=== PATIENT | male | born 1960 | race Two or more races ===

== ENCOUNTER → 2017-11-23 | Outpatient (CLI) | payer OTHER, MEDICAID ==
[~2017-11-23] VITALS: Ht 170.2 cm; Wt 99.8 kg
[~2017-11-23] MED LIST: ADENOSINE 84 MG in GIVE UN-DILUTED 0 ML IV ONE; ADENOSINE 90 MG/30 ML INJ IV ONE
== END | disposition home or self-care (01) ==
LOC: Rad HDHVI 08:06
PROVIDERS: ATTEND Internal Medicine
DX: I25.119 Atherosclerotic heart disease of native coronary artery with unspecified angina pectoris (principal); I10 Essential (primary) hypertension; E78.5 Hyperlipidemia, unspecified; E11.9 Type 2 diabetes mellitus without complications; I73.9 Peripheral vascular disease, unspecified; Z95.9 Presence of cardiac and vascular implant and graft, unspecified; Z98.61 Coronary angioplasty status
CPT/HCPCS: 78452; 93005; 93306; 93926; 96374; 96375; A9500; J0153

== ENCOUNTER → 2019-09-25 | Outpatient (CLI) | payer OTHER, MEDICAID ==
[~2019-09-25] VITALS: Ht 170.2 cm; Wt 104.3 kg
[~2019-09-25] MED LIST changes: -ADENOSINE 84 MG in GIVE UN-DILUTED 0 ML IV ONE; +ADENOSINE 88 MG in GIVE UN-DILUTED 0 ML IV ONE; +cloNIDine HCL 0.1 MG TAB ONE
== END | disposition home or self-care (01) ==
LOC: Rad HDHVI 12:41
PROVIDERS: ATTEND Internal Medicine
DX: I25.10 Atherosclerotic heart disease of native coronary artery without angina pectoris (principal); I10 Essential (primary) hypertension; I25.2 Old myocardial infarction; E78.00 Pure hypercholesterolemia, unspecified; E11.9 Type 2 diabetes mellitus without complications; R07.89 Other chest pain; R06.02 Shortness of breath; R42 Dizziness and giddiness; Z95.5 Presence of coronary angioplasty implant and graft; Z82.49 Family history of ischemic heart disease and other diseases of the circulatory system
CPT/HCPCS: 78452; 93005; 96374; 96375; A9500; J0153

== ENCOUNTER → 2019-10-03 | Outpatient (CLI) | payer OTHER, MEDICAID | END | disposition home or self-care (01) | LOC: Rad HDHVI 07:57 | PROVIDERS: ATTEND Internal Medicine | DX: I11.0 Hypertensive heart disease with heart failure (principal); I50.9 Heart failure, unspecified; I42.9 Cardiomyopathy, unspecified | CPT/HCPCS: 93306 ==

== ENCOUNTER → 2020-09-26 | Outpatient (CLI) | payer OTHER, MEDICAID | END | disposition home or self-care (01) | LOC: Rad HDHVI 08:54 | PROVIDERS: ATTEND Internal Medicine | DX: I08.0 Rheumatic disorders of both mitral and aortic valves (principal); I42.9 Cardiomyopathy, unspecified; I10 Essential (primary) hypertension | CPT/HCPCS: 93306 ==

== ENCOUNTER 2020-12-20 18:16 | Inpatient (IN) | payer OTHER, MEDICAID ==
[~2020-12-20] VITALS: Ht 170.2 cm; Wt 108.5 kg
[2020-12-20 18:58] LABS: Basophils # (auto) 0 10 ^3/uL (0-0.2); Basophils % (auto) 0.3 % (0.0-2.0); Eosinophils # (auto) 0.1 10 ^3/uL (0-0.8); Eosinophils % (auto) 1.4 % (0.0-7.0); Hematocrit 42.5 % (41.0-53.0); Hemoglobin 14.6 g/dL (13.5-17.5); Lymphocytes # (auto) 1.3 10 ^3/uL (0.4-5.4); Lymphocytes % (auto) 15.6 % (10.0-50.0); Mean Corpuscular Hemoglobin 31.1 pg (28.0-32.0); Mean Corpuscular Hgb Conc. 34.4 g/dL (32.0-36.0); Mean Corpuscular Volume 90.4 fL (80.0-100.0); Monocytes # (auto) 1.1 10 ^3/uL (0-1.3); Monocytes % (auto) 12.9 % (0.0-12.0); Neutrophils # (auto) 5.9 10 ^3/uL (1.6-8.6); Neutrophils % (auto) 69.8 % (37.0-80.0); Nucleated Red Blood Cells % 0.1 %; Red Cell Distribution Width 13.9 % (11.8-14.3); White Blood Cell 8.4 10^3/uL (4.4-10.8)
[2020-12-20 19:15] LABS: Albumin 2.8 g/dL (3.4-5.0); Potassium 4.7 mmol/L (3.5-5.1)
[2020-12-20 19:20] LABS: BUN/Creatinine Ratio 12.2; Bilirubin, Total 0.1 mg/dL (0.2-1.0); Total Protein 6.8 g/dL (6.4-8.2)
[2020-12-20] MEDS ORDERED: ASPirin 81 mg TAB PO ONE (20:00)
[2020-12-20] MEDS ORDERED: ONDANSETRON HCL 4 MG/2 ML VIAL IV ONE (20:00)
[2020-12-20] MEDS ORDERED: MORPHINE SULFATE 4 MG/ML SYR/VIAL IV ONE (20:00)
[2020-12-20] MEDS ORDERED: ONDANSETRON HCL 4 MG/2 ML VIAL ONE (20:25)
[2020-12-20] MEDS ORDERED: MORPHINE SULFATE INJECTION 2 MG/ML SYRG IV PRN ×2 (22:30)
[2020-12-20] MEDS ORDERED: ONDANSETRON HCL 4 MG/2 ML VIAL IV PRN (22:30)
[2020-12-20] MEDS ORDERED: NITROGLYCERIN 0.4 MG SL TAB SL PRN (22:30)
[2020-12-20] MEDS ORDERED: ACETAMINOPHEN 325 MG TAB PO PRN (22:30)
[2020-12-20] MEDS ORDERED: DOCUSATE SOD 100 MG CAP PO PRN (22:30)
[2020-12-20] MEDS ORDERED: DEXTROSE (50%) 50ML SYRG IV PRN (22:30)
[2020-12-20] MEDS: hydrALAZINE HCL 20 MG/ML VL IV PRN (22:39)
[2020-12-21] VITALS (7 sets, daily range): BP systolic 135–167; BP diastolic 65–77
[2020-12-21] MEDS ORDERED: BACL10TA PO (02:04)
[2020-12-21] MEDS ORDERED: ESOM40CA39 PO (02:04)
[2020-12-21] MEDS ORDERED: BUME2TAB5 PO (02:04)
[2020-12-21] MEDS ORDERED: ALLO100T PO (02:04)
[2020-12-21] MEDS ORDERED: SACU1TAB7 PO (02:04)
[2020-12-21] MEDS ORDERED: HYDR-4069 PO (02:04)
[2020-12-21] MEDS ORDERED: TERA5CAP42 PO (02:04)
[2020-12-21] MEDS ORDERED: IBUP800T27 PO (02:04)
[2020-12-21] MEDS ORDERED: INSU70IN3 SC (02:04)
[2020-12-21] MEDS: SODIUM CHLOR 0.9% PF (SALINE LOCK) 10ML VIAL/SYR IV SCH ×3 (05:55→22:02)
[2020-12-21 06:37] LABS: Basophils # (auto) 0 10 ^3/uL (0-0.2); Basophils % (auto) 0.4 % (0.0-2.0); Eosinophils # (auto) 0.2 10 ^3/uL (0-0.8); Eosinophils % (auto) 2.4 % (0.0-7.0); Hematocrit 41.3 % (41.0-53.0); Hemoglobin 14.1 g/dL (13.5-17.5); Lymphocytes # (auto) 1.8 10 ^3/uL (0.4-5.4); Lymphocytes % (auto) 21.6 % (10.0-50.0); Mean Corpuscular Hemoglobin 30.9 pg (28.0-32.0); Mean Corpuscular Volume 90.8 fL (80.0-100.0); Monocytes % (auto) 12.8 % (0.0-12.0); Neutrophils # (auto) 5.1 10 ^3/uL (1.6-8.6); Neutrophils % (auto) 62.8 % (37.0-80.0); Red Blood Cells 4.55 10^6/uL (4.5-5.90); Red Cell Distribution Width 14.1 % (11.8-14.3); White Blood Cell 8.1 10^3/uL (4.4-10.8)
[2020-12-21] MEDS: ACCU-CHEK COMFORT CURVE STRIP VI SCH ×4 (06:39→22:02)
[2020-12-21] MEDS: InsuLIN REG 1unit/0.01ml Soln (100units/ml) SC SCH ×4 (06:39→22:16)
[2020-12-21 07:03] LABS: Albumin 2.7 g/dL (3.4-5.0); Potassium 4.7 mmol/L (3.5-5.1)
[2020-12-21 07:07] LABS: BUN/Creatinine Ratio 12.6; Bilirubin, Total 0.2 mg/dL (0.2-1.0); Total Protein 6.5 g/dL (6.4-8.2)
[2020-12-21] MEDS: FAMOTIDINE (10MG/ML) 2ML VL IV SCH ×2 (09:58→22:02)
[2020-12-21] MEDS ORDERED: ASPirin 81 mg TAB PO SCH (10:00)
[2020-12-21] MEDS: hydrALAZINE HCL 20 MG/ML VL IV PRN (12:03)
[2020-12-21] MEDS ORDERED: METOPROLOL TARTRATE 25 MG TAB PO ONE (13:00)
[2020-12-21] MEDS ORDERED: DEXTROSE (50%) 50ML SYRG IV PRN (13:00)
[2020-12-21] MEDS: SOD CHL 0.45% 1,000 ML IV SCH ×2 (14:00→22:01)
[2020-12-21] MEDS ORDERED: InsuLIN REG 1unit/0.01ml Soln (100units/ml) SC SCH (22:00)
[2020-12-21] MEDS: ATORVASTATIN 20 MG TAB PO SCH (22:01)
[2020-12-21] MEDS: METOPROLOL TARTRATE 25 MG TAB PO SCH (22:02)
[2020-12-21 22:30] LABS: Urine Bacteria FEW /hpf (None Seen); Urine Blood TRACE /uL (Negative); Urine Hyaline Cast FEW /lpf (0 - 2); Urine Specific Gravity 1.019 (1.001-1.035); Urine WBC 12 /hpf (0 - 3)
[2020-12-21 22:57] LABS: Protein, Urine 450.7 mg/dL (0.0-11.9)
[2020-12-22 05:00] VITALS: BP 132/76
[2020-12-22] MEDS: SOD CHL 0.45% 1,000 ML IV SCH ×2 (05:37→19:45)
[2020-12-22] MEDS: SODIUM CHLOR 0.9% PF (SALINE LOCK) 10ML VIAL/SYR IV SCH ×3 (05:37→22:04)
[2020-12-22 05:43] LABS: Basophils # (auto) 0 10 ^3/uL (0-0.2); Basophils % (auto) 0.5 % (0.0-2.0); Eosinophils # (auto) 0.2 10 ^3/uL (0-0.8); Hematocrit 41.9 % (41.0-53.0); Hemoglobin 13.7 g/dL (13.5-17.5); Lymphocytes # (auto) 1.8 10 ^3/uL (0.4-5.4); Lymphocytes % (auto) 20.1 % (10.0-50.0); Mean Corpuscular Hemoglobin 29.9 pg (28.0-32.0); Mean Corpuscular Hgb Conc. 32.8 g/dL (32.0-36.0); Mean Corpuscular Volume 91.2 fL (80.0-100.0); Monocytes # (auto) 0.9 10 ^3/uL (0-1.3); Monocytes % (auto) 10.7 % (0.0-12.0); Neutrophils # (auto) 5.8 10 ^3/uL (1.6-8.6); Neutrophils % (auto) 66.7 % (37.0-80.0); Nucleated Red Blood Cells % 0.1 %; Red Blood Cells 4.59 10^6/uL (4.5-5.90); Red Cell Distribution Width 14.5 % (11.8-14.3); White Blood Cell 8.8 10^3/uL (4.4-10.8)
[2020-12-22] MEDS: ACCU-CHEK COMFORT CURVE STRIP VI SCH ×4 (06:02→22:05)
[2020-12-22 06:10] LABS: Calcium 7.9 mg/dL (8.5-10.1); Magnesium 2.1 mg/dL (1.6-2.6); Phosphorus 3.8 mg/dL (2.5-4.90)
[2020-12-22] MEDS: InsuLIN REG 1unit/0.01ml Soln (100units/ml) SC SCH ×4 (06:22→22:11)
[2020-12-22 08:26] VITALS: BP 137/68
[2020-12-22] MEDS: FAMOTIDINE (10MG/ML) 2ML VL IV SCH ×2 (09:58→22:01)
[2020-12-22] MEDS: METOPROLOL TARTRATE 25 MG TAB PO SCH ×2 (09:59→22:02)
[2020-12-22] MEDS: ASPirin 81 mg TAB PO SCH (09:59)
[2020-12-22 12:48] VITALS: BP 146/85
[2020-12-22 16:19] LABS: Urine Bacteria MOD /hpf (None Seen); Urine Blood 1+ /uL (Negative); Urine Mucus FEW (None Seen); Urine Specific Gravity 1.009 (1.001-1.035); Urine WBC 1 /hpf (0 - 3)
[2020-12-22 16:53] VITALS: BP 160/72
[2020-12-22] MEDS: hydrALAZINE HCL 20 MG/ML VL IV PRN (17:50)
[2020-12-22 22:00] VITALS: BP 147/73
[2020-12-22] MEDS: ATORVASTATIN 20 MG TAB PO SCH (22:02)
[2020-12-23 05:00] VITALS: BP 154/75
[2020-12-23] MEDS: SODIUM CHLOR 0.9% PF (SALINE LOCK) 10ML VIAL/SYR IV SCH ×2 (06:01→13:49)
[2020-12-23] MEDS: ACCU-CHEK COMFORT CURVE STRIP VI SCH ×4 (06:01→22:00)
[2020-12-23] MEDS: SOD CHL 0.45% 1,000 ML IV SCH ×2 (06:02→15:45)
[2020-12-23] MEDS: InsuLIN REG 1unit/0.01ml Soln (100units/ml) SC SCH ×4 (06:12→20:30)
[2020-12-23 08:16] LABS: Basophils # (auto) 0 10 ^3/uL (0-0.2); Basophils % (auto) 0.4 % (0.0-2.0); Eosinophils # (auto) 0.1 10 ^3/uL (0-0.8); Eosinophils % (auto) 1.3 % (0.0-7.0); Hematocrit 42.5 % (41.0-53.0); Hemoglobin 14.4 g/dL (13.5-17.5); Lymphocytes # (auto) 1.6 10 ^3/uL (0.4-5.4); Lymphocytes % (auto) 18.5 % (10.0-50.0); Mean Corpuscular Hemoglobin 30.5 pg (28.0-32.0); Mean Corpuscular Hgb Conc. 33.9 g/dL (32.0-36.0); Mean Corpuscular Volume 89.9 fL (80.0-100.0); Monocytes # (auto) 0.8 10 ^3/uL (0-1.3); Monocytes % (auto) 9.3 % (0.0-12.0); Neutrophils # (auto) 6.2 10 ^3/uL (1.6-8.6); Neutrophils % (auto) 70.5 % (37.0-80.0); Red Blood Cells 4.73 10^6/uL (4.5-5.90); Red Cell Distribution Width 13.6 % (11.8-14.3); White Blood Cell 8.8 10^3/uL (4.4-10.8)
[2020-12-23 08:29] LABS: INR 1.1 (0.9-1.15)
[2020-12-23 08:32] LABS: BUN/Creatinine Ratio 14.2; Calcium 8.1 mg/dL (8.5-10.1); Phosphorus 3.1 mg/dL (2.5-4.90); Potassium 5.3 mmol/L (3.5-5.1)
[2020-12-23 09:00] VITALS: BP 165/70
[2020-12-23] MEDS: METOPROLOL TARTRATE 25 MG TAB PO SCH ×2 (09:38→21:07)
[2020-12-23] MEDS: ASPirin 81 mg TAB PO SCH (09:38)
[2020-12-23] MEDS: FAMOTIDINE (10MG/ML) 2ML VL IV SCH ×2 (09:38→21:06)
[2020-12-23] MEDS ORDERED: ENOXAPARIN SOD 100 MG/1 ML SYRINGE SC ONE (10:45)
[2020-12-23] MEDS: hydrALAZINE HCL 20 MG/ML VL IV PRN (11:00)
[2020-12-23] MEDS ORDERED: ENOXAPARIN SOD 120 MG/0.8 ML SYRINGE SC ONE (11:15)
[2020-12-23] MEDS ORDERED: SODIUM ZIRCONIUM CYCL 10 GM PAK PO ONE (12:30)
[2020-12-23] MEDS ORDERED: ERGOCALCIFEROL 50,000 UNIT(1.25MG) CAP PO SCH (12:30)
[2020-12-23 13:00] VITALS: BP 150/63
[2020-12-23] MEDS: HYDROcodone-ACET 5/325MG TAB PO PRN (16:09)
[2020-12-23 17:00] VITALS: BP 148/72
[2020-12-23 20:00] VITALS: BP 156/82
[2020-12-23] MEDS: hydrALAZINE HCL 25 MG TAB PO SCH (21:08)
[2020-12-23] MEDS: ATORVASTATIN 20 MG TAB PO SCH (21:08)
[2020-12-23 22:00] VITALS: BP 168/77
[2020-12-24] VITALS (8 sets, daily range): BP systolic 140–164; BP diastolic 60–89
[2020-12-24] MEDS: SOD CHL 0.45% 1,000 ML IV SCH ×3 (01:45→21:45)
[2020-12-24 05:14] LABS: Basophils # (auto) 0 10 ^3/uL (0-0.2); Basophils % (auto) 0.5 % (0.0-2.0); Eosinophils # (auto) 0.1 10 ^3/uL (0-0.8); Eosinophils % (auto) 1.6 % (0.0-7.0); Hemoglobin 14.6 g/dL (13.5-17.5); Lymphocytes # (auto) 1.8 10 ^3/uL (0.4-5.4); Lymphocytes % (auto) 22.1 % (10.0-50.0); Mean Corpuscular Hemoglobin 30.8 pg (28.0-32.0); Mean Corpuscular Hgb Conc. 33.9 g/dL (32.0-36.0); Mean Corpuscular Volume 90.7 fL (80.0-100.0); Monocytes # (auto) 0.9 10 ^3/uL (0-1.3); Monocytes % (auto) 10.7 % (0.0-12.0); Neutrophils # (auto) 5.2 10 ^3/uL (1.6-8.6); Neutrophils % (auto) 65.1 % (37.0-80.0); Nucleated Red Blood Cells % 0.1 %; Red Blood Cells 4.74 10^6/uL (4.5-5.90); Red Cell Distribution Width 13.8 % (11.8-14.3)
[2020-12-24 05:24] LABS: INR 1.05 (0.9-1.15); Partial Thromboplastin Time 31.8 sec (23.0-31.2)
[2020-12-24 05:29] LABS: BUN/Creatinine Ratio 13.6; Calcium 8.2 mg/dL (8.5-10.1); Magnesium 2.1 mg/dL (1.6-2.6); Potassium 5.2 mmol/L (3.5-5.1)
[2020-12-24] MEDS: hydrALAZINE HCL 25 MG TAB PO SCH ×4 (06:00→22:23)
[2020-12-24] MEDS: SODIUM CHLOR 0.9% PF (SALINE LOCK) 10ML VIAL/SYR IV SCH ×4 (06:05→21:41)
[2020-12-24] MEDS: InsuLIN REG 1unit/0.01ml Soln (100units/ml) SC SCH ×4 (06:06→21:38)
[2020-12-24] MEDS: ACCU-CHEK COMFORT CURVE STRIP VI SCH ×4 (06:07→21:36)
[2020-12-24] MEDS ORDERED: ACETYLCYSTEINE ORAL for CIN 20%(200MG/ML) 4ML PO ONE (08:00)
[2020-12-24] MEDS: METOPROLOL TARTRATE 25 MG TAB PO SCH ×2 (09:46→22:24)
[2020-12-24] MEDS: ASPirin 81 mg TAB PO SCH (09:46)
[2020-12-24] MEDS: CHOLECALCIFEROL (VITD3) 2,000 UNIT CAP/TAB PO SCH (09:46)
[2020-12-24] MEDS: FAMOTIDINE (10MG/ML) 2ML VL IV SCH ×2 (09:47→22:23)
[2020-12-24] MEDS ORDERED: ENOXAPARIN SOD 120 MG/0.8 ML SYRINGE SC SCH (10:00)
[2020-12-24] MEDS ORDERED: LIDOCAINE 2%HCL (LOCAL ANESTH.) INJ 20ML MDV ONE (11:57)
[2020-12-24] MEDS ORDERED: VERAPAMIL 2.5MG/ML INJ 2ML VIAL IV ONE (12:07)
[2020-12-24] MEDS ORDERED: HEPARIN SODIUM (PORCINE) 5000 UNITS/ML 1ML VIAL ONE (12:07)
[2020-12-24] MEDS ORDERED: ANGIOMAX 250 MG VIAL IV ONE (12:07)
[2020-12-24] MEDS ORDERED: MIDAZOLAM HCL 2MG/2ML 2ml VIAL (1mg/ml) ONE ×2 (12:08→13:40)
[2020-12-24] MEDS ORDERED: fentaNYL CITRATE 100 MCG/2 ML VL ONE (12:08)
[2020-12-24] MEDS ORDERED: SODIUM CHL 0.9% 50 ML ONE (12:08)
[2020-12-24] MEDS ORDERED: hydrALAZINE HCL 20 MG/ML VL ONE (12:58)
[2020-12-24] MEDS ORDERED: ADENOSINE 90 MG/30 ML INJ IV ONE (13:23)
[2020-12-24] MEDS ORDERED: NITROGLYCERIN 0.4MG/DOSE SPRAY 4.9GM ONE (13:39)
[2020-12-24] MEDS: SODIUM ZIRCONIUM CYCL 10 GM PAK PO SCH (17:06)
[2020-12-24] MEDS: HYDROcodone-ACET 5/325MG TAB PO PRN (20:34)
[2020-12-24] MEDS: ATORVASTATIN 20 MG TAB PO SCH (22:23)
[2020-12-24] MEDS: ACETYLCYSTEINE ORAL for CIN 20%(200MG/ML) 4ML PO SCH (22:40)
[2020-12-25 05:00] VITALS: BP 156/73
[2020-12-25] MEDS: ACCU-CHEK COMFORT CURVE STRIP VI SCH ×4 (06:12→21:24)
[2020-12-25] MEDS: SODIUM CHLOR 0.9% PF (SALINE LOCK) 10ML VIAL/SYR IV SCH ×3 (06:12→21:38)
[2020-12-25] MEDS: InsuLIN REG 1unit/0.01ml Soln (100units/ml) SC SCH ×3 (06:13→17:51)
[2020-12-25] MEDS: hydrALAZINE HCL 25 MG TAB PO SCH ×3 (06:16→23:26)
[2020-12-25] MEDS: SOD CHL 0.45% 1,000 ML IV SCH (07:41)
[2020-12-25 09:00] VITALS: BP 151/62
[2020-12-25] MEDS: SODIUM ZIRCONIUM CYCL 10 GM PAK PO SCH ×2 (10:00→13:58)
[2020-12-25] MEDS: FAMOTIDINE (10MG/ML) 2ML VL IV SCH ×2 (10:11→23:26)
[2020-12-25] MEDS: ASPirin 81 mg TAB PO SCH (10:11)
[2020-12-25] MEDS: METOPROLOL TARTRATE 25 MG TAB PO SCH ×2 (10:12→23:27)
[2020-12-25] MEDS: ACETYLCYSTEINE ORAL for CIN 20%(200MG/ML) 4ML PO SCH ×2 (10:12→23:27)
[2020-12-25] MEDS: CHOLECALCIFEROL (VITD3) 2,000 UNIT CAP/TAB PO SCH (10:12)
[2020-12-25 13:00] VITALS: BP 142/62
[2020-12-25 13:37] LABS: BUN/Creatinine Ratio 13.1; Potassium 5.5 mmol/L (3.5-5.1)
[2020-12-25] MEDS: SODIUM CHLORIDE 0.9% 1,000 ML IV SCH (14:39)
[2020-12-25] MEDS ORDERED: FUROSEMIDE 40 MG/4 ML VIAL IV ONE (16:00)
[2020-12-25 16:49] VITALS: BP 148/70
[2020-12-25 21:55] VITALS: BP 180/79
[2020-12-25] MEDS ORDERED: InsuLIN REG 1unit/0.01ml Soln (100units/ml) SC SCH (22:00)
[2020-12-25] MEDS ORDERED: INSULIN LANTUS (GLARGINE) 1 /0.01ml (100units/ml) SC SCH (22:00)
[2020-12-25] MEDS ORDERED: SODIUM ZIRCONIUM CYCL 10 GM PAK PO ONE (22:00)
[2020-12-25] MEDS: ATORVASTATIN 20 MG TAB PO SCH (23:26)
[2020-12-26] MEDS: hydrALAZINE HCL 20 MG/ML VL IV PRN (00:50)
[2020-12-26 04:53] VITALS: BP 148/64
[2020-12-26] MEDS: SODIUM CHLOR 0.9% PF (SALINE LOCK) 10ML VIAL/SYR IV SCH ×2 (05:36→14:00)
[2020-12-26] MEDS: hydrALAZINE HCL 25 MG TAB PO SCH (05:37)
[2020-12-26] MEDS: ACCU-CHEK COMFORT CURVE STRIP VI SCH ×2 (06:16→11:45)
[2020-12-26 06:33] LABS: Basophils # (auto) 0.1 10 ^3/uL (0-0.2); Basophils % (auto) 0.7 % (0.0-2.0); Eosinophils # (auto) 0.1 10 ^3/uL (0-0.8); Eosinophils % (auto) 1.3 % (0.0-7.0); Hematocrit 41.3 % (41.0-53.0); Hemoglobin 13.9 g/dL (13.5-17.5); Lymphocytes # (auto) 1.8 10 ^3/uL (0.4-5.4); Lymphocytes % (auto) 16.9 % (10.0-50.0); Mean Corpuscular Hemoglobin 30.6 pg (28.0-32.0); Mean Corpuscular Hgb Conc. 33.8 g/dL (32.0-36.0); Mean Corpuscular Volume 90.6 fL (80.0-100.0); Monocytes % (auto) 9.3 % (0.0-12.0); Neutrophils # (auto) 7.5 10 ^3/uL (1.6-8.6); Neutrophils % (auto) 71.8 % (37.0-80.0); Nucleated Red Blood Cells % 0.1 %; Red Blood Cells 4.55 10^6/uL (4.5-5.90); Red Cell Distribution Width 13.9 % (11.8-14.3); White Blood Cell 10.4 10^3/uL (4.4-10.8)
[2020-12-26] MEDS: InsuLIN REG 1unit/0.01ml Soln (100units/ml) SC SCH ×2 (06:38→11:30)
[2020-12-26 06:51] LABS: BUN/Creatinine Ratio 13.7; Magnesium 2.2 mg/dL (1.6-2.6); Potassium 4.8 mmol/L (3.5-5.1)
[2020-12-26 09:00] VITALS: BP 157/54
[2020-12-26] MEDS: METOPROLOL TARTRATE 25 MG TAB PO SCH (10:00)
[2020-12-26] MEDS: FAMOTIDINE (10MG/ML) 2ML VL IV SCH (10:00)
[2020-12-26] MEDS: ASPirin 81 mg TAB PO SCH (10:00)
[2020-12-26] MEDS: CHOLECALCIFEROL (VITD3) 2,000 UNIT CAP/TAB PO SCH (10:00)
[2020-12-26] MEDS: SODIUM CHLORIDE 0.9% 1,000 ML IV SCH ×2 (10:00)
[2020-12-26] MEDS ORDERED: MET25T PO (11:43)
[2020-12-26] MEDS ORDERED: ASPI-378 PO (11:43)
[2020-12-26] MEDS ORDERED: CHOL20007 PO (11:43)
[2020-12-26] MEDS ORDERED: HYDR25TA87 PO (11:43)
[2020-12-26] MEDS ORDERED: ATOR20TA50 PO (11:43)
[2020-12-26] MEDS: SODIUM ZIRCONIUM CYCL 10 GM PAK PO SCH (12:06)
[2020-12-26 12:35] VITALS: BP 159/71
[2020-12-26 13:00] VITALS: BP 159/71
== END 2020-12-26 14:05 | disposition home or self-care (01) | DRG 250 ==
LOC: ER 18:16 → TELE-CENTR 22:22
PROVIDERS: ADMIT Nurse Practitioner Family; ATTEND Family Medicine
PROC: 02703ZZ Dilation of Coronary Artery, One Artery, Percutaneous Approach (ICD-10-PCS; principal; 2020-12-24)
PROC: 4A023N7 Measurement of Cardiac Sampling and Pressure, Left Heart, Percutaneous Approach (ICD-10-PCS; 2020-12-24)
PROC: B211YZZ Fluoroscopy of Multiple Coronary Arteries using Other Contrast (ICD-10-PCS; 2020-12-24)
PROC: 4A033BC Measurement of Arterial Pressure, Coronary, Percutaneous Approach (ICD-10-PCS; 2020-12-24)
DX: I21.4 Non-ST elevation (NSTEMI) myocardial infarction (principal); N17.0 Acute kidney failure with tubular necrosis; I50.43 Acute on chronic combined systolic (congestive) and diastolic (congestive) heart failure; N18.4 Chronic kidney disease, stage 4 (severe); I13.0 Hypertensive heart and chronic kidney disease with heart failure and stage 1 through stage 4 chronic kidney disease, or unspecified chronic kidney disease; Z20.822 Contact with and (suspected) exposure to COVID-19; I25.10 Atherosclerotic heart disease of native coronary artery without angina pectoris; E87.5 Hyperkalemia; E11.65 Type 2 diabetes mellitus with hyperglycemia; E66.01 Morbid (severe) obesity due to excess calories; M10.9 Gout, unspecified; N40.0 Benign prostatic hyperplasia without lower urinary tract symptoms; E55.9 Vitamin D deficiency, unspecified; I70.0 Atherosclerosis of aorta; E78.5 Hyperlipidemia, unspecified; F17.210 Nicotine dependence, cigarettes, uncomplicated; E11.22 Type 2 diabetes mellitus with diabetic chronic kidney disease; I25.2 Old myocardial infarction; Z80.0 Family history of malignant neoplasm of digestive organs; Z83.3 Family history of diabetes mellitus; Z95.5 Presence of coronary angioplasty implant and graft; Z79.4 Long term (current) use of insulin; Z68.37 Body mass index [BMI] 37.0-37.9, adult; Z79.899 Other long term (current) drug therapy
CPT/HCPCS: 36415; 71046; 76775; 80048; 80053; 80061; 81001; 82306; 82570; 82962; 83036; 83735; 84100; 84156; 84300; 84484; 85025; 85610; 85730; 86850; 86900; 86901; 87426; 92920; 93005; 93458; 93571; 96374; 96375; 99152; 99153; 99291; C1887; G0378; J0153; J1815; J2250; J2405; J3490

== ENCOUNTER 2021-06-19 15:59 | Emergency (ER) | payer MEDICARE, MEDICAID ==
[~2021-06-19] VITALS: Ht 170.2 cm; Wt 108.9 kg
[~2021-06-19 15:59] MED LIST changes: -ADENOSINE 88 MG in GIVE UN-DILUTED 0 ML IV ONE; -ADENOSINE 90 MG/30 ML INJ IV ONE; +ALLO100T PO; +ASPI-378 PO; +ATOR20TA50 PO; +BACL10TA PO; +BUME2TAB5 PO; +ESOM40CA39 PO; +HYDR-4069 PO; +HYDR25TA87 PO; +INSU70IN3 SC; +MET25T PO; +TERA5CAP42 PO; -cloNIDine HCL 0.1 MG TAB ONE
[2021-06-19 16:32] LABS: Urine Bacteria NONE SEEN /hpf (None Seen); Urine Blood 2+ /uL (Negative); Urine Specific Gravity 1.013 (1.001-1.035); Urine WBC 2 /hpf (0 - 3)
[2021-06-19 16:55] LABS: Basophils # (auto) 0.1 10 ^3/uL (0-0.2); Basophils % (auto) 0.6 % (0.0-2.0); Eosinophils # (auto) 0.2 10 ^3/uL (0-0.8); Eosinophils % (auto) 1.9 % (0.0-7.0); Hematocrit 40.7 % (41.0-53.0); Hemoglobin 13.1 g/dL (13.5-17.5); Lymphocytes # (auto) 1.3 10 ^3/uL (0.4-5.4); Lymphocytes % (auto) 11.3 % (10.0-50.0); Mean Corpuscular Hemoglobin 29.5 pg (28.0-32.0); Mean Corpuscular Hgb Conc. 32.2 g/dL (32.0-36.0); Mean Corpuscular Volume 91.5 fL (80.0-100.0); Monocytes # (auto) 1.1 10 ^3/uL (0-1.3); Monocytes % (auto) 9.7 % (0.0-12.0); Neutrophils # (auto) 8.8 10 ^3/uL (1.6-8.6); Neutrophils % (auto) 76.5 % (37.0-80.0); Red Blood Cells 4.45 10^6/uL (4.5-5.90); Red Cell Distribution Width 13.9 % (11.8-14.3); White Blood Cell 11.5 10^3/uL (4.4-10.8)
[2021-06-19 18:31] LABS: Calcium 8.1 mg/dL (8.5-10.1); Potassium 5.3 mmol/L (3.5-5.1)
[2021-06-19 18:34] LABS: BUN/Creatinine Ratio 19.5; Bilirubin, Total 0.3 mg/dL (0.2-1.0); Total Protein 6.8 g/dL (6.4-8.2)
[2021-06-19 20:45] VITALS: BP 192/79
[2021-06-19] MEDS ORDERED: OXYCODONE W/ ACETAMINOPHEN 5/325MG TABLET PO ONE (20:45)
[2021-06-19] MEDS ORDERED: PERCOT PO (20:54)
[2021-06-19] MEDS ORDERED: CIPR-173 PO (20:54)
[2021-06-19] MEDS ORDERED: TAM04C PO (20:54)
[2021-06-19] MEDS ORDERED: KETOROLAC TROMETH 30 MG/ML 1ML VIAL IM ONE (21:00)
== END 2021-06-19 21:30 | disposition home or self-care (01) ==
LOC: ER 15:59
DX: N20.9 Urinary calculus, unspecified (principal); E11.22 Type 2 diabetes mellitus with diabetic chronic kidney disease; I13.0 Hypertensive heart and chronic kidney disease with heart failure and stage 1 through stage 4 chronic kidney disease, or unspecified chronic kidney disease; N18.9 Chronic kidney disease, unspecified; I50.89 Other heart failure; Z20.822 Contact with and (suspected) exposure to COVID-19
CPT/HCPCS: 36415; 74176; 80053; 81001; 83690; 85025; 87426; 96372; 99284; J1885

== ENCOUNTER → 2022-03-04 | Outpatient (CLI) | payer MEDICARE, MEDICAID ==
[~2022-03-04] MED LIST changes: +AMLO-496 PO; +CAR125T PO; +CIPR-173 PO; +CLO3P TD; +DILT60TA PO; +ISO60SRT PO; +LABE200T7 PO; +PERCOT PO; +SODI650T PO; +TAM04C PO
== END | disposition home or self-care (01) ==
LOC: Rad HDHVI 10:42
PROVIDERS: ATTEND Internal Medicine
DX: I65.23 Occlusion and stenosis of bilateral carotid arteries (principal); I73.9 Peripheral vascular disease, unspecified; I10 Essential (primary) hypertension
CPT/HCPCS: 93880

== ENCOUNTER 2022-03-19 16:39 | Inpatient (IN) | payer MEDICARE, MEDICAID ==
[~2022-03-19] VITALS: Ht 170.2 cm; Wt 106.0 kg
[~2022-03-19 16:39] MED LIST changes: -AMLO-496 PO; -CAR125T PO; -CLO3P TD; -DILT60TA PO; -ISO60SRT PO; -LABE200T7 PO; -SODI650T PO
[2022-03-19] MEDS ORDERED: MECLIZINE HCL 25 MG TAB PO ONE (19:15)
[2022-03-19 19:34] LABS: Basophils # (auto) 0 10 ^3/uL (0-0.2); Basophils % (auto) 0.6 % (0.0-2.0); Eosinophils # (auto) 0.2 10 ^3/uL (0-0.8); Eosinophils % (auto) 2.3 % (0.0-7.0); Hematocrit 36.1 % (41.0-53.0); Hemoglobin 11.3 g/dL (13.5-17.5); Lymphocytes # (auto) 1.2 10 ^3/uL (0.4-5.4); Mean Corpuscular Hemoglobin 28.8 pg (28.0-32.0); Mean Corpuscular Hgb Conc. 31.3 g/dL (32.0-36.0); Monocytes # (auto) 0.9 10 ^3/uL (0-1.3); Monocytes % (auto) 10.2 % (0.0-12.0); Neutrophils # (auto) 6.3 10 ^3/uL (1.6-8.6); Neutrophils % (auto) 72.9 % (37.0-80.0); Red Blood Cells 3.92 10^6/uL (4.5-5.90); Red Cell Distribution Width 14.9 % (11.8-14.3); White Blood Cell 8.6 10^3/uL (4.4-10.8)
[2022-03-19 19:54] LABS: Albumin 3.1 g/dL (3.4-5.0); Calcium 8.2 mg/dL (8.5-10.1); Magnesium 2.2 mg/dL (1.6-2.6)
[2022-03-19 19:58] LABS: BUN/Creatinine Ratio 14.5; Bilirubin, Total 0.4 mg/dL (0.2-1.0); Total Protein 6.9 g/dL (6.4-8.2)
[2022-03-19 20:23] LABS: Potassium 6.2 mmol/L (3.5-5.1)
[2022-03-19] MEDS ORDERED: CALCIUM GLUC 1,000mg/50ml-NS 50 ML IV ONE (21:00)
[2022-03-19] MEDS ORDERED: SODIUM BICARBONATE 8.4 % INJ 50ML VIAL IV ONE (21:00)
[2022-03-19] MEDS ORDERED: InsuLIN REG 1unit/0.01ml Soln (100units/ml) IV ONE (21:00)
[2022-03-19] MEDS ORDERED: SODIUM BICARBONATE 8.4% INJ 50ML SYRINGE ONE (22:21)
[2022-03-19] MEDS ORDERED: SODIUM ZIRCONIUM CYCL 10 GM PAK PO ONE (23:15)
[2022-03-20] MEDS ORDERED: DEXTROSE (50%) 50ML SYRG IV PRN (01:00)
[2022-03-20] MEDS ORDERED: DOCUSATE SOD 100 MG CAP PO PRN (01:00)
[2022-03-20] MEDS ORDERED: MORPHINE SULFATE INJ 2 MG/ml SYRG IV PRN ×2 (01:00)
[2022-03-20] MEDS ORDERED: HYDROcodone-ACET 5/325MG TAB PO PRN (01:00)
[2022-03-20] MEDS ORDERED: ONDANSETRON HCL 4 MG/2 ML VIAL IV PRN (01:00)
[2022-03-20] MEDS ORDERED: NITROGLYCERIN 0.4 MG SL TAB SL PRN (01:00)
[2022-03-20] MEDS ORDERED: amLODIPine BESYLATE 5 MG TAB PO ONE (01:00)
[2022-03-20] MEDS ORDERED: ACETAMINOPHEN 325 MG TAB PO PRN (01:00)
[2022-03-20] MEDS ORDERED: FUROSEMIDE 20 MG/2 ML VIAL IV ONE (01:15)
[2022-03-20] MEDS: hydrALAZINE HCL 20 MG/ML VL IV PRN ×2 (01:22→20:29)
[2022-03-20 02:54] LABS: Urine Bacteria FEW /hpf (None Seen); Urine Blood 1+ /uL (Negative); Urine Specific Gravity 1.012 (1.001-1.035); Urine WBC 13 /hpf (0 - 3)
[2022-03-20 05:00] VITALS: BP 166/74
[2022-03-20] MEDS ORDERED: LABE200T7 PO (05:30)
[2022-03-20] MEDS ORDERED: DILT60TA PO (05:30)
[2022-03-20] MEDS ORDERED: SODI650T PO (05:30)
[2022-03-20] MEDS: SODIUM CHLOR 0.9% PF (SALINE LOCK) 10ML VIAL/SYR IV SCH ×3 (05:50→21:50)
[2022-03-20] MEDS: ACCU-CHEK COMFORT CURVE STRIP VI SCH ×5 (05:55→21:57)
[2022-03-20] MEDS: InsuLIN REG 1unit/0.01ml Soln (100units/ml) SC SCH ×5 (05:59→22:07)
[2022-03-20] MEDS: FUROSEMIDE 20 MG/2 ML VIAL IV SCH (08:21)
[2022-03-20] MEDS: ASPirin 81 mg TAB PO SCH (08:21)
[2022-03-20] MEDS: FAMOTIDINE (10MG/ML) 2ML VL IV SCH ×2 (08:21→21:41)
[2022-03-20] MEDS: amLODIPine BESYLATE 5 MG TAB PO SCH (08:22)
[2022-03-20] MEDS: HEPARIN SODIUM (PORCINE) 5000 UNITS/ML 1ML VIAL SC SCH ×2 (08:31→21:49)
[2022-03-20 09:00] VITALS: BP 167/66
[2022-03-20] MEDS ORDERED: CARVEDILOL 3.125 MG TAB PO SCH (10:00)
[2022-03-20 10:27] LABS: Basophils # (auto) 0.1 10 ^3/uL (0-0.2); Basophils % (auto) 0.7 % (0.0-2.0); Eosinophils # (auto) 0.2 10 ^3/uL (0-0.8); Eosinophils % (auto) 2.4 % (0.0-7.0); Hematocrit 34.3 % (41.0-53.0); Hemoglobin 10.9 g/dL (13.5-17.5); Lymphocytes # (auto) 0.7 10 ^3/uL (0.4-5.4); Lymphocytes % (auto) 8.8 % (10.0-50.0); Mean Corpuscular Hemoglobin 28.7 pg (28.0-32.0); Mean Corpuscular Hgb Conc. 31.6 g/dL (32.0-36.0); Mean Corpuscular Volume 90.8 fL (80.0-100.0); Monocytes # (auto) 0.7 10 ^3/uL (0-1.3); Neutrophils # (auto) 6.5 10 ^3/uL (1.6-8.6); Neutrophils % (auto) 80.1 % (37.0-80.0); Red Blood Cells 3.78 10^6/uL (4.5-5.90); Red Cell Distribution Width 14.7 % (11.8-14.3); White Blood Cell 8.2 10^3/uL (4.4-10.8)
[2022-03-20 10:32] LABS: Albumin 2.8 g/dL (3.4-5.0); Calcium 8.2 mg/dL (8.5-10.1)
[2022-03-20 10:39] LABS: BUN/Creatinine Ratio 15.6; Bilirubin, Total 0.5 mg/dL (0.2-1.0); Total Protein 6.9 g/dL (6.4-8.2)
[2022-03-20 10:43] LABS: Potassium 5.6 mmol/L (3.5-5.1)
[2022-03-20] MEDS ORDERED: ISOSORBIDE MONONITRATE ER 60 MG TAB PO ONE (11:45)
[2022-03-20] MEDS ORDERED: CALCIUM GLUC 1,000mg/50ml-NS 50 ML IV ONE (12:30)
[2022-03-20] MEDS ORDERED: SODIUM BICARBONATE 8.4 % INJ 50ML VIAL IV ONE (12:30)
[2022-03-20 13:00] VITALS: BP 168/65
[2022-03-20 17:00] VITALS: BP 163/62
[2022-03-20 20:00] VITALS: BP 159/61
[2022-03-20] MEDS: CARVEDILOL 12.5 MG TAB PO SCH (21:43)
[2022-03-20 22:00] VITALS: BP 159/61
[2022-03-21 04:13] LABS: Basophils # (auto) 0 10 ^3/uL (0-0.2); Basophils % (auto) 0.4 % (0.0-2.0); Eosinophils # (auto) 0.2 10 ^3/uL (0-0.8); Eosinophils % (auto) 2.3 % (0.0-7.0); Hematocrit 31.5 % (41.0-53.0); Hemoglobin 10.4 g/dL (13.5-17.5); Lymphocytes # (auto) 0.9 10 ^3/uL (0.4-5.4); Lymphocytes % (auto) 12.7 % (10.0-50.0); Mean Corpuscular Hemoglobin 29.4 pg (28.0-32.0); Mean Corpuscular Hgb Conc. 32.9 g/dL (32.0-36.0); Mean Corpuscular Volume 89.4 fL (80.0-100.0); Monocytes # (auto) 0.9 10 ^3/uL (0-1.3); Monocytes % (auto) 12.7 % (0.0-12.0); Neutrophils # (auto) 5.4 10 ^3/uL (1.6-8.6); Neutrophils % (auto) 71.9 % (37.0-80.0); Red Blood Cells 3.53 10^6/uL (4.5-5.90); Red Cell Distribution Width 14.6 % (11.8-14.3); White Blood Cell 7.5 10^3/uL (4.4-10.8)
[2022-03-21 04:28] LABS: Albumin 2.6 g/dL (3.4-5.0); BUN/Creatinine Ratio 15.2; Bilirubin, Total 0.3 mg/dL (0.2-1.0); Calcium 7.7 mg/dL (8.5-10.1); Total Protein 6.5 g/dL (6.4-8.2)
[2022-03-21 04:57] VITALS: BP 163/71
[2022-03-21] MEDS: SODIUM CHLOR 0.9% PF (SALINE LOCK) 10ML VIAL/SYR IV SCH ×3 (05:44→21:56)
[2022-03-21] MEDS: ACCU-CHEK COMFORT CURVE STRIP VI SCH ×4 (06:47→22:29)
[2022-03-21] MEDS: InsuLIN REG 1unit/0.01ml Soln (100units/ml) SC SCH ×4 (06:49→22:00)
[2022-03-21 08:00] VITALS: BP 130/60
[2022-03-21 09:00] VITALS: BP 163/70
[2022-03-21] MEDS: FUROSEMIDE 20 MG/2 ML VIAL IV SCH (09:45)
[2022-03-21] MEDS: ASPirin 81 mg TAB PO SCH (09:45)
[2022-03-21] MEDS: FAMOTIDINE (10MG/ML) 2ML VL IV SCH (09:45)
[2022-03-21] MEDS: CARVEDILOL 12.5 MG TAB PO SCH ×2 (09:45→21:56)
[2022-03-21] MEDS: amLODIPine BESYLATE 5 MG TAB PO SCH (09:46)
[2022-03-21] MEDS: HEPARIN SODIUM (PORCINE) 5000 UNITS/ML 1ML VIAL SC SCH ×2 (09:47→21:59)
[2022-03-21] MEDS ORDERED: cloNIDine HCL 0.1 MG TAB PO PRN (10:00)
[2022-03-21] MEDS ORDERED: ISOSORBIDE MONONITRATE ER 60 MG TAB PO SCH (10:00)
[2022-03-21 12:00] VITALS: BP 159/59
[2022-03-21] MEDS ORDERED: cloNIDine 0.3 mg/24hr 7DAY PATCH TD SCH (12:00)
[2022-03-21 17:00] VITALS: BP 127/51
[2022-03-21 22:00] VITALS: BP 144/77
[2022-03-22 05:00] VITALS: BP 138/76
[2022-03-22] MEDS: InsuLIN REG 1unit/0.01ml Soln (100units/ml) SC SCH ×2 (06:23→11:30)
[2022-03-22] MEDS: SODIUM CHLOR 0.9% PF (SALINE LOCK) 10ML VIAL/SYR IV SCH (06:25)
[2022-03-22] MEDS: ACCU-CHEK COMFORT CURVE STRIP VI SCH ×2 (06:27→12:19)
[2022-03-22 08:00] VITALS: BP 130/68
[2022-03-22] MEDS: ASPirin 81 mg TAB PO SCH (09:53)
[2022-03-22] MEDS: FUROSEMIDE 20 MG/2 ML VIAL IV SCH (09:53)
[2022-03-22] MEDS: CARVEDILOL 12.5 MG TAB PO SCH (09:54)
[2022-03-22] MEDS: HEPARIN SODIUM (PORCINE) 5000 UNITS/ML 1ML VIAL SC SCH (09:55)
[2022-03-22] MEDS: amLODIPine BESYLATE 5 MG TAB PO SCH (09:55)
[2022-03-22] MEDS ORDERED: ISOSORBIDE MONONITRATE ER 60 MG TAB PO SCH (10:00)
[2022-03-22] MEDS ORDERED: FAMOTIDINE (10MG/ML) 2ML VL IV SCH (10:00)
[2022-03-22] MEDS ORDERED: CAR125T PO (10:20)
[2022-03-22] MEDS ORDERED: AMLO-496 PO (10:20)
[2022-03-22] MEDS ORDERED: ISO60SRT PO (10:20)
[2022-03-22] MEDS ORDERED: CLO3P TD (10:20)
[2022-03-22 11:36] VITALS: BP 151/78
[2022-03-22 12:40] VITALS: BP 114/55
== END 2022-03-22 12:50 | disposition home or self-care (01) | DRG 280 ==
LOC: ER 16:39 → TELE 03-20 00:59 → TELE-EAST 03-20 03:31
PROVIDERS: ADMIT Nurse Practitioner Family; ATTEND Family Medicine
DX: I13.2 Hypertensive heart and chronic kidney disease with heart failure and with stage 5 chronic kidney disease, or end stage renal disease (principal); I50.23 Acute on chronic systolic (congestive) heart failure; I21.A1 Myocardial infarction type 2; N18.5 Chronic kidney disease, stage 5; N17.9 Acute kidney failure, unspecified; D63.8 Anemia in other chronic diseases classified elsewhere; E11.22 Type 2 diabetes mellitus with diabetic chronic kidney disease; E66.01 Morbid (severe) obesity due to excess calories; E78.5 Hyperlipidemia, unspecified; E87.5 Hyperkalemia; I25.10 Atherosclerotic heart disease of native coronary artery without angina pectoris; E11.40 Type 2 diabetes mellitus with diabetic neuropathy, unspecified; E11.65 Type 2 diabetes mellitus with hyperglycemia; M10.9 Gout, unspecified; I95.9 Hypotension, unspecified; R09.89 Other specified symptoms and signs involving the circulatory and respiratory systems; F41.9 Anxiety disorder, unspecified; N40.0 Benign prostatic hyperplasia without lower urinary tract symptoms; Z79.4 Long term (current) use of insulin; I25.2 Old myocardial infarction; Z68.36 Body mass index [BMI] 36.0-36.9, adult; Z95.5 Presence of coronary angioplasty implant and graft; Z80.0 Family history of malignant neoplasm of digestive organs; Z83.3 Family history of diabetes mellitus
CPT/HCPCS: 36415; 70450; 71045; 80053; 81001; 82962; 83036; 83735; 83880; 84484; 85025; 93005; 93306; 96365; 96375; 99291; G0378; J1815; J3490

== ENCOUNTER 2022-12-24 08:45 | Day surgery (SDC) | payer MEDICARE, MEDICAID ==
[2022-12-23 13:48] LABS: Basophils # (auto) 0 10 ^3/uL (0-0.2); Basophils % (auto) 0.4 % (0.0-2.0); Eosinophils # (auto) 0.2 10 ^3/uL (0-0.8); Eosinophils % (auto) 2.1 % (0.0-7.0); Hematocrit 39.3 % (41.0-53.0); Hemoglobin 12.8 g/dL (13.5-17.5); Lymphocytes # (auto) 1.6 10 ^3/uL (0.4-5.4); Lymphocytes % (auto) 19.4 % (10.0-50.0); Mean Corpuscular Hemoglobin 29.3 pg (28.0-32.0); Mean Corpuscular Hgb Conc. 32.6 g/dL (32.0-36.0); Mean Corpuscular Volume 89.7 fL (80.0-100.0); Monocytes # (auto) 0.9 10 ^3/uL (0-1.3); Monocytes % (auto) 10.4 % (0.0-12.0); Neutrophils # (auto) 5.6 10 ^3/uL (1.6-8.6); Neutrophils % (auto) 67.7 % (37.0-80.0); Red Blood Cells 4.38 10^6/uL (4.5-5.90); Red Cell Distribution Width 15.3 % (11.8-14.3); White Blood Cell 8.3 10^3/uL (4.4-10.8)
[2022-12-23 14:05] LABS: INR 1.03 (0.9-1.15); Partial Thromboplastin Time 30.2 sec (24.6-33.4)
[2022-12-23 14:35] LABS: Potassium 4.8 mmol/L (3.5-5.1)
[2022-12-23 15:12] LABS: BUN/Creatinine Ratio 10.9 (10.0-20.0); Calcium 8.3 mg/dL (8.5-10.1)
[~2022-12-24] VITALS: Ht 170.2 cm; Wt 102.1 kg
[~2022-12-24 08:45] MED LIST changes: -ALLO100T PO; +AMLO1TAB23 PO; -ASPI-378 PO; -ATOR20TA50 PO; -BACL10TA PO; +BENZ100C97 PO; -BUME2TAB5 PO; -CIPR-173 PO; +DOXA4TAB83 PO; -ESOM40CA39 PO; +FURO40TA4 PO; -HYDR-4069 PO; +HYDR-4798 PO; -HYDR25TA87 PO; +ISO60SRT PO; +LABE200T7 PO; -MET25T PO; -PERCOT PO; +SACU1TAB7 PO; +SODI650T PO; -TAM04C PO; +TAMS-35 PO; -TERA5CAP42 PO
[2022-12-24] MEDS ORDERED: SODIUM CHL 0.9% 0 ML ONE (13:13)
[2022-12-24] MEDS ORDERED: ANGIOMAX 250 MG VIAL IV ONE (13:13)
[2022-12-24] MEDS ORDERED: MIDAZOLAM HCL 2MG/2ML 2ml VIAL (1mg/ml) ONE (13:13)
[2022-12-24] MEDS ORDERED: fentaNYL CITRATE 100 MCG/2 ML VL ONE (13:13)
[2022-12-24] MEDS ORDERED: LIDOCAINE 2%HCL (LOCAL ANESTH.) INJ 20ML MDV ONE (13:14)
[2022-12-24] MEDS ORDERED: VERAPAMIL 2.5MG/ML INJ 2ML VIAL IV ONE (13:18)
[2022-12-24] MEDS ORDERED: HEPARIN SODIUM (PORCINE) 5000 UNITS/ML 1ML VIAL ONE (13:18)
[2022-12-24] MEDS ORDERED: IOHEXOL 350 MG/ML 500ML BOTTLE IJ ONE (13:29)
[2022-12-24] MEDS ORDERED: IODIXANOL 320MG/ML 100ML BTL IV ONE ×2 (13:35→13:58)
[2022-12-24] MEDS ORDERED: cloNIDine HCL 0.1 MG TAB PO ONE (14:00)
[2022-12-24] MEDS ORDERED: ONDANSETRON HCL 4 MG/2 ML VIAL ONE (14:12)
[2022-12-24 14:13] VITALS: BP 177/74
[2022-12-24 14:28] VITALS: BP 165/70
[2022-12-24 14:43] VITALS: BP 153/76
[2022-12-24 14:58] VITALS: BP 146/77
[2022-12-24 15:13] VITALS: BP 147/73
[2022-12-24 15:43] VITALS: BP 152/86
== END 2022-12-24 16:05 | disposition home or self-care (01) ==
LOC: CATH 08:45
PROVIDERS: ATTEND Internal Medicine Cardiovascular Disease
DX: R07.89 Other chest pain (principal); E11.22 Type 2 diabetes mellitus with diabetic chronic kidney disease; E11.40 Type 2 diabetes mellitus with diabetic neuropathy, unspecified; E11.21 Type 2 diabetes mellitus with diabetic nephropathy; I25.2 Old myocardial infarction; Z87.891 Personal history of nicotine dependence; E11.51 Type 2 diabetes mellitus with diabetic peripheral angiopathy without gangrene; I73.9 Peripheral vascular disease, unspecified; J44.9 Chronic obstructive pulmonary disease, unspecified; I12.0 Hypertensive chronic kidney disease with stage 5 chronic kidney disease or end stage renal disease; N18.6 End stage renal disease; E66.9 Obesity, unspecified
CPT/HCPCS: 36415; 80048; 85025; 85610; 85730; 93458; 93571; C1769; C1887; C1894; J1644; J2250; J2405; J3010; 99152; 99153; Q9967

== ENCOUNTER 2023-06-11 12:12 | Emergency (ER) | payer MEDICARE, MEDICAID ==
[~2023-06-11 12:12] MED LIST changes: +DOXA1TAB28 PO; +ESOM20CA PO; +FERR1TAB17 PO; +FURO1TAB32 PO; +LOSA25TA15 PO; +METO25TA5 PO; +PANT40TA2 PO; +PATI1POW PO; +SODI325T PO; +SUCR1SUS26 PO; +VERI5TAB PO
[2023-06-11] MEDS ORDERED: PIPERACILLIN-TAZOB 3.375GM 100 ML IV ONE (13:15)
[2023-06-11 13:27] LABS: Basophils # (auto) 0.1 10 ^3/uL (0-0.2); Basophils % (auto) 0.5 % (0.0-2.0); Eosinophils # (auto) 0.1 10 ^3/uL (0-0.8); Eosinophils % (auto) 0.8 % (0.0-7.0); Hematocrit 32.6 % (41.0-53.0); Hemoglobin 10.2 g/dL (13.5-17.5); Lymphocytes % (auto) 7.7 % (10.0-50.0); Mean Corpuscular Hemoglobin 28.9 pg (28.0-32.0); Mean Corpuscular Hgb Conc. 31.2 g/dL (32.0-36.0); Mean Corpuscular Volume 92.6 fL (80.0-100.0); Monocytes # (auto) 1.4 10 ^3/uL (0-1.3); Red Blood Cells 3.52 10^6/uL (4.5-5.90); Red Cell Distribution Width 15.5 % (11.8-14.3); White Blood Cell 13.6 10^3/uL (4.4-10.8)
[2023-06-11 13:47] LABS: INR 1.22 (0.9-1.15); Partial Thromboplastin Time 34.7 SEC (24.5-34.5); Prothrombin Time 12.6 sec (9.3-11.8)
[2023-06-11 13:49] LABS: Alanine Aminotransferase 16 U/L (7-40); Albumin 3.8 g/dL (3.2-4.8); Alkaline Phosphatase 93 U/L (46-116); Anion Gap 11 (5-15); Aspartate Aminotransferase 54 U/L (13-40); Blood Urea Nitrogen 51 mg/dL (9-23); Calcium 8.5 mg/dL (8.7-10.4); Carbon Dioxide 27 mmol/L (20-30); Chloride 101 mmol/L (98-107); Glucose 119 mg/dL (74-106); Sodium 139 mmol/L (136-145)
[2023-06-11 13:50] LABS: Bilirubin, Total 0.2 mg/dL (0.2-1.0); Total Protein 6.5 g/dL (5.7-8.2)
[2023-06-11] MEDS ORDERED: ONDANSETRON HCL 4 MG/2 ML VIAL IV ONE (16:15)
[2023-06-11] MEDS ORDERED: MORPHINE SULFATE INJ 2 MG/ml SYRG IV ONE (16:15)
[2023-06-11 17:11] LABS: Urine Bacteria NONE SEEN /hpf (None Seen); Urine Blood 1+ /uL (Negative); Urine Clarity Clear (Clear); Urine Color Yellow (Yellow); Urine Protein, UAD 1+ (Negative); Urine Specific Gravity 1.025 (1.001-1.035); Urine Urobilinogen Normal (Negative); Urine WBC 1 /hpf (0 - 3)
[2023-06-11] MEDS ORDERED: VANCOMYCIN 1GM/250ML 250 ML IV ONE (18:00)
[2023-06-11 19:44] VITALS: PULSE 74; RESP 14; O2SAT 98
[2023-06-11 19:58] VITALS: BP 126/37; TEMP 97.3
[2023-06-11 20:00] VITALS: PULSE 73; RESP 18; O2SAT 96
== END 2023-06-11 20:47 | disposition short-term general hospital (02) ==
LOC: ER 12:12 → EDBD 12:12 → ER 20:47
DX: L03.115 Cellulitis of right lower limb (principal); I73.9 Peripheral vascular disease, unspecified; I13.0 Hypertensive heart and chronic kidney disease with heart failure and stage 1 through stage 4 chronic kidney disease, or unspecified chronic kidney disease; E11.22 Type 2 diabetes mellitus with diabetic chronic kidney disease; N18.9 Chronic kidney disease, unspecified; I50.9 Heart failure, unspecified; I25.2 Old myocardial infarction; E78.5 Hyperlipidemia, unspecified; Z98.890 Other specified postprocedural states; Z87.891 Personal history of nicotine dependence; Z79.899 Other long term (current) drug therapy; Z79.4 Long term (current) use of insulin
CPT/HCPCS: 36415; 71045; 80053; 81001; 83605; 84484; 85025; 85610; 85730; 87040; 93926; 93971; 96365; 96366; 96367; 96375; 99285; J2270; J2405; J2543; J3370

== ENCOUNTER 2023-07-22 01:49 | Inpatient (IN) | payer MEDICARE, MEDICAID ==
[~2023-07-22] VITALS: Ht 142.2 cm; Wt 90.5 kg
[2023-07-22 02:55] VITALS: PULSE 90; RESP 20; O2SAT 90
[2023-07-22] MEDS ORDERED: ONDANSETRON HCL 4 MG/2 ML VIAL IV ONE (03:00)
[2023-07-22 03:04] LABS: Basophils # (auto) 0.1 10 ^3/uL (0-0.2); Basophils % (auto) 0.7 % (0.0-2.0); Eosinophils # (auto) 0.2 10 ^3/uL (0-0.8); Hematocrit 34.6 % (41.0-53.0); Hemoglobin 10.9 g/dL (13.5-17.5); Lymphocytes # (auto) 1.7 10 ^3/uL (0.4-5.4); Lymphocytes % (auto) 20.5 % (10.0-50.0); Mean Corpuscular Hemoglobin 28.9 pg (28.0-32.0); Mean Corpuscular Hgb Conc. 31.5 g/dL (32.0-36.0); Mean Corpuscular Volume 91.9 fL (80.0-100.0); Monocytes # (auto) 0.8 10 ^3/uL (0-1.3); Monocytes % (auto) 10.1 % (0.0-12.0); Neutrophils # (auto) 5.3 10 ^3/uL (1.6-8.6); Neutrophils % (auto) 65.7 % (37.0-80.0); Nucleated Red Blood Cells % 0.1 %; Red Blood Cells 3.76 10^6/uL (4.5-5.90); Red Cell Distribution Width 19.7 % (11.8-14.3); White Blood Cell 8.1 10^3/uL (4.4-10.8)
[2023-07-22 03:19] LABS: INR 1.13 (0.9-1.15); Partial Thromboplastin Time 29.1 SEC (24.5-34.5); Prothrombin Time 11.8 sec (9.3-11.8)
[2023-07-22] MEDS ORDERED: ONDANSETRON HCL 4 MG/2 ML VIAL ONE (03:28)
[2023-07-22 03:54] LABS: Alanine Aminotransferase 18 U/L (7-40); Albumin 3.8 g/dL (3.2-4.8); Alkaline Phosphatase 131 U/L (46-116); Anion Gap 7 (5-15); Aspartate Aminotransferase 24 U/L (13-40); BUN/Creatinine Ratio 5.2 (10.0-20.0); Blood Urea Nitrogen 19 mg/dL (9-23); Calcium 8.6 mg/dL (8.7-10.4); Carbon Dioxide 29 mmol/L (20-30); Chloride 104 mmol/L (98-107); Glucose 156 mg/dL (74-106); Potassium 4.1 mmol/L (3.5-5.1); Sodium 140 mmol/L (136-145)
[2023-07-22 03:55] LABS: Bilirubin, Total 0.3 mg/dL (0.2-1.0); Total Protein 6.8 g/dL (5.7-8.2)
[2023-07-22] MEDS ORDERED: PANTOPRAZOLE 40mg/50ML NS AE 50 ML IV ONE (04:45)
[2023-07-22] MEDS ORDERED: PANTOPRAZOLE 80 MG in SODIUM CHL 0.9% 100 ML IV ONE (04:45)
[2023-07-22] MEDS ORDERED: PANTOPRAZOLE 40 MG/10 ML VIAL INJ IV ONE ×2 (05:12→06:55)
[2023-07-22] MEDS ORDERED: cefTRIAXone 1GM/50ML D5W 50 ML IV ONE (06:30)
[2023-07-22] MEDS ORDERED: cefTRIAXone SOD 1,000 MG VL IM ONE (06:30)
[2023-07-22] MEDS ORDERED: hydrALAZINE HCL 20 MG/ML VL IV ONE (06:30)
[2023-07-22] MEDS ORDERED: hydrALAZINE HCL 20 MG/ML VL ONE (06:56)
[2023-07-22 08:00] VITALS: PULSE 77; RESP 19; O2SAT 97
[2023-07-22] MEDS ORDERED: MORPHINE SULFATE INJ 2 MG/ml SYRG IV PRN (09:15)
[2023-07-22] MEDS ORDERED: DEXTROSE (50%) 50ML SYRG IV PRN (09:15)
[2023-07-22] MEDS ORDERED: DOCUSATE SOD 100 MG CAP PO PRN (09:15)
[2023-07-22] MEDS ORDERED: ONDANSETRON HCL 4 MG/2 ML VIAL IV PRN (09:15)
[2023-07-22] MEDS ORDERED: LOSARTAN POTASSIUM 25 MG TAB PO SCH (10:00)
[2023-07-22] MEDS ORDERED: FUROSEMIDE 40 MG TAB ONE (10:58)
[2023-07-22] MEDS ORDERED: LABETALOL HCL 200 MG TAB ONE (10:58)
[2023-07-22] MEDS ORDERED: amLODIPine BESYLATE 5 MG TAB ONE (10:58)
[2023-07-22] MEDS ORDERED: TAMSULOSIN HYDROCHLORIDE 0.4 MG CAP PO ONE (10:58)
[2023-07-22] MEDS ORDERED: ISOSORBIDE MONONITRATE ER 60 MG TAB PO ONE (10:59)
[2023-07-22] MEDS ORDERED: SUCRALFATE 1 GM/10 ML ORAL SUSP ONE (10:59)
[2023-07-22] MEDS: VERICIGUAT 5 MG PO SCH (11:06)
[2023-07-22] MEDS: SUCRALFATE 1 GM/10 ML ORAL SUSP PO SCH (11:06)
[2023-07-22] MEDS: FERRIC CITRATE 210 MG PO SCH (11:06)
[2023-07-22] MEDS: TAMSULOSIN HYDROCHLORIDE 0.4 MG CAP PO SCH (11:08)
[2023-07-22] MEDS: ISOSORBIDE MONONITRATE ER 60 MG TAB PO SCH (11:08)
[2023-07-22] MEDS: FUROSEMIDE 40 MG TAB PO SCH (11:09)
[2023-07-22] MEDS: amLODIPine BESYLATE 5 MG TAB PO SCH (11:14)
[2023-07-22] MEDS: LABETALOL HCL 200 MG TAB PO SCH (11:15)
[2023-07-22] MEDS ORDERED: GABA-1250 PO (11:32)
[2023-07-22] MEDS ORDERED: ATOR-47 PO (11:32)
[2023-07-22] MEDS ORDERED: ASPI-543 PO (11:32)
[2023-07-22] MEDS ORDERED: RIVA2.5T PO (11:32)
[2023-07-22] MEDS: InsuLIN REG 1unit/0.01ml Soln (100units/ml) SC SCH ×2 (12:00→18:42)
[2023-07-22] MEDS: ACCU-CHEK COMFORT CURVE STRIP VI SCH ×2 (12:23→18:42)
[2023-07-22] MEDS ORDERED: SODIUM CHLORIDE 0.9% 1,000 ML IV ONE (14:30)
[2023-07-22 19:16] LABS: Hematocrit 29.4 % (41.0-53.0); Hemoglobin 9.1 g/dL (13.5-17.5)
[2023-07-22 19:45] VITALS: PULSE 78; RESP 17; O2SAT 94
[2023-07-23] VITALS (7 sets, daily range): BP systolic 126–147; BP diastolic 51–62; PULSE 68–78; RESP 16–21; TEMP 97.9–98.4; O2SAT 92–100
[2023-07-23] MEDS: LABETALOL HCL 200 MG TAB PO SCH ×3 (00:06→22:22)
[2023-07-23] MEDS: PANTOPRAZOLE 40 MG/10 ML VIAL INJ IV SCH ×3 (00:07→22:00)
[2023-07-23] MEDS: SUCRALFATE 1 GM/10 ML ORAL SUSP PO SCH ×3 (00:07→22:21)
[2023-07-23] MEDS: VERICIGUAT 5 MG PO SCH ×3 (00:19→22:00)
[2023-07-23] MEDS: FERRIC CITRATE 210 MG PO SCH ×3 (00:19→22:00)
[2023-07-23] MEDS: ACCU-CHEK COMFORT CURVE STRIP VI SCH ×4 (00:43→17:29)
[2023-07-23 01:01] LABS: Hematocrit 29.2 % (41.0-53.0); Hemoglobin 9.2 g/dL (13.5-17.5)
[2023-07-23] MEDS: InsuLIN REG 1unit/0.01ml Soln (100units/ml) SC SCH ×4 (06:00→17:29)
[2023-07-23] MEDS: cefTRIAXone 1GM/50ML D5W 50 ML IV SCH (09:00)
[2023-07-23] MEDS: amLODIPine BESYLATE 5 MG TAB PO SCH (10:00)
[2023-07-23] MEDS: ISOSORBIDE MONONITRATE ER 60 MG TAB PO SCH (10:00)
[2023-07-23] MEDS ORDERED: SODIUM CHL 0.9% 1000 ML BAG XX ONE (10:00)
[2023-07-23] MEDS: TAMSULOSIN HYDROCHLORIDE 0.4 MG CAP PO SCH (10:00)
[2023-07-23] MEDS: FUROSEMIDE 40 MG TAB PO SCH (10:00)
[2023-07-23] MEDS ORDERED: CATHFLO ACTIVASE (ALTEPLASE) 2 MG VIAL IV ONE (10:30)
[2023-07-23 10:47] LABS: Basophils # (auto) 0 10 ^3/uL (0-0.2); Basophils % (auto) 0.6 % (0.0-2.0); Eosinophils # (auto) 0.3 10 ^3/uL (0-0.8); Eosinophils % (auto) 3.8 % (0.0-7.0); Hematocrit 27.7 % (41.0-53.0); Hemoglobin 8.7 g/dL (13.5-17.5); Lymphocytes # (auto) 1.9 10 ^3/uL (0.4-5.4); Lymphocytes % (auto) 27.9 % (10.0-50.0); Mean Corpuscular Hemoglobin 29.2 pg (28.0-32.0); Mean Corpuscular Hgb Conc. 31.3 g/dL (32.0-36.0); Mean Corpuscular Volume 93.3 fL (80.0-100.0); Monocytes # (auto) 0.6 10 ^3/uL (0-1.3); Neutrophils % (auto) 58.7 % (37.0-80.0); Nucleated Red Blood Cells % 0.1 %; Red Blood Cells 2.96 10^6/uL (4.5-5.90); White Blood Cell 6.8 10^3/uL (4.4-10.8)
[2023-07-23 11:00] LABS: Alanine Aminotransferase 15 U/L (7-40); Albumin 3.3 g/dL (3.2-4.8); Alkaline Phosphatase 108 U/L (46-116); Anion Gap 8 (5-15); Aspartate Aminotransferase 16 U/L (13-40); BUN/Creatinine Ratio 4.8 (10.0-20.0); Bilirubin, Total 0.3 mg/dL (0.2-1.0); Blood Urea Nitrogen 23 mg/dL (9-23); Calcium 8.2 mg/dL (8.5-10.1); Carbon Dioxide 29 mmol/L (20-30); Chloride 104 mmol/L (98-107); Glucose 104 mg/dL (74-106); Potassium 4.2 mmol/L (3.5-5.1); Sodium 141 mmol/L (136-145); Total Protein 5.7 g/dL (5.7-8.2)
[2023-07-23] MEDS: ASPirin 81 mg TAB PO SCH (11:02)
[2023-07-23] MEDS: CLOPIDOGREL BISULFATE 75 MG TAB PO SCH (11:03)
[2023-07-23] MEDS ORDERED: BISACODYL 5 MG EC TAB PO ONE (12:30)
[2023-07-23] MEDS ORDERED: LACTULOSE 20Gm/30ML SOLN PO ONE (12:30)
[2023-07-23] MEDS ORDERED: EPOETIN ALFA-EPBX 10,000 UNIT/1ML VIAL SC ONE (21:00)
[2023-07-23] MEDS: SACUBITRIL-VALSARTAN 24mg/26mg TAB PO SCH (22:21)
[2023-07-23] MEDS: HYDROcodone-ACET 5/325MG TAB PO PRN (22:23)
[2023-07-24 04:50] VITALS: BP 150/61; PULSE 66; RESP 21; TEMP 97.9; O2SAT 99
[2023-07-24] MEDS: InsuLIN REG 1unit/0.01ml Soln (100units/ml) SC SCH ×4 (06:00→17:13)
[2023-07-24] MEDS: ACCU-CHEK COMFORT CURVE STRIP VI SCH ×4 (06:09→17:14)
[2023-07-24] MEDS: EMPAGLIFLOZIN 10 MG TAB PO SCH (06:09)
[2023-07-24 08:00] VITALS: PULSE 70; RESP 19
[2023-07-24] MEDS: SUCRALFATE 1 GM/10 ML ORAL SUSP PO SCH ×2 (08:40→21:39)
[2023-07-24] MEDS: ASPirin 81 mg TAB PO SCH (08:40)
[2023-07-24] MEDS: CLOPIDOGREL BISULFATE 75 MG TAB PO SCH (08:46)
[2023-07-24 09:00] VITALS: BP 150/56; PULSE 71; RESP 18; TEMP 98.4; O2SAT 100
[2023-07-24] MEDS: cefTRIAXone 1GM/50ML D5W 50 ML IV SCH (09:00)
[2023-07-24] MEDS: FERRIC CITRATE 210 MG PO SCH ×2 (09:03→21:39)
[2023-07-24] MEDS: VERICIGUAT 5 MG PO SCH ×2 (09:03→21:40)
[2023-07-24] MEDS: SACUBITRIL-VALSARTAN 24mg/26mg TAB PO SCH ×2 (09:04→21:39)
[2023-07-24] MEDS: PANTOPRAZOLE 40 MG/10 ML VIAL INJ IV SCH ×2 (09:04→21:39)
[2023-07-24] MEDS: ISOSORBIDE MONONITRATE ER 60 MG TAB PO SCH (09:05)
[2023-07-24] MEDS: FUROSEMIDE 40 MG TAB PO SCH (09:05)
[2023-07-24] MEDS: TAMSULOSIN HYDROCHLORIDE 0.4 MG CAP PO SCH (09:05)
[2023-07-24] MEDS: LABETALOL HCL 200 MG TAB PO SCH ×2 (09:05→21:39)
[2023-07-24] MEDS: amLODIPine BESYLATE 5 MG TAB PO SCH (09:06)
[2023-07-24 13:00] VITALS: BP 156/56; PULSE 70; RESP 19; TEMP 98; O2SAT 94
[2023-07-24 13:28] LABS: Eosinophils # (auto) 0.2 10 ^3/uL (0-0.8); Monocytes # (auto) 0.6 10 ^3/uL (0-1.3); Neutrophils # (auto) 3.8 10 ^3/uL (1.6-8.6)
[2023-07-24 13:29] LABS: Basophils # (auto) 0 10 ^3/uL (0-0.2); Basophils % (auto) 0.6 % (0.0-2.0); Eosinophils % (auto) 3.7 % (0.0-7.0); Hematocrit 32.4 % (41.0-53.0); Hemoglobin 10.1 g/dL (13.5-17.5); Lymphocytes # (auto) 1.8 10 ^3/uL (0.4-5.4); Lymphocytes % (auto) 27.6 % (10.0-50.0); Mean Corpuscular Hemoglobin 29.1 pg (28.0-32.0); Mean Corpuscular Hgb Conc. 31.3 g/dL (32.0-36.0); Mean Corpuscular Volume 92.7 fL (80.0-100.0); Monocytes % (auto) 9.1 % (0.0-12.0); Red Blood Cells 3.49 10^6/uL (4.5-5.90); Red Cell Distribution Width 19.4 % (11.8-14.3); White Blood Cell 6.5 10^3/uL (4.4-10.8)
[2023-07-24 14:00] LABS: Chloride 99 mmol/L (98-107); Potassium 4.8 mmol/L (3.5-5.1)
[2023-07-24 14:01] LABS: Anion Gap 10 (5-15); Carbon Dioxide 26 mmol/L (20-30)
[2023-07-24 14:02] LABS: Calcium 8.4 mg/dL (8.5-10.1)
[2023-07-24 14:06] LABS: BUN/Creatinine Ratio 4.9 (10.0-20.0); Blood Urea Nitrogen 26 mg/dL (9-23)
[2023-07-24 14:08] LABS: Glucose 218 mg/dL (74-106); Sodium 135 mmol/L (136-145)
[2023-07-24 17:00] VITALS: BP 154/59; PULSE 76; RESP 19; TEMP 97.7; O2SAT 94
[2023-07-24 22:00] VITALS: BP 157/65; PULSE 73; RESP 16; TEMP 98; O2SAT 94
[2023-07-25 05:00] VITALS: BP 130/75; PULSE 73; RESP 18; TEMP 97.7; O2SAT 92
[2023-07-25] MEDS: InsuLIN REG 1unit/0.01ml Soln (100units/ml) SC SCH ×3 (06:00→12:00)
[2023-07-25] MEDS: ACCU-CHEK COMFORT CURVE STRIP VI SCH ×3 (06:04→12:00)
[2023-07-25] MEDS: EMPAGLIFLOZIN 10 MG TAB PO SCH (06:29)
[2023-07-25 08:00] VITALS: PULSE 74; RESP 17
[2023-07-25 09:00] VITALS: BP 176/66; PULSE 77; RESP 16; TEMP 98.3; O2SAT 93
[2023-07-25] MEDS: cefTRIAXone 1GM/50ML D5W 50 ML IV SCH (09:00)
[2023-07-25] MEDS: HYDROcodone-ACET 5/325MG TAB PO PRN (09:02)
[2023-07-25] MEDS: ISOSORBIDE MONONITRATE ER 60 MG TAB PO SCH (10:00)
[2023-07-25] MEDS: FERRIC CITRATE 210 MG PO SCH (10:00)
[2023-07-25] MEDS: VERICIGUAT 5 MG PO SCH (10:00)
[2023-07-25] MEDS: PANTOPRAZOLE 40 MG/10 ML VIAL INJ IV SCH (10:00)
[2023-07-25] MEDS: amLODIPine BESYLATE 5 MG TAB PO SCH (10:00)
[2023-07-25] MEDS: TAMSULOSIN HYDROCHLORIDE 0.4 MG CAP PO SCH (10:00)
[2023-07-25] MEDS: FUROSEMIDE 40 MG TAB PO SCH (10:00)
[2023-07-25] MEDS: SUCRALFATE 1 GM/10 ML ORAL SUSP PO SCH (10:00)
[2023-07-25] MEDS: LABETALOL HCL 200 MG TAB PO SCH (10:00)
[2023-07-25] MEDS: CLOPIDOGREL BISULFATE 75 MG TAB PO SCH (10:00)
[2023-07-25] MEDS: SACUBITRIL-VALSARTAN 24mg/26mg TAB PO SCH (10:00)
[2023-07-25] MEDS: ASPirin 81 mg TAB PO SCH (10:00)
[2023-07-25] MEDS ORDERED: B-COMPLEX W/ C & FOLIC ACID(NEPHROVITE TAB) PO ONE (15:45)
[2023-07-25 17:00] VITALS: BP 108/60; PULSE 70; RESP 21; TEMP 98.7; O2SAT 93
[2023-07-25] MEDS ORDERED: EPOETIN ALFA-EPBX 10,000 UNIT/1ML VIAL IV ONE (21:00)
[2023-07-26] MEDS ORDERED: Juven Orange Powder PACKET 27.5gm PO SCH (10:00)
== END 2023-07-25 17:00 | DRG 377 ==
LOC: EDBD 01:49 → ER 01:49 → TELE 09:29 → TELE-WESTW 07-23 02:04 → WEST WING 07-23 12:23
PROVIDERS: ADMIT Internal Medicine; ATTEND Internal Medicine
PROC: 5A1D70Z Performance of Urinary Filtration, Intermittent, Less than 6 Hours Per Day (ICD-10-PCS; principal; 2023-07-23)
PROC: 5A1D70Z Performance of Urinary Filtration, Intermittent, Less than 6 Hours Per Day (ICD-10-PCS; 2023-07-24)
DX: K92.2 Gastrointestinal hemorrhage, unspecified (principal); I21.A1 Myocardial infarction type 2; N18.6 End stage renal disease; N30.00 Acute cystitis without hematuria; I13.2 Hypertensive heart and chronic kidney disease with heart failure and with stage 5 chronic kidney disease, or end stage renal disease; Z68.41 Body mass index [BMI] 40.0-44.9, adult; I50.22 Chronic systolic (congestive) heart failure; D63.8 Anemia in other chronic diseases classified elsewhere; E11.65 Type 2 diabetes mellitus with hyperglycemia; I25.10 Atherosclerotic heart disease of native coronary artery without angina pectoris; E11.22 Type 2 diabetes mellitus with diabetic chronic kidney disease; E11.51 Type 2 diabetes mellitus with diabetic peripheral angiopathy without gangrene; I50.9 Heart failure, unspecified; E55.9 Vitamin D deficiency, unspecified; E86.0 Dehydration; E66.9 Obesity, unspecified; Z99.2 Dependence on renal dialysis; Z95.5 Presence of coronary angioplasty implant and graft; Z89.612 Acquired absence of left leg above knee; Z89.611 Acquired absence of right leg above knee; Z89.512 Acquired absence of left leg below knee; Z89.511 Acquired absence of right leg below knee; Z87.891 Personal history of nicotine dependence; Z87.442 Personal history of urinary calculi; Z86.73 Personal history of transient ischemic attack (TIA), and cerebral infarction without residual deficits; Z83.3 Family history of diabetes mellitus; Z80.0 Family history of malignant neoplasm of digestive organs
CPT/HCPCS: 36415; 74177; 80048; 80053; 82010; 82306; 82607; 82962; 83036; 83540; 83550; 83690; 83735; 83880; 84100; 84443; 84484; 85014; 85018; 85025; 85610; 85730; 86850; 86900; 86901; 87081; 87340; 90935; 93005; 96365; 96366; 96372; 96375; 99291; C9113; G0378; J0696; J1642; J2405

== ENCOUNTER 2023-10-04 09:54 | Emergency (ER) | payer MEDICARE, MEDICAID ==
[~2023-10-04] VITALS: Ht 170.2 cm; Wt 81.0 kg
[~2023-10-04 09:54] MED LIST changes: +ASPI-543 PO; +ATOR-47 PO; -DOXA1TAB28 PO; +GABA-1250 PO; +RIVA2.5T PO; -SODI650T PO
[2023-10-04 10:16] VITALS: TEMP 97.6
[2023-10-04 10:22] VITALS: BP 151/68; PULSE 81; RESP 16; O2SAT 99
[2023-10-04 12:16] LABS: Urine Bacteria MANY /hpf (None Seen); Urine Blood 2+ /uL (Negative); Urine Clarity CLOUDY (Clear); Urine Color Yellow (Yellow); Urine Mucus FEW (None Seen); Urine Protein, UAD 3+ (Negative); Urine WBC 4086 /hpf (0 - 3); Urine WBC Clumps PRESENT /hpf (None Seen); Urine pH 6.5 (5.0-8.0)
[2023-10-04 12:25] LABS: Urine Specific Gravity 1.015 (1.001-1.035)
[2023-10-04] MEDS ORDERED: NITR-87 PO (12:55)
[2023-10-04] MEDS: cefTRIAXone SOD 1,000 MG VL IM ONE (13:11)
[2023-10-04] MEDS: LIDOCAINE 1% HCL (LOCAL ANESTH.) INJ 20ML MDV ONE (13:11)
== END 2023-10-04 13:22 | disposition home or self-care (01) ==
LOC: ER 09:54
DX: N39.0 Urinary tract infection, site not specified (principal); I13.0 Hypertensive heart and chronic kidney disease with heart failure and stage 1 through stage 4 chronic kidney disease, or unspecified chronic kidney disease; E11.22 Type 2 diabetes mellitus with diabetic chronic kidney disease; N18.9 Chronic kidney disease, unspecified; I50.9 Heart failure, unspecified; I25.10 Atherosclerotic heart disease of native coronary artery without angina pectoris; I25.2 Old myocardial infarction; E78.5 Hyperlipidemia, unspecified; Z87.891 Personal history of nicotine dependence; Z79.4 Long term (current) use of insulin; Z79.82 Long term (current) use of aspirin; Z79.899 Other long term (current) drug therapy
CPT/HCPCS: 81001; 96372; 99283; J0696; J2001

== ENCOUNTER 2023-12-30 11:13 | Inpatient (IN) | payer MEDICARE, MEDICAID ==
[~2023-12-30] VITALS: Ht 91.4 cm; Wt 83.9 kg
[2023-12-30] MEDS: cefTRIAXone 2GM/50ML D5W 50 ML IV ONE (03:00)
[2023-12-30] MEDS: ACCU-CHEK COMFORT CURVE STRIP VI SCH (03:13)
[2023-12-30] MEDS: SODIUM CHLOR 0.9% PF (SALINE LOCK) 10ML VIAL/SYR IV SCH (03:14)
[~2023-12-30 11:13] MED LIST changes: +LABE200T33 PO; -LABE200T7 PO; +LOSA-533 PO; -LOSA25TA15 PO; +NITR-87 PO
[2023-12-30 13:27] LABS: Alanine Aminotransferase 15 U/L (7-40); Albumin 4.5 g/dL (3.2-4.8); Alkaline Phosphatase 120 U/L (46-116); Anion Gap 7 (5-15); Aspartate Aminotransferase 8 U/L (13-40); BUN/Creatinine Ratio 5.9 (10.0-20.0); Blood Urea Nitrogen 19 mg/dL (9-23); Calcium 9.4 mg/dL (8.7-10.4); Carbon Dioxide 30 mmol/L (20-30); Chloride 97 mmol/L (98-107); Glucose 362 mg/dL (74-106); Lipase 52 U/L (12-53); Potassium 4.6 mmol/L (3.5-5.1); Sodium 134 mmol/L (136-145)
[2023-12-30 13:28] LABS: Basophils # (auto) 0 10 ^3/uL (0-0.2); Basophils % (auto) 0.4 % (0.0-2.0); Bilirubin, Total 0.3 mg/dL (0.2-1.0); Eosinophils # (auto) 0.2 10 ^3/uL (0-0.8); Eosinophils % (auto) 1.9 % (0.0-7.0); Hematocrit 38.1 % (41.0-53.0); Hemoglobin 12.6 g/dL (13.5-17.5); Lymphocytes # (auto) 2.4 10 ^3/uL (0.4-5.4); Lymphocytes % (auto) 23.1 % (10.0-50.0); Mean Corpuscular Hemoglobin 31.5 pg (28.0-32.0); Mean Corpuscular Volume 95.4 fL (80.0-100.0); Monocytes # (auto) 0.8 10 ^3/uL (0-1.3); Monocytes % (auto) 7.2 % (0.0-12.0); Neutrophils # (auto) 7.1 10 ^3/uL (1.6-8.6); Neutrophils % (auto) 67.4 % (37.0-80.0); Nucleated Red Blood Cells % 0.1 %; Red Cell Distribution Width 14.6 % (11.8-14.3); Total Protein 7.9 g/dL (5.7-8.2); White Blood Cell 10.5 10^3/uL (4.4-10.8)
[2023-12-30 13:39] LABS: Lactic Acid w/Reflex 2.8 mmol/L (0.4-2.0)
[2023-12-30 13:52] LABS: INR 1.05 (0.9-1.15); Partial Thromboplastin Time 28.4 SEC (24.5-34.5); Prothrombin Time 11.1 sec (9.3-11.8)
[2023-12-30 16:55] LABS: Urine Bacteria None Seen /hpf (None Seen)
[2023-12-30 17:27] LABS: Urine Blood 3+ /uL (Negative); Urine Clarity Ex.Turbid (Clear); Urine Color Dark-Brown (Yellow); Urine Protein, UAD 2+ (Negative); Urine Specific Gravity 1.026 (1.001-1.035); Urine Urobilinogen Normal (Negative); Urine WBC 1098 /hpf (0 - 3); Urine WBC Clumps PRESENT /hpf (None Seen); Urine pH 5.5 (5.0-9.0)
[2023-12-30] MEDS ORDERED: HYDROcodone-ACET 5/325MG TAB PO PRN (19:00)
[2023-12-30] MEDS ORDERED: MORPHINE SULFATE INJ 2 MG/ml SYRG IV PRN (19:00)
[2023-12-30] MEDS ORDERED: DOCUSATE SOD 100 MG CAP PO PRN (19:00)
[2023-12-30] MEDS ORDERED: ACETAMINOPHEN 325 MG TAB PO PRN (19:00)
[2023-12-30] MEDS ORDERED: NITROGLYCERIN 0.4 MG SL TAB SL PRN (19:00)
[2023-12-30] MEDS ORDERED: DEXTROSE (50%) 50ML SYRG IV PRN (19:30)
[2023-12-31 01:50] VITALS: PULSE 75; RESP 16; O2SAT 93
[2023-12-31] MEDS: cefTRIAXone 1GM/50ML D5W 50 ML IV ONE ×2 (03:11→03:36)
[2023-12-31] MEDS: InsuLIN REG 1unit/0.01ml Soln (100units/ml) SC SCH ×2 (03:38→07:08)
[2023-12-31 05:17] LABS: Basophils # (auto) 0.1 10 ^3/uL (0-0.2); Basophils % (auto) 0.5 % (0.0-2.0); Eosinophils # (auto) 0.2 10 ^3/uL (0-0.8); Eosinophils % (auto) 2.1 % (0.0-7.0); Hematocrit 35.3 % (41.0-53.0); Hemoglobin 11.7 g/dL (13.5-17.5); Lymphocytes # (auto) 3.1 10 ^3/uL (0.4-5.4); Lymphocytes % (auto) 28.5 % (10.0-50.0); Mean Corpuscular Hemoglobin 32.2 pg (28.0-32.0); Mean Corpuscular Hgb Conc. 33.2 g/dL (32.0-36.0); Mean Corpuscular Volume 97.2 fL (80.0-100.0); Monocytes # (auto) 1.2 10 ^3/uL (0-1.3); Monocytes % (auto) 11.1 % (0.0-12.0); Neutrophils # (auto) 6.2 10 ^3/uL (1.6-8.6); Neutrophils % (auto) 57.8 % (37.0-80.0); Nucleated Red Blood Cells % 0.1 %; Red Blood Cells 3.63 10^6/uL (4.5-5.90); Red Cell Distribution Width 14.7 % (11.8-14.3); White Blood Cell 10.8 10^3/uL (4.4-10.8)
[2023-12-31 05:36] LABS: Alanine Aminotransferase 12 U/L (7-40); Alkaline Phosphatase 102 U/L (46-116); Anion Gap 6 (5-15); BUN/Creatinine Ratio 5.1 (10.0-20.0); Blood Urea Nitrogen 23 mg/dL (9-23); Calcium 9.2 mg/dL (8.7-10.4); Carbon Dioxide 27 mmol/L (20-30); Chloride 100 mmol/L (98-107); Sodium 133 mmol/L (136-145)
[2023-12-31 05:37] LABS: Albumin 4.1 g/dL (3.2-4.8); Aspartate Aminotransferase 10 U/L (13-40); Glucose 210 mg/dL (74-106)
[2023-12-31 05:38] LABS: Bilirubin, Total 0.2 mg/dL (0.2-1.0); Total Protein 7.4 g/dL (5.7-8.2)
[2023-12-31] MEDS: cefTRIAXone 1GM/50ML D5W 50 ML IV SCH (09:00)
[2023-12-31] MEDS: SODIUM ZIRCONIUM CYCL 10 GM PAK PO SCH (10:23)
[2023-12-31] MEDS: ASPirin-EC 81 mg tab PO SCH (10:23)
[2023-12-31 17:36] VITALS: BP 143/70; PULSE 67; RESP 17; TEMP 98.4; O2SAT 97
[2023-12-31 17:41] VITALS: PULSE 67; RESP 17; O2SAT 97
[2023-12-31 20:00] VITALS: PULSE 70; PULSE 73; RESP 18; O2SAT 97
[2023-12-31] MEDS: ATORVASTATIN 20 MG TAB PO SCH (21:39)
[2023-12-31 21:50] VITALS: BP 129/55; PULSE 78; RESP 18; TEMP 97.8; O2SAT 97
[2024-01-01] VITALS (9 sets, daily range): BP systolic 107–160; BP diastolic 54–77; PULSE 68–77; RESP 18–20; TEMP 97.7–98.7; O2SAT 91–97
[2024-01-01 06:26] LABS: Chloride 98 mmol/L (98-107); Potassium 5.4 mmol/L (3.5-5.1); Sodium 133 mmol/L (136-145)
[2024-01-01 06:27] LABS: Anion Gap 5 (5-15); Calcium 9.4 mg/dL (8.7-10.4); Carbon Dioxide 30 mmol/L (20-30)
[2024-01-01 06:32] LABS: BUN/Creatinine Ratio 8.4 (10.0-20.0); Glucose 143 mg/dL (74-106)
[2024-01-01 06:34] LABS: Phosphorus 6.2 mg/dL (2.4-5.1)
[2024-01-01 06:36] LABS: Blood Urea Nitrogen 45 mg/dL (9-23)
[2024-01-01] MEDS ORDERED: SODIUM CHL 0.9% 1000 ML BAG XX ONE (07:00)
[2024-01-01] MEDS: METOPROLOL TARTRATE 50 MG TAB PO SCH (09:41)
[2024-01-01] MEDS: SEVELAMER 800 MG TAB PO SCH (18:32)
[2024-01-02 08:05] VITALS: PULSE 76
[2024-01-02 08:30] VITALS: BP 136/71; PULSE 79; RESP 20; TEMP 98.1; O2SAT 96
[2024-01-02 12:30] VITALS: BP 136/53; PULSE 52; RESP 19; TEMP 98; O2SAT 97
[2024-01-02 16:41] VITALS: BP 124/56; PULSE 55; RESP 18; TEMP 97.9; O2SAT 95
[2024-01-02 20:00] VITALS: BP 132/60; PULSE 18; PULSE 59; PULSE 62; RESP 18; TEMP 98; O2SAT 93
[2024-01-02 21:00] VITALS: BP 132/60; PULSE 59; RESP 18; TEMP 98; O2SAT 93
[2024-01-03 05:00] VITALS: BP 138/68; PULSE 55; RESP 18; TEMP 98; O2SAT 92
[2024-01-03 08:05] VITALS: PULSE 52
[2024-01-03] MEDS: ONDANSETRON HCL 4 MG/2 ML VIAL IV PRN (08:17)
[2024-01-03 09:00] VITALS: BP 130/65; PULSE 61; RESP 16; TEMP 98.3; O2SAT 99
[2024-01-03 09:17] LABS: Hepatitis B Surface Antigen Negative (Negative)
[2024-01-03 09:38] LABS: Hepatitis B Core IgM Negative
[2024-01-03 09:39] LABS: Hepatitis C Antibody Negative (Negative)
[2024-01-03] MEDS ORDERED: CIPR-173 PO (10:09)
[2024-01-03 13:00] VITALS: BP 140/51; PULSE 59; RESP 16; TEMP 98.1; O2SAT 95
[2024-01-03 14:41] LABS: Hepatitis A Ab IgM Negative
[2024-01-03 15:31] VITALS: BP 140/51; PULSE 59; RESP 16; TEMP 98.1; O2SAT 95
== END 2024-01-03 16:25 | disposition home or self-care (01) | DRG 871 ==
LOC: ER 11:13 → TELE 20:13 → TELE-E-ADS 12-31 11:05 → TELE-EAST 12-31 17:27
PROVIDERS: ADMIT Nurse Practitioner Family; ATTEND Family Medicine
PROC: 5A1D70Z Performance of Urinary Filtration, Intermittent, Less than 6 Hours Per Day (ICD-10-PCS; principal; 2024-01-01)
DX: A41.9 Sepsis, unspecified organism (principal); N18.6 End stage renal disease; N30.01 Acute cystitis with hematuria; I13.2 Hypertensive heart and chronic kidney disease with heart failure and with stage 5 chronic kidney disease, or end stage renal disease; Z68.45 Body mass index [BMI] 70 or greater, adult; E44.0 Moderate protein-calorie malnutrition; E11.65 Type 2 diabetes mellitus with hyperglycemia; Z99.2 Dependence on renal dialysis; E11.22 Type 2 diabetes mellitus with diabetic chronic kidney disease; E11.51 Type 2 diabetes mellitus with diabetic peripheral angiopathy without gangrene; E78.00 Pure hypercholesterolemia, unspecified; E83.39 Other disorders of phosphorus metabolism; E87.5 Hyperkalemia; I25.10 Atherosclerotic heart disease of native coronary artery without angina pectoris; N40.0 Benign prostatic hyperplasia without lower urinary tract symptoms; I50.9 Heart failure, unspecified; I25.2 Old myocardial infarction; Z83.3 Family history of diabetes mellitus; Z87.891 Personal history of nicotine dependence; Z89.512 Acquired absence of left leg below knee; Z89.511 Acquired absence of right leg below knee; Z80.0 Family history of malignant neoplasm of digestive organs; Z79.4 Long term (current) use of insulin; Z95.5 Presence of coronary angioplasty implant and graft
CPT/HCPCS: 36415; 74176; 76856; 80048; 80053; 80074; 81001; 82306; 82962; 83036; 83605; 83690; 83970; 84100; 84484; 85025; 85610; 85730; 87040; 87086; 90935; G0378; J1642; J1815; J2405

== ENCOUNTER → 2024-03-27 | Outpatient (CLI) | payer MEDICARE, MEDICAID ==
[~2024-03-27] MED LIST changes: -AMLO1TAB23 PO; -ASPI-543 PO; -ATOR-47 PO; -BENZ100C97 PO; +CIPR-173 PO; -DOXA4TAB83 PO; -ESOM20CA PO; -FERR1TAB17 PO; -FURO1TAB32 PO; -FURO40TA4 PO; -GABA-1250 PO; -ISO60SRT PO; -LABE200T33 PO; -LOSA-533 PO; -METO25TA5 PO; -NITR-87 PO; -PANT40TA2 PO; -PATI1POW PO; -RIVA2.5T PO; -SACU1TAB7 PO; -SODI325T PO; -SUCR1SUS26 PO; -TAMS-35 PO; -VERI5TAB PO
== END | disposition home or self-care (01) ==
LOC: Rad HDHVI 09:07
PROVIDERS: ATTEND Internal Medicine Cardiovascular Disease
DX: I82.402 Acute embolism and thrombosis of unspecified deep veins of left lower extremity (principal)
CPT/HCPCS: 93931

== ENCOUNTER 2024-10-30 16:03 | Inpatient (IN) | payer MEDICARE, MEDICAID ==
[~2024-10-30] VITALS: Ht 139.7 cm; Wt 96.9 kg
[~2024-10-30 16:03] MED LIST changes: +AMIT-399 PO; +FLUT50SP EACHNOSTRI
--- NOTE | 2024-10-30 16:26 | ED.PDOC ---
SOB-HPI HPI Comments 64 year old male presents to the ED via EMS presents with a chief complaint of shortness of breath onset today. Per EMS, [facility], when he began experiencing shortness of breath with rhonchi. Upon EMS arrival, patient O2 sat was 80% RA, placed on 2L with O2 91%. Patient was sent by Dr. Zayas for admission. Patient states he has a surgery tomorrow for fistula placement. PMHx CHF, DM, HTN, HLD, CAD, CKF, [place]. Denies chest pain, abdominal pain, nausea, vomiting, diarrhea. No other symptoms or modifying factors present at this time. Chief Complaint: Shortness of Breath Time Seen by MD: 16:08 Primary Care Provider: BONIFACIO Dye notes: Medications, Allergies Information Source: Patient, Emergency Med Personnel Mode of Arrival: EMS Severity: Moderate Timing: Hours Duration: Since onset Context: At Rest PE Risk Factors: None History of: CHF Prehospital treatment: 12 Lead EKG, Oxygen Modifying Factors: Nothing Radiation: No Radiation Past Medical History PAST MEDICAL HISTORY: CAD, CHF, CKF, DM, High Lipids, HTN, [place] Surgical History: BKA, Hernia Repair Surgical History (Other): bilateral amputation Family History Family History: Reviewed,noncontributory to illness, Family hx of DM, Family hx of Cancer Social History Smoker: Quit Less Than 1 Year, Cigarettes Alcohol: Denies ETOH Use Drugs: Denies Drug Use Lives In: Other Constitutional: denies: chills, diaphoresis, fatigue, fever, malaise, sweats, weakness, others EENTM: denies: blurred vision, double vision, ear bleeding, ear discharge, ear drainage, ear pain, ear ringing, eye pain, eye redness, hearing loss, mouth pain, mouth swelling, nasal discharge, nose bleeding, nose congestion, nose pain, photophobia, tearing, throat pain, throat swelling, voice changes, others Respiratory: reports: shortness of breath, others (rhonchi); denies: cough, hemoptysis, orthopnea, SOB at rest, SOB with excertion, stridor, wheezing Cardiovascular: denies: chest pain, dizzy spells, diaphoresis, Dyspnea on exertion, edema, irregular heart beat, left arm pain, lightheadedness, palpitations, PND, syncope, others Gastrointestinal: denies: abdomen distended, abdominal pain, blood streaked bowels, constipated, diarrhea, dysphagia, difficulty swallowing, hematemesis, melena, nausea, poor appetite, poor fluid intake, rectal bleeding, rectal pain, vomiting, others Genitourinary: denies: burning, dysuria, flank pain, frequency, hematuria, incontinence, penile discharge, penile sore, pain, testicle pain, testicle swelling, urgency, others Neurological: denies: dizziness, fainting, headache, left sided numbness, left sided weakness, numbness, paresthesia, pre-existing deficit, right sided numbness, right sided weakness, seizure, speech problems, tingling, tremors, weakness, others Musculoskeletal: denies: back pain, gout, joint pain, joint swelling, muscle pain, muscle stiffness, neck pain, others Integumetry: denies: bruises, change in color, change in hair/nails, dryness, laceration, lesions, lumps, rash, wounds, others Allergic/Immunocompromised: denies: Difficulty Healing, Frequent Infections, Hives, Itching, others Hematologic/Lymphatic: denies: anemia, blood clots, easy bleeding, easy bruising, swollen glands, others Endocrine: denies: excessive hunger, excessive sweating, excessive thirst, excessive urination, flushing, intolerance to cold, intolerance to heat, unexplained weight gain, unexplained weight loss, others Psychiatric: denies: anxiety, bipolar disorder, depression, hopeless, panic disorder, schizophrenia, sleepless, suicidal, others All Other Systems: Reviewed and Negative Physical Exam General Appearance: Moderate Distress, Normal HEENT: Normal ENT Inspection, Pharynx Normal, TMs Normal Neck: Full Range of Motion, Non-Tender, Normal, Normal Inspection Respiratory: Accessory Muscle Use, Chest Non-Tender, Respiratory Distress, Other (Coarse breath sounds) Cardiovascular: No Edema, No JVD, No Murmur, No Gallop, Normal Peripheral Pulses, Regular Rate/Rhythm Breast Exam: Deferred Gastrointestinal: Distended, No Organomegaly, Non Tender, No Pulsatile Mass, Normal Bowel Sounds, Soft Genitalia: Deferred Pelvic: Deferred Rectal: Deferred Extremities: Swelling (Swelling of hand) Musculoskeletal : Apperance: Normal Neurologic: Alert, wrapper stemmer hand II-XII nml as Tested, No Motor Deficits, Normal Affect, Normal Mood, No Sensory Deficits Cerebellar Function: NOT DONE Reflexes: NOT DONE Skin: Dry, Normal Color, Warm Lymphatic: No Adenopathy Was a procedure done? Was a procedure done?: No Differential Dx Differential Diagnosis: Anxiety, Asthma, Bronchitis, CHF, COPD X-Ray, Labs, Meds, VS Vital Signs Date Time Temp Pulse Resp B/P (MAP) Pulse Ox O2 Delivery O2 Flow Rate FiO2 10/30/24 16:54 156/66 10/30/24 16:17 98.4 78 18 150/70 (96) 91 98.4 10/30/24 16:03 82 Lab Test 10/30/24 17:01 10/30/24 16:27 Range/Units Blood Gas Specimen Type Arterial Blood Gas Sample Site Left brachial Blood Gas Patient Temperature 37.0 Arterial Blood Date Drawn [id number] Arterial Blood pH 7.392 7.350-7.450 Arterial Blood Partial Pressure CO2 45.6 35.0-48.0 mmHg Arterial Blood Partial Pressure O2 83.0 83.0-108.0 mmHg Arterial Blood HCO3 27.1 21.0-28.0 mmol/L Arterial Blood Oxygen Saturation 94.9 94.0-98.0 % Arterial Blood Base Excess 1.8 -2.0-3.0 mmol/L Arterial Blood Oxyhemoglobin 93.7 L 94.0-98.0 % Arterial Blood Carboxyhemoglobin 1.1 0.5-1.5 % Arterial Blood Methemoglobin 0.2 0.0-1.5 % Rachid Test N/a Blood Gas Total Hemoglobin 10.10 L 13.5-17.5 g/dL Blood Gas Modality Nasal cannula FiO2 % 28.0 White Blood Count 8.9 4.4-10.8 10^3/uL Red Blood Count 3.25 L 4.5-5.90 10^6/uL Hemoglobin 9.4 L 13.5-17.5 g/dL Hematocrit 30.5 L 41.0-53.0 % Mean Corpuscular Volume 93.9 80.0-100.0 fL Mean Corpuscular Hemoglobin 28.9 28.0-32.0 pg Mean Corpuscular Hemoglobin Concent 30.8 L 32.0-36.0 g/dL Red Cell Distribution Width 17.0 H 11.8-14.3 % Platelet Count 367 140-450 10^3/uL Mean Platelet Volume 7.5 6.9-10.8 fL Neutrophils (%) (Auto) 74.4 37.0-80.0 % Lymphocytes (%) (Auto) 10.5 10.0-50.0 % Monocytes (%) (Auto) 11.1 0.0-12.0 % Eosinophils (%) (Auto) 3.0 0.0-7.0 % Basophils (%) (Auto) 1.0 0.0-2.0 % Neutrophils # (Auto) 6.6 1.6-8.6 10 ^3/uL Lymphocytes # (Auto) 0.9 0.4-5.4 10 ^3/uL Monocytes # (Auto) 1.0 0-1.3 10 ^3/uL Eosinophils # (Auto) 0.3 0-0.8 10 ^3/uL Basophils # (Auto) 0.1 0-0.2 10 ^3/uL Nucleated Red Blood Cells 0.2 % Sodium Level 139 136-145 mmol/L Potassium Level 3.9 3.5-5.1 mmol/L Chloride Level 102 98-107 mmol/L Carbon Dioxide Level 30 20-31 mmol/L Anion Gap 7 5-15 Blood Urea Nitrogen 40 H 9-23 mg/dL Creatinine 5.83 H 0.700-1.30 mg/dL Glomerular Filtration Rate Calc 10 >90 mL/min BUN/Creatinine Ratio 6.9 L 10.0-20.0 Serum Glucose 146 H 74-106 mg/dL Calcium Level 8.1 L 8.7-10.4 mg/dL Troponin I High Sensitivity 541 *H </=54 ng/L B-Type Natriuretic Peptide 874.88 0-100 pg/mL Current Medications Medications (Trade) Dose Ordered Sig/Alexander Route Start Time Stop Time Status Last Admin Furosemide (Lasix Injection) 40 mg ONCE ONCE IV 10/30/24 16:30 10/30/24 16:31 DC 10/30/24 16:54 Patient alert. Placed on oxygen. Swelling of upper extremity. Answering questions. Abdomen is slightly distended. BNP elevated. CHF. Was given Lasix. Will require BiPAP for sleep apnea. Possibly will need dialysis. EKG reviewed does not show any acute changes. Reviewed his history. Explained to the patient. Continue cardiac monitoring. Cardiac marker elevated. Possible pneumonia. Was given Zosyn. Was given azithromycin. Was given Lovenox. Time of 1ST Reevaluation: 16:38 Reevaluation 1ST: Unchanged Patient Education/Counseling: Diagnosis, Treatment, Prognosis Family Education/Counseling: No Family Present Departure 1 Departure Time of Disposition: 16:42 Impression: Primary Impression: CHF (congestive heart failure) Qualified Codes: I50.43 - Acute on chronic combined systolic (congestive) and diastolic (congestive) heart failure Additional Impressions: HTN (hypertension) Qualified Codes: I10 - Essential (primary) hypertension Uncontrolled diabetes mellitus Qualified Codes: E13.65 - Other specified diabetes mellitus with hyperglycem ia Generalized weakness Acute respiratory failure Qualified Codes: J96.01 - Acute respiratory failure with hypoxia Demand ischemia Pneumonia Qualified Codes: J18.9 - Pneumonia, unspecified organism Disposition: ADMITTED INPATIENT Admit to: Med Surg Condition: Guarded Critical Care Note Critical Care Time?: Yes (90 min-critical care time only) Critical care comment: Placed on oxygen continue to monitor will require CPAP Stability Stability form required: No Heart Score Heart Score: Heart Score Response (Comments) Value History Slightly Suspicious 0 EKG Normal 0 Age >65 2 Risk Factors >3 or Hx ASHD 2 Troponin Normal limit 0 Total 4 I personally scribed for JUANITA URIARTE MD ([email or web address]) on 10/30/24 at 16:26. Electronically submitted by Federica Agrawal ([email or web address]). I personally scribed for JUANITA URIARTE MD ([email or web address]) on 10/30/24 at 16:31. Electronically submitted by Federica Agrawal ([email or web address]). JUANITA URIARTE MD Oct 30, 2024 16:26
[2024-10-30 16:44] LABS: Basophils # (auto) 0.1 10 ^3/uL (0-0.2); Lymphocytes # (auto) 0.9 10 ^3/uL (0.4-5.4); Nucleated Red Blood Cells % 0.2 %
[2024-10-30 16:46] LABS: Chloride 102 mmol/L (98-107); Eosinophils # (auto) 0.3 10 ^3/uL (0-0.8); Hematocrit 30.5 % (41.0-53.0); Hemoglobin 9.4 g/dL (13.5-17.5); Lymphocytes % (auto) 10.5 % (10.0-50.0); Mean Corpuscular Hemoglobin 28.9 pg (28.0-32.0); Mean Corpuscular Hgb Conc. 30.8 g/dL (32.0-36.0); Mean Corpuscular Volume 93.9 fL (80.0-100.0); Monocytes % (auto) 11.1 % (0.0-12.0); Neutrophils # (auto) 6.6 10 ^3/uL (1.6-8.6); Neutrophils % (auto) 74.4 % (37.0-80.0); Platelet Count (auto) 367 10^3/uL (140-450); Potassium 3.9 mmol/L (3.5-5.1); Red Blood Cells 3.25 10^6/uL (4.5-5.90); Sodium 139 mmol/L (136-145); White Blood Cell 8.9 10^3/uL (4.4-10.8)
[2024-10-30 16:47] LABS: Anion Gap 7 (5-15); Carbon Dioxide 30 mmol/L (20-31)
[2024-10-30 16:53] LABS: BUN/Creatinine Ratio 6.9 (10.0-20.0)
[2024-10-30 16:54] LABS: Blood Urea Nitrogen 40 mg/dL (9-23); Calcium 8.1 mg/dL (8.7-10.4); Glucose 146 mg/dL (74-106)
[2024-10-30] MEDS: FUROSEMIDE 40 MG/4 ML VIAL IV ONE (16:54)
[2024-10-30 17:06] LABS: Base Excess 1.8 mmol/L (-2.0-3.0)
--- NOTE | 2024-10-30 17:23 | DVH ---
CHEST RADIOGRAPH Indication: sob Technique: Single frontal view of the chest was obtained Comparison: XY CHEST PORTABLE on DOS: 06/11/23, CHEST PORTABLE on DOS: 03/19/22 FINDINGS: Lines and Tubes: None Lungs: Interstitial and alveolar type opacities of bilateral lungs. Indistinctness of the left hemidiaphragm. No pneumothorax. Cardiomediastinal contours: Dmts-[id number]-pibevniu cardiomegaly Bones: No acute osseous abnormality. IMPRESSION: [id number] cardiomegaly with multifocal pneumonia/congestive heart failure. Recommend clinical correlation. Possible trace left-sided pleural effusion.
[2024-10-30] MEDS: ENOXAPARIN SOD 80 MG/0.8ML SYRINGE SC ONE (17:57)
[2024-10-30] MEDS: PIPERACILLIN-TAZOB 3.375GM 100 ML IV ONE (17:57)
[2024-10-30 19:00] VITALS: BP 134/56; PULSE 87; RESP 25; TEMP 98.4; O2SAT 96
[2024-10-30 19:43] LABS: Urine Bacteria MANY /hpf (None Seen); Urine Blood 3+ /uL (Negative); Urine Clarity Ex.Turbid (Clear); Urine Color Light-Brown (Yellow); Urine Mucus FEW (None Seen); Urine Protein, UAD 3+ (Negative); Urine Squamous Epithelial Cell FEW /hpf (<5); Urine Urobilinogen Normal (Negative); Urine WBC 1083 /HPF (0-3); Urine WBC Clumps PRESENT /hpf (None Seen)
[2024-10-30 19:56] VITALS: PULSE 82; RESP 22; O2SAT 96
[2024-10-30] MEDS ORDERED: MORPHINE SULFATE INJ 2 MG/ml SYRG IV PRN (20:00)
[2024-10-30] MEDS ORDERED: NITROGLYCERIN 0.4 MG SL TAB SL PRN (20:00)
[2024-10-30] MEDS ORDERED: ONDANSETRON HCL 4 MG/2 ML VIAL IV PRN (20:15)
[2024-10-30] MEDS: AZITHROMYCIN 500MG/ 250ML 250 ML IV ONE (21:35)
--- NOTE | 2024-10-30 21:54 | DVHHP2 ---
History of Present Illness Reason for Visit: Shortness for breath History of Present Illness 64 year old male presents for evaluation of shortness for breath. Patient presents with a one day history of worsening shortness for breath with a nonproductive cough. Patient is dialysis dependent. Currently denies chest pain or palpitations. No fever or chills. Past Medical History Chronic kidney disease, CHF, CAD, diabetes mellitus, hypertension, mi, dyslipidemia Past Surgical History Hernia repair, bilateral BKA, dialysis access Family History Cancer and diabetes mellitus Smoke: No ALCOHOL: none Drugs: None Lives: with Family Review of Systems Review of Systems Review of systems are currently negative otherwise addressed in HPI. Allergies: Coded Allergies: No Known Drug Allergy (Verified Allergy, Unknown, 11/23/17) Medications Current Medications Medications Dose Ordered Sig/Alexander Route Start Time Stop Time Status Last Admin Dose Admin Nitroglycerin 0.4 mg Q5MINP PRN SL 10/30/24 20:00 Morphine Sulfate 2 mg Q30M PRN IV 10/30/24 20:00 Aspirin 162 mg DAILY PO 10/31/24 10:00 Atorvastatin Calcium 80 mg HS PO 10/30/24 22:00 Sevelamer HCl 800 mg TIDWM PO 10/31/24 08:00 Gabapentin 100 mg TID PO 10/30/24 22:00 UNV Metoprolol Tartrate 50 mg BID PO 10/30/24 22:00 Ceftriaxone Sodium 50 ml @ 100 mls/hr DAILY@09 IV 10/31/24 09:00 Azithromycin 250 ml @ 125 mls/hr DAILY IV 10/31/24 10:00 Diagnostic Test (Pha) 1 strip Q6HR 10/31/24 00:00 Insulin Human Regular Q6HR SC 10/31/24 00:00 Dextrose 50 ml UD PRN IV 10/30/24 20:15 Ondansetron HCl 4 mg Q4HP PRN IV 10/30/24 20:15 Acetaminophen 650 mg Q6HP PRN PO 10/30/24 20:15 Exam Vital Signs Vital Signs Date Time Temp Pulse Resp B/P (MAP) Pulse Ox O2 Delivery O2 Flow Rate FiO2 10/30/24 20:33 98.1 82 22 141/57 (85) 96 98.1 10/30/24 19:56 Nasal Cannula* 2 28 Exam Gen: 64-year-old male in mild distress Skin: Warm, dry, normal color and texture, no rash. HEENT: Normocephalic atraumatic, mucous membranes moist and pink. Neck: Cervical and supraclavicular nodes normal without enlargement, trachea is midline, thyroid gland is normal without masses. Pulmonary: Clear to auscultation and percussion bilaterally. Cardiac: Regular rate and rhythm. No murmur Abdomen: Soft, nontender, nondistended, bowel sounds present all 4 quadrants, no guarding, no rigidity, no organomegaly. Extremities: No cyanosis, clubbing, bilateral BKA Neuro: Cranial nerves II through XII grossly intact, normal affect and speech, no focal motor deficits. Labs/Xrays ORDERING PHYSICIAN: JUANITA URIARTE MD PROCEDURE(s): CXRP - CHEST PORTABLE REASON: sob ORDER NUMBER(s): [id number], ACCESSION NUMBER(s): [id number] CHEST RADIOGRAPH Indication: sob Technique: Single frontal view of the chest was obtained Comparison: XY CHEST PORTABLE on DOS: 06/11/23, CHEST PORTABLE on DOS: 03/19/22 FINDINGS: Lines and Tubes: None Lungs: Interstitial and alveolar type opacities of bilateral lungs. Indistinctness of the left hemidiaphragm. No pneumothorax. Cardiomediastinal contours: Ofaq-gc-qtrgoqje cardiomegaly Bones: No acute osseous abnormality. IMPRESSION: Iymq-gc-jomyevqm cardiomegaly with multifocal pneumonia/congestive heart failure. Recommend clinical correlation. Possible trace left-sided pleural effusion. Labs Test 10/30/24 19:19 10/30/24 17:01 10/30/24 16:27 Range/Units Urine Color Light-brown Yellow Urine Clarity Ex.turbid Clear Urine pH 6.0 5.0-9.0 Urine Specific [place] 1.020 1.001-1.035 Urine Protein 3+ H Negative Urine Ketones Trace Negative Urine Blood 3+ H Negative /uL Urine Nitrite Negative Negative Urine Bilirubin Negative Negative Urine Urobilinogen Normal Negative mg/dL Urine Leukocyte Esterase 3+ Negative /uL Urine RBC 24 0 - 3 /hpf Urine WBC Clumps Present None Seen /hpf Urine Microscopic WBC 1083 H 0-3 /HPF Urine Squamous Epithelial Cells Few <5 /hpf Urine Transitional Epithelial Cells Few <2 /hpf Urine Bacteria Many H None Seen /hpf Urine Mucus Few None Seen Urine Glucose Normal Normal mg/dL Blood Gas Specimen Type Arterial Blood Gas Sample Site Left brachial Blood Gas Patient Temperature 37.0 Arterial Blood Date Drawn [id number] Arterial Blood pH 7.392 7.350-7.450 Arterial Blood Partial Pressure CO2 45.6 35.0-48.0 mmHg Arterial Blood Partial Pressure O2 83.0 83.0-108.0 mmHg Arterial Blood HCO3 27.1 21.0-28.0 mmol/L Arterial Blood Oxygen Saturation 94.9 94.0-98.0 % Arterial Blood Base Excess 1.8 -2.0-3.0 mmol/L Arterial Blood Oxyhemoglobin 93.7 L 94.0-98.0 % Arterial Blood Carboxyhemoglobin 1.1 0.5-1.5 % Arterial Blood Methemoglobin 0.2 0.0-1.5 % Rachid Test N/a Blood Gas Total Hemoglobin 10.10 L 13.5-17.5 g/dL Blood Gas Modality Nasal cannula FiO2 % 28.0 White Blood Count 8.9 4.4-10.8 10^3/uL Red Blood Count 3.25 L 4.5-5.90 10^6/uL Hemoglobin 9.4 L 13.5-17.5 g/dL Hematocrit 30.5 L 41.0-53.0 % Mean Corpuscular Volume 93.9 80.0-100.0 fL Mean Corpuscular Hemoglobin 28.9 28.0-32.0 pg Mean Corpuscular Hemoglobin Concent 30.8 L 32.0-36.0 g/dL Red Cell Distribution Width 17.0 H 11.8-14.3 % Platelet Count 367 140-450 10^3/uL Mean Platelet Volume 7.5 6.9-10.8 fL Neutrophils (%) (Auto) 74.4 37.0-80.0 % Lymphocytes (%) (Auto) 10.5 10.0-50.0 % Monocytes (%) (Auto) 11.1 0.0-12.0 % Eosinophils (%) (Auto) 3.0 0.0-7.0 % Basophils (%) (Auto) 1.0 0.0-2.0 % Neutrophils # (Auto) 6.6 1.6-8.6 10 ^3/uL Lymphocytes # (Auto) 0.9 0.4-5.4 10 ^3/uL Monocytes # (Auto) 1.0 0-1.3 10 ^3/uL Eosinophils # (Auto) 0.3 0-0.8 10 ^3/uL Basophils # (Auto) 0.1 0-0.2 10 ^3/uL Nucleated Red Blood Cells 0.2 % Sodium Level 139 136-145 mmol/L Potassium Level 3.9 3.5-5.1 mmol/L Chloride Level 102 98-107 mmol/L Carbon Dioxide Level 30 20-31 mmol/L Anion Gap 7 5-15 Blood Urea Nitrogen 40 H 9-23 mg/dL Creatinine 5.83 H 0.700-1.30 mg/dL Glomerular Filtration Rate Calc 10 >90 mL/min BUN/Creatinine Ratio 6.9 L 10.0-20.0 Serum Glucose 146 H 74-106 mg/dL Calcium Level 8.1 L 8.7-10.4 mg/dL Troponin I High Sensitivity 541 *H </=54 ng/L B-Type Natriuretic Peptide 874.88 0-100 pg/mL Assessment/Plan Assessment/Plan Assessment Acute on chronic congestive heart failure Possible fluid overload End-stage renal disease, dialysis dependent Multifocal pneumonia Diabetes mellitus Elevated troponin, possible demand ischemia Anemia of chronic disease Bilateral BKA Plan Admit the patient to telemetry to the hospitalist Cardiology consultation Nephrology consultation Resume home medications Continue treatment per orders. Plan discussed with: Patient My Orders Orders - CECILIA MCCULLOUGHCNLove Procedure Category Date Status Time Troponin-I Hs LAB 10/30/24 Logged 19:59 Troponin-I Hs LAB 10/30/24 Logged 20:59 Admit ADMIT 10/30/24 Transmitted 19:59 Nitroglycerin PHA 10/30/24 In Process Sublingual (Ntrostat 20:00 Morphine Sulfate PHA 10/30/24 In Process Injection 20:00 Stat Ekg For Chest PIYUSH 10/30/24 In Process Pain 19:59 Notify Of Changes PIYUSH 10/30/24 In Process From Base 19:59 Analytical Consultant For PIYUSH 10/30/24 In Process 24 Hours 19:59 Emergency Dysrhythmia PIYUSH 10/30/24 In Process Protocol 19:59 Rhythm Strips Once PIYUSH 10/30/24 In Process Every Shift 19:59 Oxygen By Nasal RT 10/30/24 Transmitted Cannula 19:59 Aspirin Tablet PHA 10/31/24 In Process 10:00 Atorvastatin (Lipitor) PHA 10/30/24 In Process 22:00 Sevelamer (Renagel) PHA 10/31/24 In Process 08:00 Gabapentin Capsule PHA 10/30/24 Logged (Neurontin Capsule) 22:00 Metoprolol Tartrate PHA 10/30/24 In Process Tablet (Lopressor Ta 22:00 Ceftriaxone 1gm/50ml PHA 10/31/24 In Process D5w (Rocephin) 09:00 Azithromycin 500mg/ PHA 10/31/24 In Process 250ml (Zithromax 50 10:00 * Cardiology Consult CONS 10/30/24 Transmitted 20:02 *[facility] CONS 10/30/24 Transmitted -[place] 20:02 Basic Metabolic Panel LAB 10/31/24 Verified 04:00 Glucose Blood PHA 10/31/24 In Process (Accu-Chek Comfort 00:00 Insulin R (Human) PHA 10/31/24 In Process (Insulin R) 00:00 Dextrose 50% Syringe PHA 10/30/24 In Process 20:15 Renal DIET 10/31/24 Transmitted Standard(2gna,3gk,Lopho) Breakfast Ondansetron Hcl PHA 10/30/24 In Process (Zofran) 20:15 Echo 2d Mode Cardiac US 10/30/24 Logged DOP 20:02 Condition: Fair PIYUSH 10/30/24 In Process 20:02 Acetaminophen Tablet PHA 10/30/24 In Process (Tylenol Tablet) 20:15 Bedrest With Bathroom PIYUSH 10/30/24 In Process Privileg 20:02 Date of Service: Oct 30, 2024 Billing Provider: CECILIA MCCULLOUGH Common Visit Codes: [id number] INP/OBS CARE (HIGH) CECILIA MCCULLOUGH Oct 30, 2024 21:54
[2024-10-30] MEDS: METOPROLOL TARTRATE 50 MG TAB PO SCH (22:51)
[2024-10-30] MEDS: ATORVASTATIN 20 MG TAB PO SCH (22:51)
[2024-10-30] MEDS: GABAPENTIN 100 MG CAP PO SCH (22:51)
[2024-10-31] VITALS (67 sets, daily range): BP systolic 90–166; BP diastolic 34–98; PULSE 58–77; RESP 9–24; TEMP 98.1–99.1; O2SAT 84–100
[2024-10-31] MEDS: ACCU-CHEK COMFORT CURVE STRIP VI SCH
[2024-10-31] MEDS: InsuLIN REG 1unit/0.01ml Soln (100units/ml) SC SCH
--- NOTE | 2024-10-31 07:15 | ECG ---
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
[2024-10-31] MEDS: HEPARIN SODIUM (PORCINE) 5000 UNITS/ML 1ML VIAL SC SCH (08:39)
[2024-10-31] MEDS: cefTRIAXone 1GM/50ML D5W 50 ML IV SCH (08:40)
[2024-10-31] MEDS: SEVELAMER 800 MG TAB PO SCH (08:40)
[2024-10-31] MEDS: ASPirin 81 mg TAB PO SCH (08:41)
[2024-10-31] MEDS ORDERED: AZITHROMYCIN 500MG/ 250ML 250 ML IV SCH (10:00)
[2024-10-31] MEDS: ETOMIDATE (2MG/ML) 20ML VIAL IV ONE (10:15)
[2024-10-31] MEDS: ROCURONIUM 10MG/ML 10ML VIAL IV ONE (10:15)
[2024-10-31] MEDS: MIDAZOLAM DRIP 50 mg/50mL 50 ML IV ONE (10:16)
[2024-10-31] MEDS: fentaNYL Drip 2500mCg/250mlNS 250 ML IV ONE (10:16)
[2024-10-31] MEDS: NOREPINEPHRINE 8 MG/250ML KIT 250 ML IV ONE (10:16)
--- NOTE | 2024-10-31 10:22 | DVHINCON2 ---
Family History: Diabetes mellitus G8 MOTHER, FH: cancer FH: liver cancer G8 MOTHER, FHx: diabetes mellitus Allergies: Coded Allergies: No Known Drug Allergy (Verified Allergy, Unknown, 11/23/17) Home Meds Active Scripts Ciprofloxacin Hcl (Cipro) 500 Mg Tab, 1 TAB PO BID, #20 TAB Prov:CLARITZA HIGUERA MD 01/03/24 Reported Medications Hydrocodone-Acetaminophen (Hydrocodone Bitartrate/AC 10-325 mg) 1 Tab Tab, 1 TAB PO Q6HPRN PRN for PAIN SCALE 7 THRU 10, TAB 01/20/23 Insulin NPH Isophane & Reg (Hu (Novolin 70/30 (70-30) 100 Unit/ml) 1 Inj Inj, 50 INJ SC BIDAC, INJ 08/10/21 Current Medications Current Medications Medications (Trade) Dose Ordered Sig/Alexander Route PRN Reason Start Time Stop Time Status Last Admin Nitroglycerin (Ntrostat Sublingual) 0.4 mg Q5MINP PRN SL FOR CHEST PAIN 10/30/24 20:00 Morphine Sulfate 2 mg Q30M PRN IV FOR CHEST PAIN 10/30/24 20:00 Aspirin 162 mg DAILY PO 10/31/24 10:00 10/31/24 08:41 Atorvastatin Calcium (Lipitor) 80 mg HS PO 10/30/24 22:00 Sevelamer HCl (Renagel) 800 mg TIDWM PO 10/31/24 08:00 10/31/24 08:40 Gabapentin (Neurontin Capsule) 100 mg TID PO 10/30/24 22:00 10/31/24 05:40 Metoprolol Tartrate (Lopressor Tablet) 50 mg BID PO 10/30/24 22:00 10/31/24 08:41 Ceftriaxone Sodium 50 ml @ 100 mls/hr DAILY@09 IV 10/31/24 09:00 10/31/24 08:40 Azithromycin 250 ml @ 125 mls/hr DAILY IV 10/31/24 10:00 Diagnostic Test (Pha) (Accu-Chek Comfort Curve T) 1 strip Q6HR 10/31/24 00:00 10/31/24 05:44 Insulin Human Regular (InsuLIN R) Q6HR SC 10/31/24 00:00 Dextrose 50 ml UD PRN IV Blood Sugar LESS THAN 60 10/30/24 20:15 Ondansetron HCl (Zofran) 4 mg Q4HP PRN IV NAUSEA / VOMITING 10/30/24 20:15 Acetaminophen (Tylenol Tablet) 650 mg Q6HP PRN PO PAIN SCALE 1-3 OR TEMP>100.4 10/30/24 20:15 Heparin Sodium (Porcine) 5,000 units Q12HR SC 10/31/24 10:00 10/31/24 08:39 Vital Signs Vital Signs Date Time Temp Pulse Resp B/P (MAP) Pulse Ox O2 Delivery O2 Flow Rate FiO2 10/31/24 09:00 98.5 74 24 149/89 (109) 89 98.5 10/31/24 04:05 Nasal Cannula* 3 32 Labs/Diagnostic Data Labs Test 10/31/24 05:42 10/30/24 19:19 10/30/24 17:01 10/30/24 16:27 Range/Units POC Glucose 106 70-106 mg/dl Urine Color Light-brown Yellow Urine Clarity Ex.turbid Clear Urine pH 6.0 5.0-9.0 Urine Specific [place] 1.020 1.001-1.035 Urine Protein 3+ H Negative Urine Ketones Trace Negative Urine Blood 3+ H Negative /uL Urine Nitrite Negative Negative Urine Bilirubin Negative Negative Urine Urobilinogen Normal Negative mg/dL Urine Leukocyte Esterase 3+ Negative /uL Urine RBC 24 0 - 3 /hpf Urine WBC Clumps Present None Seen /hpf Urine Microscopic WBC 1083 H 0-3 /HPF Urine Squamous Epithelial Cells Few <5 /hpf Urine Transitional Epithelial Cells Few <2 /hpf Urine Bacteria Many H None Seen /hpf Urine Mucus Few None Seen Urine Glucose Normal Normal mg/dL Blood Gas Specimen Type Arterial Blood Gas Sample Site Left brachial Blood Gas Patient Temperature 37.0 Arterial Blood Date Drawn [id number] Arterial Blood pH 7.392 7.350-7.450 Arterial Blood Partial Pressure CO2 45.6 35.0-48.0 mmHg Arterial Blood Partial Pressure O2 83.0 83.0-108.0 mmHg Arterial Blood HCO3 27.1 21.0-28.0 mmol/L Arterial Blood Oxygen Saturation 94.9 94.0-98.0 % Arterial Blood Base Excess 1.8 -2.0-3.0 mmol/L Arterial Blood Oxyhemoglobin 93.7 L 94.0-98.0 % Arterial Blood Carboxyhemoglobin 1.1 0.5-1.5 % Arterial Blood Methemoglobin 0.2 0.0-1.5 % Rachid Test N/a Blood Gas Total Hemoglobin 10.10 L 13.5-17.5 g/dL Blood Gas Modality Nasal cannula FiO2 % 28.0 White Blood Count 8.9 4.4-10.8 10^3/uL Red Blood Count 3.25 L 4.5-5.90 10^6/uL Hemoglobin 9.4 L 13.5-17.5 g/dL Hematocrit 30.5 L 41.0-53.0 % Mean Corpuscular Volume 93.9 80.0-100.0 fL Mean Corpuscular Hemoglobin 28.9 28.0-32.0 pg Mean Corpuscular Hemoglobin Concent 30.8 L 32.0-36.0 g/dL Red Cell Distribution Width 17.0 H 11.8-14.3 % Platelet Count 367 140-450 10^3/uL Mean Platelet Volume 7.5 6.9-10.8 fL Neutrophils (%) (Auto) 74.4 37.0-80.0 % Lymphocytes (%) (Auto) 10.5 10.0-50.0 % Monocytes (%) (Auto) 11.1 0.0-12.0 % Eosinophils (%) (Auto) 3.0 0.0-7.0 % Basophils (%) (Auto) 1.0 0.0-2.0 % Neutrophils # (Auto) 6.6 1.6-8.6 10 ^3/uL Lymphocytes # (Auto) 0.9 0.4-5.4 10 ^3/uL Monocytes # (Auto) 1.0 0-1.3 10 ^3/uL Eosinophils # (Auto) 0.3 0-0.8 10 ^3/uL Basophils # (Auto) 0.1 0-0.2 10 ^3/uL Nucleated Red Blood Cells 0.2 % Sodium Level 139 136-145 mmol/L Potassium Level 3.9 3.5-5.1 mmol/L Chloride Level 102 98-107 mmol/L Carbon Dioxide Level 30 20-31 mmol/L Anion Gap 7 5-15 Blood Urea Nitrogen 40 H 9-23 mg/dL Creatinine 5.83 H 0.700-1.30 mg/dL Glomerular Filtration Rate Calc 10 >90 mL/min BUN/Creatinine Ratio 6.9 L 10.0-20.0 Serum Glucose 146 H 74-106 mg/dL Calcium Level 8.1 L 8.7-10.4 mg/dL Troponin I High Sensitivity 541 *H </=54 ng/L B-Type Natriuretic Peptide 874.88 0-100 pg/mL [facility] Oct 31, 2024 10:22
--- NOTE | 2024-10-31 10:38 | DVHPN2 ---
Progress Note Date Seen: Oct 31, 2024 Medical Necessity Reason Pt with a Central, PICC or Fol: Yes The following are medically ne: Martinez Catheter Reason for martinez catheter: Strict I&O Subjective Patient reports: No new complaints Review of Systems: HEENT:Normal, CVS:Normal, RESPIRATORY:Normal, GI:Normal, :Normal, MSK:Normal, NEURO:Normal Objective vital signs Vital Sign Date Time Temp Pulse Resp B/P (MAP) Pulse Ox O2 Delivery O2 Flow Rate FiO2 10/31/24 09:00 98.5 74 24 149/89 (109) 89 98.5 10/31/24 04:05 Nasal Cannula* 3 32 Total Intake and Output 10/30/24 10/30/24 10/31/24 15:00 23:00 07:00 Intake Total 0 ml Output Total 0 ml Balance 0 ml medications Current Medications Medications Dose Ordered Sig/Alexander Route Start Time Stop Time Status Last Admin Dose Admin Nitroglycerin 0.4 mg Q5MINP PRN SL 10/30/24 20:00 Morphine Sulfate 2 mg Q30M PRN IV 10/30/24 20:00 Aspirin 162 mg DAILY PO 10/31/24 10:00 10/31/24 08:41 162 MG Atorvastatin Calcium 80 mg HS PO 10/30/24 22:00 Diagnostic Test (Pha) 1 strip Q6HR 10/31/24 00:00 10/31/24 05:44 1 STRIP Insulin Human Regular Q6HR SC 10/31/24 00:00 Dextrose 50 ml UD PRN IV 10/30/24 20:15 Ondansetron HCl 4 mg Q4HP PRN IV 10/30/24 20:15 Acetaminophen 650 mg Q6HP PRN PO 10/30/24 20:15 Heparin Sodium (Porcine) 5,000 units Q12HR SC 10/31/24 10:00 10/31/24 08:39 5,000 UNITS Pantoprazole Sodium 40 mg DAILY IV 11/01/24 10:00 UNV Examination: GENERAL:Normal, HEENT:Normal, NECK:Normal, LUNGS:Normal, LUNGS:Abnormal (bilateral rales), CVS:Normal, ABDOMEN:Normal, MSK:Normal, MSK:Abnormal (bilateral bka), SKIN:Normal, NEURO:Normal, NEURO:Abnormal (encephalopathy), :Normal laboratory and microbiology Laboratory Tests 10/30/24 16:27 Test 10/30/24 16:27 Range/Units Serum Glucose 146 H 74-106 mg/dL Problem List/Assessment/Plan Problem List/Assessment/Plan #1 acute resp failure: needs emergent intubation #2 acute systolic/diastolic heart failure: dialysis, echo #3 dm: ssi #4 htn' #5 esrd; needs dialysis #6 morbid obesity #7 bilateral bka #8 cad #9 nstemi: cardio eval #10 hyperlipidemia Plan discussed with: Patient My Orders My Orders Orders - CECILIA SOSA MD Procedure Category Date Status Time Chest Xray 1 View XY 10/31/24 Taken 10:21 Ventilator Setup RT 10/31/24 Logged 10:25 Respiratory Culture MATA 10/31/24 Logged W/ Gs 10:25 Abg W/ Co-Ox RT 10/31/24 Logged 11:30 Transfer Orders XFER 10/31/24 Transmitted 10:11 Pantoprazole PHA 10/31/24 Logged (Protonix) 10:15 Pantoprazole PHA 11/01/24 Logged (Protonix) 10:00 Urine Bacterial MATA 10/31/24 Logged Culture 10:11 Place Ng ORDERS 10/31/24 Transmitted 10:11 Complete Blood Count LAB 11/01/24 Verified 06:00 Comprehensive LAB 11/01/24 Verified Metabolic Panel 06:00 Chest Portable XY 11/01/24 Logged 06:00 Abg W/ Co-Ox RT 11/01/24 Logged 06:00 Hemoglobin A1c LAB 11/01/24 Verified 06:00 PTPTT LAB 11/01/24 Verified 04:00 Propofol (Diprivan) PHA 10/31/24 Logged 10:45 Midazolam Drip 50 PHA 10/31/24 Logged Mg/50ml (Versed Drip 5 10:45 Fentanyl Drip PHA 10/31/24 Logged 2500mcg/250mlns 10:45 Rass Sedation Scale PIYUSH 10/31/24 In Process 10:31 Meropenem 500mg PHA 10/31/24 Transmitted Q12h([id number] 22:00 Meropenem 1gm Ivpb X PHA 10/31/24 Transmitted ONE 10:45 Critical Care Time (mins): 64 (critical care time outside of procedures was 64 mins) Date of Service: Oct 31, 2024 Billing Provider: CECILIA SOSA MD Common Visit Codes: [id number] CARE 30-74 MIN CECILIA SOSA MD Oct 31, 2024 10:38
--- NOTE | 2024-10-31 10:39 | DVHNC2 ---
Intubation Indication: Respiratory Insufficiency, Altered Mental Status Prep: Preoxygenation Pretreated with: Sedation Intubation Approach: Orotracheal Intubation size: cm (8) Informed consent obtained: No Risks/benefits/alt described: No Date of Service: Oct 31, 2024 Billing Provider: CECILIA SOSA MD Common Visit Codes: PROCEDURE ONLY Procedure Codes: [id number] CECILIA SOSA MD Oct 31, 2024 10:39
--- NOTE | 2024-10-31 10:47 | DVH ---
EXAM: XY CHEST XRAY 1 VIEW Indication: intubation Technique: Single frontal view of the chest was obtained Comparison: XY CHEST PORTABLE on DOS: 10/30/24, XY CHEST PORTABLE on DOS: 06/11/23, CHEST PORTABLE on DOS: 03/19/22 FINDINGS: Lines and Tubes: Endotracheal tube projects 1.7 cm above the patrick. Lungs: Multifocal consolidative opacities. Pleura: No effusion. No pneumothorax. Cardiomediastinal contours: Cardiomegaly. Bones: No acute osseous abnormality. IMPRESSION: Endotracheal tube projects 1.7 cm above the patrick. Multifocal consolidative opacities.
--- NOTE | 2024-10-31 11:15 | RESUS ---
CODE ASSIST ASSESSSMENT Initial Information Code Assist Date: Oct 31, 2024 Code Assist Time: 10:13 Location of Arrest: Central Room # 212a Provider Name Dr Shaffer Time Notified: 10:13 Crash Cart Opened and Supplies: Yes Situation Staff concerned/worried, speci: SaO2 <90, RR >28, Change LOC Situation comment: Patient noted to by tachypneic, altered and minimally responsive to painful stimuli. Per primary RN, patient had refused ordered BIPAP and ordered blood draw earlier this morning. 80%. Rapid Response paged. Assessment Temperature (Fahrenheit): 98.5 Blood Pressure Systolic: 115 Blood Pressure Diastolic: 72 Respiratory Rate: 28 O2 Sat by Pulse Oximetry: 79 Bedside Blood Glucose: 112 Recommendations/Interventions Medications and Responses : Route of Administration: IV Heart Rate: 62 EKG Rhythm: Sinus Tachycardia Procedures: Accu check, CXR Portable, Cardiac Monitoring, Suctioned, Intubated, Bag Mask, O2 Mask/NC Other Interventions patient was orally intubated by Dr Shaffer. 1018: 15mg etomidate IV push x 1 given as verbally ordered by Dr Shaffer 1023: 1mg Atropine IV push x 1 given as verbally ordered by Dr Shaffer. HR noted to decrease to 42 during intubation process. 1023: successfully intubated by Dr Shaffer on 2nd attempt. 8.0ETT 24cm at the lip. Post intubation VS: 115/72 HR 62 97% SPO2 Outcome Outcome: Transfer to ICU Team Members Team Members Hannah Vaughan RN, RN, RN, RN Oct 31, 2024 11:15
[2024-10-31 11:17] LABS: Basophils # (auto) 0 10 ^3/uL (0-0.2); Basophils % (auto) 0.4 % (0.0-2.0); Eosinophils # (auto) 0.2 10 ^3/uL (0-0.8); Eosinophils % (auto) 1.5 % (0.0-7.0); Hematocrit 29.1 % (41.0-53.0); Hemoglobin 9.1 g/dL (13.5-17.5); Lymphocytes # (auto) 0.9 10 ^3/uL (0.4-5.4); Lymphocytes % (auto) 8.3 % (10.0-50.0); Mean Corpuscular Hemoglobin 30.3 pg (28.0-32.0); Mean Corpuscular Hgb Conc. 31.1 g/dL (32.0-36.0); Mean Corpuscular Volume 97.3 fL (80.0-100.0); Monocytes # (auto) 1.2 10 ^3/uL (0-1.3); Monocytes % (auto) 11.4 % (0.0-12.0); Neutrophils # (auto) 8.3 10 ^3/uL (1.6-8.6); Neutrophils % (auto) 78.4 % (37.0-80.0); Platelet Count (auto) 311 10^3/uL (140-450); Red Blood Cells 2.99 10^6/uL (4.5-5.90); Red Cell Distribution Width 17.3 % (11.8-14.3); White Blood Cell 10.5 10^3/uL (4.4-10.8)
[2024-10-31 11:49] LABS: Alanine Aminotransferase 33 U/L (7-40); Albumin 3.8 g/dL (3.2-4.8); Alkaline Phosphatase 94 U/L (46-116); Anion Gap 10 (5-15); BUN/Creatinine Ratio 6.7 (10.0-20.0); Carbon Dioxide 27 mmol/L (20-31); Chloride 103 mmol/L (98-107); Magnesium 2.2 mg/dL (1.6-2.6); Sodium 140 mmol/L (136-145)
[2024-10-31 11:50] LABS: Bilirubin, Total 0.3 mg/dL (0.2-1.0)
[2024-10-31 11:51] LABS: Aspartate Aminotransferase 43 U/L (13-40); Blood Urea Nitrogen 49 mg/dL (9-23); Calcium 7.9 mg/dL (8.7-10.4); Glucose 108 mg/dL (74-106); Potassium 5.2 mmol/L (3.5-5.1)
[2024-10-31 11:55] LABS: Cholesterol 160 mg/dL (< 200)
[2024-10-31 11:56] LABS: HDL Cholesterol 48 mg/dL (40-59); LDL Cholesterol 82 mg/dL (< 100); Triglycerides 129 mg/dL (< 150)
[2024-10-31] MEDS: MEROPENEM 1GM IVPB 50 ML IV ONE (12:00)
[2024-10-31 12:13] LABS: Base Excess -1.2 mmol/L (-2.0-3.0)
[2024-10-31] MEDS: PANTOPRAZOLE 40 MG/10 ML VIAL INJ IV ONE (13:25)
[2024-10-31] MEDS: MIDAZOLAM DRIP 50 mg/50mL 50 ML IV SCH (14:01)
[2024-10-31] MEDS: NOREPINEPHRINE BITARTRATE 32 MG in SODIUM CHL 0.9% 218 ML IV SCH (14:04)
[2024-10-31] MEDS ORDERED: EPINEPHrine HCL 1 MG/10 ML SYRG IV ONE (14:13)
[2024-10-31] MEDS: PROPOFOL 100 ML IV SCH (14:27)
[2024-10-31] MEDS: fentaNYL Drip 2500mCg/250mlNS 250 ML IV SCH (14:27)
--- NOTE | 2024-10-31 15:29 | DVHPN2 ---
Progress Note - Dictate Date Seen: Oct 30, 2024 Medical Necessity Reason Pt with a Central, PICC or Fol: Yes The following are medically ne: Martinez Catheter Reason for martinez catheter: Strict I&O Subjective PT WAS SEEN IN CLINICAL RESP DISTRESS DIFFUSE WHEEZING PMH HFrEF CHRONIC ISCHEMIC CM PAD BILATERAL LE AMPUTEE DIABETES VASCULOPATHY NEPHROPATHY NEUROPATHY HD ESRD vital signs Vital Sign Date Time Temp Pulse Resp B/P (MAP) Pulse Ox O2 Delivery O2 Flow Rate FiO2 10/31/24 14:26 63 18 118/46 (70) 100 80 10/31/24 14:00 98.4 209.1 10/31/24 14:00 Mechanical Ventilator+ 10/31/24 08:00 5 Total Intake and Output 10/30/24 10/30/24 10/31/24 15:00 23:00 07:00 Intake Total 0 ml Output Total 0 ml Balance 0 ml medications Current Medications Medications Dose Ordered Sig/Alexander Route Start Time Stop Time Status Last Admin Dose Admin Nitroglycerin 0.4 mg Q5MINP PRN SL 10/30/24 20:00 Morphine Sulfate 2 mg Q30M PRN IV 10/30/24 20:00 Aspirin 162 mg DAILY PO 10/31/24 10:00 10/31/24 08:41 162 MG Atorvastatin Calcium 80 mg HS PO 10/30/24 22:00 Diagnostic Test (Pha) 1 strip Q6HR 10/31/24 00:00 10/31/24 14:02 1 STRIP Insulin Human Regular Q6HR SC 10/31/24 00:00 Dextrose 50 ml UD PRN IV 10/30/24 20:15 Ondansetron HCl 4 mg Q4HP PRN IV 10/30/24 20:15 Acetaminophen 650 mg Q6HP PRN PO 10/30/24 20:15 Heparin Sodium (Porcine) 5,000 units Q12HR SC 10/31/24 10:00 10/31/24 08:39 5,000 UNITS Pantoprazole Sodium 40 mg DAILY IV 11/01/24 10:00 Propofol 100 ml @ 3.153 mls/ hr Q24H IV 10/31/24 10:45 Midazolam HCl 50 ml @ 1 mls/hr Q24H IV 10/31/24 10:45 10/31/24 14:01 4 MLS/HR Fentanyl Citrate 250 ml @ 2.5 mls/hr Q24H IV 10/31/24 10:45 Meropenem 50 ml @ 17 mls/hr HS IV 10/31/24 18:30 Norepinephrine Bitartrate 32 mg/ Sodium Chloride 250 ml @ 0.938 mls/ hr Q24H IV 10/31/24 11:00 laboratory and microbiology Laboratory Tests 10/31/24 10:50 Test 10/31/24 10:50 Range/Units Serum Glucose 108 H 74-106 mg/dL Problem List RESP DISTRESS DIFFUSE WHEEZING PMH HFrEF CHRONIC ISCHEMIC CM PAD BILATERAL LE AMPUTEE DIABETES VASCULOPATHY NEPHROPATHY NEUROPATHY HD ESRD ANEMIA HYPERKALEMIA Assessment/Plan DIALYSIS ABX CORRECT LYTES ECH Plan discussed with: Patient Critical Care Time(min): 35 YESICA YORK MD Oct 31, 2024 15:29
[2024-10-31] MEDS: MEROPENEM 1GM IVPB 50 ML IV SCH (18:26)
--- NOTE | 2024-10-31 18:32 | DVHNC2 ---
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 ), Other medical staff Indication: Other Room prepared for procedure: Yes Manager Resource performed hand hygien: Yes Maximal sterile barrier precau: Mask/Eye shield, Sterile gown, Cap, Sterlie gloves, Large sterlie drape Skin Preparation: Chlorhexidine gluconate Skin preparation completely dr: Yes Insertion site: Right, Femoral Central line catheter type: [id number] dialysis Number of lumens: 3 Post Assessment: Chest X-Ray Informed consent obtained: Yes Risks/benefits/alt described: Yes Date of Service: Oct 31, 2024 Billing Provider: CECILIA SOSA MD Common Visit Codes: PROCEDURE ONLY Procedure Codes: [id number] NON-TUNNEL CV CATH KAUSHIK RODRIGUEZ Oct 31, 2024 18:32 CECILIA SOSA MD Nov 11, 2024 20:20
--- NOTE | 2024-10-31 18:44 | DVHNC2 ---
Arterial Puncture Indication: Assess acid-base status Procedure: Sterile Preparation Location: Right Femoral Informed consent obtained: Yes Risks/benefits/alt described: Yes Notes After getting consent with all the septic precaution right femoral arterial line was done. Hemostasis was ensured. Date of Service: Oct 31, 2024 Billing Provider: CECILIA SOSA MD Common Visit Codes: PROCEDURE ONLY Procedure Codes: [id number] LINE KAUSHIK RODRIGUEZ Oct 31, 2024 18:44 CECILIA SOSA MD Nov 11, 2024 20:20
[2024-10-31] MEDS: SODIUM CHL 0.9% 1000 ML BAG XX ONE (18:53)
--- NOTE | 2024-10-31 20:19 | DVHINCON2 ---
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 to hospital Past Medical History As per HPI Past Surgical History Hernia surgery, bilateral BKA Allergies: Coded Allergies: No Known Drug Allergy (Verified Allergy, Unknown, 11/23/17) Home Meds Active Scripts Ciprofloxacin Hcl (Cipro) 500 Mg Tab, 1 TAB PO BID, #20 TAB Prov:CLARITZA HIGUERA MD 01/03/24 Reported Medications Hydrocodone-Acetaminophen (Hydrocodone Bitartrate/AC 10-325 mg) 1 Tab Tab, 1 TAB PO Q6HPRN PRN for PAIN SCALE 7 THRU 10, TAB 01/20/23 Insulin NPH Isophane & Reg (Hu (Novolin 70/30 (70-30) 100 Unit/ml) 1 Inj Inj, 50 INJ SC BIDAC, INJ 08/10/21 Current Medications Current Medications Medications (Trade) Dose Ordered Sig/Alexander Route PRN Reason Start Time Stop Time Status Last Admin Aspirin 162 mg DAILY PO 10/31/24 10:00 10/31/24 08:41 Atorvastatin Calcium (Lipitor) 80 mg HS PO 10/30/24 22:00 Sevelamer HCl (Renagel) 800 mg TIDWM PO 10/31/24 08:00 10/31/24 10:31 DC 10/31/24 08:40 Gabapentin (Neurontin Capsule) 100 mg TID PO 10/30/24 22:00 10/31/24 10:31 DC 10/31/24 05:40 Metoprolol Tartrate (Lopressor Tablet) 50 mg BID PO 10/30/24 22:00 10/31/24 10:31 DC 10/31/24 08:41 Ceftriaxone Sodium 50 ml @ 100 mls/hr DAILY@09 IV 10/31/24 09:00 10/31/24 10:31 DC 10/31/24 08:40 Azithromycin 250 ml @ 125 mls/hr DAILY IV 10/31/24 10:00 10/31/24 10:31 DC Diagnostic Test (Pha) (Accu-Chek Comfort Curve T) 1 strip Q6HR 10/31/24 00:00 10/31/24 18:32 Insulin Human Regular (InsuLIN R) Q6HR SC 10/31/24 00:00 Heparin Sodium (Porcine) 5,000 units Q12HR SC 10/31/24 10:00 10/31/24 08:39 Pantoprazole Sodium (Protonix) 40 mg DAILY IV 11/01/24 10:00 Propofol 100 ml @ 3.153 mls/ hr Q24H IV 10/31/24 10:45 Midazolam HCl 50 ml @ 1 mls/hr Q24H IV 10/31/24 10:45 10/31/24 14:01 Fentanyl Citrate 250 ml @ 2.5 mls/hr Q24H IV 10/31/24 10:45 Meropenem 50 ml @ 17 mls/hr HS IV 10/31/24 18:30 10/31/24 18:26 Norepinephrine Bitartrate 32 mg/ Sodium Chloride 250 ml @ 0.938 mls/ hr Q24H IV 10/31/24 11:00 10/31/24 15:39 Family History: Diabetes mellitus G8 MOTHER, FH: cancer FH: liver cancer G8 MOTHER, FHx: diabetes mellitus Review of Systems Unable To obtain H&P Exam Vital Signs/I&O Vital Sign Date Time Temp Pulse Resp B/P (MAP) Pulse Ox O2 Delivery O2 Flow Rate FiO2 10/31/24 20:15 60 18 120/40 (66) 100 60 10/31/24 18:45 98.4 209.1 10/31/24 14:00 Mechanical Ventilator+ 10/31/24 08:00 5 Intake and Output 10/30/24 10/31/24 19:00 07:00 Intake Total 0 ml Output Total 0 ml Balance 0 ml Intake Oral 0 ml Output Urine Total 0 ml Physical Exam General-intubated HEENT-normocephalic, no icterus, no pallor, neck supple Respiratory-fair air entry bilateral,rales Bilateral BKA Right upper extremity swollen Labs/Diagnostic Data Labs/Diagnostic Data Laboratory Tests Test 10/31/24 18:30 10/31/24 13:27 10/31/24 12:09 10/31/24 10:50 Range/Units POC Glucose 63 L 90 70-106 mg/dl Blood Gas Specimen Type Arterial Blood Gas Sample Site Left brachial Blood Gas Patient Temperature 37.0 Arterial Blood Date Drawn [id number] Arterial Blood pH 7.395 7.350-7.450 Arterial Blood Partial Pressure CO2 39.4 35.0-48.0 mmHg Arterial Blood Partial Pressure O2 134.8 H 83.0-108.0 mmHg Arterial Blood HCO3 23.6 21.0-28.0 mmol/L Arterial Blood Oxygen Saturation 98.8 H 94.0-98.0 % Arterial Blood Base Excess -1.2 -2.0-3.0 mmol/L Arterial Blood Oxyhemoglobin 97.6 94.0-98.0 % Arterial Blood Carboxyhemoglobin 1.0 0.5-1.5 % Arterial Blood Methemoglobin 0.2 0.0-1.5 % Rachid Test N/a Blood Gas Total Hemoglobin 8.70 L 13.5-17.5 g/dL Blood Gas Set Respiration Rate 18.0 Blood Gas Modality Vent - ac FiO2 % 100.0 Blood Gas Tidal Volume 550.0 Blood Gas PEEP or CPAP 5.0 White Blood Count 10.5 4.4-10.8 10^3/uL Red Blood Count 2.99 L 4.5-5.90 10^6/uL Hemoglobin 9.1 L 13.5-17.5 g/dL Hematocrit 29.1 L 41.0-53.0 % Mean Corpuscular Volume 97.3 80.0-100.0 fL Mean Corpuscular Hemoglobin 30.3 28.0-32.0 pg Mean Corpuscular Hemoglobin Concent 31.1 L 32.0-36.0 g/dL Red Cell Distribution Width 17.3 H 11.8-14.3 % Platelet Count 311 140-450 10^3/uL Mean Platelet Volume 7.5 6.9-10.8 fL Neutrophils (%) (Auto) 78.4 37.0-80.0 % Lymphocytes (%) (Auto) 8.3 L 10.0-50.0 % Monocytes (%) (Auto) 11.4 0.0-12.0 % Eosinophils (%) (Auto) 1.5 0.0-7.0 % Basophils (%) (Auto) 0.4 0.0-2.0 % Neutrophils # (Auto) 8.3 1.6-8.6 10 ^3/uL Lymphocytes # (Auto) 0.9 0.4-5.4 10 ^3/uL Monocytes # (Auto) 1.2 0-1.3 10 ^3/uL Eosinophils # (Auto) 0.2 0-0.8 10 ^3/uL Basophils # (Auto) 0 0-0.2 10 ^3/uL Nucleated Red Blood Cells 0.0 % Sodium Level 140 136-145 mmol/L Potassium Level 5.2 H 3.5-5.1 mmol/L Chloride Level 103 98-107 mmol/L Carbon Dioxide Level 27 20-31 mmol/L Anion Gap 10 5-15 Blood Urea Nitrogen 49 H 9-23 mg/dL Creatinine 7.29 H 0.700-1.30 mg/dL Glomerular Filtration Rate Calc 8 >90 mL/min BUN/Creatinine Ratio 6.7 L 10.0-20.0 Serum Glucose 108 H 74-106 mg/dL Hemoglobin A1c 7.6 H <5.7 % A1C Calcium Level 7.9 L 8.7-10.4 mg/dL Magnesium Level 2.2 1.6-2.6 mg/dL Total Bilirubin 0.3 0.2-1.0 mg/dL Aspartate Amino Transferase (AST) 43 H 13-40 U/L Alanine Aminotransferase (ALT) 33 7-40 U/L Alkaline Phosphatase 94 46-116 U/L Troponin I High Sensitivity 763 *H </=54 ng/L Total Protein 7.0 5.7-8.2 g/dL Albumin 3.8 3.2-4.8 g/dL Triglycerides Level 129 < 150 mg/dL Cholesterol Level 160 < 200 mg/dL LDL Cholesterol 82 < 100 mg/dL HDL Cholesterol 48 40-59 mg/dL Thyroid Stimulating Hormone (TSH) 0.73 0.55-4.78 uIU/mL Test 10/31/24 10:19 10/31/24 05:42 10/31/24 01:30 10/30/24 19:19 Range/Units POC Glucose 112 H 106 113 H 70-106 mg/dl Urine Color Light-brown Yellow Urine Clarity Ex.turbid Clear Urine pH 6.0 5.0-9.0 Urine Specific [place] 1.020 1.001-1.035 Urine Protein 3+ H Negative Urine Ketones Trace Negative Urine Blood 3+ H Negative /uL Urine Nitrite Negative Negative Urine Bilirubin Negative Negative Urine Urobilinogen Normal Negative mg/dL Urine Leukocyte Esterase 3+ Negative /uL Urine RBC 24 0 - 3 /hpf Urine WBC Clumps Present None Seen /hpf Urine Microscopic WBC 1083 H 0-3 /HPF Urine Squamous Epithelial Cells Few <5 /hpf Urine Transitional Epithelial Cells Few <2 /hpf Urine Bacteria Many H None Seen /hpf Urine Mucus Few None Seen Urine Glucose Normal Normal mg/dL Test 10/30/24 17:01 10/30/24 16:27 Range/Units Blood Gas Specimen Type Arterial Blood Gas Sample Site Left brachial Blood Gas Patient Temperature 37.0 Arterial Blood Date Drawn [id number] Arterial Blood pH 7.392 7.350-7.450 Arterial Blood Partial Pressure CO2 45.6 35.0-48.0 mmHg Arterial Blood Partial Pressure O2 83.0 83.0-108.0 mmHg Arterial Blood HCO3 27.1 21.0-28.0 mmol/L Arterial Blood Oxygen Saturation 94.9 94.0-98.0 % Arterial Blood Base Excess 1.8 -2.0-3.0 mmol/L Arterial Blood Oxyhemoglobin 93.7 L 94.0-98.0 % Arterial Blood Carboxyhemoglobin 1.1 0.5-1.5 % Arterial Blood Methemoglobin 0.2 0.0-1.5 % Rachid Test N/a Blood Gas Total Hemoglobin 10.10 L 13.5-17.5 g/dL Blood Gas Modality Nasal cannula FiO2 % 28.0 White Blood Count 8.9 4.4-10.8 10^3/uL Red Blood Count 3.25 L 4.5-5.90 10^6/uL Hemoglobin 9.4 L 13.5-17.5 g/dL Hematocrit 30.5 L 41.0-53.0 % Mean Corpuscular Volume 93.9 80.0-100.0 fL Mean Corpuscular Hemoglobin 28.9 28.0-32.0 pg Mean Corpuscular Hemoglobin Concent 30.8 L 32.0-36.0 g/dL Red Cell Distribution Width 17.0 H 11.8-14.3 % Platelet Count 367 140-450 10^3/uL Mean Platelet Volume 7.5 6.9-10.8 fL Neutrophils (%) (Auto) 74.4 37.0-80.0 % Lymphocytes (%) (Auto) 10.5 10.0-50.0 % Monocytes (%) (Auto) 11.1 0.0-12.0 % Eosinophils (%) (Auto) 3.0 0.0-7.0 % Basophils (%) (Auto) 1.0 0.0-2.0 % Neutrophils # (Auto) 6.6 1.6-8.6 10 ^3/uL Lymphocytes # (Auto) 0.9 0.4-5.4 10 ^3/uL Monocytes # (Auto) 1.0 0-1.3 10 ^3/uL Eosinophils # (Auto) 0.3 0-0.8 10 ^3/uL Basophils # (Auto) 0.1 0-0.2 10 ^3/uL Nucleated Red Blood Cells 0.2 % Sodium Level 139 136-145 mmol/L Potassium Level 3.9 3.5-5.1 mmol/L Chloride Level 102 98-107 mmol/L Carbon Dioxide Level 30 20-31 mmol/L Anion Gap 7 5-15 Blood Urea Nitrogen 40 H 9-23 mg/dL Creatinine 5.83 H 0.700-1.30 mg/dL Glomerular Filtration Rate Calc 10 >90 mL/min BUN/Creatinine Ratio 6.9 L 10.0-20.0 Serum Glucose 146 H 74-106 mg/dL Calcium Level 8.1 L 8.7-10.4 mg/dL Troponin I High Sensitivity 541 *H </=54 ng/L B-Type Natriuretic Peptide 874.88 0-100 pg/mL Assessment ESRD on hemodialysis Right upper extremity swelling Ventilator-dependent hypoxic respiratory failure Morbid obesity NSTEMI Congestive heart failure Recommendations Attempted avf tolerated dialysis well,uf 4 L off Vascular surgery consult Repeat HD tomorrow Epogen Plan discussed with: Daughter MARINE WILKERSON MD Oct 31, 2024 20:19
[2024-10-31] MEDS: EPOETIN ALFA-EPBX 10,000 UNIT/1ML VIAL SC ONE (21:00)
--- NOTE | 2024-10-31 21:40 | DVH ---
RIGHT Upper Extremity Venous Duplex Clinical History: FISTULA RUE CHECK FOR SWELLING Comparison: US RT LOWER DVT on DOS: 06/11/23 Technique: Duplex Doppler evaluation of the venous system of the RIGHT lower neck and upper extremity including color Doppler and spectral/pulsed waveform analysis was performed. Findings: The internal jugular vein not visualized The subclavian vein is patent on color Doppler evaluation without intraluminal thrombus and demonstra shawn waveform variability. The visualized portion of the brachiocephalic vein is patent on color Doppler evaluation without intr aluminal thrombus and demonstrates waveform variability. The axillary vein demonstrates appropriate compressibility and waveform variability. The brachial veins demonstrate appropriate compressibility and patency on Doppler evaluation. The basilic vein demonstrates appropriate compressibility and patency on Doppler evaluation. The cephalic vein demonstrates appropriate compressibility and patency on Doppler evaluation. Impression: 1. No venous thrombus identified in the RIGHT upper extremity vessels evaluated above. 2. If clinical concern/symptoms persist or worsen, short-interval follow-up study is suggested.
[2024-11-01] VITALS (107 sets, daily range): BP systolic 81–216; BP diastolic 34–81; PULSE 57–72; RESP 12–19; TEMP 94.1–99.3; O2SAT 91–100
[2024-11-01 04:28] LABS: Basophils # (auto) 0.1 10 ^3/uL (0-0.2); Basophils % (auto) 0.8 % (0.0-2.0); Eosinophils # (auto) 0.2 10 ^3/uL (0-0.8); Eosinophils % (auto) 3.2 % (0.0-7.0); Hematocrit 26.7 % (41.0-53.0); Hemoglobin 8.6 g/dL (13.5-17.5); Lymphocytes # (auto) 1.2 10 ^3/uL (0.4-5.4); Lymphocytes % (auto) 18.4 % (10.0-50.0); Mean Corpuscular Hemoglobin 29.3 pg (28.0-32.0); Mean Corpuscular Hgb Conc. 32.1 g/dL (32.0-36.0); Mean Corpuscular Volume 91.1 fL (80.0-100.0); Monocytes # (auto) 0.9 10 ^3/uL (0-1.3); Monocytes % (auto) 12.8 % (0.0-12.0); Neutrophils # (auto) 4.3 10 ^3/uL (1.6-8.6); Neutrophils % (auto) 64.8 % (37.0-80.0); Nucleated Red Blood Cells % 0.2 %; Platelet Count (auto) 329 10^3/uL (140-450); Red Blood Cells 2.94 10^6/uL (4.5-5.90); Red Cell Distribution Width 16.9 % (11.8-14.3); White Blood Cell 6.7 10^3/uL (4.4-10.8)
[2024-11-01 04:37] LABS: INR 1.22 (0.9-1.15); Partial Thromboplastin Time 29.4 SEC (24.5-34.5); Prothrombin Time 12.7 sec (9.3-11.8)
[2024-11-01 04:42] LABS: Alanine Aminotransferase 27 U/L (7-40); Alkaline Phosphatase 74 U/L (46-116); Anion Gap 12 (5-15); BUN/Creatinine Ratio 5.4 (10.0-20.0); Carbon Dioxide 27 mmol/L (20-31); Chloride 100 mmol/L (98-107); Potassium 3.8 mmol/L (3.5-5.1); Sodium 139 mmol/L (136-145); Total Protein 6.6 g/dL (5.7-8.2)
[2024-11-01 04:43] LABS: Albumin 3.4 g/dL (3.2-4.8); Aspartate Aminotransferase 28 U/L (13-40); Bilirubin, Total 0.3 mg/dL (0.2-1.0)
[2024-11-01 04:46] LABS: Blood Urea Nitrogen 30 mg/dL (9-23); Calcium 8.5 mg/dL (8.7-10.4); Glucose 72 mg/dL (74-106)
--- NOTE | 2024-11-01 05:12 | DVH ---
EXAM: XR Chest, 1 View CLINICAL INDICATION: chf TECHNIQUE: Frontal view of the chest. COMPARISON: XY CHEST XRAY 1 VIEW on DOS: 10/31/24, XY CHEST PORTABLE on DOS: 10/30/24, XY CHEST PORTAB LE on DOS: 06/11/23, CHEST PORTABLE on DOS: 03/19/22 FINDINGS: LUNGS AND PLEURAL SPACES: See below. HEART: Cardiomegaly with pulmonary congestion and edema. Superimposed pneumonia cannot be excluded. MEDIASTINUM: Unremarkable. Normal mediastinal contour. BONES/JOINTS: Unremarkable. No acute fracture. TUBES, LINES AND DEVICES: Stable tubes and lines. OTHER FINDINGS: . .. IMPRESSION: Cardiomegaly with pulmonary congestion and edema. Superimposed pneumonia cannot be excluded.
[2024-11-01 07:07] LABS: Base Excess 2.8 mmol/L (-2.0-3.0)
--- NOTE | 2024-11-01 07:33 | DVHPNRES ---
Progress Note Date Seen: Nov 01, 2024 Resident Creating Document: KAUSHIK RODRIGUEZ Medical Necessity Reason Pt with a Central, PICC or Fol: Yes The following are medically ne: Central Line, Martinez Catheter Reason for martinez catheter: Strict I&O Subjective Review of Systems Patient is 64 years old male with past medical history of ischemic cardiomyopathy, CHF, PAD, diabetes mellitus type 2, hypertension, CAD, history of [place], status post PTCA stent x2 in 2021, DAVID, obesity, dyslipidemia, ESRD on hemodialysis presented to the ER due to shortness of breaths. Patient was gathered from reviewing the chart and talking to the family. Patient presented with a one-day history of worsening shortness of breath with a nonproductive cough. Initial lab workup revealed WBC 8.9, hemoglobin 9.4, platelet 267, sodium 139, potassium 3.9, serum creatinine 5.83, HGB A1c 7.6, troponin I 541> 763, BNP 874, TSH 0.73. Urinalysis revealed leukocyte esterase 3+, RBC 24, WBC present, bacteria many. ABG on 10/30/24 revealed pH 7.39, pCO2 45.6, PO2 83.0, bicarbonate 27.1. HSQ-Nosp-br-moderate cardiomegaly with multifocal pneumonia/congestive heart failure. Recommend clinical correlation. Possible trace left-sided pleural effusion. Doppler study of the right upper extremity negative for DVT. Following admission patient was put on BiPAP 12/5, BUN 12, FiO2 30%. Patient had increased work of breathing using large size face mass. Patient was refusing BiPAP on 10/31/2024. Rapid response was called around 10:00 a.m due to worsening short of breath and patient was desaturating. Patient was intubated by Dr. Shaffer. PMH-CHF, diabetes mellitus type 2, hypertension, CAD, history of AZ, dyslipidemia, ESRD on hemodialysis PSH- Hernia repair, bilateral BKA, dialysis access Allergy- NKDA Personal History/ Social History- lives with family Echo on 07/15/2022-LVEF 40% On 04/22/2023 left heart catheterization revealed-LVEF 40-45%. Patient had a several visit at [facility] on December 30, 2023, July 22, 2023, January 20, 2023, August 13, 2022, July 14, 2022, June 03, 2022, April 20, 2022, March 20, 2022, August 09, 2021, December 20, 2020 Patient Had central right femoral line done on 10/31/2024 Right femoral arterial line done on 10/31/2024 Patient was intubated on 10/31/2024 On 10/30/2024-uterine culture>100,00 CFU/ml Gram-negative rods 10/31/2024 -blood culture no growth so far Patient had dialysis on 10/31/24 and also on 11/01/2024 Patient seen today for clinical evaluation. Labs and chart reviewed. Ordered blood pressure ranging from-127 162/46-60, pulse 62 -70, temperature 98.6-99.1 I/O- Intake 499, output 4030, negative balance 3530 Patient is scheduled for hemodialysis to On 10/31/2024 blood culture no growth so far. CXR- Cardiomegaly with pulmonary congestion and edema. Superimposed pneumonia cannot be excluded. Cardiomegaly with pulmonary congestion and edema. Superimposed pneumonia cannot be excluded. ABG- BG-PH 7.51, PCO2 33.0, PO2 77.6, HCO3-25.7 Labs revealed WBC 8.9> 10.5> 6.7 Hemoglobin 9.4> 9.1> 8.6 Platelet 367> 311> 329 Sodium 139> 140> 139 Potassium 3.9> 5.2> 3.8 Serum creatinine 5.83> 7.29> 5.58 BUN 40> 49> 30 Magnesium 2.2 HGB A1c 7.6 Troponin I 541> 763 BNP 874 Serum bilirubin 0.3> 0.3 AST 43> 28 ALT 33> 27 Phosphatase 94> 74 Patient was Seen by Cardiology Dr. Zayas recommendation reviewed and appreciated Patient was seen by property maintenance supervisor, recommendation reviewed and appreciated. Properly called and spoke to patient's daughter Arianna Thornton--[phone], discussed patient's current medical condition, plan of care and answered questions Objective vital signs Vital Sign Date Time Temp Pulse Resp B/P (MAP) Pulse Ox O2 Delivery O2 Flow Rate FiO2 11/01/24 06:45 98.6 65 18 124/48 (73) 97 209.5 140/48 (78) 11/01/24 06:10 60 10/31/24 20:00 Mechanical Ventilator+ 10/31/24 08:00 5 Total Intake and Output 4/1/25 4/1/25 4/2/25 15:00 23:00 07:00 Intake Total 167 ml 177.088 ml 155.5 ml Output Total 4015 ml 15 ml Balance 167 ml -3837.912 ml 140.5 ml medications Current Medications Medications Dose Ordered Sig/Alexander Route Start Time Stop Time Status Last Admin Dose Admin Nitroglycerin 0.4 mg Q5MINP PRN SL 10/30/24 20:00 Morphine Sulfate 2 mg Q30M PRN IV 10/30/24 20:00 Aspirin 162 mg DAILY PO 10/31/24 10:00 10/31/24 08:41 162 MG Atorvastatin Calcium 80 mg HS PO 10/30/24 22:00 10/31/24 23:00 80 MG Diagnostic Test (Pha) 1 strip Q6HR 10/31/24 00:00 11/01/24 05:54 1 STRIP Insulin Human Regular Q6HR SC 10/31/24 00:00 Dextrose 50 ml UD PRN IV 10/30/24 20:15 Ondansetron HCl 4 mg Q4HP PRN IV 10/30/24 20:15 Acetaminophen 650 mg Q6HP PRN PO 10/30/24 20:15 Heparin Sodium (Porcine) 5,000 units Q12HR SC 10/31/24 10:00 10/31/24 23:01 5,000 UNITS Pantoprazole Sodium 40 mg DAILY IV 11/01/24 10:00 Propofol 100 ml @ 3.153 mls/ hr Q24H IV 10/31/24 10:45 Midazolam HCl 50 ml @ 1 mls/hr Q24H IV 10/31/24 10:45 11/01/24 00:36 4 MLS/HR Fentanyl Citrate 250 ml @ 2.5 mls/hr Q24H IV 10/31/24 10:45 11/01/24 04:34 15 MLS/HR Meropenem 50 ml @ 17 mls/hr HS IV 10/31/24 18:30 10/31/24 18:26 17 MLS/HR Norepinephrine Bitartrate 32 mg/ Sodium Chloride 250 ml @ 0.938 mls/ hr Q24H IV 10/31/24 11:00 10/31/24 15:39 0.938 MLS/HR Examination General examination- on mechanical ventilator HEENT- PEERLA, no acute nasal discharge Cardiovascular- S1-S2 audible, rate and rhythm regular, no murmur Respiratory- CTAB, no wheeze or rhonchi Gastrointestinal-nontender, bowel sound+. Nondistended Musculoskeletal-no acute joint swelling or tenderness or redness Lower extremity- bilateral below-knee amputation. Bilateral upper arm swelling+ Neurological- cranial nerves intact, no acute dysarthria or dysphagia Psychiatry- denies depression or SI or HI Skin- no acute rash or purpura laboratory and microbiology Laboratory Tests 11/01/24 03:28 Test 11/01/24 03:28 Range/Units Serum Glucose 72 L 74-106 mg/dL Problem List/Assessment/Plan Problem List/Assessment/Plan Assessment and plan #Neurology -metabolic encephalopathy likely due to acute hypoxic respiratory failure/pneumonia Gram-positive versus Gram-negative -septic shock, status post Levophed -diabetic neuropathy -on mechanical ventilation, on sedation #Cardiovascular -acute heart failure systolic/diastolic -acute pulmonary edema/fluid overload likely due to ESRD on top of heart failure NSTEMI Type 2 -PAD, -vasculopathy --continue current management #Respiratory -acute hypoxic respiratory failure likely due to pneumonia Gram-positive versus Gram-negative -acute pneumonia Gram-positive versus Gram-negative -DAVID -continue meropenem as prescribed #Genitourinary/renal -ESRD on hemodialysis - septic shock likely due to UTI, status post Levophed -On 10/30/2024-urine culture>100,00 CFU/ml Gram-negative rods #Hematology -anemia of chronic disease --monitor CBC # infectious -pneumonia Gram-positive versus Gram-negative -UTI with sepsis -septic shock likely due to UTI/pneumonia -On 10/30/2024-urine culture>100,00 CFU/ml Gram-negative rods -continue meropenem as prescribed #Metabolic/endocrine disorder -diabetes mellitus type 2-HGB A1c 7.6 #Skin/elementary -bilateral upper extremity swelling - Bilateral below-knee amputation # obesity, BMI 49.8 Goals of care, Code status ; discussed with >25 minutes PUD prophylaxis: Pantoprazole DVT prophylaxis: Heparin Plan discussed with Dr. Dumont , nursing staff, Total time spent on patient evaluation, chart review, assessment and plan, Critical time spent including monitoring mechanical ventilation, excluding procedure 83 minutes Plan discussed with: Daughter, Other (RN, ) Date of Service: Nov 01, 2024 Billing Provider: PAYAL DUMONT MD Common Visit Codes: NOT BILLABLE KAUSHIK RODRIGUEZ RESIDENT Nov 01, 2024 07:33 PAYAL DUMONT MD Nov 14, 2024 09:51
--- NOTE | 2024-11-01 08:25 | DVHPN2 ---
Progress Note - Dictate Date Seen: Nov 01, 2024 Medical Necessity Reason Pt with a Central, PICC or Fol: Yes The following are medically ne: Martinez Catheter Reason for martinez catheter: Strict I&O Subjective PT WAS SEEN IN CLINICAL RESP DISTRESS DIFFUSE WHEEZING PMH HFrEF CHRONIC ISCHEMIC CM PAD BILATERAL LE AMPUTEE DIABETES VASCULOPATHY NEPHROPATHY NEUROPATHY HD ESRD vital signs Vital Sign Date Time Temp Pulse Resp B/P (MAP) Pulse Ox O2 Delivery O2 Flow Rate FiO2 11/01/24 08:15 62 18 135/45 (75) 98 60 11/01/24 06:45 98.6 209.5 10/31/24 20:00 Mechanical Ventilator+ 10/31/24 08:00 5 Total Intake and Output 10/31/24 10/31/24 11/01/24 15:00 23:00 07:00 Intake Total 167 ml 177.088 ml 174.5 ml Output Total 4015 ml 15 ml Balance 167 ml -3837.912 ml 159.5 ml medications Current Medications Medications Dose Ordered Sig/Alexander Route Start Time Stop Time Status Last Admin Dose Admin Nitroglycerin 0.4 mg Q5MINP PRN SL 10/30/24 20:00 Morphine Sulfate 2 mg Q30M PRN IV 10/30/24 20:00 Aspirin 162 mg DAILY PO 10/31/24 10:00 10/31/24 08:41 162 MG Atorvastatin Calcium 80 mg HS PO 10/30/24 22:00 10/31/24 23:00 80 MG Diagnostic Test (Pha) 1 strip Q6HR 10/31/24 00:00 11/01/24 05:54 1 STRIP Insulin Human Regular Q6HR SC 10/31/24 00:00 Dextrose 50 ml UD PRN IV 10/30/24 20:15 Ondansetron HCl 4 mg Q4HP PRN IV 10/30/24 20:15 Acetaminophen 650 mg Q6HP PRN PO 10/30/24 20:15 Heparin Sodium (Porcine) 5,000 units Q12HR SC 10/31/24 10:00 10/31/24 23:01 5,000 UNITS Pantoprazole Sodium 40 mg DAILY IV 11/01/24 10:00 Propofol 100 ml @ 3.153 mls/ hr Q24H IV 10/31/24 10:45 Midazolam HCl 50 ml @ 1 mls/hr Q24H IV 10/31/24 10:45 11/01/24 00:36 4 MLS/HR Fentanyl Citrate 250 ml @ 2.5 mls/hr Q24H IV 10/31/24 10:45 11/01/24 04:34 15 MLS/HR Meropenem 50 ml @ 17 mls/hr HS IV 10/31/24 18:30 10/31/24 18:26 17 MLS/HR Norepinephrine Bitartrate 32 mg/ Sodium Chloride 250 ml @ 0.938 mls/ hr Q24H IV 10/31/24 11:00 10/31/24 15:39 0.938 MLS/HR laboratory and microbiology Laboratory Tests 11/01/24 03:28 Test 11/01/24 03:28 Range/Units Serum Glucose 72 L 74-106 mg/dL Problem List RESP DISTRESS DIFFUSE WHEEZING PMH HFrEF CHRONIC ISCHEMIC CM PAD BILATERAL LE AMPUTEE DIABETES VASCULOPATHY NEPHROPATHY NEUROPATHY HD ESRD ANEMIA HYPERKALEMIA Assessment/Plan DIALYSIS ABX CORRECT LYTES ECHO S/P DIALYSIS 4L OUT CHECK BNP REPEAT CXR Plan discussed with: Patient Critical Care Time(min): 35 YESICA YORK MD Nov 01, 2024 08:24
--- NOTE | 2024-11-01 10:14 | DVHSR ---
APPROVED REPORT EXAM: Two-dimensional and M-mode echocardiogram with Doppler and color Doppler. Blood Pressure: 145/95 mmHg INDICATION ef RISK FACTORS Obesity: Height: , Weight: 232 DIMENSIONS LVDd4.3 (3.8-5.7cm)LA (2D)5.4 (1.9-4.0cm)Aortic Root3.2 (2.0-3.7cm) LVDs3.1 (2.5-4.0cm)LA (MM) (1.9-4.0cm)Aortic Cusp Exc1.2 (1.5-2.0cm) EF (%) 54.0 (55-70%)Rt. Atrium4.2 (1.9-4.0cm)Asc. Aorta3.1 cm IVSd1.2 (0.7-1.1cm)RV (D)4.5 (1.8-2.4cm) PWd0.9 (0.7-1.1cm) Mitral Valve MitralMitral Stenosis E wave0.84m/sMV Mean GR.mmHg A wave0.86m/sMV Peak GR.mmHg E/A ratio1.02D MVAcm2 DECEL [id number] 1/2 Timems Aortic Valve Aortic ValveAortic Stenosis V11.22m/Dustin Mean GR.5mmHg V21.45m/Dustin Peak GR.8mmHg LVOT Diameter1.8 (1.8-2.4cm)Doppler AVA2.14cm2 Pulmonic Valve V21.32m/s Tricuspid Valve TR Velocity2.59m/s [id number] Other Information Quality : Technically LimitedRhythm : Technically limited study due to on vent. Conclusion EF 50% MILD PI MILD TR, MR
[2024-11-01] MEDS: ALBUMIN 25% 100 ML IV SCH (11:29)
[2024-11-01] MEDS: PANTOPRAZOLE 40 MG/10 ML VIAL INJ IV SCH (14:14)
--- NOTE | 2024-11-01 14:39 | DVHPN2 ---
Progress Note Date Seen: Nov 01, 2024 Medical Necessity Reason Pt with a Central, PICC or Fol: Yes The following are medically ne: Martinez Catheter Reason for martinez catheter: Strict I&O Subjective Patient reports: Other (intubated) Review of Systems: Deferred Objective vital signs Vital Sign Date Time Temp Pulse Resp B/P (MAP) Pulse Ox O2 Delivery O2 Flow Rate FiO2 11/01/24 14:36 40 11/01/24 12:00 59 18 133/34 (67) 100 11/01/24 06:45 98.6 209.5 10/31/24 20:00 Mechanical Ventilator+ 10/31/24 08:00 5 Total Intake and Output 10/31/24 10/31/24 11/01/24 15:00 23:00 07:00 Intake Total 167 ml 177.088 ml 174.5 ml Output Total 4015 ml 15 ml Balance 167 ml -3837.912 ml 159.5 ml medications Current Medications Medications Dose Ordered Sig/Alexander Route Start Time Stop Time Status Last Admin Dose Admin Nitroglycerin 0.4 mg Q5MINP PRN SL 10/30/24 20:00 Morphine Sulfate 2 mg Q30M PRN IV 10/30/24 20:00 Aspirin 162 mg DAILY PO 10/31/24 10:00 11/01/24 14:14 162 MG Atorvastatin Calcium 80 mg HS PO 10/30/24 22:00 10/31/24 23:00 80 MG Diagnostic Test (Pha) 1 strip Q6HR 10/31/24 00:00 11/01/24 12:29 1 STRIP Insulin Human Regular Q6HR SC 10/31/24 00:00 Dextrose 50 ml UD PRN IV 10/30/24 20:15 Ondansetron HCl 4 mg Q4HP PRN IV 10/30/24 20:15 Acetaminophen 650 mg Q6HP PRN PO 10/30/24 20:15 Heparin Sodium (Porcine) 5,000 units Q12HR SC 10/31/24 10:00 11/01/24 14:15 5,000 UNITS Pantoprazole Sodium 40 mg DAILY IV 11/01/24 10:00 11/01/24 14:14 40 MG Propofol 100 ml @ 3.153 mls/ hr Q24H IV 10/31/24 10:45 11/01/24 10:08 3.153 MLS/HR Midazolam HCl 50 ml @ 1 mls/hr Q24H IV 10/31/24 10:45 11/01/24 00:36 4 MLS/HR Fentanyl Citrate 250 ml @ 2.5 mls/hr Q24H IV 10/31/24 10:45 11/01/24 04:34 15 MLS/HR Meropenem 50 ml @ 17 mls/hr HS IV 10/31/24 18:30 10/31/24 18:26 17 MLS/HR Norepinephrine Bitartrate 32 mg/ Sodium Chloride 250 ml @ 0.938 mls/ hr Q24H IV 10/31/24 11:00 10/31/24 15:39 0.938 MLS/HR Examination: GENERAL:Abnormal, LUNGS:Abnormal, MSK:Abnormal (bka b/l), SKIN:Abnormal, NEURO:Abnormal laboratory and microbiology Laboratory Tests 11/01/24 03:28 Test 11/01/24 03:28 Range/Units Serum Glucose 72 L 74-106 mg/dL Microbiology Date/Time Source Procedure Growth Status 10/31/24 10:50 Blood Blood Culture - Preliminary NO GROWTH AFTER 24 HOURS OF INCUBATION. Resulted 10/31/24 10:45 Sputum Gram Stain - Final Resulted 10/31/24 10:45 Sputum Respiratory Culture - Preliminary Resulted 10/30/24 19:19 Urine - Martinez [place] Urine Culture - Preliminary Resulted Problem List/Assessment/Plan Problem List/Assessment/Plan ESRD on hemodialysis Right upper extremity swelling Ventilator-dependent hypoxic respiratory failure Morbid obesity NSTEMI Congestive heart failure Recommendations hd today uf 3.5 L off Vascular surgery consult for rt AVF eval Repeat HD tomorrow if staffing permits Epogen Plan discussed with: Other My Orders My Orders Orders - MARINE WILKERSON MD Procedure Category Date Status Time Hemodialysis Orders ORDERS 11/01/24 Transmitted 08:53 Hepatitis B Surface LAB 11/01/24 In Process Antibody 10:09 Hepatitis B Surface LAB 11/01/24 In Process Antigen 10:09 MARINE WILKERSON MD Nov 01, 2024 14:39
[2024-11-01 16:45] LABS: COVID19 ANTIGEN SOFIA FIA NEGATIVE (NEGATIVE)
[2024-11-01 17:01] LABS: Rapid Influenza A Negative (Negative); Rapid Influenza B Negative (Negative)
[2024-11-02] VITALS (109 sets, daily range): BP systolic 96–205; BP diastolic 28–72; PULSE 59–88; RESP 18–20; TEMP 98.4–99; O2SAT 94–100
[2024-11-02 04:04] LABS: Basophils # (auto) 0 10 ^3/uL (0-0.2); Basophils % (auto) 0.6 % (0.0-2.0); Eosinophils # (auto) 0.3 10 ^3/uL (0-0.8); Eosinophils % (auto) 4.4 % (0.0-7.0); Hematocrit 30.6 % (41.0-53.0); Hemoglobin 9.7 g/dL (13.5-17.5); Lymphocytes # (auto) 1.6 10 ^3/uL (0.4-5.4); Lymphocytes % (auto) 21.6 % (10.0-50.0); Mean Corpuscular Hemoglobin 29.1 pg (28.0-32.0); Mean Corpuscular Hgb Conc. 31.8 g/dL (32.0-36.0); Mean Corpuscular Volume 91.5 fL (80.0-100.0); Monocytes # (auto) 1.1 10 ^3/uL (0-1.3); Neutrophils # (auto) 4.3 10 ^3/uL (1.6-8.6); Neutrophils % (auto) 58.4 % (37.0-80.0); Nucleated Red Blood Cells % 0.1 %; Platelet Count (auto) 309 10^3/uL (140-450); Red Blood Cells 3.35 10^6/uL (4.5-5.90); Red Cell Distribution Width 17.2 % (11.8-14.3); White Blood Cell 7.3 10^3/uL (4.4-10.8)
[2024-11-02 04:19] LABS: Alanine Aminotransferase 23 U/L (7-40); Albumin 4.2 g/dL (3.2-4.8); Alkaline Phosphatase 72 U/L (46-116); Anion Gap 12 (5-15); Aspartate Aminotransferase 25 U/L (13-40); BUN/Creatinine Ratio 4.6 (10.0-20.0); Calcium 9.3 mg/dL (8.7-10.4); Carbon Dioxide 27 mmol/L (20-31); Chloride 99 mmol/L (98-107); Magnesium 2.2 mg/dL (1.6-2.6); Potassium 3.8 mmol/L (3.5-5.1); Sodium 138 mmol/L (136-145); Total Protein 7.4 g/dL (5.7-8.2)
[2024-11-02 04:20] LABS: Bilirubin, Total 0.5 mg/dL (0.2-1.0)
[2024-11-02 04:32] LABS: Blood Urea Nitrogen 25 mg/dL (9-23); Glucose 69 mg/dL (74-106)
--- NOTE | 2024-11-02 06:06 | DVH ---
EXAM: XR Chest, 1 View CLINICAL INDICATION: PNA/CHF TECHNIQUE: Frontal view of the chest. COMPARISON: XY CHEST PORTABLE on DOS: 11/01/24, XY CHEST XRAY 1 VIEW on DOS: 10/31/24, XY CHEST PORTABL E on DOS: 10/30/24, XY CHEST PORTABLE on DOS: 06/11/23, CHEST PORTABLE on DOS: 03/19/22 FINDINGS: LUNGS AND PLEURAL SPACES: See below. HEART: Cardiomegaly with mild congestion. MEDIASTINUM: Unremarkable. Normal mediastinal contour. BONES/JOINTS: Unremarkable. No acute fracture. UPPER ABDOMEN: Enteric stomach . OTHER FINDINGS: . ETT . .. IMPRESSION: Cardiomegaly with mild congestion.
[2024-11-02 06:47] LABS: Base Excess 2.8 mmol/L (-2.0-3.0)
--- NOTE | 2024-11-02 07:51 | DVHPN2 ---
Progress Note - Dictate Date Seen: Nov 02, 2024 Medical Necessity Reason Pt with a Central, PICC or Fol: Yes The following are medically ne: Central Line, Martinez Catheter Reason for martinez catheter: Strict I&O Subjective PT WAS SEEN IN CLINICAL RESP DISTRESS DIFFUSE WHEEZING PMH HFrEF CHRONIC ISCHEMIC CM PAD BILATERAL LE AMPUTEE DIABETES VASCULOPATHY NEPHROPATHY NEUROPATHY HD ESRD vital signs Vital Sign Date Time Temp Pulse Resp B/P (MAP) Pulse Ox O2 Delivery O2 Flow Rate FiO2 11/02/24 07:30 99.0 67 19 121/46 (71) 97 210.2 135/49 (77) 11/02/24 06:18 30 11/01/24 19:50 Mechanical Ventilator+ 10/31/24 08:00 5 Total Intake and Output 11/01/24 11/01/24 11/02/24 15:00 23:00 07:00 Intake Total 306.045 ml 416.102 ml 261.437 ml Output Total 3530 ml 10 ml Balance 306.045 ml -3113.898 ml 251.437 ml medications Current Medications Medications Dose Ordered Sig/Alexander Route Start Time Stop Time Status Last Admin Dose Admin Nitroglycerin 0.4 mg Q5MINP PRN SL 10/30/24 20:00 Morphine Sulfate 2 mg Q30M PRN IV 10/30/24 20:00 Aspirin 162 mg DAILY PO 10/31/24 10:00 11/01/24 14:14 162 MG Atorvastatin Calcium 80 mg HS PO 10/30/24 22:00 11/01/24 22:09 80 MG Diagnostic Test (Pha) 1 strip Q6HR 10/31/24 00:00 11/02/24 06:21 1 STRIP Insulin Human Regular Q6HR SC 10/31/24 00:00 Dextrose 50 ml UD PRN IV 10/30/24 20:15 Ondansetron HCl 4 mg Q4HP PRN IV 10/30/24 20:15 Acetaminophen 650 mg Q6HP PRN PO 10/30/24 20:15 Heparin Sodium (Porcine) 5,000 units Q12HR SC 10/31/24 10:00 11/01/24 22:10 5,000 UNITS Pantoprazole Sodium 40 mg DAILY IV 11/01/24 10:00 11/01/24 14:14 40 MG Propofol 100 ml @ 3.153 mls/ hr Q24H IV 10/31/24 10:45 11/02/24 04:27 12.612 MLS/HR Fentanyl Citrate 250 ml @ 2.5 mls/hr Q24H IV 10/31/24 10:45 11/02/24 06:45 22.5 MLS/HR Meropenem 50 ml @ 17 mls/hr HS IV 10/31/24 18:30 11/01/24 22:09 17 MLS/HR Norepinephrine Bitartrate 32 mg/ Sodium Chloride 250 ml @ 0.938 mls/ hr Q24H IV 10/31/24 11:00 10/31/24 15:39 0.938 MLS/HR laboratory and microbiology Laboratory Tests 11/02/24 03:30 Test 11/02/24 03:30 Range/Units Serum Glucose 69 L 74-106 mg/dL Problem List RESP DISTRESS DIFFUSE WHEEZING PMH HFrEF CHRONIC ISCHEMIC CM PAD BILATERAL LE AMPUTEE DIABETES VASCULOPATHY NEPHROPATHY NEUROPATHY HD ESRD ANEMIA HYPERKALEMIA Assessment/Plan DIALYSIS ABX CORRECT LYTES ECHO S/P DIALYSIS 4L OUT CHECK BNP REPEAT CXR COMPLETE OPACIFICATION OF BOTH LUNGS CXR WITH PT UPRIGHT CONSIDER BRONCHOSCOPY CONSIDER LEFT HEART CATH Plan discussed with: Patient Critical Care Time(min): 35 YESICA YORK MD Nov 02, 2024 07:51
--- NOTE | 2024-11-02 08:02 | DVHPNRES ---
Progress Note Date Seen: Nov 02, 2024 Resident Creating Document: KAUSHIK RODRIGUEZ Medical Necessity Reason Pt with a Central, PICC or Fol: Yes The following are medically ne: Central Line, Martinez Catheter Reason for martinez catheter: Strict I&O Subjective Review of Systems Patient is 64 years old male with past medical history of ischemic cardiomyopathy, CHF, PAD, diabetes mellitus type 2, hypertension, CAD, history of WI, status post PTCA stent x2 in 2021, DAVID, obesity, dyslipidemia, ESRD on hemodialysis presented to the ER due to shortness of breaths. Patient was gathered from reviewing the chart and talking to the family. Patient presented with a one-day history of worsening shortness of breath with a nonproductive cough. Initial lab workup revealed WBC 8.9, hemoglobin 9.4, platelet 267, sodium 139, potassium 3.9, serum creatinine 5.83, HGB A1c 7.6, troponin I 541> 763, BNP 874, TSH 0.73. Urinalysis revealed leukocyte esterase 3+, RBC 24, WBC present, bacteria many. ABG on 10/30/24 revealed pH 7.39, pCO2 45.6, PO2 83.0, bicarbonate 27.1.Patient tested negative for COVID-19 and influenza type A and B. [id number]-moderate cardiomegaly with multifocal pneumonia/congestive heart failure. Recommend clinical correlation. Possible trace left-sided pleural effusion. Doppler study of the right upper extremity negative for DVT. Echo 2D on 11/01/2024 revealed LVEF 50%, mild TR, mild MR. Following admission patient was put on BiPAP 12/5, BUN 12, FiO2 30%. Patient had increased work of breathing using large size face mass. Patient was refusing BiPAP on 10/31/2024. Rapid response was called around 10:00 a.m due to worsening short of breath and patient was desaturating. Patient was intubated by Dr. Shaffer. Patient has a central line in the right femoral vein and arterial line at right femoral artery on 10/31/24. . Post admission patient had dialysis. Patient is due for hemodialysis on 11/03/2024. Patient's lung still congested. Dr. Zayas plan for left heart catheterization, that is why patient needs to be intubated so left heart catheterization can be done.On 10/31/24-sputum culture positive for Enterobacter aeruginosa basis. Sensitive to meropenem. On 10/30/2024-uterine culture>100,00 CFU/ml E coli ESBL, sensitive to imipenem. 10/31/2024 -blood culture no growth so far. Patient already on meropenem. Chest x-ray on 11/02/24- lungs are still congested with cardiomegaly. Patient still on ventilator, plan is to do a CPAP trial tomorrow morning after hemodialysis. Attempts patient needs Levophed or vasopressor during dialysis as patient developed hypotension. Dr. Zayas with the director writing on board, Dr. Zayas is planning to do a left heart catheterization once patient is okay to go for left heart catheterization. On 11/02/2024 patient had recurrent episode of hypoglycemia, dextrose 25% IV was given. PMH-CHF, diabetes mellitus type 2, hypertension, CAD, history of WI, dyslipidemia, ESRD on hemodialysis PSH- Hernia repair, bilateral BKA, dialysis access Allergy- NKDA Personal History/ Social History- lives with family Echo on 07/15/2022-LVEF 40% On 04/22/2023 left heart catheterization revealed-LVEF 40-45%. Patient had a several visit at [facility] on December 30, 2023, July 22, 2023, January 20, 2023, August 13, 2022, July 14, 2022, June 03, 2022, April 20, 2022, March 20, 2022, August 09, 2021, December 20, 2020 Patient seen today for clinical evaluation. Labs and chart reviewed. Overnight patient had hypoglycemia, blood sugar was 62, orange juice was given Ordered blood pressure ranging from 117-178/44-56, pulse 59-70, temperature 9 8.6-99.0 I/O- Intake to, output 1540 including hemodialysis, negative balance 2537 CXR on 11/02/2024-cardiomegaly with mild congestion ABG--pH 7.49, pCO2 33.9, PO2 65.8, HCO3- 25.5 CXR Labs revealed WBC 8.9> 10.5> 6.7> 7.3 Hemoglobin 9.4> 9.1> 8.6> 9.7 Platelet 367> 311> 329> 209 Sodium 139> 140> 139> 138 Potassium 3.9> 5.2> 3.8> 3.8 Serum creatinine 5.83> 7.29> 5.58> 5.38 BUN 40> 49> 30> 25 Magnesium 2.2>2.2 HGB A1c 7.6 Troponin I 541> 763 BNP 874 Serum bilirubin 0.3> 0.3> .5 AST 43> 28> 24 ALT 33> 27> 23 Phosphatase 94> 74 On 10/31/24-sputum culture positive for Enterobacter aeruginosa basis. Sensitive to meropenem. On 10/30/2024-uterine culture>100,00 CFU/ml E coli ESBL, sensitive to imipenem. Patient already on meropenem. 10/31/2024 -blood culture no growth so far. Chest x-ray on 11/02/24- lungs are still congested with cardiomegaly. Patient Had central right femoral line done on 10/31/2024 Right femoral arterial line done on 10/31/2024 Patient was intubated on 10/31/2024 Patient had dialysis on 10/31/24 and also on 11/01/2024 Properly called and spoke to patient's daughter Arianna Thornton--[phone], discussed patient's current medical condition, plan of care and answered questions Objective vital signs Vital Sign Date Time Temp Pulse Resp B/P (MAP) Pulse Ox O2 Delivery O2 Flow Rate FiO2 11/02/24 07:30 99.0 67 19 121/46 (71) 97 210.2 135/49 (77) 11/02/24 06:18 30 11/01/24 19:50 Mechanical Ventilator+ 10/31/24 08:00 5 Total Intake and Output 11/01/24 11/01/24 11/02/24 14:59 22:59 06:59 Intake Total 191.780 ml 466.102 ml 344.702 ml Output Total 3530 ml 10 ml Balance 191.780 ml -3063.898 ml 334.702 ml medications Current Medications Medications Dose Ordered Sig/Alexander Route Start Time Stop Time Status Last Admin Dose Admin Nitroglycerin 0.4 mg Q5MINP PRN SL 10/30/24 20:00 Morphine Sulfate 2 mg Q30M PRN IV 10/30/24 20:00 Aspirin 162 mg DAILY PO 10/31/24 10:00 11/01/24 14:14 162 MG Atorvastatin Calcium 80 mg HS PO 10/30/24 22:00 11/01/24 22:09 80 MG Diagnostic Test (Pha) 1 strip Q6HR 10/31/24 00:00 11/02/24 06:21 1 STRIP Insulin Human Regular Q6HR SC 10/31/24 00:00 Dextrose 50 ml UD PRN IV 10/30/24 20:15 Ondansetron HCl 4 mg Q4HP PRN IV 10/30/24 20:15 Acetaminophen 650 mg Q6HP PRN PO 10/30/24 20:15 Heparin Sodium (Porcine) 5,000 units Q12HR SC 10/31/24 10:00 11/01/24 22:10 5,000 UNITS Pantoprazole Sodium 40 mg DAILY IV 11/01/24 10:00 11/01/24 14:14 40 MG Propofol 100 ml @ 3.153 mls/ hr Q24H IV 10/31/24 10:45 11/02/24 04:27 12.612 MLS/HR Fentanyl Citrate 250 ml @ 2.5 mls/hr Q24H IV 10/31/24 10:45 11/02/24 06:45 22.5 MLS/HR Meropenem 50 ml @ 17 mls/hr HS IV 10/31/24 18:30 11/01/24 22:09 17 MLS/HR Norepinephrine Bitartrate 32 mg/ Sodium Chloride 250 ml @ 0.938 mls/ hr Q24H IV 10/31/24 11:00 10/31/24 15:39 0.938 MLS/HR Examination General examination- on mechanical ventilator HEENT- PEERLA, no acute nasal discharge Cardiovascular- S1-S2 audible, rate and rhythm regular, no murmur Respiratory- CTAB, no wheeze or rhonchi Gastrointestinal-nontender, bowel sound+. Nondistended Musculoskeletal-no acute joint swelling or tenderness or redness Lower extremity- bilateral below-knee amputation. Bilateral upper arm swelling+ Neurological- cranial nerves intact, no acute dysarthria or dysphagia Psychiatry- denies depression or SI or HI Skin- no acute rash or purpura laboratory and microbiology Laboratory Tests 11/02/24 03:30 Test 11/02/24 03:30 Range/Units Serum Glucose 69 L 74-106 mg/dL Microbiology Date/Time Source Procedure Growth Status 10/31/24 11:05 Nose MRSA Screen - Final Complete 10/31/24 10:50 Blood Blood Culture - Preliminary NO GROWTH AFTER 24 HOURS OF INCUBATION. Resulted 10/31/24 10:45 Sputum Gram Stain - Final Resulted 10/31/24 10:45 Sputum Respiratory Culture - Preliminary Resulted 10/30/24 19:19 Urine - [place] Urine Culture - Preliminary Resulted Problem List/Assessment/Plan Problem List/Assessment/Plan Assessment and plan #Neurology -metabolic encephalopathy likely due to acute hypoxic respiratory failure/pneumonia Gram-positive versus Gram-negative -septic shock, status post Levophed -diabetic neuropathy -on mechanical ventilation, on sedation #Cardiovascular -septic shock likely due to UTI/pneumonia -acute HFpEF, LVEF-50%. -acute pulmonary edema/fluid overload likely due to ESRD on top of heart failure NSTEMI Type 2 -PAD, -vasculopathy --continue current management #Respiratory -acute hypoxic respiratory failure likely due to pneumonia Gram-positive versus Gram-negative -acute pneumonia Gram-positive versus Gram-negative -DAVID -On 10/31/24-sputum culture positive for Enterobacter aeruginosa basis. Sensitive to meropenem. On 10/30/2024-uterine culture>100,00 CFU/ml E coli ESBL, sensitive to imipenem. Patient already on meropenem. 10/31/2024 -blood culture no growth so far. Chest x-ray on 11/02/24- lungs are still congested with cardiomegaly. #Genitourinary/renal -ESRD on hemodialysis - septic shock likely due to UTI, status post Levophed -On 10/31/24-sputum culture positive for Enterobacter aeruginosa basis. Sensitive to meropenem. On 10/30/2024-uterine culture>100,00 CFU/ml E coli ESBL, sensitive to imipenem. Patient already on meropenem. 10/31/2024 -blood culture no growth so far. Chest x-ray on 11/02/24- lungs are still congested with cardiomegaly. #Hematology -anemia of chronic disease --monitor CBC # infectious -pneumonia Gram-positive versus Gram-negative -UTI with sepsis -septic shock likely due to UTI/pneumonia -On 10/30/2024-urine culture>100,00 CFU/ml Gram-negative rods -continue meropenem as prescribed #Metabolic/endocrine disorder -diabetes mellitus type 2-HGB A1c 7.6 #Skin/elementary -bilateral upper extremity swelling - Bilateral below-knee amputation # obesity, BMI 49.8 Goals of care, Code status ; discussed with >25 minutes PUD prophylaxis: Pantoprazole DVT prophylaxis: Heparin Plan discussed with Dr. Dumont , nursing staff, Total time spent on patient evaluation, chart review, assessment and plan, Critical time spent including monitoring mechanical ventilation, excluding procedure 83 minutes Plan discussed with: Daughter, Other (RN) My Orders My Orders Orders - KAUSHIK RODRIGUEZ Procedure Category Date Status Time Chest Portable XY 11/02/24 Resulted 04:00 Abg W/ Co-Ox RT 11/02/24 Logged 04:00 * Dietary Consult CONS 11/01/24 Transmitted 15:47 Date of Service: Nov 02, 2024 Billing Provider: PAYAL DUMONT MD Common Visit Codes: NOT BILLABLE KAUSHIK RODRIGUEZ Nov 02, 2024 08:02 PAYAL DUMONT MD Nov 14, 2024 09:59
--- NOTE | 2024-11-02 08:03 | DVHCONRES ---
Date Seen: Nov 02, 2024 Resident Creating Document: JULISSA HARRIS Jr., MD Referring Physician JAMEL Reason for Consultation right arm swelling with avf History of Present Illness 64 years old male with past medical history ESRD on dialysis diabetes, hypertension lipidemia, NM, morbid obesity with BMI greater than 50 presented with chief complaints of shortness of breath and cough patient hypoxia got worse and was intubated and sedated pt. has right avf with worsening swelling. u/s demonstrated no dvt and functioning avf Past Medical History ESRD on dialysis diabetes, hypertension lipidemia, NM, morbid obesity Past Surgical History right avf bilateral bka hernia Family History: Diabetes mellitus G8 MOTHER, FH: cancer FH: liver cancer G8 MOTHER, FHx: diabetes mellitus Allergies: Coded Allergies: No Known Drug Allergy (Verified Allergy, Unknown, 11/23/17) Home Meds Reported Medications Fluticasone Propionate (Nasal) (Fluticasone Propionate) 50 Mcg/Act Spr, 1 SPRAY EACHNOSTRI BID for 90 Days, #48 11/01/24 Amitriptyline HCl (Amitriptyline HCl) 10 Mg Tab, 1 TAB PO DAILY for 30 Days, #30 11/01/24 Hydrocodone-Acetaminophen (Hydrocodone Bitartrate/AC 10-325 mg) 1 Tab Tab, 1 TAB PO Q6HPRN PRN for PAIN SCALE 7 THRU 10, TAB 01/20/23 Insulin NPH Isophane & Reg (Hu (Novolin 70/30 (70-30) 100 Unit/ml) 1 Inj Inj, 50 INJ SC BIDAC, INJ 08/10/21 Current Medications Current Medications Medications (Trade) Dose Ordered Sig/Alexander Route PRN Reason Start Time Stop Time Status Last Admin Pantoprazole Sodium (Protonix) 40 mg DAILY IV 11/01/24 10:00 11/01/24 14:14 Albumin Human 100 ml @ 100 mls/hr Q1HR IV 11/01/24 12:00 11/01/24 13:59 DC 11/01/24 14:07 Review of Systems all systems reviewed Vital Signs Vital Signs Date Time Temp Pulse Resp B/P (MAP) Pulse Ox O2 Delivery O2 Flow Rate FiO2 11/02/24 07:30 99.0 67 19 121/46 (71) 97 210.2 135/49 (77) 11/02/24 06:18 30 11/01/24 19:50 Mechanical Ventilator+ 10/31/24 08:00 5 Physical Exam right arm swollen. 1-2 + edema. + thrill and bruit. palpable radial pulse Labs/Diagnostic Data Labs Test 11/02/24 06:27 11/02/24 06:20 11/02/24 03:30 11/01/24 15:22 Range/Units Blood Gas Specimen Type Arterial Blood Gas Sample Site Arterial line Blood Gas Patient Temperature 37.0 Arterial Blood Date Drawn [id number] Arterial Blood pH 7.495 H 7.350-7.450 Arterial Blood Partial Pressure CO2 33.9 L 35.0-48.0 mmHg Arterial Blood Partial Pressure O2 65.8 L 83.0-108.0 mmHg Arterial Blood HCO3 25.5 21.0-28.0 mmol/L Arterial Blood Oxygen Saturation 92.4 L 94.0-98.0 % Arterial Blood Base Excess 2.8 -2.0-3.0 mmol/L Arterial Blood Oxyhemoglobin 90.7 L 94.0-98.0 % Arterial Blood Carboxyhemoglobin 1.5 0.5-1.5 % Arterial Blood Methemoglobin 0.3 0.0-1.5 % Rachid Test N/a Blood Gas Total Hemoglobin 14.90 13.5-17.5 g/dL Blood Gas Set Respiration Rate 18.0 Blood Gas Modality Vent - ac Blood Gas Spontaneous Rate 20 FiO2 % 30.0 Blood Gas Tidal Volume 550.0 Blood Gas Inspiratory Pressure 35.0 Blood Gas PEEP or CPAP 5.0 Bl Gas Inspiratory/Expiratory Ratio 1:2.2 Specimen Drawn By missael rt POC Glucose 73 70-106 mg/dl White Blood Count 7.3 4.4-10.8 10^3/uL Red Blood Count 3.35 L 4.5-5.90 10^6/uL Hemoglobin 9.7 L 13.5-17.5 g/dL Hematocrit 30.6 #L 41.0-53.0 % Mean Corpuscular Volume 91.5 80.0-100.0 fL Mean Corpuscular Hemoglobin 29.1 28.0-32.0 pg Mean Corpuscular Hemoglobin Concent 31.8 L 32.0-36.0 g/dL Red Cell Distribution Width 17.2 H 11.8-14.3 % Platelet Count 309 140-450 10^3/uL Mean Platelet Volume 7.9 6.9-10.8 fL Neutrophils (%) (Auto) 58.4 37.0-80.0 % Lymphocytes (%) (Auto) 21.6 10.0-50.0 % Monocytes (%) (Auto) 15.0 H 0.0-12.0 % Eosinophils (%) (Auto) 4.4 0.0-7.0 % Basophils (%) (Auto) 0.6 0.0-2.0 % Neutrophils # (Auto) 4.3 1.6-8.6 10 ^3/uL Lymphocytes # (Auto) 1.6 0.4-5.4 10 ^3/uL Monocytes # (Auto) 1.1 0-1.3 10 ^3/uL Eosinophils # (Auto) 0.3 0-0.8 10 ^3/uL Basophils # (Auto) 0 0-0.2 10 ^3/uL Nucleated Red Blood Cells 0.1 % Sodium Level 138 136-145 mmol/L Potassium Level 3.8 3.5-5.1 mmol/L Chloride Level 99 98-107 mmol/L Carbon Dioxide Level 27 20-31 mmol/L Anion Gap 12 5-15 Blood Urea Nitrogen 25 H 9-23 mg/dL Creatinine 5.38 H 0.700-1.30 mg/dL Glomerular Filtration Rate Calc 11 >90 mL/min BUN/Creatinine Ratio 4.6 L 10.0-20.0 Serum Glucose 69 L 74-106 mg/dL Calcium Level 9.3 8.7-10.4 mg/dL Magnesium Level 2.2 1.6-2.6 mg/dL Total Bilirubin 0.5 0.2-1.0 mg/dL Aspartate Amino Transferase (AST) 25 13-40 U/L Alanine Aminotransferase (ALT) 23 7-40 U/L Alkaline Phosphatase 72 46-116 U/L Total Protein 7.4 5.7-8.2 g/dL Albumin 4.2 3.2-4.8 g/dL Influenza Type A Antigen Negative Negative Influenza Type B Antigen Negative Negative Test 11/01/24 13:00 11/01/24 03:28 11/01/24 00:00 10/31/24 10:50 Range/Units Prothrombin Time 12.7 H 9.3-11.8 sec Prothrombin Time INR 1.22 H 0.9-1.15 Activated Partial Thromboplast Time 29.4 24.5-34.5 SEC SARS-CoV-2 Antigen (Rapid) Negative NEGATIVE Hemoglobin A1c 7.6 H <5.7 % A1C Troponin I High Sensitivity 763 *H </=54 ng/L Triglycerides Level 129 < 150 mg/dL Cholesterol Level 160 < 200 mg/dL LDL Cholesterol 82 < 100 mg/dL HDL Cholesterol 48 40-59 mg/dL Thyroid Stimulating Hormone (TSH) 0.73 0.55-4.78 uIU/mL Test 10/30/24 19:19 10/30/24 16:27 Range/Units Urine Color Light-brown Yellow Urine Clarity Ex.turbid Clear Urine pH 6.0 5.0-9.0 Urine Specific [place] 1.020 1.001-1.035 Urine Protein 3+ H Negative Urine Ketones Trace Negative Urine Blood 3+ H Negative /uL Urine Nitrite Negative Negative Urine Bilirubin Negative Negative Urine Urobilinogen Normal Negative mg/dL Urine Leukocyte Esterase 3+ Negative /uL Urine RBC 24 0 - 3 /hpf Urine WBC Clumps Present None Seen /hpf Urine Microscopic WBC 1083 H 0-3 /HPF Urine Squamous Epithelial Cells Few <5 /hpf Urine Transitional Epithelial Cells Few <2 /hpf Urine Bacteria Many H None Seen /hpf Urine Mucus Few None Seen Urine Glucose Normal Normal mg/dL B-Type Natriuretic Peptide 874.88 0-100 pg/mL Microbiology Date/Time Source Procedure Growth Status 10/31/24 11:05 Nose MRSA Screen - Final Complete 10/31/24 10:50 Blood Blood Culture - Preliminary NO GROWTH AFTER 24 HOURS OF INCUBATION. Resulted 10/31/24 10:45 Sputum Gram Stain - Final Resulted 10/31/24 10:45 Sputum Respiratory Culture - Preliminary Resulted 10/30/24 19:19 Urine - [place] Urine Culture - Preliminary Resulted RIGHT Upper Extremity Venous Duplex Clinical History: FISTULA RUE CHECK FOR SWELLING Comparison: US RT LOWER DVT on DOS: 06/11/23 Technique: Duplex Doppler evaluation of the venous system of the RIGHT lower neck and upper extremity including color Doppler and spectral/pulsed waveform analysis was performed. Findings: The internal jugular vein not visualized The subclavian vein is patent on color Doppler evaluation without intraluminal thrombus and demonstrates waveform variability. The visualized portion of the brachiocephalic vein is patent on color Doppler evaluation without intraluminal thrombus and demonstrates waveform variability. The axillary vein demonstrates appropriate compressibility and waveform variability. The brachial veins demonstrate appropriate compressibility and patency on Doppler evaluation. The basilic vein demonstrates appropriate compressibility and patency on Doppler evaluation. The cephalic vein demonstrates appropriate compressibility and patency on Doppler evaluation. Impression: 1. No venous thrombus identified in the RIGHT upper extremity vessels evaluated above. 2. If clinical concern/symptoms persist or worsen, short-interval follow-up study is suggested. Assessment right arm avf. with arm swelling probable central stenosis. Will perform Fistulagram with possible angioplasty stenting once medically stable. Plan/Recommendation right arm avf. with arm swelling probable central stenosis. Will perform Fistulagram with possible angioplasty stenting once medically stable. Plan discussed with: Other JULISSA HARRIS Jr., MD Nov 02, 2024 08:03
[2024-11-02] MEDS: DEXTROSE (50%) 50ML SYRG IV PRN (08:25)
[2024-11-02 08:51] LABS: Hepatitis B Surface Antibody Positive (Negative); Hepatitis B Surface Antigen Negative (Negative)
--- NOTE | 2024-11-02 11:01 | DVH ---
INDICATION: PNA/CHF TECHNIQUE: Frontal view of the chest. COMPARISON: XY CHEST PORTABLE on DOS: 11/02/24, XY CHEST PORTABLE on DOS: 11/01/24, XY CHEST XRAY 1 VIEW on DOS: 10/31/24, XY CHEST PORTABLE on DOS: 10/30/24, XY CHEST PORTABLE on DOS: 06/11/23, XY CHEST PAWEL BLE on DOS: 11/02/24 FINDINGS: LUNGS AND PLEURAL SPACES: See below. HEART: Cardiomegaly with mild congestion. MEDIASTINUM: Unremarkable. Normal mediastinal contour. BONES/JOINTS: Unremarkable. No acute fracture. UPPER ABDOMEN: Enteric stomach . OTHER FINDINGS: . Unchanged ET and NG tube IMPRESSION: Cardiomegaly with mild congestion.
--- NOTE | 2024-11-02 11:07 | DVHPN2 ---
Progress Note Date Seen: Nov 02, 2024 Medical Necessity Reason Pt with a Central, PICC or Fol: Yes The following are medically ne: Central Line, Martinez Catheter Reason for martinez catheter: Strict I&O Subjective Patient reports: Other (intubated) Objective vital signs Vital Sign Date Time Temp Pulse Resp B/P (MAP) Pulse Ox O2 Delivery O2 Flow Rate FiO2 11/02/24 10:32 135/50 11/02/24 10:30 62 11/02/24 10:30 30 11/02/24 10:06 18 98 11/02/24 09:45 99.0 210.2 11/02/24 08:00 Mechanical Ventilator+ 10/31/24 08:00 5 Total Intake and Output 11/01/24 11/01/24 11/02/24 15:00 23:00 07:00 Intake Total 306.045 ml 416.102 ml 299.037 ml Output Total 3530 ml 10 ml Balance 306.045 ml -3113.898 ml 289.037 ml medications Current Medications Medications Dose Ordered Sig/Alexander Route Start Time Stop Time Status Last Admin Dose Admin Nitroglycerin 0.4 mg Q5MINP PRN SL 10/30/24 20:00 Morphine Sulfate 2 mg Q30M PRN IV 10/30/24 20:00 Aspirin 162 mg DAILY PO 10/31/24 10:00 11/02/24 10:29 162 MG Atorvastatin Calcium 80 mg HS PO 10/30/24 22:00 11/01/24 22:09 80 MG Diagnostic Test (Pha) 1 strip Q6HR 10/31/24 00:00 11/02/24 06:21 1 STRIP Insulin Human Regular Q6HR SC 10/31/24 00:00 Dextrose 50 ml UD PRN IV 10/30/24 20:15 11/02/24 08:25 50 ML Ondansetron HCl 4 mg Q4HP PRN IV 10/30/24 20:15 Acetaminophen 650 mg Q6HP PRN PO 10/30/24 20:15 Heparin Sodium (Porcine) 5,000 units Q12HR SC 10/31/24 10:00 11/02/24 10:31 5,000 UNITS Pantoprazole Sodium 40 mg DAILY IV 11/01/24 10:00 11/02/24 10:29 40 MG Propofol 100 ml @ 3.153 mls/ hr Q24H IV 10/31/24 10:45 11/02/24 10:32 18.918 MLS/HR Fentanyl Citrate 250 ml @ 2.5 mls/hr Q24H IV 10/31/24 10:45 11/02/24 06:45 22.5 MLS/HR Meropenem 50 ml @ 17 mls/hr HS IV 10/31/24 18:30 11/01/24 22:09 17 MLS/HR Norepinephrine Bitartrate 32 mg/ Sodium Chloride 250 ml @ 0.938 mls/ hr Q24H IV 10/31/24 11:00 10/31/24 15:39 0.938 MLS/HR Examination: GENERAL:Abnormal, LUNGS:Abnormal, MSK:Abnormal laboratory and microbiology Laboratory Tests 11/02/24 03:30 Test 11/02/24 03:30 Range/Units Serum Glucose 69 L 74-106 mg/dL Microbiology Date/Time Source Procedure Growth Status 10/31/24 11:05 Nose MRSA Screen - Final Complete 10/31/24 10:50 Blood Blood Culture - Preliminary NO GROWTH AFTER 24 HOURS OF INCUBATION. Resulted 10/31/24 10:45 Sputum Gram Stain - Final Resulted 10/31/24 10:45 Sputum Respiratory Culture - Preliminary Resulted 10/30/24 19:19 Urine - [place] Urine Culture - Preliminary Resulted Problem List/Assessment/Plan Problem List/Assessment/Plan ESRD on hemodialysis Right upper extremity swelling Ventilator-dependent hypoxic respiratory failure Morbid obesity NSTEMI Congestive heart failure Recommendations hd tomorrow Vascular surgery consult for rt AVF eval Epogen fio2 better Plan discussed with: Other Dietary Evaluation Review Comments: 1. On propofol which supply fat kcaloried at 333 kcal/day if running at 12.6ml/hr. 2.Recommend a low fat high protein TF Vital High Protein @ 40ml/hr providing 84 g Protein, and 960 kcal, 803 ml free water, if running at 24 hrs. the combined nurition support will be 84 g Protein and 1056 kcal, supporting pt's needs for protein at 76.3%, needs for energy at 134%. 3. Reasses pt's TF formulary if pt is off Popofol.but still need TF. 4. Renal standard and CCHO-75 if pt is able to have PO intake after passing a P[employer] eval, Expected Outcomes/Goals: gradual wt loss. improved lab values with consistant dialysis. MARINE WILKERSON MD Nov 02, 2024 11:07
[2024-11-02] MEDS: InsuLIN REG 1unit/0.01ml Soln (100units/ml) SC SCH (22:00)
[2024-11-02] MEDS: ACCU-CHEK COMFORT CURVE STRIP VI SCH (22:04)
[2024-11-03] VITALS (111 sets, daily range): BP systolic 98–183; BP diastolic 32–64; PULSE 56–76; RESP 13–27; TEMP 96.4–100.4; O2SAT 95–100
[2024-11-03 04:13] LABS: Basophils # (auto) 0 10 ^3/uL (0-0.2); Basophils % (auto) 0.6 % (0.0-2.0); Eosinophils # (auto) 0.3 10 ^3/uL (0-0.8); Eosinophils % (auto) 4.7 % (0.0-7.0); Hematocrit 30.5 % (41.0-53.0); Hemoglobin 9.8 g/dL (13.5-17.5); Lymphocytes # (auto) 1.2 10 ^3/uL (0.4-5.4); Lymphocytes % (auto) 16.6 % (10.0-50.0); Mean Corpuscular Hgb Conc. 32.1 g/dL (32.0-36.0); Mean Corpuscular Volume 90.5 fL (80.0-100.0); Monocytes # (auto) 1.1 10 ^3/uL (0-1.3); Monocytes % (auto) 14.8 % (0.0-12.0); Neutrophils # (auto) 4.7 10 ^3/uL (1.6-8.6); Neutrophils % (auto) 63.3 % (37.0-80.0); Platelet Count (auto) 296 10^3/uL (140-450); Red Blood Cells 3.37 10^6/uL (4.5-5.90); Red Cell Distribution Width 16.7 % (11.8-14.3); White Blood Cell 7.4 10^3/uL (4.4-10.8)
[2024-11-03 04:32] LABS: Alanine Aminotransferase 19 U/L (7-40); Albumin 3.8 g/dL (3.2-4.8); Alkaline Phosphatase 71 U/L (46-116); Anion Gap 15 (5-15); Aspartate Aminotransferase 23 U/L (13-40); Calcium 9.2 mg/dL (8.7-10.4); Carbon Dioxide 23 mmol/L (20-31); Glucose 89 mg/dL (74-106); Magnesium 2.2 mg/dL (1.6-2.6); Total Protein 6.9 g/dL (5.7-8.2)
[2024-11-03 04:33] LABS: Bilirubin, Total 0.4 mg/dL (0.2-1.0); Blood Urea Nitrogen 35 mg/dL (9-23); Chloride 97 mmol/L (98-107); Phosphorus 6.4 mg/dL (2.4-5.1); Sodium 135 mmol/L (136-145)
--- NOTE | 2024-11-03 05:17 | DVH ---
INDICATION: INTUBATED TECHNIQUE: Frontal view of the chest. COMPARISON: XY CHEST PORTABLE on DOS: 11/02/24, XY CHEST PORTABLE on DOS: 11/02/24, XY CHEST PORTABLE on DOS: 11/01/24, XY CHEST XRAY 1 VIEW on DOS: 10/31/24, XY CHEST PORTABLE on DOS: 10/30/24, XY CHEST PORTABL E on DOS: 11/01/24 FINDINGS: LUNGS AND PLEURAL SPACES: Cardiomegaly with pulmonary congestion and edema. Superimposed pneumonia cannot be excluded. HEART: Cardiomegaly with pulmonary congestion and edema. Superimposed pneumonia cannot be excluded. MEDIASTINUM: Unremarkable. Normal mediastinal contour. BONES/JOINTS: Unremarkable. No acute fracture. TUBES, LINES AND DEVICES: Stable tubes and lines. IMPRESSION: Cardiomegaly with pulmonary congestion and edema. Superimposed pneumonia cannot be excluded.
[2024-11-03 06:59] LABS: Base Excess -0.4 mmol/L (-2.0-3.0)
[2024-11-03] MEDS: SODIUM CHL 0.9% 1000 ML BAG XX ONE (09:54)
[2024-11-03] MEDS: ALBUMIN 25% 100 ML IV SCH (09:55)
--- NOTE | 2024-11-03 11:34 | DVHPN2 ---
Progress Note - Dictate Date Seen: Nov 03, 2024 Medical Necessity Reason Pt with a Central, PICC or Fol: Yes The following are medically ne: Central Line, Martinez Catheter Reason for martinez catheter: Strict I&O Subjective Covering for Dr. Shaffer Patient seen and examined Overnight events reviewed vital signs Vital Sign Date Time Temp Pulse Resp B/P (MAP) Pulse Ox O2 Delivery O2 Flow Rate FiO2 11/03/24 11:00 96.4 59 18 111/39 (63) 99 205.5 11/03/24 10:04 30 11/03/24 08:00 Mechanical Ventilator+ Total Intake and Output 11/02/24 11/02/24 11/03/24 15:00 23:00 07:00 Intake Total 351.2 ml 360.096 ml 581.000 ml Output Total 30 ml 25 ml Balance 351.2 ml 330.096 ml 556.000 ml medications Current Medications Medications Dose Ordered Sig/Alexander Route Start Time Stop Time Status Last Admin Dose Admin Nitroglycerin 0.4 mg Q5MINP PRN SL 10/30/24 20:00 Morphine Sulfate 2 mg Q30M PRN IV 10/30/24 20:00 Aspirin 162 mg DAILY PO 10/31/24 10:00 11/03/24 07:47 162 MG Atorvastatin Calcium 80 mg HS PO 10/30/24 22:00 11/02/24 22:00 80 MG Dextrose 50 ml UD PRN IV 10/30/24 20:15 11/02/24 17:25 50 ML Ondansetron HCl 4 mg Q4HP PRN IV 10/30/24 20:15 Acetaminophen 650 mg Q6HP PRN PO 10/30/24 20:15 Heparin Sodium (Porcine) 5,000 units Q12HR SC 10/31/24 10:00 11/03/24 07:47 5,000 UNITS Pantoprazole Sodium 40 mg DAILY IV 11/01/24 10:00 11/03/24 07:47 40 MG Propofol 100 ml @ 3.153 mls/ hr Q24H IV 10/31/24 10:45 11/03/24 09:14 22.071 MLS/HR Fentanyl Citrate 250 ml @ 2.5 mls/hr Q24H IV 10/31/24 10:45 11/03/24 09:14 25 MLS/HR Meropenem 50 ml @ 17 mls/hr HS IV 10/31/24 18:30 11/02/24 21:59 17 MLS/HR Norepinephrine Bitartrate 32 mg/ Sodium Chloride 250 ml @ 0.938 mls/ hr Q24H IV 10/31/24 11:00 10/31/24 15:39 0.938 MLS/HR Diagnostic Test (Pha) 1 strip Q4H 11/02/24 22:00 11/03/24 07:48 1 STRIP Insulin Human Regular Q4H SC 11/02/24 22:00 Albumin Human 100 ml @ 100 mls/hr Q1HR IV 11/03/24 10:00 11/03/24 11:59 11/03/24 10:36 100 MLS/HR laboratory and microbiology Laboratory Tests 11/03/24 03:30 Test 11/03/24 03:30 Range/Units Serum Glucose 89 74-106 mg/dL Assessment/Plan Impression Acute hypoxemic respiratory failure ESRD on HD COPD CHF Patient seen and examined in ICU Events On mechanical ventilation S/p intubation PEEP 5, FiO2 30% Labs and imaging reviewed ABG reviewed pH 7.49, pCO2 29, pO2 83 Respiratory alkalosis present Management Vent support Titrate to maintain sats 90% or above Sedation holiday daily If patient follows commands, proceed to weaning trial Pressure support 02/03, extubate when ready Antibiotics Bronchodilators Monitor renal function HD as per nephrology Management deferred Monitor electrolytes Supplement as needed Pressors as needed for hemodynamic support To maintain a mean arterial pressure of 65 mmHg DVT prophylaxis Critical care time 35 minutes Dietary Evaluation Review Comments: 1. On propofol which supply fat kcaloried at 333 kcal/day if running at 12.6ml/hr. 2.Recommend a low fat high protein TF Vital High Protein @ 40ml/hr providing 84 g Protein, and 960 kcal, 803 ml free water, if running at 24 hrs. the combined nurition support will be 84 g Protein and 1056 kcal, supporting pt's needs for protein at 76.3%, needs for energy at 134%. 3. Reasses pt's TF formulary if pt is off Popofol.but still need TF. 4. Renal standard and CCHO-75 if pt is able to have PO intake after passing a DIE REPAIRER TRIMMER DIES eval, Expected Outcomes/Goals: gradual wt loss. improved lab values with consistant dialysis. Plan discussed with: Other (Rn) PAYAL KHAN MD Nov 03, 2024 11:34
--- NOTE | 2024-11-03 14:23 | DVHPN2 ---
Progress Note - Dictate Date Seen: Nov 03, 2024 Medical Necessity Reason Pt with a Central, PICC or Fol: Yes The following are medically ne: Central Line, Martinez Catheter Reason for martinez catheter: Strict I&O Subjective PT WAS SEEN IN CLINICAL RESP DISTRESS DIFFUSE WHEEZING PMH HFrEF CHRONIC ISCHEMIC CM PAD BILATERAL LE AMPUTEE DIABETES VASCULOPATHY NEPHROPATHY NEUROPATHY HD ESRD vital signs Vital Sign Date Time Temp Pulse Resp B/P (MAP) Pulse Ox O2 Delivery O2 Flow Rate FiO2 11/03/24 13:41 62 11/03/24 13:40 30 11/03/24 13:30 97.5 18 133/43 (73) 99 207.5 162/54 (90) 11/03/24 08:00 Mechanical Ventilator+ Total Intake and Output 11/02/24 11/02/24 11/03/24 15:00 23:00 07:00 Intake Total 351.2 ml 360.096 ml 581.000 ml Output Total 30 ml 25 ml Balance 351.2 ml 330.096 ml 556.000 ml medications Current Medications Medications Dose Ordered Sig/Alexander Route Start Time Stop Time Status Last Admin Dose Admin Nitroglycerin 0.4 mg Q5MINP PRN SL 10/30/24 20:00 Morphine Sulfate 2 mg Q30M PRN IV 10/30/24 20:00 Aspirin 162 mg DAILY PO 10/31/24 10:00 11/03/24 07:47 162 MG Atorvastatin Calcium 80 mg HS PO 10/30/24 22:00 11/02/24 22:00 80 MG Dextrose 50 ml UD PRN IV 10/30/24 20:15 11/02/24 17:25 50 ML Ondansetron HCl 4 mg Q4HP PRN IV 10/30/24 20:15 Acetaminophen 650 mg Q6HP PRN PO 10/30/24 20:15 Heparin Sodium (Porcine) 5,000 units Q12HR SC 10/31/24 10:00 11/03/24 07:47 5,000 UNITS Pantoprazole Sodium 40 mg DAILY IV 11/01/24 10:00 11/03/24 07:47 40 MG Propofol 100 ml @ 3.153 mls/ hr Q24H IV 10/31/24 10:45 11/03/24 14:08 22.071 MLS/HR Fentanyl Citrate 250 ml @ 2.5 mls/hr Q24H IV 10/31/24 10:45 11/03/24 09:14 25 MLS/HR Meropenem 50 ml @ 17 mls/hr HS IV 10/31/24 18:30 11/02/24 21:59 17 MLS/HR Norepinephrine Bitartrate 32 mg/ Sodium Chloride 250 ml @ 0.938 mls/ hr Q24H IV 10/31/24 11:00 10/31/24 15:39 0.938 MLS/HR Diagnostic Test (Pha) 1 strip Q4H 11/02/24 22:00 11/03/24 14:08 1 STRIP Insulin Human Regular Q4H SC 11/02/24 22:00 Enteral Nutritional Formula 1,000 ml 30ML/HR GT 11/03/24 12:15 Dexmedetomidine HCl 400 mcg/ Dextrose 100 ml @ 4.705 mls/ hr [id number] IV 11/03/24 12:15 laboratory and microbiology Laboratory Tests 11/03/24 03:30 Test 11/03/24 03:30 Range/Units Serum Glucose 89 74-106 mg/dL Problem List RESP DISTRESS DIFFUSE WHEEZING PMH HFrEF CHRONIC ISCHEMIC CM PAD BILATERAL LE AMPUTEE DIABETES VASCULOPATHY NEPHROPATHY NEUROPATHY HD ESRD ANEMIA HYPERKALEMIA Assessment/Plan DIALYSIS ABX CORRECT LYTES ECHO S/P DIALYSIS 4L OUT CHECK BNP REPEAT CXR COMPLETE OPACIFICATION OF BOTH LUNGS CXR WITH PT UPRIGHT CONSIDER BRONCHOSCOPY CONSIDER LEFT HEART CATH SIGNIFICANT IMPROVEMENT IN VASCULAR CONGESTION ON CXR CONT DIALYSIS ADD VERQUVO START DIG Dietary Evaluation Review Comments: 1. On propofol which supply fat kcaloried at 333 kcal/day if running at 12.6ml/hr. 2.Recommend a low fat high protein TF Vital High Protein @ 40ml/hr providing 84 g Protein, and 960 kcal, 803 ml free water, if running at 24 hrs. the combined nurition support will be 84 g Protein and 1056 kcal, supporting pt's needs for protein at 76.3%, needs for energy at 134%. 3. Reasses pt's TF formulary if pt is off Popofol.but still need TF. 4. Renal standard and CCHO-75 if pt is able to have PO intake after passing a HOT PUNCH PRESS OPERATOR eval, Expected Outcomes/Goals: gradual wt loss. improved lab values with consistant dialysis. Plan discussed with: Patient Critical Care Time(min): 35 ARUNASALAM,YESICA MD Nov 03, 2024 14:23
[2024-11-03] MEDS: DIGOXIN (250MCG/ML) 2 ML AMPULE IV SCH (14:30)
--- NOTE | 2024-11-03 15:27 | DVHPN2 ---
Progress Note Date Seen: Nov 03, 2024 Medical Necessity Reason Pt with a Central, PICC or Fol: Yes The following are medically ne: Central Line, Martinez Catheter Reason for martinez catheter: Strict I&O Subjective Patient reports: Other (Patient is intubated) Review of Systems: Deferred Objective vital signs Vital Sign Date Time Temp Pulse Resp B/P (MAP) Pulse Ox O2 Delivery O2 Flow Rate FiO2 11/03/24 15:15 98.6 62 19 118/42 (67) 97 209.5 11/03/24 14:49 30 11/03/24 08:00 Mechanical Ventilator+ Total Intake and Output 11/02/24 11/02/24 11/03/24 14:59 22:59 06:59 Intake Total 344.9 ml 351.272 ml 586.653 ml Output Total 30 ml 25 ml Balance 344.9 ml 321.272 ml 561.653 ml medications Current Medications Medications Dose Ordered Sig/Alexander Route Start Time Stop Time Status Last Admin Dose Admin Nitroglycerin 0.4 mg Q5MINP PRN SL 10/30/24 20:00 Morphine Sulfate 2 mg Q30M PRN IV 10/30/24 20:00 Aspirin 162 mg DAILY PO 10/31/24 10:00 11/03/24 07:47 162 MG Atorvastatin Calcium 80 mg HS PO 10/30/24 22:00 11/02/24 22:00 80 MG Dextrose 50 ml UD PRN IV 10/30/24 20:15 11/02/24 17:25 50 ML Ondansetron HCl 4 mg Q4HP PRN IV 10/30/24 20:15 Acetaminophen 650 mg Q6HP PRN PO 10/30/24 20:15 Heparin Sodium (Porcine) 5,000 units Q12HR SC 10/31/24 10:00 11/03/24 07:47 5,000 UNITS Pantoprazole Sodium 40 mg DAILY IV 11/01/24 10:00 11/03/24 07:47 40 MG Propofol 100 ml @ 3.153 mls/ hr Q24H IV 10/31/24 10:45 11/03/24 14:08 22.071 MLS/HR Fentanyl Citrate 250 ml @ 2.5 mls/hr Q24H IV 10/31/24 10:45 11/03/24 09:14 25 MLS/HR Meropenem 50 ml @ 17 mls/hr HS IV 10/31/24 18:30 11/02/24 21:59 17 MLS/HR Norepinephrine Bitartrate 32 mg/ Sodium Chloride 250 ml @ 0.938 mls/ hr Q24H IV 10/31/24 11:00 10/31/24 15:39 0.938 MLS/HR Diagnostic Test (Pha) 1 strip Q4H 11/02/24 22:00 11/03/24 14:08 1 STRIP Insulin Human Regular Q4H SC 11/02/24 22:00 Enteral Nutritional Formula 1,000 ml 30ML/HR GT 11/03/24 12:15 Dexmedetomidine HCl 400 mcg/ Dextrose 100 ml @ 4.705 mls/ hr [id number] IV 11/03/24 12:15 Patient Own Medication 5 mg BID PO 11/03/24 22:00 Digoxin 125 mcg Q48H IV 11/03/24 14:30 Examination: GENERAL:Abnormal, LUNGS:Abnormal, MSK:Abnormal (Bilateral BKA swollen upper extremity right greater than left), NEURO:Abnormal laboratory and microbiology Laboratory Tests 11/03/24 03:30 Test 11/03/24 03:30 Range/Units Serum Glucose 89 74-106 mg/dL Microbiology Date/Time Source Procedure Growth Status 10/31/24 11:05 Nose MRSA Screen - Final Complete 10/31/24 10:50 Blood Blood Culture - Preliminary NO GROWTH AFTER 72 HOURS OF INCUBATION. Resulted 10/31/24 10:45 Sputum Gram Stain - Final Complete 10/31/24 10:45 Respiratory Culture - Final Enterobacter aerogenes Complete 10/30/24 19:19 Urine - [place] Urine Culture - Final Escherichia coli - ESBL Complete Problem List/Assessment/Plan Problem List/Assessment/Plan ESRD on hemodialysis Right upper extremity swelling Ventilator-dependent hypoxic respiratory failure Morbid obesity NSTEMI Congestive heart failure Recommendations Seen on hemodialysis UF 3 L off Vascular surgery consult for rt AVF eval noted fistulogram when stable given significant right upper extremity swelling however fistula is working okay for now Epogen fio2 better We will follow closely Plan discussed with: Other My Orders My Orders Orders - MARINE WILKERSON MD Procedure Category Date Status Time Hemodialysis Orders ORDERS 11/03/24 Transmitted 09:37 Dialysis Nursing PIYUSH 11/03/24 In Process Message 09:37 Document Fluid Input PIYUSH 11/03/24 Verified And Outpu 09:37 Epoetin Kobe-Epbx PHA 11/03/24 In Process (Retacrit) 21:00 Dietary Evaluation Review Comments: 1. On propofol which supply fat kcaloried at 333 kcal/day if running at 12.6ml/hr. 2.Recommend a low fat high protein TF Vital High Protein @ 40ml/hr providing 84 g Protein, and 960 kcal, 803 ml free water, if running at 24 hrs. the combined nurition support will be 84 g Protein and 1056 kcal, supporting pt's needs for protein at 76.3%, needs for energy at 134%. 3. Reasses pt's TF formulary if pt is off Popofol.but still need TF. 4. Renal standard and CCHO-75 if pt is able to have PO intake after passing a CHIP LOFT WORKER eval, Expected Outcomes/Goals: gradual wt loss. improved lab values with consistant dialysis. MARINE WILKERSON MD Nov 03, 2024 15:27
[2024-11-03] MEDS: MEROPENEM 500MG IVPB 50 ML IV SCH (21:15)
[2024-11-03] MEDS: EPOETIN ALFA-EPBX 10,000 UNIT/1ML VIAL SC ONE (21:15)
[2024-11-03] MEDS: PROPOFOL 100 ML IV ONE (21:26)
[2024-11-03] MEDS: VERQUVO 5 MG PO SCH (21:33)
[2024-11-04] VITALS (110 sets, daily range): BP systolic 105–197; BP diastolic 41–65; PULSE 54–78; RESP 12–31; TEMP 92.7–100.4; O2SAT 95–100
[2024-11-04 03:52] LABS: Basophils # (auto) 0 10 ^3/uL (0-0.2); Basophils % (auto) 0.6 % (0.0-2.0); Eosinophils # (auto) 0.3 10 ^3/uL (0-0.8); Hematocrit 28.2 % (41.0-53.0); Hemoglobin 9.1 g/dL (13.5-17.5); Lymphocytes # (auto) 1.2 10 ^3/uL (0.4-5.4); Mean Corpuscular Hemoglobin 29.2 pg (28.0-32.0); Mean Corpuscular Hgb Conc. 32.3 g/dL (32.0-36.0); Mean Corpuscular Volume 90.4 fL (80.0-100.0); Monocytes # (auto) 1.1 10 ^3/uL (0-1.3); Monocytes % (auto) 14.5 % (0.0-12.0); Neutrophils # (auto) 4.7 10 ^3/uL (1.6-8.6); Neutrophils % (auto) 64.9 % (37.0-80.0); Nucleated Red Blood Cells % 0.1 %; Platelet Count (auto) 286 10^3/uL (140-450); Red Blood Cells 3.12 10^6/uL (4.5-5.90); Red Cell Distribution Width 16.9 % (11.8-14.3); White Blood Cell 7.3 10^3/uL (4.4-10.8)
[2024-11-04 04:06] LABS: Alanine Aminotransferase 16 U/L (7-40); Alkaline Phosphatase 67 U/L (46-116); Anion Gap 13 (5-15); BUN/Creatinine Ratio 4.7 (10.0-20.0); Calcium 9.3 mg/dL (8.7-10.4); Carbon Dioxide 26 mmol/L (20-31); Chloride 99 mmol/L (98-107); Magnesium 2.2 mg/dL (1.6-2.6); Sodium 138 mmol/L (136-145)
[2024-11-04 04:07] LABS: Total Protein 7.1 g/dL (5.7-8.2)
[2024-11-04 04:08] LABS: Albumin 4.2 g/dL (3.2-4.8); Aspartate Aminotransferase 31 U/L (13-40); Bilirubin, Total 0.4 mg/dL (0.2-1.0)
[2024-11-04 04:09] LABS: Blood Urea Nitrogen 27 mg/dL (9-23); Glucose 109 mg/dL (74-106)
--- NOTE | 2024-11-04 06:04 | DVH ---
CHEST RADIOGRAPH Indication: INTUBATED Technique: Single frontal view of the chest was obtained Comparison: XY CHEST PORTABLE on DOS: 11/03/24, XY CHEST PORTABLE on DOS: 11/02/24, XY CHEST PORTABLE on DOS: 11/02/24 IMPRESSION: Endotracheal tube tip approximately 5 cm from the patrick, consider advancement by 1-2 cm. Enteric tube tip within the stomach. Mild pulmonary vascular congestion. No sizable effusion or pneum othorax.
[2024-11-04 07:22] LABS: Base Excess 1.3 mmol/L (-2.0-3.0)
[2024-11-04] MEDS: cloNIDine HCL 0.1 MG TAB PO PRN (09:35)
[2024-11-04] MEDS: DexAMETHasone SOD PHOS 10MG/1ML VIAL INJ IV SCH (12:13)
[2024-11-04] MEDS: ACETAMINOPHEN 325 MG TAB PO PRN (13:02)
[2024-11-04] MEDS: hydrALAZINE HCL 20 MG/ML VL ONE (13:46)
[2024-11-04] MEDS: hydrALAZINE HCL 20 MG/ML VL IV PRN (14:00)
--- NOTE | 2024-11-04 16:08 | DVHPN2 ---
Progress Note Date Seen: Nov 04, 2024 Medical Necessity Reason Pt with a Central, PICC or Fol: Yes The following are medically ne: Central Line, Martinez Catheter Reason for martinez catheter: Strict I&O Subjective Patient reports: Other (Remains intubated family bedside) Review of Systems: Deferred Objective vital signs Vital Sign Date Time Temp Pulse Resp B/P (MAP) Pulse Ox O2 Delivery O2 Flow Rate FiO2 11/04/24 16:00 30 11/04/24 15:45 98.8 59 18 146/55 (85) 95 209.8 163/46 (85) 11/04/24 08:00 Mechanical Ventilator+ Total Intake and Output 11/03/24 11/03/24 11/04/24 15:00 23:00 07:00 Intake Total 576.568 ml 531.568 ml 659.290 ml Output Total 3010 ml 10 ml Balance 576.568 ml -2478.432 ml 649.290 ml medications Current Medications Medications Dose Ordered Sig/Alexander Route Start Time Stop Time Status Last Admin Dose Admin Nitroglycerin 0.4 mg Q5MINP PRN SL 10/30/24 20:00 Morphine Sulfate 2 mg Q30M PRN IV 10/30/24 20:00 Aspirin 162 mg DAILY PO 10/31/24 10:00 11/04/24 07:49 162 MG Atorvastatin Calcium 80 mg HS PO 10/30/24 22:00 11/03/24 21:16 80 MG Dextrose 50 ml UD PRN IV 10/30/24 20:15 11/02/24 17:25 50 ML Ondansetron HCl 4 mg Q4HP PRN IV 10/30/24 20:15 Acetaminophen 650 mg Q6HP PRN PO 10/30/24 20:15 11/04/24 13:02 650 MG Heparin Sodium (Porcine) 5,000 units Q12HR SC 10/31/24 10:00 11/04/24 07:49 5,000 UNITS Pantoprazole Sodium 40 mg DAILY IV 11/01/24 10:00 11/04/24 07:49 40 MG Propofol 100 ml @ 3.153 mls/ hr Q24H IV 10/31/24 10:45 11/04/24 04:27 12.612 MLS/HR Fentanyl Citrate 250 ml @ 2.5 mls/hr Q24H IV 10/31/24 10:45 4/5/25 04:24 10 MLS/HR Norepinephrine Bitartrate 32 mg/ Sodium Chloride 250 ml @ 0.938 mls/ hr Q24H IV 10/31/24 11:00 10/31/24 15:39 0.938 MLS/HR Diagnostic Test (Pha) 1 strip Q4H 11/02/24 22:00 11/04/24 12:13 1 STRIP Insulin Human Regular Q4H SC 11/02/24 22:00 Enteral Nutritional Formula 1,000 ml 30ML/HR GT 11/03/24 12:15 Dexmedetomidine HCl 400 mcg/ Dextrose 100 ml @ 4.705 mls/ hr [id number] IV 11/03/24 12:15 11/04/24 12:13 11.763 MLS/HR Patient Own Medication 5 mg BID PO 11/03/24 22:00 Digoxin 125 mcg Q48H IV 11/03/24 14:30 Meropenem 50 ml @ 16.667 mls/ hr Q24H IV 11/03/24 22:00 11/03/24 21:15 16.667 MLS/HR Clonidine HCl 0.2 mg TID PRN PO 11/04/24 09:30 11/04/24 09:35 0.2 MG Dexamethasone Sodium Phosphate 6 mg Q6HR IV 11/04/24 12:00 11/06/24 12:00 11/04/24 12:13 6 MG Hydralazine HCl 10 mg Q6HP PRN IV 11/04/24 13:30 Examination: GENERAL:Abnormal, LUNGS:Abnormal, MSK:Abnormal, NEURO:Abnormal laboratory and microbiology Laboratory Tests 11/04/24 03:20 Test 11/04/24 03:20 Range/Units Serum Glucose 109 H 74-106 mg/dL Microbiology Date/Time Source Procedure Growth Status 10/31/24 11:05 Nose MRSA Screen - Final Complete 10/31/24 10:50 Blood Blood Culture - Preliminary NO GROWTH AFTER 72 HOURS OF INCUBATION. Resulted 10/31/24 10:45 Sputum Gram Stain - Final Complete 10/31/24 10:45 Respiratory Culture - Final Enterobacter aerogenes Complete 10/30/24 19:19 Urine - [place] Urine Culture - Final Escherichia coli - ESBL Complete Problem List/Assessment/Plan Problem List/Assessment/Plan ESRD on hemodialysis Right upper extremity swelling Ventilator-dependent hypoxic respiratory failure Morbid obesity NSTEMI Congestive heart failure Recommendations Hemodialysis Wednesday versus Wednesday depending on staffing availability eval noted fistulogram when stable given significant right upper extremity swelling however fistula is working okay for now Epogen fio2 better We will follow closely Plan discussed with: Other Dietary Evaluation Review Comments: 1. On propofol which supply fat kcaloried at 333 kcal/day if running at 12.6ml/hr. 2.Recommend a low fat high protein TF Vital High Protein @ 40ml/hr providing 84 g Protein, and 960 kcal, 803 ml free water, if running at 24 hrs. the combined nurition support will be 84 g Protein and 1056 kcal, supporting pt's needs for protein at 76.3%, needs for energy at 134%. 3. Reasses pt's TF formulary if pt is off Popofol.but still need TF. 4. Renal standard and CCHO-75 if pt is able to have PO intake after passing a RETAIL TRAINING MANAGER eval, Expected Outcomes/Goals: gradual wt loss. improved lab values with consistant dialysis. MARINE WILKERSON MD Nov 04, 2024 16:08
--- NOTE | 2024-11-04 16:54 | DVHPN2 ---
Subjective Patient chemically sedated Reviewed: Care Plan, H&P, Medications, Previous Orders Changes from previous H/P or p: No Changes General: Per HPI Objective Vitals Vital Signs Date Time Temp Pulse Resp B/P (MAP) Pulse Ox O2 Delivery O2 Flow Rate FiO2 11/04/24 16:15 98.6 57 18 160/53 (88) 96 209.5 175/49 (91) 11/04/24 16:11 30 11/04/24 08:00 Mechanical Ventilator+ Intake/Output Intake and Output 11/04/24 07:00 Intake Total 1767.426 ml Output Total 3020 ml Balance -1252.574 ml Intake Oral 300 ml IV Total 1207.426 ml Tube Feeding 260 ml Output Urine Total 20 ml Other 3000 ml General Appearance: Other (Unable to assess) HEENT: Atraumatic, PERRLA, EOMI Lungs: Clear to auscultation, Normal air movement, Other (Mechanical ventilation) Cardiovascular: Normal S1, Normal S2 Abdomen: Normal bowel sounds, Soft, No tenderness Genitourinary: No Apparent Abnormalities ([place] catheter) Musculoskeletal: Normal sensory function, Normal motor function Extremities: Other (Bilateral lower extremity amputation) Psych/Mental Status: Other (Unable to assess) Medications Current Medications Medications Dose Ordered Sig/Alexander Route Start Time Stop Time Status Last Admin Dose Admin Nitroglycerin 0.4 mg Q5MINP PRN SL 10/30/24 20:00 Morphine Sulfate 2 mg Q30M PRN IV 10/30/24 20:00 Aspirin 162 mg DAILY PO 10/31/24 10:00 11/04/24 07:49 162 MG Atorvastatin Calcium 80 mg HS PO 10/30/24 22:00 11/03/24 21:16 80 MG Dextrose 50 ml UD PRN IV 10/30/24 20:15 11/02/24 17:25 50 ML Ondansetron HCl 4 mg Q4HP PRN IV 10/30/24 20:15 Acetaminophen 650 mg Q6HP PRN PO 10/30/24 20:15 11/04/24 13:02 650 MG Heparin Sodium (Porcine) 5,000 units Q12HR SC 10/31/24 10:00 11/04/24 07:49 5,000 UNITS Pantoprazole Sodium 40 mg DAILY IV 11/01/24 10:00 11/04/24 07:49 40 MG Propofol 100 ml @ 3.153 mls/ hr Q24H IV 10/31/24 10:45 11/04/24 04:27 12.612 MLS/HR Fentanyl Citrate 250 ml @ 2.5 mls/hr Q24H IV 10/31/24 10:45 11/04/24 04:24 10 MLS/HR Norepinephrine Bitartrate 32 mg/ Sodium Chloride 250 ml @ 0.938 mls/ hr Q24H IV 10/31/24 11:00 10/31/24 15:39 0.938 MLS/HR Diagnostic Test (Pha) 1 strip Q4H 11/02/24 22:00 11/04/24 12:13 1 STRIP Insulin Human Regular Q4H SC 11/02/24 22:00 Enteral Nutritional Formula 1,000 ml 30ML/HR GT 11/03/24 12:15 Dexmedetomidine HCl 400 mcg/ Dextrose 100 ml @ 4.705 mls/ hr [id number] IV 11/03/24 12:15 11/04/24 12:13 11.763 MLS/HR Patient Own Medication 5 mg BID PO 11/03/24 22:00 Digoxin 125 mcg Q48H IV 11/03/24 14:30 Meropenem 50 ml @ 16.667 mls/ hr Q24H IV 11/03/24 22:00 11/03/24 21:15 16.667 MLS/HR Clonidine HCl 0.2 mg TID PRN PO 11/04/24 09:30 11/04/24 09:35 0.2 MG Dexamethasone Sodium Phosphate 6 mg Q6HR IV 11/04/24 12:00 11/06/24 12:00 11/04/24 12:13 6 MG Hydralazine HCl 10 mg Q6HP PRN IV 11/04/24 13:30 Laboratory Results Laboratory Tests 11/04/24 03:20 Chemistry Test 11/04/24 03:20 Albumin 4.2 g/dL (3.2-4.8) Calcium Level 9.3 mg/dL (8.7-10.4) Magnesium Level 2.2 mg/dL (1.6-2.6) Total Protein 7.1 g/dL (5.7-8.2) LFT Test 11/04/24 03:20 Alanine Aminotransferase (ALT) 16 U/L (7-40) Alkaline Phosphatase 67 U/L (46-116) Aspartate Amino Transferase (AST) 31 U/L (13-40) Total Bilirubin 0.4 mg/dL (0.2-1.0) Urinalysis Test 10/30/24 19:19 Urine Color Light-brown (Yellow) Urine Clarity Ex.turbid (Clear) Urine pH 6.0 (5.0-9.0) Urine Specific [place] 1.020 (1.001-1.035) Urine Protein 3+ (Negative) H Urine Ketones Trace (Negative) Urine Blood 3+ /uL (Negative) H Urine Nitrite Negative (Negative) Urine Bilirubin Negative (Negative) Urine Urobilinogen Normal mg/dL (Negative) Urine Leukocyte Esterase 3+ /uL (Negative) Urine RBC 24 /hpf (0 - 3) Urine WBC Clumps Present /hpf (None Seen) Urine Microscopic WBC 1083 /HPF (0-3) H Urine Squamous Epithelial Cells Few /hpf (<5) Urine Transitional Epithelial Cells Few /hpf (<2) Urine Bacteria Many /hpf (None Seen) H Urine Mucus Few (None Seen) Urine Glucose Normal mg/dL (Normal) Blood Gas Results Test 11/04/24 07:14 Arterial Blood pH 7.491 (7.350-7.450) FiO2 % 30.0 Microbiology Microbiology Date/Time Source Procedure Growth Status 10/31/24 11:05 Nose MRSA Screen - Final Complete 10/31/24 10:50 Blood Blood Culture - Preliminary NO GROWTH AFTER 72 HOURS OF INCUBATION. Resulted 10/31/24 10:45 Sputum Gram Stain - Final Complete 10/31/24 10:45 Respiratory Culture - Final Enterobacter aerogenes Complete 10/30/24 19:19 Urine - [place] Urine Culture - Final Escherichia coli - ESBL Complete Labs and/or images reviewed: Labs reviewed by me, Image(s) reviewed by me Assessment/Plan Assessment/Plan Impression: -acute hypoxic respiratory failure with mechanical ventilation -community-acquired pneumonia with Enterobacter aeruginosa -end-stage renal disease with hemodialysis -right arm swelling with probable distal stenosis of fistula -ESBL in the urine, complicated cystitis -obesity -bilateral lower extremity amputation -accelerated hypertension -cardiomyopathy -tongue swelling Plan: -continue steroids for tongue swelling -continue current ventilator settings -continue antibiotic therapy with Meropenem -nephrology consultation: Recommend HD prior to extubation -restart sedation given no plans for spontaneous breathing trial -continue antihypertensives -PUD, DVT prophylaxis -vascular surgery consultation -cardiology consultation -repeat labs, chest x-ray, ABG in a.m. -plan of care discussed with the patient. All questions answered. Critical care time spent with patient discussing and formulating plan of care: 90 minutes. This does not include time spent performing procedures. This medical document was created using an electronic medical record system with [employer] dictation system. Although this document has been carefully reviewed, there may still be some phonetic and typographical errors. These areas are purely typographical due to imperfections of the software programs, and do not reflect any compromise in the patient's medical care. Plan discussed with: Patient, Daughter, Other (RN) My Orders Orders - SAMI OSWALD NP Procedure Category Date Status Time Hydralazine Injection PHA 11/04/24 In Process (Apresoline Inject 13:30 Basic Metabolic Panel LAB 11/05/24 Verified 04:00 Chest Portable XY 11/05/24 Verified 04:00 Complete Blood Count LAB 11/05/24 Verified 04:00 Abg W/ Co-Ox RT 11/05/24 Verified 04:00 Date of Service: Nov 04, 2024 Billing Provider: SAMI OSWALD NP Common Visit Codes: 33982-[id number] CARE 30-74 MIN, [id number] CARE-EACH +30MIN SAMI OSWALD NP Nov 04, 2024 16:54
[2024-11-04] MEDS: MEROPENEM 500MG IVPB 50 ML IV SCH (18:24)
--- NOTE | 2024-11-04 19:31 | DVHPN2 ---
Progress Note - Dictate Date Seen: Nov 04, 2024 Medical Necessity Reason Pt with a Central, PICC or Fol: Yes The following are medically ne: Central Line, Martinez Catheter Reason for martinez catheter: Strict I&O Subjective Patient seen and examined at bedside. Sedated, intubated on mechanical ventilator. Overnight events reviewed. vital signs Vital Sign Date Time Temp Pulse Resp B/P (MAP) Pulse Ox O2 Delivery O2 Flow Rate FiO2 11/04/24 18:45 55 18 141/48 (79) 98 153/46 (81) 11/04/24 18:24 30 11/04/24 17:45 98.6 209.5 11/04/24 08:00 Mechanical Ventilator+ Total Intake and Output 11/03/24 11/03/24 11/04/24 15:00 23:00 07:00 Intake Total 576.568 ml 531.568 ml 659.290 ml Output Total 3010 ml 10 ml Balance 576.568 ml -2478.432 ml 649.290 ml medications Current Medications Medications Dose Ordered Sig/Alexander Route Start Time Stop Time Status Last Admin Dose Admin Nitroglycerin 0.4 mg Q5MINP PRN SL 10/30/24 20:00 Morphine Sulfate 2 mg Q30M PRN IV 10/30/24 20:00 Aspirin 162 mg DAILY PO 10/31/24 10:00 11/04/24 07:49 162 MG Atorvastatin Calcium 80 mg HS PO 10/30/24 22:00 11/03/24 21:16 80 MG Dextrose 50 ml UD PRN IV 10/30/24 20:15 11/02/24 17:25 50 ML Ondansetron HCl 4 mg Q4HP PRN IV 10/30/24 20:15 Acetaminophen 650 mg Q6HP PRN PO 10/30/24 20:15 11/04/24 13:02 650 MG Heparin Sodium (Porcine) 5,000 units Q12HR SC 10/31/24 10:00 11/04/24 07:49 5,000 UNITS Pantoprazole Sodium 40 mg DAILY IV 11/01/24 10:00 11/04/24 07:49 40 MG Propofol 100 ml @ 3.153 mls/ hr Q24H IV 10/31/24 10:45 11/04/24 18:47 15.765 MLS/HR Fentanyl Citrate 250 ml @ 2.5 mls/hr Q24H IV 10/31/24 10:45 11/04/24 04:24 10 MLS/HR Norepinephrine Bitartrate 32 mg/ Sodium Chloride 250 ml @ 0.938 mls/ hr Q24H IV 10/31/24 11:00 10/31/24 15:39 0.938 MLS/HR Diagnostic Test (Pha) 1 strip Q4H 11/02/24 22:00 11/04/24 17:11 1 STRIP Insulin Human Regular Q4H SC 11/02/24 22:00 Enteral Nutritional Formula 1,000 ml 30ML/HR GT 11/03/24 12:15 Dexmedetomidine HCl 400 mcg/ Dextrose 100 ml @ 4.705 mls/ hr [id number] IV 11/03/24 12:15 11/04/24 12:13 11.763 MLS/HR Patient Own Medication 5 mg BID PO 11/03/24 22:00 Digoxin 125 mcg Q48H IV 11/03/24 14:30 Clonidine HCl 0.2 mg TID PRN PO 11/04/24 09:30 11/04/24 09:35 0.2 MG Dexamethasone Sodium Phosphate 6 mg Q6HR IV 11/04/24 12:00 11/06/24 12:00 11/04/24 17:11 6 MG Hydralazine HCl 10 mg Q6HP PRN IV 11/04/24 13:30 11/04/24 14:00 10 MG Metoclopramide HCl 5 mg Q8HR IV 11/04/24 22:00 Meropenem 50 ml @ 16.667 mls/ hr Q12H IV 11/04/24 18:15 11/04/24 18:24 16.667 MLS/HR objective Gen.: Patient lying in bed in medical ICU. Sedated, intubated on mechanical ventilator. Head: Normocephalic, atraumatic. Eyes: PERRLA. Ears: Normal external anatomy. Throat: Endotracheal tube and orogastric tube in place. Neck: Supple, trachea midline. Chest: Transmitted breath sounds bilaterally. Decreased air entry bilaterally. No wheezing. Bibasilar crackles. Cardiovascular: Positive S1, positive S2. Regular rate and rhythm. Abdomen: Positive bowel sounds in all 4 quadrants. Soft, nontender, nondistended. : Martinez in place. Normal external genitalia. Rectal: Deferred. Skin: Warm, dry. Intact. Extremities: 2+ radial pulses bilaterally. No lower extremity edema. Neuro: Sedated. laboratory and microbiology Laboratory Tests 11/04/24 03:20 Test 11/04/24 03:20 Range/Units Serum Glucose 109 H 74-106 mg/dL Assessment/Plan Impression Acute hypoxemic respiratory failure End-stage renal disease, on hemodialysis Chronic obstructive pulmonary disease Congestive heart failure Morbid obesity Patient seen and examined in ICU Events On mechanical ventilation S/p intubation On AC mode with RR 18, VT 550, PEEP 5, FiO2 30% Positive airway leak Significant tongue swelling noted - started Decadron q. 6 hours Sedated on Propofol Precedex drip. Continue antibiotics Accu-Cheks, ISS. Labs and imaging reviewed ABG reviewed, notable for alkalemia CXR demonstrates mild pulmonary vascular congestion. Plan Vent support Titrate to maintain sats 90% or above On AC mode with RR 18, VT 550, PEEP 5, FiO2 30% Sedation holiday daily If patient follows commands, proceed to weaning trial Pressure support 02/03, extubate when ready Continue antibiotics Monitor renal function HD as per nephrology Management deferred Monitor electrolytes Supplement as needed Pressors as needed for hemodynamic support To maintain a mean arterial pressure of 65 mmHg DVT prophylaxis Prognosis: Poor given patient's multiple co-morbidities. Condition: Critical Rest of plan per hospitalist and other consultants. A total of 35 minutes of critical care time was spent reviewing the patient record, examining the patient, making a diagnostic and therapeutic plan, discussing this plan with the medical personnel, following up on diagnostic studies and following the patient for clinical stability excluding any and all procedures. At least 50% of this time was spent in direct, [id number] contact. Thank you, RICH Dale, for allowing me to participate in this patient's care. Further recommendations will depend on the patient's clinical course. Please do not hesitate to contact me if you have any questions or concerns. This medical document was created using an electronic medical record system with [employer] system. Although these documentations are being carefully reviewed, there may still be some phonetic and typographical changes. The errors are purely typographical, due to imperfection on the software program, and do not reflect any compromise in the patient's medical care. Dietary Evaluation Review Comments: 1. On propofol which supply fat kcaloried at 333 kcal/day if running at 12.6ml/hr. 2.Recommend a low fat high protein TF Vital High Protein @ 40ml/hr providing 84 g Protein, and 960 kcal, 803 ml free water, if running at 24 hrs. the combined nurition support will be 84 g Protein and 1056 kcal, supporting pt's needs for protein at 76.3%, needs for energy at 134%. 3. Reasses pt's TF formulary if pt is off Popofol.but still need TF. 4. Renal standard and CCHO-75 if pt is able to have PO intake after passing a [employer] UP [employer]PERATOR eval, Expected Outcomes/Goals: gradual wt loss. improved lab values with consistant dialysis. Plan discussed with: Other (QING Hall) Critical Care Time(min): 35 JOSUÉ FUENTES MD Nov 04, 2024 19:31
[2024-11-04] MEDS: METOCLOPRAMIDE HCL 5MG/ml INJ 2ml VIAL IV SCH (22:16)
[2024-11-05] VITALS (105 sets, daily range): BP systolic 94–300; BP diastolic 32–249; PULSE 54–87; RESP 12–30; TEMP 96.8–98.8; O2SAT 94–100
[2024-11-05 03:54] LABS: Basophils # (auto) 0 10 ^3/uL (0-0.2); Basophils % (auto) 0.2 % (0.0-2.0); Eosinophils # (auto) 0 10 ^3/uL (0-0.8); Hematocrit 30.3 % (41.0-53.0); Lymphocytes # (auto) 0.9 10 ^3/uL (0.4-5.4); Lymphocytes % (auto) 13.8 % (10.0-50.0); Mean Corpuscular Hemoglobin 29.4 pg (28.0-32.0); Mean Corpuscular Hgb Conc. 33.1 g/dL (32.0-36.0); Mean Corpuscular Volume 88.9 fL (80.0-100.0); Monocytes # (auto) 0.2 10 ^3/uL (0-1.3); Monocytes % (auto) 2.8 % (0.0-12.0); Neutrophils # (auto) 5.3 10 ^3/uL (1.6-8.6); Neutrophils % (auto) 83.2 % (37.0-80.0); Platelet Count (auto) 331 10^3/uL (140-450); Red Blood Cells 3.41 10^6/uL (4.5-5.90); White Blood Cell 6.4 10^3/uL (4.4-10.8)
[2024-11-05 04:04] LABS: Anion Gap 18 (5-15); Carbon Dioxide 22 mmol/L (20-31)
[2024-11-05 04:06] LABS: Calcium 9.5 mg/dL (8.7-10.4)
[2024-11-05 04:17] LABS: Blood Urea Nitrogen 47 mg/dL (9-23); Chloride 95 mmol/L (98-107); Glucose 213 mg/dL (74-106); Sodium 135 mmol/L (136-145)
--- NOTE | 2024-11-05 05:49 | DVH ---
CHEST RADIOGRAPH Indication: pna Technique: Single frontal view of the chest was obtained Comparison: XY CHEST PORTABLE on DOS: 11/04/24, XY CHEST PORTABLE on DOS: 11/03/24, XY CHEST PORTABLE on DOS: 11/02/24 IMPRESSION: Cardiac silhouette appears enlarged. Endotracheal tube and enteric tube appear unchanged. Moderate p ulmonary vascular congestion. Probable small left pleural effusion with underlying atelectasis or con solidation. No pneumothorax.
[2024-11-05] MEDS: Nepro With Carb Steady 1 Liter Bottle GT SCH (05:54)
--- NOTE | 2024-11-05 06:47 | DVHPN2 ---
Subjective Patient chemically sedated Reviewed: Care Plan, H&P, Medications, Previous Orders Changes from previous H/P or p: No Changes General: Per HPI Objective Vitals Vital Signs Date Time Temp Pulse Resp B/P (MAP) Pulse Ox O2 Delivery O2 Flow Rate FiO2 11/05/24 06:25 73 19 104/33 (56) 96 30 11/05/24 06:00 98.4 209.1 11/04/24 20:00 Mechanical Ventilator+ Intake/Output Intake and Output 11/05/24 07:00 Intake Total 791.197 ml Output Total 40 ml Balance 751.197 ml Intake Oral 250 ml IV Total 391.197 ml Tube Feeding 150 ml Output Urine Total 40 ml General Appearance: Other (Unable to assess) HEENT: Atraumatic, PERRLA, EOMI Lungs: Clear to auscultation, Normal air movement, Other (Mechanical ventilation) Cardiovascular: Normal S1, Normal S2 Abdomen: Normal bowel sounds, Soft, No tenderness Genitourinary: No Apparent Abnormalities ([place] catheter) Musculoskeletal: Normal sensory function, Normal motor function Extremities: Other (Bilateral lower extremity amputation) Skin: Dry, Intact Psych/Mental Status: Other (Unable to assess) Medications Current Medications Medications Dose Ordered Sig/Alexander Route Start Time Stop Time Status Last Admin Dose Admin Nitroglycerin 0.4 mg Q5MINP PRN SL 10/30/24 20:00 Morphine Sulfate 2 mg Q30M PRN IV 10/30/24 20:00 Aspirin 162 mg DAILY PO 10/31/24 10:00 11/04/24 07:49 162 MG Atorvastatin Calcium 80 mg HS PO 10/30/24 22:00 11/04/24 22:16 80 MG Dextrose 50 ml UD PRN IV 10/30/24 20:15 11/02/24 17:25 50 ML Ondansetron HCl 4 mg Q4HP PRN IV 10/30/24 20:15 Acetaminophen 650 mg Q6HP PRN PO 10/30/24 20:15 11/04/24 13:02 650 MG Heparin Sodium (Porcine) 5,000 units Q12HR SC 10/31/24 10:00 11/04/24 22:34 5,000 UNITS Pantoprazole Sodium 40 mg DAILY IV 11/01/24 10:00 11/04/24 07:49 40 MG Propofol 100 ml @ 3.153 mls/ hr Q24H IV 10/31/24 10:45 11/05/24 05:53 22.071 MLS/HR Fentanyl Citrate 250 ml @ 2.5 mls/hr Q24H IV 10/31/24 10:45 11/04/24 04:24 10 MLS/HR Norepinephrine Bitartrate 32 mg/ Sodium Chloride 250 ml @ 0.938 mls/ hr Q24H IV 10/31/24 11:00 10/31/24 15:39 0.938 MLS/HR Diagnostic Test (Pha) 1 strip Q4H 11/02/24 22:00 11/05/24 05:19 1 STRIP Insulin Human Regular Q4H SC 11/02/24 22:00 11/05/24 05:19 4 UNITS Enteral Nutritional Formula 1,000 ml 30ML/HR GT 11/03/24 12:15 11/05/24 05:54 1,000 ML Dexmedetomidine HCl 400 mcg/ Dextrose 100 ml @ 4.705 mls/ hr [id number] IV 11/03/24 12:15 11/04/24 12:13 11.763 MLS/HR Patient Own Medication 5 mg BID PO 11/03/24 22:00 Digoxin 125 mcg Q48H IV 11/03/24 14:30 Clonidine HCl 0.2 mg TID PRN PO 11/04/24 09:30 11/04/24 09:35 0.2 MG Dexamethasone Sodium Phosphate 6 mg Q6HR IV 11/04/24 12:00 11/06/24 12:00 11/05/24 04:48 6 MG Hydralazine HCl 10 mg Q6HP PRN IV 11/04/24 13:30 11/05/24 05:49 10 MG Metoclopramide HCl 5 mg Q8HR IV 11/04/24 22:00 11/05/24 04:48 5 MG Meropenem 50 ml @ 16.667 mls/ hr Q12H IV 11/04/24 18:15 11/05/24 04:48 16.667 MLS/HR Laboratory Results Laboratory Tests 11/05/24 03:23 Chemistry Test 11/05/24 03:23 Calcium Level 9.5 mg/dL (8.7-10.4) Urinalysis Test 10/30/24 19:19 Urine Color Light-brown (Yellow) Urine Clarity Ex.turbid (Clear) Urine pH 6.0 (5.0-9.0) Urine Specific [place] 1.020 (1.001-1.035) Urine Protein 3+ (Negative) H Urine Ketones Trace (Negative) Urine Blood 3+ /uL (Negative) H Urine Nitrite Negative (Negative) Urine Bilirubin Negative (Negative) Urine Urobilinogen Normal mg/dL (Negative) Urine Leukocyte Esterase 3+ /uL (Negative) Urine RBC 24 /hpf (0 - 3) Urine WBC Clumps Present /hpf (None Seen) Urine Microscopic WBC 1083 /HPF (0-3) H Urine Squamous Epithelial Cells Few /hpf (<5) Urine Transitional Epithelial Cells Few /hpf (<2) Urine Bacteria Many /hpf (None Seen) H Urine Mucus Few (None Seen) Urine Glucose Normal mg/dL (Normal) Blood Gas Results Test 11/04/24 07:14 Arterial Blood pH 7.491 (7.350-7.450) FiO2 % 30.0 Microbiology Microbiology Date/Time Source Procedure Growth Status 10/31/24 11:05 Nose MRSA Screen - Final Complete 10/31/24 10:50 Blood Blood Culture - Preliminary NO GROWTH AFTER 72 HOURS OF INCUBATION. 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 Patient recent dated given tongue swelling. Swelling has improved dramatically. Instructed RT to perform leak test. Discontinue IV steroids. Chest x-ray with worsening pulmonary vascular congestion. Hold spontaneous breathing trial until patient has hemodialysis. Also recommended to have vascular surgeon re-evaluate performing fistulogram with possible intervention prior to extubation. -continue current ventilator settings -continue antibiotic therapy with Meropenem -nephrology consultation: Recommend HD prior to extubation -restart sedation given no plans for spontaneous breathing trial -continue antihypertensives -PUD, DVT prophylaxis -vascular surgery consultation -cardiology consultation -repeat labs, chest x-ray, ABG in a.m. Critical care time spent with patient discussing and formulating plan of care: 90 minutes. This does not include time spent performing procedures. This medical document was created using an electronic medical record system with [employer] dictation system. Although this document has been carefully reviewed, there may still be some phonetic and typographical errors. These areas are purely typographical due to imperfections of the software programs, and do not reflect any compromise in the patient's medical care. Plan discussed with: Patient, Other (RN) My Orders Orders - SAMI OSWALD NP Procedure Category Date Status Time Hydralazine Injection PHA 11/04/24 In Process (Apresoline Inject 13:30 Chest Portable XY 11/05/24 Resulted 04:00 Abg W/ Co-Ox RT 11/05/24 Logged 04:00 Metoclopramide PHA 11/04/24 In Process Injection (Reglan 22:00 Pharmacy [facility] 11/04/24 In Process Clarification: 17:22 Basic Metabolic Panel LAB 11/06/24 Verified 04:00 Chest Portable XY 11/06/24 Verified 04:00 Abg W/ Co-Ox RT 11/06/24 Verified 04:00 Complete Blood Count LAB 11/06/24 Verified 04:00 Date of Service: Nov 05, 2024 Billing Provider: SAMI OSWALD NP Common Visit Codes: 38111-[id number] CARE 30-74 MIN SAMI OSWALD NP Nov 05, 2024 06:47
[2024-11-05 06:57] LABS: Base Excess -1.7 mmol/L (-2.0-3.0)
--- NOTE | 2024-11-05 16:03 | DVHPN2 ---
Progress Note Date Seen: Nov 05, 2024 Medical Necessity Reason Pt with a Central, PICC or Fol: Yes The following are medically ne: Central Line, Martinez Catheter Reason for martinez catheter: Strict I&O Subjective Patient reports: Other (intubated) Review of Systems: Deferred Objective vital signs Vital Sign Date Time Temp Pulse Resp B/P (MAP) Pulse Ox O2 Delivery O2 Flow Rate FiO2 11/05/24 14:34 63 18 135/46 (75) 98 30 11/05/24 13:15 98.4 209.1 11/05/24 08:00 Mechanical Ventilator+ Total Intake and Output 11/04/24 11/04/24 11/05/24 15:00 23:00 07:00 Intake Total 91.082 ml 303.025 ml 479.161 ml Output Total 10 ml 30 ml Balance 91.082 ml 293.025 ml 449.161 ml medications Current Medications Medications Dose Ordered Sig/Alexander Route Start Time Stop Time Status Last Admin Dose Admin Nitroglycerin 0.4 mg Q5MINP PRN SL 10/30/24 20:00 Morphine Sulfate 2 mg Q30M PRN IV 10/30/24 20:00 Aspirin 162 mg DAILY PO 10/31/24 10:00 11/05/24 08:50 162 MG Atorvastatin Calcium 80 mg HS PO 10/30/24 22:00 11/04/24 22:16 80 MG Dextrose 50 ml UD PRN IV 10/30/24 20:15 11/02/24 17:25 50 ML Ondansetron HCl 4 mg Q4HP PRN IV 10/30/24 20:15 Acetaminophen 650 mg Q6HP PRN PO 10/30/24 20:15 11/04/24 13:02 650 MG Heparin Sodium (Porcine) 5,000 units Q12HR SC 10/31/24 10:00 11/05/24 08:52 5,000 UNITS Pantoprazole Sodium 40 mg DAILY IV 11/01/24 10:00 11/05/24 08:50 40 MG Propofol 100 ml @ 3.153 mls/ hr Q24H IV 10/31/24 10:45 11/05/24 13:41 22.071 MLS/HR Fentanyl Citrate 250 ml @ 2.5 mls/hr Q24H IV 10/31/24 10:45 11/04/24 04:24 10 MLS/HR Norepinephrine Bitartrate 32 mg/ Sodium Chloride 250 ml @ 0.938 mls/ hr Q24H IV 10/31/24 11:00 10/31/24 15:39 0.938 MLS/HR Diagnostic Test (Pha) 1 strip Q4H 11/02/24 22:00 11/05/24 13:07 1 STRIP Insulin Human Regular Q4H SC 11/02/24 22:00 11/05/24 13:10 6 UNITS Enteral Nutritional Formula 1,000 ml 30ML/HR GT 11/03/24 12:15 11/05/24 05:54 1,000 ML Dexmedetomidine HCl 400 mcg/ Dextrose 100 ml @ 4.705 mls/ hr [id number] IV 11/03/24 12:15 11/04/24 12:13 11.763 MLS/HR Patient Own Medication 5 mg BID PO 11/03/24 22:00 Digoxin 125 mcg Q48H IV 11/03/24 14:30 Clonidine HCl 0.2 mg TID PRN PO 11/04/24 09:30 11/04/24 09:35 0.2 MG Hydralazine HCl 10 mg Q6HP PRN IV 11/04/24 13:30 11/05/24 05:49 10 MG Metoclopramide HCl 5 mg Q8HR IV 11/04/24 22:00 11/05/24 13:10 5 MG Meropenem 50 ml @ 16.667 mls/ hr Q12H IV 11/04/24 18:15 11/05/24 04:48 16.667 MLS/HR Examination: MSK:Abnormal laboratory and microbiology Laboratory Tests 11/05/24 03:23 Test 11/05/24 03:23 Range/Units Serum Glucose 213 #H 74-106 mg/dL Microbiology Date/Time Source Procedure Growth Status 10/31/24 11:05 Nose MRSA Screen - Final Complete 10/31/24 10:50 Blood Blood Culture - Final NO GROWTH AFTER 5 DAYS OF INCUBATION. Complete 10/31/24 10:45 Sputum Gram Stain - Final Complete 10/31/24 10:45 Respiratory Culture - Final Enterobacter aerogenes Complete 10/30/24 19:19 Urine - [place] Urine Culture - Final Escherichia coli - ESBL Complete Problem List/Assessment/Plan Problem List/Assessment/Plan ESRD on hemodialysis Right upper extremity swelling Ventilator-dependent hypoxic respiratory failure Morbid obesity NSTEMI Congestive heart failure Recommendations Hemodialysis Wednesday eval noted fistulogram when stable given significant right upper extremity swelling however fistula is working okay for now Epogen fio2 better We will follow closely Plan discussed with: Other My Orders My Orders Orders - MARINE WILKERSON MD Procedure Category Date Status Time Hemodialysis Orders ORDERS 11/05/24 Transmitted 12:04 Dietary Evaluation Review Comments: 1. On propofol which supply fat kcaloried at 333 kcal/day if running at 12.6ml/hr. 2.Recommend a low fat high protein TF Vital High Protein @ 40ml/hr providing 84 g Protein, and 960 kcal, 803 ml free water, if running at 24 hrs. the combined nurition support will be 84 g Protein and 1056 kcal, supporting pt's needs for protein at 76.3%, needs for energy at 134%. 3. Reasses pt's TF formulary if pt is off Popofol.but still need TF. 4. Renal standard and CCHO-75 if pt is able to have PO intake after passing a [employer] eval, Expected Outcomes/Goals: gradual wt loss. improved lab values with consistant dialysis. MARINE WILKERSON MD Nov 05, 2024 16:02
[2024-11-05] MEDS: ALBUMIN 25% 100 ML IV ONE (18:00)
[2024-11-05] MEDS: SODIUM CHL 0.9% 1000 ML BAG XX ONE (18:00)
--- NOTE | 2024-11-05 19:04 | DVHPN2 ---
Progress Note - Dictate Date Seen: Nov 05, 2024 Medical Necessity Reason Pt with a Central, PICC or Fol: Yes The following are medically ne: Central Line, Martinez Catheter Reason for martinez catheter: Strict I&O Subjective Patient seen and examined at bedside. Sedated, intubated on mechanical ventilator. Overnight events reviewed. vital signs Vital Sign Date Time Temp Pulse Resp B/P (MAP) Pulse Ox O2 Delivery O2 Flow Rate FiO2 11/05/24 18:45 97.2 64 18 115/39 (64) 100 207.0 11/05/24 18:34 30 11/05/24 08:00 Mechanical Ventilator+ Total Intake and Output 11/04/24 11/04/24 11/05/24 15:00 23:00 07:00 Intake Total 91.082 ml 303.025 ml 479.161 ml Output Total 10 ml 30 ml Balance 91.082 ml 293.025 ml 449.161 ml medications Current Medications Medications Dose Ordered Sig/Alexander Route Start Time Stop Time Status Last Admin Dose Admin Nitroglycerin 0.4 mg Q5MINP PRN SL 10/30/24 20:00 Morphine Sulfate 2 mg Q30M PRN IV 10/30/24 20:00 Aspirin 162 mg DAILY PO 10/31/24 10:00 11/05/24 08:50 162 MG Atorvastatin Calcium 80 mg HS PO 10/30/24 22:00 11/04/24 22:16 80 MG Dextrose 50 ml UD PRN IV 10/30/24 20:15 11/02/24 17:25 50 ML Ondansetron HCl 4 mg Q4HP PRN IV 10/30/24 20:15 Acetaminophen 650 mg Q6HP PRN PO 10/30/24 20:15 11/04/24 13:02 650 MG Heparin Sodium (Porcine) 5,000 units Q12HR SC 10/31/24 10:00 11/05/24 08:52 5,000 UNITS Pantoprazole Sodium 40 mg DAILY IV 11/01/24 10:00 11/05/24 08:50 40 MG Propofol 100 ml @ 3.153 mls/ hr Q24H IV 10/31/24 10:45 11/05/24 18:34 22.071 MLS/HR Fentanyl Citrate 250 ml @ 2.5 mls/hr Q24H IV 10/31/24 10:45 11/05/24 16:48 10 MLS/HR Norepinephrine Bitartrate 32 mg/ Sodium Chloride 250 ml @ 0.938 mls/ hr Q24H IV 10/31/24 11:00 10/31/24 15:39 0.938 MLS/HR Diagnostic Test (Pha) 1 strip Q4H 11/02/24 22:00 11/05/24 18:26 1 STRIP Insulin Human Regular Q4H SC 11/02/24 22:00 11/05/24 18:33 4 UNITS Enteral Nutritional Formula 1,000 ml 30ML/HR GT 11/03/24 12:15 11/05/24 05:54 1,000 ML Dexmedetomidine HCl 400 mcg/ Dextrose 100 ml @ 4.705 mls/ hr [id number] IV 11/03/24 12:15 11/04/24 12:13 11.763 MLS/HR Patient Own Medication 5 mg BID PO 11/03/24 22:00 Digoxin 125 mcg Q48H IV 11/03/24 14:30 Clonidine HCl 0.2 mg TID PRN PO 11/04/24 09:30 11/04/24 09:35 0.2 MG Hydralazine HCl 10 mg Q6HP PRN IV 11/04/24 13:30 11/05/24 05:49 10 MG Metoclopramide HCl 5 mg Q8HR IV 11/04/24 22:00 11/05/24 13:10 5 MG Meropenem 50 ml @ 16.667 mls/ hr Q12H IV 11/04/24 18:15 11/05/24 18:27 16.667 MLS/HR objective Gen.: Patient lying in bed in medical ICU. Sedated, intubated on mechanical ventilator. Head: Normocephalic, atraumatic. Eyes: PERRLA. Ears: Normal external anatomy. Throat: Endotracheal tube and orogastric tube in place. Neck: Supple, trachea midline. Chest: Transmitted breath sounds bilaterally. Decreased air entry bilaterally. No wheezing. Bibasilar crackles. Cardiovascular: Positive S1, positive S2. Regular rate and rhythm. Abdomen: Positive bowel sounds in all 4 quadrants. Soft, nontender, nondistended. : Martinez in place. Normal external genitalia. Rectal: Deferred. Skin: Warm, dry. Intact. Extremities: 2+ radial pulses bilaterally. No lower extremity edema. Neuro: Sedated. laboratory and microbiology Laboratory Tests 11/05/24 03:23 Test 11/05/24 03:23 Range/Units Serum Glucose 213 #H 74-106 mg/dL Assessment/Plan Impression Acute hypoxemic respiratory failure On mechanical ventilator End-stage renal disease, on hemodialysis Chronic obstructive pulmonary disease Congestive heart failure Morbid obesity Patient seen and examined in ICU Events On mechanical ventilation S/p intubation On AC mode with RR 18, VT 550, PEEP 5, FiO2 30% No airway leak today per RT. Hold CPAP Significant decrease in tongue swelling Sedated on Propofol, Fentanyl CXR reviewed, demonstrates moderate pulmonary vascular congestion. Small left pleural effusion with underlying atelectasis. ABG reviewed, notable for alkalemia Continue antibiotics Continue Decadron Accu-Cheks, ISS. Tube feeds for nutritional support Labs and imaging reviewed Plan Vent support Titrate to maintain sats 90% or above On AC mode with RR 18, VT 550, PEEP 5, FiO2 30% Sedation holiday daily If patient follows commands, proceed to weaning trial Pressure support 02/03, extubate when ready Continue antibiotics Monitor renal function HD as per nephrology Management deferred Monitor electrolytes Supplement as needed Pressors as needed for hemodynamic support To maintain a mean arterial pressure of 65 mmHg DVT prophylaxis Prognosis: Poor given patient's multiple co-morbidities. Condition: Critical Rest of plan per hospitalist and other consultants. A total of 35 minutes of critical care time was spent reviewing the patient record, examining the patient, making a diagnostic and therapeutic plan, discussing this plan with the medical personnel, following up on diagnostic studies and following the patient for clinical stability excluding any and all procedures. At least 50% of this time was spent in direct, [id number] contact. Thank you, RICH Dale, for allowing me to participate in this patient's care. Further recommendations will depend on the patient's clinical course. Please do not hesitate to contact me if you have any questions or concerns. This medical document was created using an electronic medical record system with [employer] system. Although these documentations are being carefully reviewed, there may still be some phonetic and typographical changes. The errors are purely typographical, due to imperfection on the software program, and do not reflect any compromise in the patient's medical care. Dietary Evaluation Review Comments: 1. On propofol which supply fat kcaloried at 333 kcal/day if running at 12.6ml/hr. 2.Recommend a low fat high protein TF Vital High Protein @ 40ml/hr providing 84 g Protein, and 960 kcal, 803 ml free water, if running at 24 hrs. the combined nurition support will be 84 g Protein and 1056 kcal, supporting pt's needs for protein at 76.3%, needs for energy at 134%. 3. Reasses pt's TF formulary if pt is off Popofol.but still need TF. 4. Renal standard and CCHO-75 if pt is able to have PO intake after passing a SENIOR GAMES TECHNICIAN eval, Expected Outcomes/Goals: gradual wt loss. improved lab values with consistant dialysis. Plan discussed with: Other (QING Kiser) Critical Care Time(min): 35 JOSUÉ FUENTES MD Nov 05, 2024 19:04
[2024-11-06] VITALS (107 sets, daily range): BP systolic 95–187; BP diastolic 31–71; PULSE 61–85; RESP 12–32; TEMP 98.4–99.3; O2SAT 94–100
[2024-11-06 03:59] LABS: Sodium 137 mmol/L (136-145)
[2024-11-06 04:00] LABS: Anion Gap 14 (5-15); Carbon Dioxide 27 mmol/L (20-31)
[2024-11-06 04:01] LABS: Calcium 9.3 mg/dL (8.7-10.4)
[2024-11-06 04:03] LABS: Basophils # (auto) 0 10 ^3/uL (0-0.2); Basophils % (auto) 0.2 % (0.0-2.0); Eosinophils # (auto) 0 10 ^3/uL (0-0.8); Eosinophils % (auto) 0.1 % (0.0-7.0); Hematocrit 28.1 % (41.0-53.0); Hemoglobin 9.3 g/dL (13.5-17.5); Lymphocytes # (auto) 1.3 10 ^3/uL (0.4-5.4); Lymphocytes % (auto) 10.7 % (10.0-50.0); Mean Corpuscular Hemoglobin 29.1 pg (28.0-32.0); Mean Corpuscular Hgb Conc. 32.9 g/dL (32.0-36.0); Mean Corpuscular Volume 88.6 fL (80.0-100.0); Monocytes # (auto) 1.5 10 ^3/uL (0-1.3); Monocytes % (auto) 12.9 % (0.0-12.0); Neutrophils % (auto) 76.1 % (37.0-80.0); Nucleated Red Blood Cells % 0.1 %; Platelet Count (auto) 339 10^3/uL (140-450); Red Blood Cells 3.17 10^6/uL (4.5-5.90); Red Cell Distribution Width 16.9 % (11.8-14.3); White Blood Cell 11.9 10^3/uL (4.4-10.8)
[2024-11-06 04:06] LABS: BUN/Creatinine Ratio 6.7 (10.0-20.0)
[2024-11-06 04:19] LABS: Blood Urea Nitrogen 39 mg/dL (9-23); Chloride 96 mmol/L (98-107); Glucose 196 mg/dL (74-106)
--- NOTE | 2024-11-06 05:11 | DVH ---
EXAM: XR Chest, 1 View CLINICAL INDICATION: pna TECHNIQUE: Frontal view of the chest. COMPARISON: XY CHEST PORTABLE on DOS: 11/05/24, XY CHEST PORTABLE on DOS: 11/04/24, XY CHEST PORTABLE o n DOS: 11/03/24, XY CHEST PORTABLE on DOS: 11/02/24, XY CHEST PORTABLE on DOS: 11/02/24 FINDINGS: LUNGS AND PLEURAL SPACES: Unremarkable. No consolidation. No pneumothorax. HEART: Unremarkable. No cardiomegaly. MEDIASTINUM: Unremarkable. Normal mediastinal contour. BONES/JOINTS: Unremarkable. No acute fracture. TUBES, LINES AND DEVICES: The endotracheal tube (ETT) is in satisfactory position. Enteric tube ti p cannot be seen but is below the diaphragm. OTHER FINDINGS: . Mild CHF. IMPRESSION: No acute cardiopulmonary process.
[2024-11-06 07:20] LABS: Base Excess 0.4 mmol/L (-2.0-3.0)
[2024-11-06 10:10] LABS: INR 1.12 (0.9-1.15); Partial Thromboplastin Time 26.5 SEC (24.5-34.5); Prothrombin Time 11.7 sec (9.3-11.8)
[2024-11-06] MEDS: DexAMETHasone SOD PHOS 10MG/1ML VIAL INJ IV ONE (11:43)
--- NOTE | 2024-11-06 11:50 | DVHPN2 ---
Progress Note Date Seen: Nov 06, 2024 Medical Necessity Reason Pt with a Central, PICC or Fol: Yes The following are medically ne: Central Line, Martinez Catheter Reason for martinez catheter: Strict I&O Subjective Review of Systems: RESPIRATORY:Abnormal Other Systems: Patient seen and examined by myself today in follow-up, patient remained intubated on ventilator Objective vital signs Vital Sign Date Time Temp Pulse Resp B/P (MAP) Pulse Ox O2 Delivery O2 Flow Rate FiO2 11/06/24 11:25 131/45 11/06/24 11:00 63 18 97 30 11/06/24 10:15 98.4 209.1 11/06/24 08:00 Mechanical Ventilator+ Total Intake and Output 11/05/24 11/05/24 11/06/24 15:00 23:00 07:00 Intake Total 256.568 ml 704.484 ml 406.626 ml Output Total 5 ml 0 ml Balance 256.568 ml 699.484 ml 406.626 ml medications Current Medications Medications Dose Ordered Sig/Alexander Route Start Time Stop Time Status Last Admin Dose Admin Nitroglycerin 0.4 mg Q5MINP PRN SL 10/30/24 20:00 Morphine Sulfate 2 mg Q30M PRN IV 10/30/24 20:00 Aspirin 162 mg DAILY PO 10/31/24 10:00 11/06/24 09:15 162 MG Atorvastatin Calcium 80 mg HS PO 10/30/24 22:00 11/05/24 22:28 80 MG Dextrose 50 ml UD PRN IV 10/30/24 20:15 11/02/24 17:25 50 ML Ondansetron HCl 4 mg Q4HP PRN IV 10/30/24 20:15 Acetaminophen 650 mg Q6HP PRN PO 10/30/24 20:15 11/04/24 13:02 650 MG Heparin Sodium (Porcine) 5,000 units Q12HR SC 10/31/24 10:00 11/06/24 09:18 5,000 UNITS Pantoprazole Sodium 40 mg DAILY IV 11/01/24 10:00 11/06/24 09:15 40 MG Propofol 100 ml @ 3.153 mls/ hr Q24H IV 10/31/24 10:45 11/06/24 11:25 9.459 MLS/HR Fentanyl Citrate 250 ml @ 2.5 mls/hr Q24H IV 10/31/24 10:45 11/05/24 16:48 10 MLS/HR Norepinephrine Bitartrate 32 mg/ Sodium Chloride 250 ml @ 0.938 mls/ hr Q24H IV 10/31/24 11:00 10/31/24 15:39 0.938 MLS/HR Diagnostic Test (Pha) 1 strip Q4H 11/02/24 22:00 11/06/24 09:20 1 STRIP Insulin Human Regular Q4H SC 11/02/24 22:00 11/06/24 01:38 4 UNITS Enteral Nutritional Formula 1,000 ml 30ML/HR GT 11/03/24 12:15 11/05/24 05:54 1,000 ML Dexmedetomidine HCl 400 mcg/ Dextrose 100 ml @ 4.705 mls/ hr [id number] IV 11/03/24 12:15 11/04/24 12:13 11.763 MLS/HR Patient Own Medication 5 mg BID PO 11/03/24 22:00 Digoxin 125 mcg Q48H IV 11/03/24 14:30 Clonidine HCl 0.2 mg TID PRN PO 11/04/24 09:30 11/04/24 09:35 0.2 MG Hydralazine HCl 10 mg Q6HP PRN IV 11/04/24 13:30 11/06/24 03:55 10 MG Metoclopramide HCl 5 mg Q8HR IV 11/04/24 22:00 11/06/24 06:38 5 MG Meropenem 50 ml @ 16.667 mls/ hr Q12H IV 11/04/24 18:15 11/06/24 06:38 16.667 MLS/HR Examination: LUNGS:Normal, CVS:Normal, MSK:Abnormal laboratory and microbiology Laboratory Tests 11/06/24 03:10 Test 11/06/24 03:10 Range/Units Serum Glucose 196 H 74-106 mg/dL Microbiology Date/Time Source Procedure Growth Status 10/31/24 11:05 Nose MRSA Screen - Final Complete 10/31/24 10:50 Blood Blood Culture - Final NO GROWTH AFTER 5 DAYS OF INCUBATION. Complete 10/31/24 10:45 Sputum Gram Stain - Final Complete 10/31/24 10:45 Respiratory Culture - Final Enterobacter aerogenes Complete 10/30/24 19:19 Urine - Martinez [place] Urine Culture - Final Escherichia coli - ESBL Complete Problem List/Assessment/Plan Problem List/Assessment/Plan ESRD on hemodialysis Right upper extremity swelling Acute respiratory failure, patient intubated on ventilator Morbid obesity NSTEMI Congestive heart failure Diabetes mellitus type 2 Anemia of chronic kidney disease Peripheral arterial disease Status post bilateral below-knee amputation Recommendations Hemodialysis tomorrow Epogen 28088 subQ 3 times weekly Fluid restriction Nepro tube feeding Blood pressure control Insulin sliding scale IV antibiotics We will continue to follow Plan discussed with: Other (Nurse) Dietary Evaluation Review Comments: 1. On propofol which supply fat kcaloried at 333 kcal/day if running at 12.6ml/hr. 2.Recommend a low fat high protein TF Vital High Protein @ 40ml/hr providing 84 g Protein, and 960 kcal, 803 ml free water, if running at 24 hrs. the combined nurition support will be 84 g Protein and 1056 kcal, supporting pt's needs for protein at 76.3%, needs for energy at 134%. 3. Reasses pt's TF formulary if pt is off Popofol.but still need TF. 4. Renal standard and CCHO-75 if pt is able to have PO intake after passing a VOCAL MUSIC INSTRUCTOR eval, Expected Outcomes/Goals: gradual wt loss. improved lab values with consistant dialysis. BERTHA LAKE MD Nov 06, 2024 11:50
[2024-11-06] MEDS ORDERED: cloNIDine HCL 0.1 MG TAB PO PRN (14:00)
--- NOTE | 2024-11-06 15:29 | DVHPNRES ---
Progress Note Date Seen: Nov 06, 2024 Resident Creating Document: GAVINO MORAES RESIDENT Medical Necessity Reason Pt with a Central, PICC or Fol: Yes The following are medically ne: Central Line, Martinez Catheter Reason for martinez catheter: Strict I&O Subjective Review of Systems Patient was seen and examined at bedside. He remains on mechanical ventilator, minimal vent settings. He is off vasopressors. Per the notes tongue swelling and neck swelling has been coming down. Patient still has no air leak from the ET cuff. He is on fentanyl and propofol. Objective vital signs Vital Sign Date Time Temp Pulse Resp B/P (MAP) Pulse Ox O2 Delivery O2 Flow Rate FiO2 11/06/24 14:45 98.4 77 18 161/69 (99) 100 209.1 165/61 (95) 11/06/24 14:03 30 11/06/24 08:00 Mechanical Ventilator+ Total Intake and Output 11/05/24 11/05/24 11/06/24 15:00 23:00 07:00 Intake Total 256.568 ml 704.484 ml 406.626 ml Output Total 5 ml 0 ml Balance 256.568 ml 699.484 ml 406.626 ml medications Current Medications Medications Dose Ordered Sig/Alexander Route Start Time Stop Time Status Last Admin Dose Admin Nitroglycerin 0.4 mg Q5MINP PRN SL 10/30/24 20:00 Morphine Sulfate 2 mg Q30M PRN IV 10/30/24 20:00 Aspirin 162 mg DAILY PO 10/31/24 10:00 11/06/24 09:15 162 MG Atorvastatin Calcium 80 mg HS PO 10/30/24 22:00 11/05/24 22:28 80 MG Dextrose 50 ml UD PRN IV 10/30/24 20:15 11/02/24 17:25 50 ML Ondansetron HCl 4 mg Q4HP PRN IV 10/30/24 20:15 Acetaminophen 650 mg Q6HP PRN PO 10/30/24 20:15 11/04/24 13:02 650 MG Heparin Sodium (Porcine) 5,000 units Q12HR SC 10/31/24 10:00 11/06/24 09:18 5,000 UNITS Pantoprazole Sodium 40 mg DAILY IV 11/01/24 10:00 11/06/24 09:15 40 MG Propofol 100 ml @ 3.153 mls/ hr Q24H IV 10/31/24 10:45 11/06/24 11:25 9.459 MLS/HR Fentanyl Citrate 250 ml @ 2.5 mls/hr Q24H IV 10/31/24 10:45 11/05/24 16:48 10 MLS/HR Norepinephrine Bitartrate 32 mg/ Sodium Chloride 250 ml @ 0.938 mls/ hr Q24H IV 10/31/24 11:00 10/31/24 15:39 0.938 MLS/HR Diagnostic Test (Pha) 1 strip Q4H 11/02/24 22:00 11/06/24 13:36 1 STRIP Insulin Human Regular Q4H SC 11/02/24 22:00 11/06/24 01:38 4 UNITS Enteral Nutritional Formula 1,000 ml 30ML/HR GT 11/03/24 12:15 11/05/24 05:54 1,000 ML Dexmedetomidine HCl 400 mcg/ Dextrose 100 ml @ 4.705 mls/ hr [id number] IV 11/03/24 12:15 11/04/24 12:13 11.763 MLS/HR Patient Own Medication 5 mg BID PO 11/03/24 22:00 Digoxin 125 mcg Q48H IV 11/03/24 14:30 Hydralazine HCl 10 mg Q6HP PRN IV 11/04/24 13:30 11/06/24 03:55 10 MG Metoclopramide HCl 5 mg Q8HR IV 11/04/24 22:00 11/06/24 13:38 5 MG Meropenem 50 ml @ 16.667 mls/ hr Q12H IV 11/04/24 18:15 11/06/24 06:38 16.667 MLS/HR Clonidine HCl 0.2 mg TID PRN PO 11/06/24 14:00 Examination Physical examination as below: General: Mechanically ventilated, intubated HEENT: Head is normocephalic and atraumatic. Pupils are equal, round, and reactive to light. Significant swelling on tongue and neck, no signs of subcutaneous emphysema Neck: Supple with no cervical lymphadenopathy. Heart: Regular rate without murmur, rub, or gallop. Lungs: Equal breath sounds bilaterally with no wheezing, rales, or rhonchi. There is no chest wall tenderness or instability. Abdomen: No external sign of injury. Bowel sounds are present. Extremities: Strong peripheral pulses. There is no clubbing, no cyanosis, and no edema. Skin: No rash. Neurologic: Sedated laboratory and microbiology Laboratory Tests 11/06/24 03:10 Test 11/06/24 03:10 Range/Units Serum Glucose 196 H 74-106 mg/dL Microbiology Date/Time Source Procedure Growth Status 10/31/24 11:05 Nose MRSA Screen - Final Complete 10/31/24 10:50 Blood Blood Culture - Final NO GROWTH AFTER 5 DAYS OF INCUBATION. Complete 10/31/24 10:45 Sputum Gram Stain - Final Complete 10/31/24 10:45 Respiratory Culture - Final Enterobacter aerogenes Complete 10/30/24 19:19 Urine - [place] Urine Culture - Final Escherichia coli - ESBL Complete Labs and/or images reviewed: Labs reviewed by me, Image(s) reviewed by me Problem List/Assessment/Plan Problem List/Assessment/Plan Neurology #Metabolic encephalopathy due to septic shock form UTI and pneumonia Cardiovascular #Acute on chronic systolic CHF #Ischemic cardiomyopathy #Peripheral artery disease, s/p amputation #Hypertension, Clonidine, prn Hydralazine IV prn Lipitor Aspirin Continue hemodialysis Energy Professional following Pulmonology #Acute hypoxic respiratory failure with mechanical ventilation #Pneumonia, gram (+) vs gram (-), atypicals, growing Enterobacter aeruginosa Continue Merrem MV: FIO2: 30% RR: 18 TV 550 PEEP: 5 Nephrology #ESRD on HD #Possible distal stenosis of AV fistula(right arm swelling and pitting edema) AV fistula working Continue HD District Court Judge following Pending fistulogram per vascular surgery Endocrinology #Morbid obesity #Bilateral lower extremity BK amputation #T2DM SSI Gastroenterology Continue tube feedings: Nepro Continue reglan iv Lactulose prn #Macroglossia and neck swelling Swelling coming down Decadron given Ordered neck CT Hematology and Oncology #Anemia of chronic disease Monitor Infectious Disease #Pneumonia, gram (+) vs gram (-), atypicals, growing Enterobacter aeruginosa #UTI, growing ESBL E. coli Merrem IV Dermatology DVT ppx Heparin sc PUD ppx Protonix Drips Levo held Fent Propofol Lines TLC Right femoral 10/31/24 Intubated 10/31/24 Martinez 10/31/24 Updated family members on patient's current status Goals of care were discussed for over 30 minutes. FULL CODE. Critical care time spent 70 mins Case was discussed with Dr. Levy Plan discussed with: Daughter, Other (RN) My Orders My Orders Orders - GAVINO MORAES RESIDENT Procedure Category Date Status Time Neck Without Contrast CT 11/06/24 Taken 10:46 Complete Blood Count LAB 11/07/24 Verified 04:00 Comprehensive LAB 11/07/24 Verified Metabolic Panel 04:00 Magnesium LAB 11/07/24 Verified 04:00 Chest Portable XY 11/07/24 Logged 04:00 Abg W/ Co-Ox RT 11/07/24 Logged 04:00 Cpap Trial For Am ORDERS 11/07/24 Transmitted 04:00 Dietary Evaluation Review Comments: 1. On propofol which supply fat kcaloried at 333 kcal/day if running at 12.6ml/hr. 2.Recommend a low fat high protein TF Vital High Protein @ 40ml/hr providing 84 g Protein, and 960 kcal, 803 ml free water, if running at 24 hrs. the combined nurition support will be 84 g Protein and 1056 kcal, supporting pt's needs for protein at 76.3%, needs for energy at 134%. 3. Reasses pt's TF formulary if pt is off Popofol.but still need TF. 4. Renal standard and CCHO-75 if pt is able to have PO intake after passing a WELFARE OFFICER eval, Expected Outcomes/Goals: gradual wt loss. improved lab values with consistant dialysis. Date of Service: Nov 06, 2024 Billing Provider: PAYAL KHAN MD Common Visit Codes: NOT BILLABLE GAVINO MORAES RESIDENT Nov 06, 2024 15:29 PAYAL KHAN MD Nov 14, 2024 09:59
--- NOTE | 2024-11-06 15:40 | DVH ---
EXAM: CT NECK WITHOUT CONTRAST INDICATION: neck swelling EXAM DATE: 11/06/2024 03:01 PM COMPARISON: None TECHNIQUE: Multiple axial CT images of the neck were obtained using bone algorithm. Axial and coronal reformatting was done. Bone and soft tissue windows were reviewed. Radiation Dose Information: CT Dose: CTDI volume is 24.46 mGy. Dose-length product is 794.76 mGy*cm Findings: Limited evaluation given noncontrast technique. Nasopharynx, oropharynx, hypopharynx, and larynx are normal in caliber without evidence of focal mass . Parotid, submandibular, and sublingual glands are within normal limits. The tongue appears to be janelle ated to the left and between the patient's teeth with left buccal fullness. Thyroid gland within normal limits. No evidence of superior mediastinal lymphadenopathy. Cervical soft tissues within normal limits with no evidence of significant cervical lymphadenopathy. Musculoskeletal structures grossly unremarkable with no evidence of acute osseous abnormality. Multifocal nodular opacities. Impression: 1. Limited evaluation given noncontrast technique. 2. No acute osseous abnormalities. 3. Tongue appears to be deviated to the left and between the patient's teeth with associated left buc simon fullness. Recommend direct visualization. Consider contrast-enhanced CT or MRI for further evalua tion.
--- NOTE | 2024-11-06 15:46 | DVHPN2 ---
Progress Note - Dictate Date Seen: Nov 05, 2024 Medical Necessity Reason Pt with a Central, PICC or Fol: Yes The following are medically ne: Central Line, Martinez Catheter Reason for martinez catheter: Strict I&O Subjective PT WAS SEEN IN CLINICAL RESP DISTRESS DIFFUSE WHEEZING PMH HFrEF CHRONIC ISCHEMIC CM PAD BILATERAL LE AMPUTEE DIABETES VASCULOPATHY NEPHROPATHY NEUROPATHY HD ESRD vital signs Vital Sign Date Time Temp Pulse Resp B/P (MAP) Pulse Ox O2 Delivery O2 Flow Rate FiO2 11/06/24 14:45 98.4 77 18 161/69 (99) 100 209.1 165/61 (95) 11/06/24 14:03 30 11/06/24 08:00 Mechanical Ventilator+ Total Intake and Output 11/05/24 11/05/24 11/06/24 15:00 23:00 07:00 Intake Total 256.568 ml 704.484 ml 406.626 ml Output Total 5 ml 0 ml Balance 256.568 ml 699.484 ml 406.626 ml medications Current Medications Medications Dose Ordered Sig/Alexander Route Start Time Stop Time Status Last Admin Dose Admin Nitroglycerin 0.4 mg Q5MINP PRN SL 10/30/24 20:00 Morphine Sulfate 2 mg Q30M PRN IV 10/30/24 20:00 Aspirin 162 mg DAILY PO 10/31/24 10:00 11/06/24 09:15 162 MG Atorvastatin Calcium 80 mg HS PO 10/30/24 22:00 11/05/24 22:28 80 MG Dextrose 50 ml UD PRN IV 10/30/24 20:15 11/02/24 17:25 50 ML Ondansetron HCl 4 mg Q4HP PRN IV 10/30/24 20:15 Acetaminophen 650 mg Q6HP PRN PO 10/30/24 20:15 11/04/24 13:02 650 MG Heparin Sodium (Porcine) 5,000 units Q12HR SC 10/31/24 10:00 11/06/24 09:18 5,000 UNITS Pantoprazole Sodium 40 mg DAILY IV 11/01/24 10:00 11/06/24 09:15 40 MG Propofol 100 ml @ 3.153 mls/ hr Q24H IV 10/31/24 10:45 11/06/24 11:25 9.459 MLS/HR Fentanyl Citrate 250 ml @ 2.5 mls/hr Q24H IV 10/31/24 10:45 11/05/24 16:48 10 MLS/HR Norepinephrine Bitartrate 32 mg/ Sodium Chloride 250 ml @ 0.938 mls/ hr Q24H IV 10/31/24 11:00 10/31/24 15:39 0.938 MLS/HR Diagnostic Test (Pha) 1 strip Q4H 11/02/24 22:00 11/06/24 13:36 1 STRIP Insulin Human Regular Q4H SC 11/02/24 22:00 11/06/24 01:38 4 UNITS Enteral Nutritional Formula 1,000 ml 30ML/HR GT 11/03/24 12:15 11/05/24 05:54 1,000 ML Dexmedetomidine HCl 400 mcg/ Dextrose 100 ml @ 4.705 mls/ hr [id number] IV 11/03/24 12:15 11/04/24 12:13 11.763 MLS/HR Patient Own Medication 5 mg BID PO 11/03/24 22:00 Digoxin 125 mcg Q48H IV 11/03/24 14:30 Hydralazine HCl 10 mg Q6HP PRN IV 11/04/24 13:30 11/06/24 03:55 10 MG Metoclopramide HCl 5 mg Q8HR IV 11/04/24 22:00 11/06/24 13:38 5 MG Meropenem 50 ml @ 16.667 mls/ hr Q12H IV 11/04/24 18:15 11/06/24 06:38 16.667 MLS/HR Clonidine HCl 0.2 mg TID PRN PO 11/06/24 14:00 laboratory and microbiology Laboratory Tests 11/06/24 03:10 Test 11/06/24 03:10 Range/Units Serum Glucose 196 H 74-106 mg/dL Problem List RESP DISTRESS DIFFUSE WHEEZING PMH HFrEF CHRONIC ISCHEMIC CM PAD BILATERAL LE AMPUTEE DIABETES VASCULOPATHY NEPHROPATHY NEUROPATHY HD ESRD ANEMIA HYPERKALEMIA Assessment/Plan DIALYSIS ABX CORRECT LYTES ECHO S/P DIALYSIS 4L OUT CHECK BNP REPEAT CXR COMPLETE OPACIFICATION OF BOTH LUNGS CXR WITH PT UPRIGHT CONSIDER BRONCHOSCOPY CONSIDER LEFT HEART CATH SIGNIFICANT IMPROVEMENT IN VASCULAR CONGESTION ON CXR CONT DIALYSIS ADD VERQUVO START DIG TITRATE ON VERQUVO Dietary Evaluation Review Comments: 1. On propofol which supply fat kcaloried at 333 kcal/day if running at 12.6ml/hr. 2.Recommend a low fat high protein TF Vital High Protein @ 40ml/hr providing 84 g Protein, and 960 kcal, 803 ml free water, if running at 24 hrs. the combined nurition support will be 84 g Protein and 1056 kcal, supporting pt's needs for protein at 76.3%, needs for energy at 134%. 3. Reasses pt's TF formulary if pt is off Popofol.but still need TF. 4. Renal standard and CCHO-75 if pt is able to have PO intake after passing a WEATHERIZATION CREW LEADER eval, Expected Outcomes/Goals: gradual wt loss. improved lab values with consistant dialysis. Plan discussed with: Patient Critical Care Time(min): 35 YESICA YORK MD Nov 06, 2024 15:46
[2024-11-06] MEDS: VERQUVO 5 MG PO SCH (18:00)
[2024-11-07] VITALS (106 sets, daily range): BP systolic 88–184; BP diastolic 32–66; PULSE 57–85; RESP 12–30; TEMP 94.8–99.1; O2SAT 94–100
[2024-11-07 04:19] LABS: Basophils # (auto) 0.2 10 ^3/uL (0-0.2); Basophils % (auto) 1.4 % (0.0-2.0); Eosinophils # (auto) 0 10 ^3/uL (0-0.8); Eosinophils % (auto) 0.1 % (0.0-7.0); Hemoglobin 9.2 g/dL (13.5-17.5); Lymphocytes # (auto) 1.8 10 ^3/uL (0.4-5.4); Lymphocytes % (auto) 13.9 % (10.0-50.0); Mean Corpuscular Hgb Conc. 32.7 g/dL (32.0-36.0); Mean Corpuscular Volume 88.8 fL (80.0-100.0); Monocytes # (auto) 1.7 10 ^3/uL (0-1.3); Monocytes % (auto) 13.1 % (0.0-12.0); Neutrophils # (auto) 9.1 10 ^3/uL (1.6-8.6); Neutrophils % (auto) 71.5 % (37.0-80.0); Nucleated Red Blood Cells % 0.1 %; Platelet Count (auto) 332 10^3/uL (140-450); Red Blood Cells 3.16 10^6/uL (4.5-5.90); White Blood Cell 12.8 10^3/uL (4.4-10.8)
[2024-11-07 04:37] LABS: Alanine Aminotransferase 15 U/L (7-40); Albumin 4.1 g/dL (3.2-4.8); Alkaline Phosphatase 65 U/L (46-116); Anion Gap 16 (5-15); Aspartate Aminotransferase 23 U/L (13-40); Blood Urea Nitrogen 61 mg/dL (9-23); Calcium 8.8 mg/dL (8.7-10.4); Carbon Dioxide 25 mmol/L (20-31); Chloride 96 mmol/L (98-107); Glucose 114 mg/dL (74-106); Magnesium 2.6 mg/dL (1.6-2.6); Potassium 4.5 mmol/L (3.5-5.1); Sodium 137 mmol/L (136-145); Total Protein 7.1 g/dL (5.7-8.2)
[2024-11-07 04:38] LABS: Bilirubin, Total 0.2 mg/dL (0.2-1.0)
--- NOTE | 2024-11-07 05:32 | DVH ---
EXAM: XR Chest, 1 View CLINICAL INDICATION: sob TECHNIQUE: Frontal view of the chest. COMPARISON: XY CHEST PORTABLE on DOS: 11/06/24, XY CHEST PORTABLE on DOS: 11/05/24, XY CHEST PORTABLE o n DOS: 11/04/24, XY CHEST PORTABLE on DOS: 11/03/24, XY CHEST PORTABLE on DOS: 11/02/24 FINDINGS: LUNGS AND PLEURAL SPACES: Increasing pulmonary congestion. No consolidation. No pneumothorax. HEART: Unremarkable. No cardiomegaly. MEDIASTINUM: Unremarkable. Normal mediastinal contour. BONES/JOINTS: Unremarkable. No acute fracture. TUBES, LINES AND DEVICES: The endotracheal tube (ETT) is in satisfactory position. Enteric tube ti p cannot be seen but is below the diaphragm. OTHER FINDINGS: . . . IMPRESSION: Increasing pulmonary congestion.
[2024-11-07] MEDS: SODIUM CHL 0.9% 1000 ML BAG XX ONE (07:00)
--- NOTE | 2024-11-07 09:56 | DVHPN2 ---
Progress Note Date Seen: Nov 07, 2024 Medical Necessity Reason Pt with a Central, PICC or Fol: Yes The following are medically ne: Central Line, Martinez Catheter Reason for martinez catheter: Strict I&O Subjective Review of Systems: RESPIRATORY:Abnormal Other Systems: Patient seen and examined by myself today in follow-up, patient remained intubated on ventilator Patient examined hemodialysis, blood pressure stable Objective vital signs Vital Sign Date Time Temp Pulse Resp B/P (MAP) Pulse Ox O2 Delivery O2 Flow Rate FiO2 11/07/24 08:21 67 18 159/58 (91) 97 30 11/07/24 06:45 98.4 209.1 11/06/24 20:00 Mechanical Ventilator+ Total Intake and Output 11/06/24 11/06/24 11/07/24 15:00 23:00 07:00 Intake Total 205.673 ml 290.744 ml 282.730 ml Output Total 0 ml 100 ml Balance 205.673 ml 290.744 ml 182.730 ml medications Current Medications Medications Dose Ordered Sig/Alexander Route Start Time Stop Time Status Last Admin Dose Admin Nitroglycerin 0.4 mg Q5MINP PRN SL 10/30/24 20:00 Morphine Sulfate 2 mg Q30M PRN IV 10/30/24 20:00 Aspirin 162 mg DAILY PO 10/31/24 10:00 11/06/24 09:15 162 MG Atorvastatin Calcium 80 mg HS PO 10/30/24 22:00 11/06/24 22:18 80 MG Dextrose 50 ml UD PRN IV 10/30/24 20:15 11/02/24 17:25 50 ML Ondansetron HCl 4 mg Q4HP PRN IV 10/30/24 20:15 Acetaminophen 650 mg Q6HP PRN PO 10/30/24 20:15 11/04/24 13:02 650 MG Heparin Sodium (Porcine) 5,000 units Q12HR SC 10/31/24 10:00 11/06/24 22:19 5,000 UNITS Pantoprazole Sodium 40 mg DAILY IV 11/01/24 10:00 11/06/24 09:15 40 MG Propofol 100 ml @ 3.153 mls/ hr Q24H IV 10/31/24 10:45 11/07/24 08:18 12.612 MLS/HR Fentanyl Citrate 250 ml @ 2.5 mls/hr Q24H IV 10/31/24 10:45 11/06/24 17:41 10 MLS/HR Norepinephrine Bitartrate 32 mg/ Sodium Chloride 250 ml @ 0.938 mls/ hr Q24H IV 10/31/24 11:00 10/31/24 15:39 0.938 MLS/HR Diagnostic Test (Pha) 1 strip Q4H 11/02/24 22:00 11/07/24 05:59 1 STRIP Insulin Human Regular Q4H SC 11/02/24 22:00 11/06/24 22:24 3 UNITS Enteral Nutritional Formula 1,000 ml 30ML/HR GT 11/03/24 12:15 11/05/24 05:54 1,000 ML Dexmedetomidine HCl 400 mcg/ Dextrose 100 ml @ 4.705 mls/ hr [id number] IV 11/03/24 12:15 11/04/24 12:13 11.763 MLS/HR Digoxin 125 mcg Q48H IV 11/03/24 14:30 Hydralazine HCl 10 mg Q6HP PRN IV 11/04/24 13:30 11/06/24 18:50 10 MG Metoclopramide HCl 5 mg Q8HR IV 11/04/24 22:00 11/07/24 05:52 5 MG Meropenem 50 ml @ 16.667 mls/ hr Q12H IV 11/04/24 18:15 11/07/24 05:56 16.667 MLS/HR Clonidine HCl 0.2 mg TID PRN PO 11/06/24 14:00 Patient Own Medication 5 mg BID PO 11/06/24 18:00 Examination: LUNGS:Normal, CVS:Normal, MSK:Abnormal laboratory and microbiology Laboratory Tests 11/07/24 04:00 Test 11/07/24 04:00 Range/Units Serum Glucose 114 H 74-106 mg/dL Microbiology Date/Time Source Procedure Growth Status 10/31/24 11:05 Nose MRSA Screen - Final Complete 10/31/24 10:50 Blood Blood Culture - Final NO GROWTH AFTER 5 DAYS OF INCUBATION. Complete 10/31/24 10:45 Sputum Gram Stain - Final Complete 10/31/24 10:45 Respiratory Culture - Final Enterobacter aerogenes Complete 10/30/24 19:19 Urine - [place] Urine Culture - Final Escherichia coli - ESBL Complete Problem List/Assessment/Plan Problem List/Assessment/Plan ESRD on hemodialysis Right upper extremity swelling Acute respiratory failure, patient intubated on ventilator Morbid obesity NSTEMI Congestive heart failure Diabetes mellitus type 2 Anemia of chronic kidney disease Peripheral arterial disease Status post bilateral below-knee amputation Recommendations Continue with UF to 3 L as tolerated Epogen 89923 subQ 3 times weekly Fluid restriction Nepro tube feeding Blood pressure control Insulin sliding scale IV antibiotics We will continue to follow Plan discussed with: Other (Nurse) My Orders My Orders Orders - BERTHA LAKE MD Procedure Category Date Status Time Clonidine Hcl Tablet PHA 11/06/24 In Process (Catapres Tablet) 14:00 Hemodialysis Orders ORDERS 11/07/24 Transmitted 07:00 Dialysis Nursing PIYUSH 11/07/24 In Process Message 07:00 Document Fluid Input PIYUSH 11/07/24 In Process And Outpu 07:00 Epoetin Kobe-Epbx PHA 11/07/24 In Process (Retacrit) 21:00 Dietary Evaluation Review Comments: 1. On propofol which supply fat kcaloried at 333 kcal/day if running at 12.6ml/hr. 2.Recommend a low fat high protein TF Vital High Protein @ 40ml/hr providing 84 g Protein, and 960 kcal, 803 ml free water, if running at 24 hrs. the combined nurition support will be 84 g Protein and 1056 kcal, supporting pt's needs for protein at 76.3%, needs for energy at 134%. 3. Reasses pt's TF formulary if pt is off Popofol.but still need TF. 4. Renal standard and CCHO-75 if pt is able to have PO intake after passing a RESOURCE DEVELOPMENT DIRECTOR eval, Expected Outcomes/Goals: gradual wt loss. improved lab values with consistant dialysis. BERTHA LAKE MD Nov 07, 2024 09:56
[2024-11-07 10:16] LABS: Base Excess 1.1 mmol/L (-2.0-3.0)
--- NOTE | 2024-11-07 11:28 | DVHPN2 ---
Progress Note - Dictate Date Seen: Nov 06, 2024 Medical Necessity Reason Pt with a Central, PICC or Fol: Yes The following are medically ne: Central Line, Martinez Catheter Reason for martinez catheter: Strict I&O Subjective PT WAS SEEN IN CLINICAL RESP DISTRESS DIFFUSE WHEEZING PMH HFrEF CHRONIC ISCHEMIC CM PAD BILATERAL LE AMPUTEE DIABETES VASCULOPATHY NEPHROPATHY NEUROPATHY HD ESRD vital signs Vital Sign Date Time Temp Pulse Resp B/P (MAP) Pulse Ox O2 Delivery O2 Flow Rate FiO2 11/07/24 11:15 97.5 65 18 122/56 (78) 98 207.5 122/48 (72) 11/07/24 10:00 30 11/07/24 08:00 Mechanical Ventilator+ Total Intake and Output 11/06/24 11/06/24 11/07/24 15:00 23:00 07:00 Intake Total 205.673 ml 290.744 ml 282.730 ml Output Total 0 ml 100 ml Balance 205.673 ml 290.744 ml 182.730 ml medications Current Medications Medications Dose Ordered Sig/Alexander Route Start Time Stop Time Status Last Admin Dose Admin Nitroglycerin 0.4 mg Q5MINP PRN SL 10/30/24 20:00 Morphine Sulfate 2 mg Q30M PRN IV 10/30/24 20:00 Aspirin 162 mg DAILY PO 10/31/24 10:00 11/06/24 09:15 162 MG Atorvastatin Calcium 80 mg HS PO 10/30/24 22:00 11/06/24 22:18 80 MG Dextrose 50 ml UD PRN IV 10/30/24 20:15 11/02/24 17:25 50 ML Ondansetron HCl 4 mg Q4HP PRN IV 10/30/24 20:15 Acetaminophen 650 mg Q6HP PRN PO 10/30/24 20:15 11/04/24 13:02 650 MG Heparin Sodium (Porcine) 5,000 units Q12HR SC 10/31/24 10:00 11/06/24 22:19 5,000 UNITS Pantoprazole Sodium 40 mg DAILY IV 11/01/24 10:00 11/06/24 09:15 40 MG Propofol 100 ml @ 3.153 mls/ hr Q24H IV 10/31/24 10:45 11/07/24 08:18 12.612 MLS/HR Fentanyl Citrate 250 ml @ 2.5 mls/hr Q24H IV 10/31/24 10:45 11/06/24 17:41 10 MLS/HR Norepinephrine Bitartrate 32 mg/ Sodium Chloride 250 ml @ 0.938 mls/ hr Q24H IV 10/31/24 11:00 10/31/24 15:39 0.938 MLS/HR Diagnostic Test (Pha) 1 strip Q4H 11/02/24 22:00 11/07/24 05:59 1 STRIP Insulin Human Regular Q4H SC 11/02/24 22:00 11/06/24 22:24 3 UNITS Enteral Nutritional Formula 1,000 ml 30ML/HR GT 11/03/24 12:15 11/05/24 05:54 1,000 ML Dexmedetomidine HCl 400 mcg/ Dextrose 100 ml @ 4.705 mls/ hr [id number] IV 11/03/24 12:15 11/04/24 12:13 11.763 MLS/HR Digoxin 125 mcg Q48H IV 11/03/24 14:30 Hydralazine HCl 10 mg Q6HP PRN IV 11/04/24 13:30 11/06/24 18:50 10 MG Metoclopramide HCl 5 mg Q8HR IV 11/04/24 22:00 11/07/24 05:52 5 MG Meropenem 50 ml @ 16.667 mls/ hr Q12H IV 11/04/24 18:15 11/07/24 05:56 16.667 MLS/HR Clonidine HCl 0.2 mg TID PRN PO 11/06/24 14:00 Patient Own Medication 5 mg BID PO 11/06/24 18:00 Calcium Acetate 1,334 mg TID NG 11/07/24 14:00 UNV laboratory and microbiology Laboratory Tests 11/07/24 04:00 Test 11/07/24 04:00 Range/Units Serum Glucose 114 H 74-106 mg/dL Problem List RESP DISTRESS DIFFUSE WHEEZING PMH HFrEF CHRONIC ISCHEMIC CM PAD BILATERAL LE AMPUTEE DIABETES VASCULOPATHY NEPHROPATHY NEUROPATHY HD ESRD ANEMIA HYPERKALEMIA Assessment/Plan DIALYSIS ABX CORRECT LYTES ECHO S/P DIALYSIS 4L OUT CHECK BNP REPEAT CXR COMPLETE OPACIFICATION OF BOTH LUNGS CXR WITH PT UPRIGHT CONSIDER BRONCHOSCOPY CONSIDER LEFT HEART CATH SIGNIFICANT IMPROVEMENT IN VASCULAR CONGESTION ON CXR CONT DIALYSIS ADD VERQUVO START DIG TITRATE ON VERQUVO Dietary Evaluation Review Comments: 1. On propofol which supply fat kcaloried at 333 kcal/day if running at 12.6ml/hr. 2.Recommend a low fat high protein TF Vital High Protein @ 40ml/hr providing 84 g Protein, and 960 kcal, 803 ml free water, if running at 24 hrs. the combined nurition support will be 84 g Protein and 1056 kcal, supporting pt's needs for protein at 76.3%, needs for energy at 134%. 3. Reasses pt's TF formulary if pt is off Popofol.but still need TF. 4. Renal standard and CCHO-75 if pt is able to have PO intake after passing a SHEET ROCK LAYER eval, Expected Outcomes/Goals: gradual wt loss. improved lab values with consistant dialysis. Plan discussed with: Patient Critical Care Time(min): 35 YESICA YORK MD Nov 07, 2024 11:28
--- NOTE | 2024-11-07 11:29 | DVHPN2 ---
Progress Note - Dictate Date Seen: Nov 07, 2024 Medical Necessity Reason Pt with a Central, PICC or Fol: Yes The following are medically ne: Central Line, Martinez Catheter Reason for martinez catheter: Strict I&O Subjective PT WAS SEEN IN CLINICAL RESP DISTRESS DIFFUSE WHEEZING PMH HFrEF CHRONIC ISCHEMIC CM PAD BILATERAL LE AMPUTEE DIABETES VASCULOPATHY NEPHROPATHY NEUROPATHY HD ESRD vital signs Vital Sign Date Time Temp Pulse Resp B/P (MAP) Pulse Ox O2 Delivery O2 Flow Rate FiO2 11/07/24 11:15 97.5 65 18 122/56 (78) 98 207.5 122/48 (72) 11/07/24 10:00 30 11/07/24 08:00 Mechanical Ventilator+ Total Intake and Output 11/06/24 11/06/24 11/07/24 15:00 23:00 07:00 Intake Total 205.673 ml 290.744 ml 282.730 ml Output Total 0 ml 100 ml Balance 205.673 ml 290.744 ml 182.730 ml medications Current Medications Medications Dose Ordered Sig/Alexander Route Start Time Stop Time Status Last Admin Dose Admin Nitroglycerin 0.4 mg Q5MINP PRN SL 10/30/24 20:00 Morphine Sulfate 2 mg Q30M PRN IV 10/30/24 20:00 Aspirin 162 mg DAILY PO 10/31/24 10:00 11/06/24 09:15 162 MG Atorvastatin Calcium 80 mg HS PO 10/30/24 22:00 11/06/24 22:18 80 MG Dextrose 50 ml UD PRN IV 10/30/24 20:15 11/02/24 17:25 50 ML Ondansetron HCl 4 mg Q4HP PRN IV 10/30/24 20:15 Acetaminophen 650 mg Q6HP PRN PO 10/30/24 20:15 11/04/24 13:02 650 MG Heparin Sodium (Porcine) 5,000 units Q12HR SC 10/31/24 10:00 11/06/24 22:19 5,000 UNITS Pantoprazole Sodium 40 mg DAILY IV 11/01/24 10:00 11/06/24 09:15 40 MG Propofol 100 ml @ 3.153 mls/ hr Q24H IV 10/31/24 10:45 11/07/24 08:18 12.612 MLS/HR Fentanyl Citrate 250 ml @ 2.5 mls/hr Q24H IV 10/31/24 10:45 11/06/24 17:41 10 MLS/HR Norepinephrine Bitartrate 32 mg/ Sodium Chloride 250 ml @ 0.938 mls/ hr Q24H IV 10/31/24 11:00 10/31/24 15:39 0.938 MLS/HR Diagnostic Test (Pha) 1 strip Q4H 11/02/24 22:00 11/07/24 05:59 1 STRIP Insulin Human Regular Q4H SC 11/02/24 22:00 11/06/24 22:24 3 UNITS Enteral Nutritional Formula 1,000 ml 30ML/HR GT 11/03/24 12:15 11/05/24 05:54 1,000 ML Dexmedetomidine HCl 400 mcg/ Dextrose 100 ml @ 4.705 mls/ hr [id number] IV 11/03/24 12:15 11/04/24 12:13 11.763 MLS/HR Digoxin 125 mcg Q48H IV 11/03/24 14:30 Hydralazine HCl 10 mg Q6HP PRN IV 11/04/24 13:30 11/06/24 18:50 10 MG Metoclopramide HCl 5 mg Q8HR IV 11/04/24 22:00 11/07/24 05:52 5 MG Meropenem 50 ml @ 16.667 mls/ hr Q12H IV 11/04/24 18:15 11/07/24 05:56 16.667 MLS/HR Clonidine HCl 0.2 mg TID PRN PO 11/06/24 14:00 Patient Own Medication 5 mg BID PO 11/06/24 18:00 Calcium Acetate 1,334 mg TID NG 11/07/24 14:00 UNV laboratory and microbiology Laboratory Tests 11/07/24 04:00 Test 11/07/24 04:00 Range/Units Serum Glucose 114 H 74-106 mg/dL Problem List RESP DISTRESS DIFFUSE WHEEZING PMH HFrEF CHRONIC ISCHEMIC CM PAD BILATERAL LE AMPUTEE DIABETES VASCULOPATHY NEPHROPATHY NEUROPATHY HD ESRD ANEMIA HYPERKALEMIA Assessment/Plan DIALYSIS ABX CORRECT LYTES ECHO S/P DIALYSIS 4L OUT CHECK BNP REPEAT CXR COMPLETE OPACIFICATION OF BOTH LUNGS CXR WITH PT UPRIGHT CONSIDER BRONCHOSCOPY CONSIDER LEFT HEART CATH SIGNIFICANT IMPROVEMENT IN VASCULAR CONGESTION ON CXR CONT DIALYSIS ADD VERQUVO START DIG TITRATE ON VERQUVO LHC ON WEDNESDAY Dietary Evaluation Review Comments: 1. On propofol which supply fat kcaloried at 333 kcal/day if running at 12.6ml/hr. 2.Recommend a low fat high protein TF Vital High Protein @ 40ml/hr providing 84 g Protein, and 960 kcal, 803 ml free water, if running at 24 hrs. the combined nurition support will be 84 g Protein and 1056 kcal, supporting pt's needs for protein at 76.3%, needs for energy at 134%. 3. Reasses pt's TF formulary if pt is off Popofol.but still need TF. 4. Renal standard and CCHO-75 if pt is able to have PO intake after passing a FINANCIAL AUDITOR eval, Expected Outcomes/Goals: gradual wt loss. improved lab values with consistant dialysis. Plan discussed with: Patient Critical Care Time(min): 35 YESICA YORK MD Nov 07, 2024 11:29
[2024-11-07 11:44] LABS: Free T4 (Free Thyroxine) 1.17 ng/dL (0.89-1.76); T3 Total 0.6 ng/mL (0.60-1.81)
--- NOTE | 2024-11-07 13:38 | DVHPNRES ---
Progress Note Date Seen: Nov 07, 2024 Resident Creating Document: GAVINO MORAES RESIDENT Medical Necessity Reason Pt with a Central, PICC or Fol: Yes The following are medically ne: Central Line, Martinez Catheter Reason for martinez catheter: Strict I&O Subjective Review of Systems Patient was seen and examined at bedside. He remains on mechanical ventilator, minimal vent settings. He is off vasopressors. Per the notes tongue swelling and neck swelling has been coming down. He is on fentanyl and propofol. We will order ct with contrast from right upper extremity, chest and neck. We will arrange with nephrology to have HD on the same day of the ct with contrast Objective vital signs Vital Sign Date Time Temp Pulse Resp B/P (MAP) Pulse Ox O2 Delivery O2 Flow Rate FiO2 11/07/24 12:45 97.2 75 23 118/49 (72) 96 207.0 116/41 (66) 11/07/24 12:01 30 11/07/24 08:00 Mechanical Ventilator+ Total Intake and Output 11/06/24 11/06/24 11/07/24 15:00 23:00 07:00 Intake Total 205.673 ml 290.744 ml 282.730 ml Output Total 0 ml 100 ml Balance 205.673 ml 290.744 ml 182.730 ml medications Current Medications Medications Dose Ordered Sig/Alexandre Route Start Time Stop Time Status Last Admin Dose Admin Nitroglycerin 0.4 mg Q5MINP PRN SL 10/30/24 20:00 Morphine Sulfate 2 mg Q30M PRN IV 10/30/24 20:00 Aspirin 162 mg DAILY PO 10/31/24 10:00 11/07/24 11:35 162 MG Atorvastatin Calcium 80 mg HS PO 10/30/24 22:00 11/06/24 22:18 80 MG Dextrose 50 ml UD PRN IV 10/30/24 20:15 11/02/24 17:25 50 ML Ondansetron HCl 4 mg Q4HP PRN IV 10/30/24 20:15 Acetaminophen 650 mg Q6HP PRN PO 10/30/24 20:15 11/04/24 13:02 650 MG Heparin Sodium (Porcine) 5,000 units Q12HR SC 10/31/24 10:00 11/07/24 11:36 5,000 UNITS Pantoprazole Sodium 40 mg DAILY IV 11/01/24 10:00 11/07/24 11:34 40 MG Propofol 100 ml @ 3.153 mls/ hr Q24H IV 10/31/24 10:45 11/07/24 08:18 12.612 MLS/HR Fentanyl Citrate 250 ml @ 2.5 mls/hr Q24H IV 10/31/24 10:45 11/06/24 17:41 10 MLS/HR Norepinephrine Bitartrate 32 mg/ Sodium Chloride 250 ml @ 0.938 mls/ hr Q24H IV 10/31/24 11:00 10/31/24 15:39 0.938 MLS/HR Diagnostic Test (Pha) 1 strip Q4H 11/02/24 22:00 11/07/24 10:00 1 STRIP Insulin Human Regular Q4H SC 11/02/24 22:00 11/06/24 22:24 3 UNITS Enteral Nutritional Formula 1,000 ml 30ML/HR GT 11/03/24 12:15 11/05/24 05:54 1,000 ML Dexmedetomidine HCl 400 mcg/ Dextrose 100 ml @ 4.705 mls/ hr [id number] IV 11/03/24 12:15 11/07/24 12:20 4.705 MLS/HR Digoxin 125 mcg Q48H IV 11/03/24 14:30 Hydralazine HCl 10 mg Q6HP PRN IV 11/04/24 13:30 11/07/24 12:26 10 MG Metoclopramide HCl 5 mg Q8HR IV 11/04/24 22:00 11/07/24 05:52 5 MG Meropenem 50 ml @ 16.667 mls/ hr Q12H IV 11/04/24 18:15 11/07/24 05:56 16.667 MLS/HR Clonidine HCl 0.2 mg TID PRN PO 11/06/24 14:00 Patient Own Medication 5 mg BID PO 11/06/24 18:00 Calcium Acetate 1,334 mg TID NG 11/07/24 14:00 UNV Examination Physical examination as below: General: Mechanically ventilated, intubated HEENT: Head is normocephalic and atraumatic. Pupils are equal, round, and reactive to light. Significant swelling on tongue and neck, no signs of subcutaneous emphysema Neck: Supple with no cervical lymphadenopathy. Heart: Regular rate without murmur, rub, or gallop. Lungs: Equal breath sounds bilaterally with no wheezing, rales, or rhonchi. There is no chest wall tenderness or instability. Abdomen: No external sign of injury. Bowel sounds are present. Extremities: Strong peripheral pulses. There is no clubbing, no cyanosis. Significant pitting edema on right upper arm, right chest and neck, tender, no erythema. Skin: No rash. Neurologic: Sedated laboratory and microbiology Laboratory Tests 11/07/24 04:00 Test 11/07/24 04:00 Range/Units Serum Glucose 114 H 74-106 mg/dL Microbiology Date/Time Source Procedure Growth Status 10/31/24 11:05 Nose MRSA Screen - Final Complete 10/31/24 10:50 Blood Blood Culture - Final NO GROWTH AFTER 5 DAYS OF INCUBATION. Complete 10/31/24 10:45 Sputum Gram Stain - Final Complete 10/31/24 10:45 Respiratory Culture - Final Enterobacter aerogenes Complete 10/30/24 19:19 Urine - [place] Urine Culture - Final Escherichia coli - ESBL Complete Labs and/or images reviewed: Labs reviewed by me, Image(s) reviewed by me Problem List/Assessment/Plan Problem List/Assessment/Plan Neurology #Metabolic encephalopathy due to septic shock form UTI and pneumonia On fent and propofol Cardiovascular #Acute on chronic systolic CHF #Ischemic cardiomyopathy #Peripheral artery disease, s/p amputation #Hypertension, Hydralazine IV prn Aspirin Continue hemodialysis Health Science Specialist following Pulmonology #Acute hypoxic respiratory failure with mechanical ventilation #Pneumonia, gram (+) vs gram (-), atypicals, growing Enterobacter aeruginosa Continue Merrem MV: FIO2: 30% RR: 18 TV 450 PEEP: 5 Nephrology #ESRD on HD #Possible distal stenosis of AV fistula(right arm swelling and pitting edema) AV fistula working Continue HD [address] following Pending fistulogram per vascular surgery We will order ct with contrast from right upper extremity, chest and neck. We will arrange with nephrology to have HD on the same day of the ct with contrast Endocrinology #Morbid obesity #Bilateral lower extremity BK amputation #T2DM SSI Gastroenterology Continue tube feedings: Nepro Continue reglan iv Lactulose prn #Macroglossia and neck swelling Swelling coming down Decadron given We will order ct with contrast from right upper extremity, chest and neck. We will arrange with nephrology to have HD on the same day of the ct with contrast Hematology and Oncology #Anemia of chronic disease Monitor Infectious Disease #Pneumonia, gram (+) vs gram (-), atypicals, growing Enterobacter aeruginosa #UTI, growing ESBL E. coli Merrem IV Dermatology DVT ppx Heparin sc PUD ppx Protonix Drips Levo held Fent Propofol Lines TLC Right femoral 10/31/24 ET tube 10/31/24 Martinez 10/31/24 Updated family members on patient's current status Goals of care were discussed for over 30 minutes. FULL CODE. Critical care time spent excluding procedures and including dw family was 82 mins Case was discussed with Dr. Sosa Plan discussed with: Daughter, Other (RN) My Orders My Orders Orders - GAVINO MORAES Procedure Category Date Status Time Chest Portable XY 11/07/24 Resulted 04:00 Abg W/ Co-Ox RT 11/07/24 Logged 04:00 Cpap Trial For Am ORDERS 11/07/24 Transmitted 04:00 Cpap Trial For Am ORDERS 11/07/24 Transmitted 04:00 Communication Order ORDERS 11/07/24 Transmitted 06:43 * Picc Line Consult CONS 11/07/24 Transmitted 07:00 Ventilator Orders RT 11/07/24 Transmitted 11:19 Dietary Evaluation Review Comments: 1. On propofol which supply fat kcaloried at 333 kcal/day if running at 12.6ml/hr. 2.Recommend a low fat high protein TF Vital High Protein @ 40ml/hr providing 84 g Protein, and 960 kcal, 803 ml free water, if running at 24 hrs. the combined nurition support will be 84 g Protein and 1056 kcal, supporting pt's needs for protein at 76.3%, needs for energy at 134%. 3. Reasses pt's TF formulary if pt is off Popofol.but still need TF. 4. Renal standard and CCHO-75 if pt is able to have PO intake after passing a DIRECTOR OF PUPIL PERSONNEL PROGRAM eval, Expected Outcomes/Goals: gradual wt loss. improved lab values with consistant dialysis. Date of Service: Nov 07, 2024 Billing Provider: CECILIA SOSA MD Common Visit Codes: 00596-[id number] CARE 30-74 MIN, 15407-[id number] CARE-EACH +30MIN GAVINO MORAES Nov 07, 2024 13:38 CECILIA SOSA MD Nov 08, 2024 16:27
[2024-11-07] MEDS: CALCIUM ACETATE 667 MG CAP NG SCH (18:24)
[2024-11-07] MEDS: EPOETIN ALFA-EPBX 10,000 UNIT/1ML VIAL SC ONE (20:50)
[2024-11-07] MEDS: MEROPENEM 500MG IVPB 50 ML IV SCH (20:55)
[2024-11-08] VITALS (107 sets, daily range): BP systolic 92–183; BP diastolic 36–61; PULSE 62–88; RESP 13–28; TEMP 96.4–99.3; O2SAT 95–100
[2024-11-08 04:05] LABS: Basophils # (auto) 0.1 10 ^3/uL (0-0.2); Basophils % (auto) 0.5 % (0.0-2.0); Eosinophils # (auto) 0.3 10 ^3/uL (0-0.8); Eosinophils % (auto) 2.6 % (0.0-7.0); Hematocrit 30.3 % (41.0-53.0); Hemoglobin 10.2 g/dL (13.5-17.5); Lymphocytes # (auto) 2.6 10 ^3/uL (0.4-5.4); Lymphocytes % (auto) 22.3 % (10.0-50.0); Mean Corpuscular Hemoglobin 29.9 pg (28.0-32.0); Mean Corpuscular Hgb Conc. 33.6 g/dL (32.0-36.0); Mean Corpuscular Volume 89.1 fL (80.0-100.0); Monocytes # (auto) 1.7 10 ^3/uL (0-1.3); Monocytes % (auto) 14.8 % (0.0-12.0); Neutrophils % (auto) 59.8 % (37.0-80.0); Nucleated Red Blood Cells % 0.1 %; Platelet Count (auto) 346 10^3/uL (140-450); Red Cell Distribution Width 16.8 % (11.8-14.3); White Blood Cell 11.7 10^3/uL (4.4-10.8)
[2024-11-08 04:09] LABS: Anion Gap 13 (5-15); Carbon Dioxide 28 mmol/L (20-31); Potassium 3.9 mmol/L (3.5-5.1); Sodium 136 mmol/L (136-145)
[2024-11-08 04:10] LABS: Calcium 9.6 mg/dL (8.7-10.4)
[2024-11-08 04:13] LABS: Chloride 95 mmol/L (98-107)
[2024-11-08 04:15] LABS: Glucose 104 mg/dL (74-106)
[2024-11-08 04:16] LABS: Blood Urea Nitrogen 42 mg/dL (9-23)
--- NOTE | 2024-11-08 05:22 | DVH ---
EXAM: XR Chest, 1 View CLINICAL INDICATION: sob TECHNIQUE: Frontal view of the chest. COMPARISON: XY CHEST PORTABLE on DOS: 11/07/24, XY CHEST PORTABLE on DOS: 11/06/24, XY CHEST PORTABLE o n DOS: 11/05/24, XY CHEST PORTABLE on DOS: 11/04/24, XY CHEST PORTABLE on DOS: 11/03/24 FINDINGS: LUNGS AND PLEURAL SPACES: See below. HEART: Cardiomegaly with mild congestion. MEDIASTINUM: Unremarkable. Normal mediastinal contour. BONES/JOINTS: Unremarkable. No acute fracture. TUBES, LINES AND DEVICES: The endotracheal tube (ETT) is in satisfactory position. Enteric tube ti p in the stomach. OTHER FINDINGS: . . .. IMPRESSION: Cardiomegaly with mild congestion.
[2024-11-08 07:00] LABS: Base Excess 2.9 mmol/L (-2.0-3.0)
--- NOTE | 2024-11-08 12:07 | DVHPN2 ---
Progress Note Date Seen: Nov 08, 2024 Medical Necessity Reason Pt with a Central, PICC or Fol: Yes The following are medically ne: Central Line, Martinez Catheter Reason for martinez catheter: Strict I&O Subjective Review of Systems: RESPIRATORY:Abnormal Other Systems: Patient seen and examined by myself today in follow-up, patient remained intubated on ventilator Objective vital signs Vital Sign Date Time Temp Pulse Resp B/P (MAP) Pulse Ox O2 Delivery O2 Flow Rate FiO2 11/08/24 11:53 84 20 160/61 (94) 95 30 11/08/24 11:15 98.4 209.1 11/08/24 06:00 Mechanical Ventilator+ Total Intake and Output 11/07/24 11/07/24 11/08/24 15:00 23:00 07:00 Intake Total 81.820 ml 210.943 ml 292.855 ml Output Total 15 ml 105 ml Balance 81.820 ml 195.943 ml 187.855 ml medications Current Medications Medications Dose Ordered Sig/Alexander Route Start Time Stop Time Status Last Admin Dose Admin Nitroglycerin 0.4 mg Q5MINP PRN SL 10/30/24 20:00 Morphine Sulfate 2 mg Q30M PRN IV 10/30/24 20:00 Aspirin 162 mg DAILY PO 10/31/24 10:00 11/07/24 11:35 162 MG Dextrose 50 ml UD PRN IV 10/30/24 20:15 11/02/24 17:25 50 ML Ondansetron HCl 4 mg Q4HP PRN IV 10/30/24 20:15 Acetaminophen 650 mg Q6HP PRN PO 10/30/24 20:15 11/04/24 13:02 650 MG Heparin Sodium (Porcine) 5,000 units Q12HR SC 10/31/24 10:00 11/07/24 21:00 5,000 UNITS Pantoprazole Sodium 40 mg DAILY IV 11/01/24 10:00 11/07/24 11:34 40 MG Propofol 100 ml @ 3.153 mls/ hr Q24H IV 10/31/24 10:45 11/08/24 11:38 15.765 MLS/HR Fentanyl Citrate 250 ml @ 2.5 mls/hr Q24H IV 10/31/24 10:45 11/08/24 00:22 7.5 MLS/HR Norepinephrine Bitartrate 32 mg/ Sodium Chloride 250 ml @ 0.938 mls/ hr Q24H IV 10/31/24 11:00 10/31/24 15:39 0.938 MLS/HR Diagnostic Test (Pha) 1 strip Q4H 11/02/24 22:00 11/08/24 05:09 1 STRIP Insulin Human Regular Q4H SC 11/02/24 22:00 11/06/24 22:24 3 UNITS Enteral Nutritional Formula 1,000 ml 30ML/HR GT 11/03/24 12:15 11/07/24 18:16 1,000 ML Dexmedetomidine HCl 400 mcg/ Dextrose 100 ml @ 4.705 mls/ hr [id number] IV 11/03/24 12:15 11/07/24 12:20 4.705 MLS/HR Digoxin 125 mcg Q48H IV 11/03/24 14:30 11/07/24 15:28 125 MCG Hydralazine HCl 10 mg Q6HP PRN IV 11/04/24 13:30 11/07/24 12:26 10 MG Metoclopramide HCl 5 mg Q8HR IV 11/04/24 22:00 11/08/24 05:11 5 MG Calcium Acetate 1,334 mg TID NG 11/07/24 14:00 11/08/24 05:07 1,334 MG Meropenem 50 ml @ 16.667 mls/ hr HS IV 11/07/24 22:00 11/07/24 20:55 16.667 MLS/HR Examination: LUNGS:Normal, CVS:Normal, MSK:Abnormal laboratory and microbiology Laboratory Tests 11/08/24 03:20 Test 11/08/24 03:20 Range/Units Serum Glucose 104 74-106 mg/dL Microbiology Date/Time Source Procedure Growth Status 10/31/24 11:05 Nose MRSA Screen - Final Complete 10/31/24 10:50 Blood Blood Culture - Final NO GROWTH AFTER 5 DAYS OF INCUBATION. Complete 10/31/24 10:45 Sputum Gram Stain - Final Complete 10/31/24 10:45 Respiratory Culture - Final Enterobacter aerogenes Complete 10/30/24 19:19 Urine - Martinez Port Urine Culture - Final Escherichia coli - ESBL Complete Problem List/Assessment/Plan Problem List/Assessment/Plan ESRD on hemodialysis Right upper extremity swelling Acute respiratory failure, patient intubated on ventilator Morbid obesity NSTEMI Congestive heart failure Diabetes mellitus type 2 Anemia of chronic kidney disease Peripheral arterial disease Status post bilateral below-knee amputation Recommendations Hemodialysis tomorrow Epogen 02566 subQ 3 times weekly Fluid restriction Nepro tube feeding Blood pressure control Insulin sliding scale IV antibiotics We will continue to follow Plan discussed with: Other (Nurse) My Orders My Orders Orders - BERTHA LAKE MD Procedure Category Date Status Time Hemodialysis Orders ORDERS 11/09/24 Transmitted 07:00 Dialysis Nursing PIYUSH 11/09/24 In Process Message 07:00 Heparin Sodium PHA 11/09/24 In Process (Porcine) 07:00 Heparin Sodium PHA 11/09/24 In Process (Porcine) 07:00 Sodium Chloride 0.9% PHA 11/09/24 In Process 07:00 Document Fluid Input PIYUSH 11/09/24 In Process And Outpu 07:00 Epoetin Kobe-Epbx PHA 11/09/24 In Process (Retacrit) 21:00 Hemoglobin & LAB 11/09/24 Verified Hematocrit 05:00 Dietary Evaluation Review Comments: 1. On propofol which supply fat kcaloried at 333 kcal/day if running at 12.6ml/hr. 2.Recommend a low fat high protein TF Vital High Protein @ 40ml/hr providing 84 g Protein, and 960 kcal, 803 ml free water, if running at 24 hrs. the combined nurition support will be 84 g Protein and 1056 kcal, supporting pt's needs for protein at 76.3%, needs for energy at 134%. 3. Reasses pt's TF formulary if pt is off Popofol.but still need TF. 4. Renal standard and CCHO-75 if pt is able to have PO intake after passing a DATA ANALYSIS INTERN eval, Expected Outcomes/Goals: gradual wt loss. improved lab values with consistant dialysis. BERTHA LAKE MD Nov 08, 2024 12:07
--- NOTE | 2024-11-08 12:18 | DVHPN2 ---
Progress Note - Dictate Date Seen: Nov 08, 2024 Medical Necessity Reason Pt with a Central, PICC or Fol: Yes The following are medically ne: Central Line, Martinez Catheter Reason for martinez catheter: Strict I&O Subjective PT WAS SEEN IN CLINICAL RESP DISTRESS DIFFUSE WHEEZING PMH HFrEF CHRONIC ISCHEMIC CM PAD BILATERAL LE AMPUTEE DIABETES VASCULOPATHY NEPHROPATHY NEUROPATHY HD ESRD vital signs Vital Sign Date Time Temp Pulse Resp B/P (MAP) Pulse Ox O2 Delivery O2 Flow Rate FiO2 11/08/24 11:53 84 20 160/61 (94) 95 30 11/08/24 11:15 98.4 209.1 11/08/24 06:00 Mechanical Ventilator+ Total Intake and Output 11/07/24 11/07/24 11/08/24 15:00 23:00 07:00 Intake Total 81.820 ml 210.943 ml 292.855 ml Output Total 15 ml 105 ml Balance 81.820 ml 195.943 ml 187.855 ml medications Current Medications Medications Dose Ordered Sig/Alexander Route Start Time Stop Time Status Last Admin Dose Admin Nitroglycerin 0.4 mg Q5MINP PRN SL 10/30/24 20:00 Morphine Sulfate 2 mg Q30M PRN IV 10/30/24 20:00 Aspirin 162 mg DAILY PO 10/31/24 10:00 11/07/24 11:35 162 MG Dextrose 50 ml UD PRN IV 10/30/24 20:15 11/02/24 17:25 50 ML Ondansetron HCl 4 mg Q4HP PRN IV 10/30/24 20:15 Acetaminophen 650 mg Q6HP PRN PO 10/30/24 20:15 11/04/24 13:02 650 MG Heparin Sodium (Porcine) 5,000 units Q12HR SC 10/31/24 10:00 11/07/24 21:00 5,000 UNITS Pantoprazole Sodium 40 mg DAILY IV 11/01/24 10:00 11/07/24 11:34 40 MG Propofol 100 ml @ 3.153 mls/ hr Q24H IV 10/31/24 10:45 11/08/24 11:38 15.765 MLS/HR Fentanyl Citrate 250 ml @ 2.5 mls/hr Q24H IV 10/31/24 10:45 11/08/24 00:22 7.5 MLS/HR Norepinephrine Bitartrate 32 mg/ Sodium Chloride 250 ml @ 0.938 mls/ hr Q24H IV 10/31/24 11:00 10/31/24 15:39 0.938 MLS/HR Diagnostic Test (Pha) 1 strip Q4H 11/02/24 22:00 11/08/24 05:09 1 STRIP Insulin Human Regular Q4H SC 11/02/24 22:00 11/06/24 22:24 3 UNITS Enteral Nutritional Formula 1,000 ml 30ML/HR GT 11/03/24 12:15 11/07/24 18:16 1,000 ML Dexmedetomidine HCl 400 mcg/ Dextrose 100 ml @ 4.705 mls/ hr [id number] IV 11/03/24 12:15 11/07/24 12:20 4.705 MLS/HR Digoxin 125 mcg Q48H IV 11/03/24 14:30 11/07/24 15:28 125 MCG Hydralazine HCl 10 mg Q6HP PRN IV 11/04/24 13:30 11/07/24 12:26 10 MG Metoclopramide HCl 5 mg Q8HR IV 11/04/24 22:00 11/08/24 05:11 5 MG Calcium Acetate 1,334 mg TID NG 11/07/24 14:00 11/08/24 05:07 1,334 MG Meropenem 50 ml @ 16.667 mls/ hr HS IV 11/07/24 22:00 11/07/24 20:55 16.667 MLS/HR laboratory and microbiology Laboratory Tests 11/08/24 03:20 Test 11/08/24 03:20 Range/Units Serum Glucose 104 74-106 mg/dL Problem List RESP DISTRESS DIFFUSE WHEEZING PMH HFrEF CHRONIC ISCHEMIC CM PAD BILATERAL LE AMPUTEE DIABETES VASCULOPATHY NEPHROPATHY NEUROPATHY HD ESRD ANEMIA HYPERKALEMIA Assessment/Plan DIALYSIS ABX CORRECT LYTES ECHO S/P DIALYSIS 4L OUT CHECK BNP REPEAT CXR COMPLETE OPACIFICATION OF BOTH LUNGS CXR WITH PT UPRIGHT CONSIDER BRONCHOSCOPY CONSIDER LEFT HEART CATH SIGNIFICANT IMPROVEMENT IN VASCULAR CONGESTION ON CXR CONT DIALYSIS ADD VERQUVO START DIG TITRATE ON VERQUVO LHC ON WEDNESDAY Dietary Evaluation Review Comments: 1. On propofol which supply fat kcaloried at 333 kcal/day if running at 12.6ml/hr. 2.Recommend a low fat high protein TF Vital High Protein @ 40ml/hr providing 84 g Protein, and 960 kcal, 803 ml free water, if running at 24 hrs. the combined nurition support will be 84 g Protein and 1056 kcal, supporting pt's needs for protein at 76.3%, needs for energy at 134%. 3. Reasses pt's TF formulary if pt is off Popofol.but still need TF. 4. Renal standard and CCHO-75 if pt is able to have PO intake after passing a ONLINE SERVICES MANAGER eval, Expected Outcomes/Goals: gradual wt loss. improved lab values with consistant dialysis. Plan discussed with: Patient Critical Care Time(min): 35 YESICA YORK MD Nov 08, 2024 12:18
--- NOTE | 2024-11-08 12:43 | DVH ---
CHEST RADIOGRAPH Indication: central line placement Technique: Single frontal view of the chest was obtained COMPARISON: XY CHEST PORTABLE on DOS: 11/08/24, XY CHEST PORTABLE on DOS: 11/07/24, XY CHEST PORTABLE on DOS: 11/06/24, XY CHEST PORTABLE on DOS: 11/05/24, XY CHEST PORTABLE on DOS: 11/04/24 FINDINGS: Lines and Tubes: Left-sided central venous catheter seen with tip in the cavoatrial junction. Endotr acheal tube terminates above the patrick. Enteric tube tip is in the region of the stomach. Lungs: Stable bilateral opacities. Pleura: Small left effusion. No pneumothorax. Cardiomediastinal contours: Cardiomegaly Bones: Unremarkable IMPRESSION: Left-sided central venous catheter seen with tip in the cavoatrial junction. Otherwise, no significan t interval change since prior x-ray from earlier today.
[2024-11-08] MEDS ORDERED: LACTULOSE 20Gm/30ML SOLN PO PRN (13:00)
[2024-11-08] MEDS: DEXMEDETOMIDINE HCL IN D5W 100 ML IV SCH (15:45)
[2024-11-08] MEDS: LACTULOSE 20Gm/30ML SOLN PO ONE (16:49)
--- NOTE | 2024-11-08 19:41 | DVHPNRES ---
Progress Note Date Seen: Nov 08, 2024 Resident Creating Document: GAVINO MORAES RESIDENT Medical Necessity Reason Pt with a Central, PICC or Fol: Yes The following are medically ne: Central Line, Martinez Catheter Reason for martinez catheter: Strict I&O Subjective Review of Systems Patient was seen and examined at bedside. He remains on mechanical ventilator, minimal vent settings. He is off vasopressors. Per the notes tongue swelling and neck swelling has been coming down. He is on fentanyl and propofol. We will order ct with contrast from right upper extremity, chest and neck. We will arrange with nephrology to have HD on the same day of the ct with contrast Objective vital signs Vital Sign Date Time Temp Pulse Resp B/P (MAP) Pulse Ox O2 Delivery O2 Flow Rate FiO2 11/08/24 18:30 97.0 64 18 111/46 (67) 99 206.6 11/08/24 18:19 30 11/08/24 18:00 Mechanical Ventilator+ Total Intake and Output 11/07/24 11/07/24 11/08/24 15:00 23:00 07:00 Intake Total 81.820 ml 210.943 ml 316.120 ml Output Total 15 ml 105 ml Balance 81.820 ml 195.943 ml 211.120 ml medications Current Medications Medications Dose Ordered Sig/Alexander Route Start Time Stop Time Status Last Admin Dose Admin Nitroglycerin 0.4 mg Q5MINP PRN SL 10/30/24 20:00 Morphine Sulfate 2 mg Q30M PRN IV 10/30/24 20:00 Aspirin 162 mg DAILY PO 10/31/24 10:00 11/08/24 12:27 162 MG Dextrose 50 ml UD PRN IV 10/30/24 20:15 11/02/24 17:25 50 ML Ondansetron HCl 4 mg Q4HP PRN IV 10/30/24 20:15 Acetaminophen 650 mg Q6HP PRN PO 10/30/24 20:15 11/04/24 13:02 650 MG Heparin Sodium (Porcine) 5,000 units Q12HR SC 10/31/24 10:00 11/08/24 12:28 5,000 UNITS Pantoprazole Sodium 40 mg DAILY IV 11/01/24 10:00 11/08/24 12:27 40 MG Propofol 100 ml @ 3.153 mls/ hr Q24H IV 10/31/24 10:45 4/9/25 16:37 15.765 MLS/HR Fentanyl Citrate 250 ml @ 2.5 mls/hr Q24H IV 10/31/24 10:45 11/08/24 00:22 7.5 MLS/HR Norepinephrine Bitartrate 32 mg/ Sodium Chloride 250 ml @ 0.938 mls/ hr Q24H IV 10/31/24 11:00 10/31/24 15:39 0.938 MLS/HR Diagnostic Test (Pha) 1 strip Q4H 11/02/24 22:00 11/08/24 18:00 1 STRIP Insulin Human Regular Q4H SC 11/02/24 22:00 11/06/24 22:24 3 UNITS Enteral Nutritional Formula 1,000 ml 30ML/HR GT 11/03/24 12:15 11/07/24 18:16 1,000 ML Digoxin 125 mcg Q48H IV 11/03/24 14:30 11/07/24 15:28 125 MCG Hydralazine HCl 10 mg Q6HP PRN IV 11/04/24 13:30 11/07/24 12:26 10 MG Metoclopramide HCl 5 mg Q8HR IV 11/04/24 22:00 11/08/24 16:49 5 MG Calcium Acetate 1,334 mg TID NG 11/07/24 14:00 11/08/24 16:50 1,334 MG Meropenem 50 ml @ 16.667 mls/ hr HS IV 11/07/24 22:00 11/07/24 20:55 16.667 MLS/HR Lactulose 30 ml DAILYPRN PRN PO 11/08/24 13:00 Examination Physical examination as below: General: Mechanically ventilated, intubated HEENT: Head is normocephalic and atraumatic. Pupils are equal, round, and reactive to light. Significant swelling on tongue and neck, no signs of subcutaneous emphysema Neck: Supple with no cervical lymphadenopathy. Heart: Regular rate without murmur, rub, or gallop. Lungs: Equal breath sounds bilaterally with no wheezing, rales, or rhonchi. There is no chest wall tenderness or instability. Abdomen: No external sign of injury. Bowel sounds are present. Extremities: Strong peripheral pulses. There is no clubbing, no cyanosis. Significant pitting edema on right upper arm, right chest and neck, tender, no erythema. Skin: No rash. Neurologic: Sedated laboratory and microbiology Laboratory Tests 11/08/24 03:20 Test 11/08/24 03:20 Range/Units Serum Glucose 104 74-106 mg/dL Microbiology Date/Time Source Procedure Growth Status 10/31/24 11:05 Nose MRSA Screen - Final Complete 10/31/24 10:50 Blood Blood Culture - Final NO GROWTH AFTER 5 DAYS OF INCUBATION. Complete 10/31/24 10:45 Sputum Gram Stain - Final Complete 10/31/24 10:45 Respiratory Culture - Final Enterobacter aerogenes Complete 10/30/24 19:19 Urine - Martinez [place] Urine Culture - Final Escherichia coli - ESBL Complete Labs and/or images reviewed: Labs reviewed by me, Image(s) reviewed by me Problem List/Assessment/Plan Problem List/Assessment/Plan Neurology #Metabolic encephalopathy due to septic shock form UTI and pneumonia On fent and propofol Cardiovascular #Acute on chronic systolic CHF #Ischemic cardiomyopathy #Peripheral artery disease, s/p amputation #Hypertension, Hydralazine IV prn Aspirin Continue hemodialysis Field Insurance Sales Manager following Pulmonology #Acute hypoxic respiratory failure with mechanical ventilation #Pneumonia, gram (+) vs gram (-), atypicals, growing Enterobacter aeruginosa Continue Merrem MV: FIO2: 30% RR: 18 TV 450 PEEP: 5 Nephrology #ESRD on HD #Possible distal stenosis of AV fistula(right arm swelling and pitting edema) AV fistula working Continue HD Outfitter [place] following Pending fistulogram per vascular surgery We will order ct with contrast from right upper extremity, chest and neck. We will arrange with nephrology to have HD on the same day of the ct with contrast Endocrinology #Morbid obesity #Bilateral lower extremity BK amputation #T2DM SSI Gastroenterology Continue tube feedings: Nepro Continue reglan iv Lactulose prn #Macroglossia and neck swelling Swelling coming down Decadron given We will order ct with contrast from right upper extremity, chest and neck. We will arrange with nephrology to have HD on the same day of the ct with contrast Hematology and Oncology #Anemia of chronic disease Monitor Infectious Disease #Pneumonia, gram (+) vs gram (-), atypicals, growing Enterobacter aeruginosa #UTI, growing ESBL E. coli Merrem IV Dermatology DVT ppx Heparin sc PUD ppx Protonix Drips Levo held Fent Propofol Lines TLC Right femoral 10/31/24 ET tube 10/31/24 Martinez 10/31/24 Updated family members on patient's current status Goals of care were discussed for over 30 minutes. FULL CODE. Critical care time spent excluding procedures and including family meeting was 69 mins Case was discussed with Dr. Sosa Plan discussed with: Daughter, Other (RN) My Orders My Orders Orders - GAVINO MORAES RESIDENT Procedure Category Date Status Time Chest Portable XY 11/08/24 Resulted 04:00 Abg W/ Co-Ox RT 11/08/24 Logged 04:00 Chest Portable XY 11/08/24 Resulted 11:57 Lactulose Oral PHA 11/08/24 In Process 13:[address] 11/09/24 Logged With Cont 04:[address] 11/09/24 Logged 04:[address] 11/09/24 Logged 04:00 Communication Order ORDERS 11/08/24 Transmitted 19:14 Digoxin (Lanoxin) LAB 11/09/24 Verified 04:00 Dietary Evaluation Review Comments: 1. On propofol which supply fat kcaloried at 333 kcal/day if running at 12.6ml/hr. 2.Recommend a low fat high protein TF Vital High Protein @ 40ml/hr providing 84 g Protein, and 960 kcal, 803 ml free water, if running at 24 hrs. the combined nurition support will be 84 g Protein and 1056 kcal, supporting pt's needs for protein at 76.3%, needs for energy at 134%. 3. Reasses pt's TF formulary if pt is off Popofol.but still need TF. 4. Renal standard and CCHO-75 if pt is able to have PO intake after passing a PARK WORKER SUPERVISOR eval, Expected Outcomes/Goals: gradual wt loss. improved lab values with consistant dialysis. Date of Service: Nov 08, 2024 Billing Provider: CECILIA SOSA MD Common Visit Codes: 53218-YACAVCCN CARE 30-74 MIN GAVINO MORAES Nov 08, 2024 19:41 CECILIA SOSA MD Nov 09, 2024 15:21
[2024-11-09] VITALS (98 sets, daily range): BP systolic 82–181; BP diastolic 35–64; PULSE 58–92; RESP 12–31; TEMP 94.3–99.3; O2SAT 93–100
[2024-11-09 04:14] LABS: Basophils # (auto) 0.1 10 ^3/uL (0-0.2); Basophils % (auto) 0.7 % (0.0-2.0); Eosinophils # (auto) 0.2 10 ^3/uL (0-0.8); Eosinophils % (auto) 2.2 % (0.0-7.0); Hematocrit 28.3 % (41.0-53.0); Hemoglobin 9.3 g/dL (13.5-17.5); Lymphocytes # (auto) 1.2 10 ^3/uL (0.4-5.4); Lymphocytes % (auto) 10.6 % (10.0-50.0); Mean Corpuscular Hemoglobin 29.7 pg (28.0-32.0); Mean Corpuscular Volume 90.2 fL (80.0-100.0); Monocytes # (auto) 1.1 10 ^3/uL (0-1.3); Monocytes % (auto) 10.4 % (0.0-12.0); Neutrophils # (auto) 8.3 10 ^3/uL (1.6-8.6); Neutrophils % (auto) 76.1 % (37.0-80.0); Nucleated Red Blood Cells % 0.1 %; Platelet Count (auto) 333 10^3/uL (140-450); Red Blood Cells 3.14 10^6/uL (4.5-5.90); Red Cell Distribution Width 16.9 % (11.8-14.3); White Blood Cell 10.9 10^3/uL (4.4-10.8)
[2024-11-09 04:27] LABS: Alanine Aminotransferase 13 U/L (7-40); Albumin 3.9 g/dL (3.2-4.8); Alkaline Phosphatase 72 U/L (46-116); Anion Gap 15 (5-15); Calcium 9.1 mg/dL (8.7-10.4); Carbon Dioxide 27 mmol/L (20-31); Potassium 4.4 mmol/L (3.5-5.1); Total Protein 6.7 g/dL (5.7-8.2)
[2024-11-09 04:28] LABS: Aspartate Aminotransferase 24 U/L (13-40)
[2024-11-09 04:34] LABS: Bilirubin, Total < 0.2 mg/dL (0.2-1.0); Blood Urea Nitrogen 61 mg/dL (9-23); Chloride 93 mmol/L (98-107); Glucose 139 mg/dL (74-106); Magnesium 2.7 mg/dL (1.6-2.6); Sodium 135 mmol/L (136-145)
[2024-11-09 04:47] LABS: BUN/Creatinine Ratio 7.8 (10.0-20.0)
--- NOTE | 2024-11-09 05:53 | DVH ---
EXAM: XR Chest, 1 View CLINICAL INDICATION: sob TECHNIQUE: Frontal view of the chest. COMPARISON: XY CHEST PORTABLE on DOS: 11/08/24, XY CHEST PORTABLE on DOS: 11/08/24, XY CHEST PORTABLE o n DOS: 11/07/24, XY CHEST PORTABLE on DOS: 11/06/24, XY CHEST PORTABLE on DOS: 11/05/24 FINDINGS: LUNGS AND PLEURAL SPACES: Bibasilar. HEART: Cardiomegaly with mild congestion. MEDIASTINUM: Unremarkable. Normal mediastinal contour. BONES/JOINTS: Unremarkable. No acute fracture. TUBES, LINES AND DEVICES: Left internal jugular central venous catheter tip in the superior vena ca va. Enteric tube tip in the stomach. OTHER FINDINGS: . IMPRESSION: Cardiomegaly with mild congestion.
--- NOTE | 2024-11-09 06:07 | DVHNC2 ---
Central Line Recorder of insertion practice: Tube Splicer Occupation of supreme court justice: Attending Physician, Name of supreme court justice (Dr. Guzman) Indication: Hypotension, Inability to obtain IV Room prepared for procedure: Yes Tube Splicer performed hand hygien: Yes Maximal sterile barrier precau: Mask/Eye shield, Sterile gown, Cap, Sterlie gloves, Large sterlie drape Skin Preparation: Chlorhexidine gluconate, Providine iodine Skin preparation completely dr: Yes Insertion site: Left, Internal jugular Central line catheter type: [id number] dialysis Number of lumens: 3 Central line exchanged over a: No Antiseptic ointment applied to: Yes Post Assessment: Chest X-Ray, Proper placement, No Pneumothorax Informed consent obtained: Yes Risks/benefits/alt described: Yes Notes Supervised by Dr. Sosa and Dr. Stark Date of Service: Nov 08, 2024 Billing Provider: CECILIA SOSA MD Common Visit Codes: PROCEDURE ONLY Procedure Codes: 10730-VTJPJA NON-TUNNEL CV CATH GAVINO MORAES Nov 09, 2024 06:07 CECILIA SOSA MD Nov 11, 2024 20:25
[2024-11-09 06:56] LABS: Base Excess 0.8 mmol/L (-2.0-3.0)
[2024-11-09] MEDS: SODIUM CHL 0.9% 1000 ML BAG XX ONE (07:00)
[2024-11-09] MEDS: LIDOCAINE 2%HCL (LOCAL ANESTH.) INJ 20ML MDV ONE (09:27)
[2024-11-09] MEDS: ANGIOMAX 250 MG VIAL IV ONE (09:27)
[2024-11-09] MEDS: SODIUM CHL 0.9% 50 ML ONE (09:27)
[2024-11-09] MEDS: CLOPIDOGREL BISULFATE 75 MG TAB ONE (10:37)
--- NOTE | 2024-11-09 10:38 | DVHPNRES ---
Progress Note Date Seen: Nov 09, 2024 Resident Creating Document: GAVINO MORAES RESIDENT Medical Necessity Reason Pt with a Central, PICC or Fol: Yes The following are medically ne: Central Line, Martinez Catheter Reason for martinez catheter: Strict I&O Subjective Review of Systems Patient was seen and examined at bedside. He remains on mechanical ventilator, minimal vent settings. He is off vasopressors. Per the notes tongue swelling and neck swelling has been coming down. He is on fentanyl and propofol. We order ct with contrast from right upper extremity, chest and neck. We will arrange with nephrology to have HD on the same day of the ct with contrast today Objective vital signs Vital Sign Date Time Temp Pulse Resp B/P (MAP) Pulse Ox O2 Delivery O2 Flow Rate FiO2 11/09/24 09:40 19 100 Mechanical Ventilator+ 30 30 11/09/24 09:40 61 11/09/24 09:30 98.1 99/44 (62) 208.6 Total Intake and Output 11/08/24 11/08/24 11/09/24 15:00 23:00 07:00 Intake Total 205.038 ml 365.020 ml 558.880 ml Output Total 0 ml 105 ml Balance 205.038 ml 365.020 ml 453.880 ml medications Current Medications Medications Dose Ordered Sig/Alexander Route Start Time Stop Time Status Last Admin Dose Admin Nitroglycerin 0.4 mg Q5MINP PRN SL 10/30/24 20:00 Morphine Sulfate 2 mg Q30M PRN IV 10/30/24 20:00 Aspirin 162 mg DAILY PO 10/31/24 10:00 11/09/24 09:28 162 MG Dextrose 50 ml UD PRN IV 10/30/24 20:15 11/02/24 17:25 50 ML Ondansetron HCl 4 mg Q4HP PRN IV 10/30/24 20:15 Acetaminophen 650 mg Q6HP PRN PO 10/30/24 20:15 11/04/24 13:02 650 MG Heparin Sodium (Porcine) 5,000 units Q12HR SC 10/31/24 10:00 11/08/24 22:01 5,000 UNITS Pantoprazole Sodium 40 mg DAILY IV 11/01/24 10:00 11/09/24 09:28 40 MG Propofol 100 ml @ 3.153 mls/ hr Q24H IV 10/31/24 10:45 11/09/24 07:54 18.918 MLS/HR Fentanyl Citrate 250 ml @ 2.5 mls/hr Q24H IV 10/31/24 10:45 11/09/24 07:53 7.5 MLS/HR Norepinephrine Bitartrate 32 mg/ Sodium Chloride 250 ml @ 0.938 mls/ hr Q24H IV 10/31/24 11:00 11/09/24 07:08 0.938 MLS/HR Diagnostic Test (Pha) 1 strip Q4H 11/02/24 22:00 11/09/24 09:29 1 STRIP Insulin Human Regular Q4H SC 11/02/24 22:00 11/09/24 01:56 3 UNITS Enteral Nutritional Formula 1,000 ml 30ML/HR GT 11/03/24 12:15 11/07/24 18:16 1,000 ML Digoxin 125 mcg Q48H IV 11/03/24 14:30 11/07/24 15:28 125 MCG Hydralazine HCl 10 mg Q6HP PRN IV 11/04/24 13:30 11/07/24 12:26 10 MG Metoclopramide HCl 5 mg Q8HR IV 11/04/24 22:00 11/08/24 21:58 5 MG Calcium Acetate 1,334 mg TID NG 11/07/24 14:00 11/09/24 05:50 1,334 MG Meropenem 50 ml @ 16.667 mls/ hr HS IV 11/07/24 22:00 11/08/24 21:58 16.667 MLS/HR Lactulose 30 ml DAILYPRN PRN PO 11/08/24 13:00 Examination Physical examination as below: General: Mechanically ventilated, intubated HEENT: Head is normocephalic and atraumatic. Pupils are equal, round, and reactive to light. Significant swelling on tongue and neck, no signs of subcutaneous emphysema Neck: Supple with no cervical lymphadenopathy. Heart: Regular rate without murmur, rub, or gallop. Lungs: Equal breath sounds bilaterally with no wheezing, rales, or rhonchi. There is no chest wall tenderness or instability. Abdomen: No external sign of injury. Bowel sounds are present. Extremities: Strong peripheral pulses. There is no clubbing, no cyanosis. Significant pitting edema on right upper arm, right chest and neck, tender, no erythema. Skin: No rash. Neurologic: Sedated laboratory and microbiology Laboratory Tests 11/09/24 03:25 Test 11/09/24 03:25 Range/Units Serum Glucose 139 H 74-106 mg/dL Microbiology Date/Time Source Procedure Growth Status 10/31/24 11:05 Nose MRSA Screen - Final Complete 10/31/24 10:50 Blood Blood Culture - Final NO GROWTH AFTER 5 DAYS OF INCUBATION. Complete 10/31/24 10:45 Sputum Gram Stain - Final Complete 10/31/24 10:45 Respiratory Culture - Final Enterobacter aerogenes Complete 10/30/24 19:19 Urine - [place] Urine Culture - Final Escherichia coli - ESBL Complete Labs and/or images reviewed: Labs reviewed by me, Image(s) reviewed by me Problem List/Assessment/Plan Problem List/Assessment/Plan Neurology #Metabolic encephalopathy due to septic shock form UTI and pneumonia On fent and propofol Cardiovascular #Acute on chronic systolic CHF #Ischemic cardiomyopathy #Peripheral artery disease, s/p amputation #Hypertension, Hydralazine IV prn Aspirin Continue hemodialysis Internet Database Specialist following, [facility] today 11/09/24 Pulmonology #Acute hypoxic respiratory failure with mechanical ventilation #Pneumonia, gram (+) vs gram (-), atypicals, growing Enterobacter aeruginosa Continue Merrem MV: FIO2: 30% RR: 18 TV 450 PEEP: 5 Nephrology #ESRD on HD #Possible distal stenosis of AV fistula(right arm swelling and pitting edema) AV fistula working Continue HD Senior Medical Director following Pending fistulogram per vascular surgery We ordered ct with contrast from right upper extremity, chest and neck. We will arrange with nephrology to have HD on the same day of the ct with contrast today Endocrinology #Morbid obesity #Bilateral lower extremity BK amputation #T2DM SSI Gastroenterology Continue tube feedings: Nepro Continue reglan iv Lactulose prn #Macroglossia and neck swelling Swelling coming down Decadron given We ordered ct with contrast from right upper extremity, chest and neck. We will arrange with nephrology to have HD on the same day of the ct with contrast today Hematology and Oncology #Anemia of chronic disease Monitor Infectious Disease #Pneumonia, gram (+) vs gram (-), atypicals, growing Enterobacter aeruginosa #UTI, growing ESBL E. coli Merrem IV Dermatology DVT ppx Heparin sc PUD ppx Protonix Drips Levo held Fent Propofol Lines TLC Right femoral 10/31/24 ET tube 10/31/24 Martinez 10/31/24 Updated family members on patient's current status Goals of care were discussed for over 30 minutes. FULL CODE. Critical care time spent excluding procedures and including family meeting was 81 mins Case was discussed with Dr. Sosa Plan discussed with: Spouse, Other (RN) My Orders My Orders Orders - GAVINO MORAES Procedure Category Date Status Time Chest Portable XY 11/08/24 Resulted 11:57 Lactulose Oral PHA 11/08/24 In Process 13:[address] 11/09/24 Logged With Cont 04:[address] Cont[address] 11/09/24 Logged 04:[address] 11/09/24 Logged 04:00 Communication Order ORDERS 11/08/24 Transmitted 19:14 Chest Portable XY 11/09/24 Resulted 04:00 Abg W/ Co-Ox RT 11/09/24 Logged 04:00 Code Status CODE 11/09/24 Transmitted 06:32 Dietary Evaluation Review Comments: 1. On propofol which supply fat kcaloried at 333 kcal/day if running at 12.6ml/hr. 2.Recommend a low fat high protein TF Vital High Protein @ 40ml/hr providing 84 g Protein, and 960 kcal, 803 ml free water, if running at 24 hrs. the combined nurition support will be 84 g Protein and 1056 kcal, supporting pt's needs for protein at 76.3%, needs for energy at 134%. 3. Reasses pt's TF formulary if pt is off Popofol.but still need TF. 4. Renal standard and CCHO-75 if pt is able to have PO intake after passing a HOSIERY OPERATOR eval, Expected Outcomes/Goals: gradual wt loss. improved lab values with consistant dialysis. Date of Service: Nov 09, 2024 Billing Provider: CECILIA SOSA MD Common Visit Codes: 45193-HHJQTNTS CARE 30-74 MIN, 80513-[id number] CARE-EACH +30MIN GAVINO MORAES Nov 09, 2024 10:38 CECILIA SOSA MD Nov 11, 2024 20:31
--- NOTE | 2024-11-09 11:08 | DVHOP ---
DATE OF SURGERY: 11/09/2024 INDICATIONS: The patient who is intubated, congestive heart failure, pneumonia. Now to undergo coronary angiography to define coronary anatomy. The patient with end-stage renal disease who had gone into respiratory failure. He had infiltrative process consistent with pneumonia, was initially seen in my office, and I sent him to the Emergency Room because the patient was in respiratory distress. He was there at the office for clearance for shunt placement for renal dialysis but the patient's status rapidly declined as soon as he got into the Emergency Room, went into respiratory failure, needed to be intubated, now left heart catheterization to rule out any ischemic component for his decompensation. Risks and benefits were explained. The patient underwent: * Left heart catheterization, stent to the obtuse marginal 2 and to circumflex proximal. * FFR of obtuse marginal 2 and to circumflex proximal. * Thrombectomy Shockwave of obtuse marginal 2/AV groove circumflex and proximal circumflex. * Conscious sedation. The patient was intubated and additional sedation was given. DESCRIPTION OF PROCEDURE: The patient was prepped and draped under sterile condition. Xylocaine 1% used to anesthetize the right groin. Using Cook needle, right femoral artery was engaged with Seldinger technique, a 6-Jordanian sheath in the right femoral artery. Using 6-Jordanian JL4 catheter and 6-Jordanian JR4 catheter, selective left and right coronary angiographies were performed. Using 6-Jordanian pigtail catheter, ventriculogram was done. Then, the 6-Jordanian diagnostic system was exchanged for a 6-Jordanian interventional system. Using 6-Jordanian XB 3.5 guide catheter with side hole, left main was cannulated. Using a ChoICE PT extra support wire, the circumflex and obtuse marginal 2 or the AV groove circumflex was then crossed. It was then thrombectomized using a 3 mm x 12 mm Shockwave thrombectomy balloon. Following the deployment both in the circumflex proximal and the circumflex in the AV groove, a 3.0 x 18 mm stent was then deployed on the obtuse marginal 2/AV groove vessel. This was followed by a 3.0 x 12 mm drug-eluting Olancha Vanderburgh stent was then deployed across the proximal circumflex at 14 atmospheres. There were no complications. The patient tolerated the procedure well. RESULTS: * Left main calcified, no flow-restrictive lesion. * Left anterior descending artery, moderate diffuse disease with rapid tapering but no discrete lesions were noted at this time. * Circumflex in the AV groove had in-stent restenosis of greater than 80%-90% status post thrombectomy with stent placement with less than 10% residual stenosis with a 3.0 x 15 mm Ray Vanderburgh stent. There was greater than 60% narrowing of the proximal circumflex, status post thrombectomy with stent placement 3.0 x 12 mm Olancha Vanderburgh stent with less than 10% residual stenosis. * Right coronary artery large dominant vessel without any flow-restrictive lesion. Mild to moderate diffuse disease. However, no discrete lesions were noted. * Left ventricular function showed an EF around 45%-50% with an LVEDP of 15 mmHg. Left ventricular systolic pressure 130. No gradient across the aortic valve. Thus, the patient underwent successful revascularization of in-stent restenosis of obtuse marginal 2/vessel in the AV groove as well as angioplasty with stent placement and thrombectomy of the circumflex proximal segment. At this time, dual-antiplatelet therapy will be initiated and we will continue to follow the patient but overall the patient's current status, the patient's respiratory failure is not indicative of congestive heart failure or acute systolic decompensation. The patient's LVEDP was only 15 mmHg, left ventricular systolic pressure was around 130 with no gradient across the aortic valve. Therefore, the patient's respiratory problem and respiratory arrest is secondary to pulmonary issues as well as renal failure. Marquez Aguirre MD SA/ROB TID: [id number] RECEIPT: [id number]
[2024-11-09] MEDS: IOHEXOL 350 MG/ML 100ML IJ ONE (11:33)
--- NOTE | 2024-11-09 12:49 | DVH ---
Procedure: CT CHEST WITH CONTRAST Reason for study/Clinical History: right chest swelling Comparison Study: None available at time of dictation. Exam Date: 11/09/2024 11:28 AM Radiation Dose Information: CT Dose: CTDI volume is 29 mGy. Dose-length product is 1700 mGy*cm Contrast: Type of contrast: Omni 350 Contrast inject: 70 Contrast wasted:0 TECHNIQUE: After the uneventful administration of intravenous contrast intravenously, CT imaging was performed through the chest. Coronal and sagittal reformations were performed by the technologist. FINDINGS: Lower Neck: Visualized portions of the thyroid gland are unremarkable. Aorta and Vasculature: Normal caliber of thoracic aorta. No central pulmonary embolism. Lymph Nodes: No enlarged intrathoracic lymph nodes. Mediastinum: Heart size is normal. There is no pericardial effusion. The esophagus is unremarkable. Lungs: Multifocal pneumonia throughout both lungs. Trace bilateral pleural effusions. Musculoskeletal: No acute osseous abnormality. Upper abdomen: Limited portions of the upper abdomen are unremarkable. Endotracheal tube enteric tube are partially visualized. IMPRESSION: 1. No central pulmonary embolism. 2. Multifocal pneumonia 3. Trace bilateral pleural effusions All CT scans at this medical facility are performed using dose modulation techniques as appropriate t o a performed exam including the following: Automated exposure control was utilized; adjustment of th e MA and/or KV according to patient size; and use of iterative reconstruction technique.
--- NOTE | 2024-11-09 13:35 | DVH ---
Procedure: CT CT ANGIO NECK CONTRAST HISTORY: neck swelling Exam Date:11/09/2024 11:28 AM TECHNIQUE: CTA neck with intravenous contrast. 3D image postprocessing was performed and images were used for interpretation and reporting. Radiation Dose : CT Dose: CTDI volume is 25 mGy. Dose-length product is 250 mGy*cm FINDINGS: CTA neck: The visualized thoracic aortic arch and proximal great vessels are unremarkable. The left common, int ernal and external carotid arteries are within normal limits. The right common, internal and external carotid arteries are within normal limits. The cervical segments of the right and left vertebral art eries are within normal limits. The limited visualized lung apices are clear. The surrounding soft ti ssues and osseous structures are otherwise unremarkable. Endotracheal is visualized. Small bilateral pleural effusions. nasogastric tube visualized IMPRESSION: No evidence of hemodynamically significant cervical stenosis or dissection. CAROTID STENOSIS REFERENCE Distal internal carotid artery diameter as the denominator for stenosis measurement: MILD = <50% stenosis. MODERATE = 50-69% stenosis. SEVERE = 70-89% stenosis. CRITICAL = 90-99% stenosis. OCCLUDED = 100% stenosis. All CT scans at this medical facility are performed using dose modulation techniques as appropriate t o a performed exam including the following: Automated exposure control was utilized; adjustment of th e MA and/or KV according to patient size; and use of iterative reconstruction technique.
--- NOTE | 2024-11-09 13:38 | DVHPN2 ---
Progress Note Date Seen: Nov 09, 2024 Medical Necessity Reason Pt with a Central, PICC or Fol: Yes The following are medically ne: Central Line, Martinez Catheter Reason for martinez catheter: Strict I&O Subjective Review of Systems: RESPIRATORY:Abnormal Other Systems: Patient seen and examined by myself today in follow-up, patient remained intubated on ventilator Patient examined hemodialysis, blood pressure stable Objective vital signs Vital Sign Date Time Temp Pulse Resp B/P (MAP) Pulse Ox O2 Delivery O2 Flow Rate FiO2 11/09/24 12:45 96.6 63 18 97/46 (63) 99 205.9 11/09/24 12:45 30 11/09/24 12:00 Mechanical Ventilator+ Total Intake and Output 11/08/24 11/08/24 11/09/24 15:00 23:00 07:00 Intake Total 205.038 ml 365.020 ml 558.880 ml Output Total 0 ml 105 ml Balance 205.038 ml 365.020 ml 453.880 ml medications Current Medications Medications Dose Ordered Sig/Alexander Route Start Time Stop Time Status Last Admin Dose Admin Nitroglycerin 0.4 mg Q5MINP PRN SL 10/30/24 20:00 Morphine Sulfate 2 mg Q30M PRN IV 10/30/24 20:00 Aspirin 162 mg DAILY PO 10/31/24 10:00 11/09/24 09:28 162 MG Dextrose 50 ml UD PRN IV 10/30/24 20:15 11/02/24 17:25 50 ML Ondansetron HCl 4 mg Q4HP PRN IV 10/30/24 20:15 Acetaminophen 650 mg Q6HP PRN PO 10/30/24 20:15 11/04/24 13:02 650 MG Heparin Sodium (Porcine) 5,000 units Q12HR SC 10/31/24 10:00 11/08/24 22:01 5,000 UNITS Pantoprazole Sodium 40 mg DAILY IV 11/01/24 10:00 11/09/24 09:28 40 MG Propofol 100 ml @ 3.153 mls/ hr Q24H IV 10/31/24 10:45 11/09/24 12:57 18.918 MLS/HR Fentanyl Citrate 250 ml @ 2.5 mls/hr Q24H IV 10/31/24 10:45 11/09/24 07:53 7.5 MLS/HR Norepinephrine Bitartrate 32 mg/ Sodium Chloride 250 ml @ 0.938 mls/ hr Q24H IV 10/31/24 11:00 11/09/24 07:08 0.938 MLS/HR Diagnostic Test (Pha) 1 strip Q4H 11/02/24 22:00 11/09/24 09:29 1 STRIP Insulin Human Regular Q4H SC 11/02/24 22:00 11/09/24 01:56 3 UNITS Enteral Nutritional Formula 1,000 ml 30ML/HR GT 11/03/24 12:15 11/07/24 18:16 1,000 ML Digoxin 125 mcg Q48H IV 11/03/24 14:30 11/07/24 15:28 125 MCG Hydralazine HCl 10 mg Q6HP PRN IV 11/04/24 13:30 11/07/24 12:26 10 MG Metoclopramide HCl 5 mg Q8HR IV 11/04/24 22:00 11/08/24 21:58 5 MG Calcium Acetate 1,334 mg TID NG 11/07/24 14:00 11/09/24 05:50 1,334 MG Meropenem 50 ml @ 16.667 mls/ hr HS IV 11/07/24 22:00 11/08/24 21:58 16.667 MLS/HR Lactulose 30 ml DAILYPRN PRN PO 11/08/24 13:00 Examination: LUNGS:Normal, CVS:Normal, MSK:Abnormal laboratory and microbiology Laboratory Tests 11/09/24 03:25 Test 11/09/24 03:25 Range/Units Serum Glucose 139 H 74-106 mg/dL Microbiology Date/Time Source Procedure Growth Status 10/31/24 11:05 Nose MRSA Screen - Final Complete 10/31/24 10:50 Blood Blood Culture - Final NO GROWTH AFTER 5 DAYS OF INCUBATION. Complete 10/31/24 10:45 Sputum Gram Stain - Final Complete 10/31/24 10:45 Respiratory Culture - Final Enterobacter aerogenes Complete 10/30/24 19:19 Urine - [place] Urine Culture - Final Escherichia coli - ESBL Complete Problem List/Assessment/Plan Problem List/Assessment/Plan ESRD on hemodialysis Right upper extremity swelling Acute respiratory failure, patient intubated on ventilator Morbid obesity NSTEMI Congestive heart failure Diabetes mellitus type 2 Anemia of chronic kidney disease Peripheral arterial disease ESBL UTI Status post bilateral below-knee amputation Recommendations Continue with UF to 3 L as tolerated Epogen 32791 subQ 3 times weekly Albumin 25% p.r.n. hemodialysis Fluid restriction Nepro tube feeding Blood pressure control Insulin sliding scale IV antibiotics We will continue to follow Plan discussed with: Other (Nurse) Dietary Evaluation Review Comments: 1. On propofol which supply fat kcaloried at 333 kcal/day if running at 12.6ml/hr. 2.Recommend a low fat high protein TF Vital High Protein @ 40ml/hr providing 84 g Protein, and 960 kcal, 803 ml free water, if running at 24 hrs. the combined nurition support will be 84 g Protein and 1056 kcal, supporting pt's needs for protein at 76.3%, needs for energy at 134%. 3. Reasses pt's TF formulary if pt is off Popofol.but still need TF. 4. Renal standard and CCHO-75 if pt is able to have PO intake after passing a SENIOR CONTROLS ENGINEER eval, Expected Outcomes/Goals: gradual wt loss. improved lab values with consistant dialysis. BERTHA LAKE MD Nov 09, 2024 13:38
--- NOTE | 2024-11-09 15:03 | DVH ---
INDICATION: right upper extremity edema COMPARISON: None TECHNIQUE: CT of the right upper extremity was performed with intravenous contrast. Volume transverse images were obtained and reconstructed in multiple planes using bone and soft tissue algorithms. Radiation Dose Information: CT Dose: CTDI volume is 26.01 mGy. Dose-length product is 1892.28 mGy*cm FINDINGS: The alignment is normal. The joint spaces are normal. There is no fracture, dislocation or aggressive osseous lesion. There is no joint effusion. Filling defect is present in the right proximal subclavian vein / superior vena cava. Diffuse subcutaneous soft-tissue edema and swelling. IMPRESSION: Nonocclusive filling defect in the right proximal subclavian vein/ superior vena cava junction. Diffuse subcutaneous soft-tissue edema and swelling. All CT scans at this medical facility are performed using dose modulation techniques as appropriate t o a performed exam including the following: Automated exposure control was utilized; adjustment of th e MA and/or KV according to patient size; and use of iterative reconstruction technique.
[2024-11-09] MEDS: EPOETIN ALFA-EPBX 10,000 UNIT/1ML VIAL SC ONE (21:49)
[2024-11-10] VITALS (109 sets, daily range): BP systolic 85–166; BP diastolic 37–96; PULSE 59–102; RESP 10–28; TEMP 97.5–99.3; O2SAT 91–100
[2024-11-10 04:35] LABS: Basophils # (auto) 0 10 ^3/uL (0-0.2); Basophils % (auto) 0.4 % (0.0-2.0); Eosinophils # (auto) 0.3 10 ^3/uL (0-0.8); Eosinophils % (auto) 2.4 % (0.0-7.0); Hematocrit 30.2 % (41.0-53.0); Hemoglobin 9.9 g/dL (13.5-17.5); Lymphocytes # (auto) 1.9 10 ^3/uL (0.4-5.4); Lymphocytes % (auto) 15.6 % (10.0-50.0); Mean Corpuscular Hemoglobin 29.7 pg (28.0-32.0); Mean Corpuscular Hgb Conc. 32.9 g/dL (32.0-36.0); Mean Corpuscular Volume 90.3 fL (80.0-100.0); Monocytes # (auto) 1.4 10 ^3/uL (0-1.3); Monocytes % (auto) 11.5 % (0.0-12.0); Neutrophils # (auto) 8.5 10 ^3/uL (1.6-8.6); Neutrophils % (auto) 70.1 % (37.0-80.0); Nucleated Red Blood Cells % 0.1 %; Platelet Count (auto) 353 10^3/uL (140-450); Red Blood Cells 3.35 10^6/uL (4.5-5.90); White Blood Cell 12.2 10^3/uL (4.4-10.8)
[2024-11-10 04:54] LABS: Alanine Aminotransferase 13 U/L (7-40); Albumin 4.2 g/dL (3.2-4.8); Alkaline Phosphatase 80 U/L (46-116); Anion Gap 13 (5-15); Aspartate Aminotransferase 21 U/L (13-40); BUN/Creatinine Ratio 6.1 (10.0-20.0); Calcium 9.7 mg/dL (8.7-10.4); Carbon Dioxide 28 mmol/L (20-31); Glucose 105 mg/dL (74-106); Potassium 4.1 mmol/L (3.5-5.1); Total Protein 7.3 g/dL (5.7-8.2)
[2024-11-10 05:01] LABS: Bilirubin, Total 0.2 mg/dL (0.2-1.0); Blood Urea Nitrogen 35 mg/dL (9-23); Chloride 95 mmol/L (98-107); Sodium 136 mmol/L (136-145)
--- NOTE | 2024-11-10 05:44 | DVH ---
EXAM: XR Chest, 1 View CLINICAL INDICATION: Acute resp failure TECHNIQUE: Frontal view of the chest. COMPARISON: XY CHEST PORTABLE on DOS: 11/09/24, XY CHEST PORTABLE on DOS: 11/08/24, XY CHEST PORTABLE on DOS: 11/08/24, XY CHEST PORTABLE on DOS: 11/07/24, XY CHEST PORTABLE on DOS: 11/06/24 FINDINGS: LUNGS AND PLEURAL SPACES: See below. HEART: Cardiomegaly with mild congestion. MEDIASTINUM: Unremarkable. Normal mediastinal contour. BONES/JOINTS: Unremarkable. No acute fracture. TUBES, LINES AND DEVICES: The endotracheal tube (ETT) is in satisfactory position. Left internal j ugular central venous catheter tip in the superior vena cava. OTHER FINDINGS: . . .. IMPRESSION: Cardiomegaly with mild congestion.
[2024-11-10 06:37] LABS: Base Excess 4.1 mmol/L (-2.0-3.0)
--- NOTE | 2024-11-10 07:50 | DVHPN2 ---
Progress Note - Dictate Date Seen: Nov 10, 2024 Medical Necessity Reason Pt with a Central, PICC or Fol: Yes The following are medically ne: Central Line, Martinez Catheter Reason for martinez catheter: Strict I&O Subjective PT WAS SEEN IN CLINICAL RESP DISTRESS DIFFUSE WHEEZING PMH HFrEF CHRONIC ISCHEMIC CM PAD BILATERAL LE AMPUTEE DIABETES VASCULOPATHY NEPHROPATHY NEUROPATHY HD ESRD vital signs Vital Sign Date Time Temp Pulse Resp B/P (MAP) Pulse Ox O2 Delivery O2 Flow Rate FiO2 11/10/24 07:38 73 18 93/41 (58) 97 30 11/10/24 06:45 98.8 209.8 11/10/24 06:00 Mechanical Ventilator+ Total Intake and Output 11/09/24 11/09/24 11/10/24 15:00 23:00 07:00 Intake Total 241.514 ml 284.894 ml 521.588 ml Output Total 5 ml 100 ml Balance 241.514 ml 279.894 ml 421.588 ml medications Current Medications Medications Dose Ordered Sig/Alexander Route Start Time Stop Time Status Last Admin Dose Admin Nitroglycerin 0.4 mg Q5MINP PRN SL 10/30/24 20:00 Morphine Sulfate 2 mg Q30M PRN IV 10/30/24 20:00 Aspirin 162 mg DAILY PO 10/31/24 10:00 11/09/24 09:28 162 MG Dextrose 50 ml UD PRN IV 10/30/24 20:15 11/02/24 17:25 50 ML Ondansetron HCl 4 mg Q4HP PRN IV 10/30/24 20:15 Acetaminophen 650 mg Q6HP PRN PO 10/30/24 20:15 11/04/24 13:02 650 MG Heparin Sodium (Porcine) 5,000 units Q12HR SC 10/31/24 10:00 11/09/24 21:51 5,000 UNITS Pantoprazole Sodium 40 mg DAILY IV 11/01/24 10:00 11/09/24 09:28 40 MG Propofol 100 ml @ 3.153 mls/ hr Q24H IV 10/31/24 10:45 11/10/24 03:40 25.224 MLS/HR Fentanyl Citrate 250 ml @ 2.5 mls/hr Q24H IV 10/31/24 10:45 11/10/24 03:39 7.5 MLS/HR Norepinephrine Bitartrate 32 mg/ Sodium Chloride 250 ml @ 0.938 mls/ hr Q24H IV 10/31/24 11:00 11/09/24 07:08 0.938 MLS/HR Diagnostic Test (Pha) 1 strip Q4H 11/02/24 22:00 11/10/24 06:05 1 STRIP Insulin Human Regular Q4H SC 11/02/24 22:00 11/09/24 01:56 3 UNITS Enteral Nutritional Formula 1,000 ml 30ML/HR GT 11/03/24 12:15 11/09/24 17:52 1,000 ML Digoxin 125 mcg Q48H IV 11/03/24 14:30 11/07/24 15:28 125 MCG Hydralazine HCl 10 mg Q6HP PRN IV 11/04/24 13:30 11/07/24 12:26 10 MG Metoclopramide HCl 5 mg Q8HR IV 11/04/24 22:00 11/10/24 06:01 5 MG Calcium Acetate 1,334 mg TID NG 11/07/24 14:00 11/10/24 05:58 1,334 MG Meropenem 50 ml @ 16.667 mls/ hr HS IV 11/07/24 22:00 11/09/24 21:42 16.667 MLS/HR Lactulose 30 ml DAILYPRN PRN PO 11/08/24 13:00 laboratory and microbiology Laboratory Tests 11/10/24 03:00 Test 11/10/24 03:00 Range/Units Serum Glucose 105 74-106 mg/dL Problem List RESP DISTRESS DIFFUSE WHEEZING PMH HFrEF CHRONIC ISCHEMIC CM PAD BILATERAL LE AMPUTEE DIABETES VASCULOPATHY NEPHROPATHY NEUROPATHY HD ESRD ANEMIA HYPERKALEMIA Assessment/Plan DIALYSIS ABX CORRECT LYTES ECHO S/P DIALYSIS 4L OUT CHECK BNP REPEAT CXR COMPLETE OPACIFICATION OF BOTH LUNGS CXR WITH PT UPRIGHT CONSIDER BRONCHOSCOPY CONSIDER LEFT HEART CATH SIGNIFICANT IMPROVEMENT IN VASCULAR CONGESTION ON CXR CONT DIALYSIS ADD VERQUVO START DIG TITRATE ON VERQUVO LHC * Left main calcified, no flow-restrictive lesion. * Left anterior descending artery, moderate diffuse disease with rapid tapering but no discrete lesions were noted at this time. * Circumflex in the AV groove had in-stent restenosis of greater than 80%-90% status post thrombectomy with stent placement with less than 10% residual stenosis with a 3.0 x 15 mm [place] stent. There was greater than 60% narrowing of the proximal circumflex, status post thrombectomy with stent placement 3.0 x 12 mm [place] stent with less than 10% residual stenosis. * Right coronary artery large dominant vessel without any flow-restrictive lesion. Mild to moderate diffuse disease. However, no discrete lesions were noted. * Left ventricular function showed an EF around 45%-50% with an LVEDP of 15 mmHg. Left ventricular systolic pressure 130. No gradient across the aortic valve. Thus, the patient underwent successful revascularization of in-stent restenosis of obtuse marginal 2/vessel in the AV groove as well as angioplasty with stent placement and thrombectomy of the circumflex proximal segment. At this time, dual-antiplatelet therapy will be initiated and we will continue to follow the patient but overall the patient's current status, the patient's respiratory failure is not indicative of congestive heart failure or acute systolic decompensation. The patient's LVEDP was only 15 mmHg, left ventricular systolic pressure was around 130 with no gradient across the aortic valve. Therefore, the patient's respiratory problem and respiratory arrest is secondary to pulmonary issues as well as renal failure. CXR SIGNIFICANT IMPROVEMENT PCWP NORMAL ELEVATED WBC START WEANING PT Dietary Evaluation Review Comments: 1. On propofol which supply fat kcaloried at 333 kcal/day if running at 12.6ml/hr. 2.Recommend a low fat high protein TF Vital High Protein @ 40ml/hr providing 84 g Protein, and 960 kcal, 803 ml free water, if running at 24 hrs. the combined nurition support will be 84 g Protein and 1056 kcal, supporting pt's needs for protein at 76.3%, needs for energy at 134%. 3. Reasses pt's TF formulary if pt is off Popofol.but still need TF. 4. Renal standard and CCHO-75 if pt is able to have PO intake after passing a [facility] eval, Expected Outcomes/Goals: gradual wt loss. improved lab values with consistant dialysis. Plan discussed with: Patient Critical Care Time(min): 35 YESICA YORK MD Nov 10, 2024 07:50
[2024-11-10] MEDS: CLOPIDOGREL BISULFATE 75 MG TAB PO SCH (10:41)
--- NOTE | 2024-11-10 11:07 | DVHPN2 ---
Progress Note Date Seen: Nov 10, 2024 Medical Necessity Reason Pt with a Central, PICC or Fol: Yes The following are medically ne: Central Line, Martinez Catheter Reason for martinez catheter: Strict I&O Subjective Review of Systems: RESPIRATORY:Abnormal Other Systems: Patient seen and examined by myself today in follow-up, patient remained intubated on ventilator Objective vital signs Vital Sign Date Time Temp Pulse Resp B/P (MAP) Pulse Ox O2 Delivery O2 Flow Rate FiO2 11/10/24 09:45 98.2 69 19 113/45 (67) 99 208.8 11/10/24 08:00 Mechanical Ventilator+ 30 30 Total Intake and Output 11/09/24 11/09/24 11/10/24 14:59 22:59 06:59 Intake Total 243.729 ml 279.526 ml 554.312 ml Output Total 5 ml 100 ml Balance 243.729 ml 274.526 ml 454.312 ml medications Current Medications Medications Dose Ordered Sig/Alexander Route Start Time Stop Time Status Last Admin Dose Admin Nitroglycerin 0.4 mg Q5MINP PRN SL 10/30/24 20:00 Morphine Sulfate 2 mg Q30M PRN IV 10/30/24 20:00 Aspirin 162 mg DAILY PO 10/31/24 10:00 11/10/24 10:41 162 MG Dextrose 50 ml UD PRN IV 10/30/24 20:15 11/02/24 17:25 50 ML Ondansetron HCl 4 mg Q4HP PRN IV 10/30/24 20:15 Acetaminophen 650 mg Q6HP PRN PO 10/30/24 20:15 11/04/24 13:02 650 MG Pantoprazole Sodium 40 mg DAILY IV 11/01/24 10:00 11/10/24 10:40 40 MG Propofol 100 ml @ 3.153 mls/ hr Q24H IV 10/31/24 10:45 11/10/24 07:48 25.224 MLS/HR Fentanyl Citrate 250 ml @ 2.5 mls/hr Q24H IV 10/31/24 10:45 11/10/24 03:39 7.5 MLS/HR Norepinephrine Bitartrate 32 mg/ Sodium Chloride 250 ml @ 0.938 mls/ hr Q24H IV 10/31/24 11:00 11/09/24 07:08 0.938 MLS/HR Diagnostic Test (Pha) 1 strip Q4H 11/02/24 22:00 11/10/24 10:48 1 STRIP Insulin Human Regular Q4H SC 11/02/24 22:00 11/09/24 01:56 3 UNITS Enteral Nutritional Formula 1,000 ml 30ML/HR GT 11/03/24 12:15 11/09/24 17:52 1,000 ML Digoxin 125 mcg Q48H IV 11/03/24 14:30 11/07/24 15:28 125 MCG Hydralazine HCl 10 mg Q6HP PRN IV 11/04/24 13:30 11/07/24 12:26 10 MG Metoclopramide HCl 5 mg Q8HR IV 11/04/24 22:00 11/10/24 06:01 5 MG Calcium Acetate 1,334 mg TID NG 11/07/24 14:00 11/10/24 05:58 1,334 MG Meropenem 50 ml @ 16.667 mls/ hr HS IV 11/07/24 22:00 11/09/24 21:42 16.667 MLS/HR Lactulose 30 ml DAILYPRN PRN PO 11/08/24 13:00 Clopidogrel Bisulfate 75 mg DAILY PO 11/10/24 10:00 11/10/24 10:41 75 MG Heparin Sodium/ Dextrose 250 ml @ 16.11 mls/ hr [id number] IV 11/10/24 11:00 UNV Examination: LUNGS:Normal, CVS:Normal, MSK:Abnormal laboratory and microbiology Laboratory Tests 11/10/24 03:00 Test 11/10/24 03:00 Range/Units Serum Glucose 105 74-106 mg/dL Microbiology Date/Time Source Procedure Growth Status 10/31/24 11:05 Nose MRSA Screen - Final Complete 10/31/24 10:50 Blood Blood Culture - Final NO GROWTH AFTER 5 DAYS OF INCUBATION. Complete 10/31/24 10:45 Sputum Gram Stain - Final Complete 10/31/24 10:45 Respiratory Culture - Final Enterobacter aerogenes Complete 10/30/24 19:19 Urine - [place] Urine Culture - Final Escherichia coli - ESBL Complete Problem List/Assessment/Plan Problem List/Assessment/Plan ESRD on hemodialysis Right upper extremity right neck and tongue swelling swelling rule out SVC syndrome Acute respiratory failure, patient intubated on ventilator Morbid obesity NSTEMI Congestive heart failure Diabetes mellitus type 2 Anemia of chronic kidney disease Peripheral arterial disease ESBL UTI Status post bilateral below-knee amputation Recommendations Hemodialysis tomorrow Epogen 15955 subQ 3 times weekly Albumin 25% p.r.n. hemodialysis Fluid restriction Nepro tube feeding Blood pressure control Insulin sliding scale IV antibiotics CT angiogram of the chest We will continue to follow Plan discussed with: Other (Nurse) Dietary Evaluation Review Comments: 1. On propofol which supply fat kcaloried at 333 kcal/day if running at 12.6ml/hr. 2.Recommend a low fat high protein TF Vital High Protein @ 40ml/hr providing 84 g Protein, and 960 kcal, 803 ml free water, if running at 24 hrs. the combined nurition support will be 84 g Protein and 1056 kcal, supporting pt's needs for protein at 76.3%, needs for energy at 134%. 3. Reasses pt's TF formulary if pt is off Popofol.but still need TF. 4. Renal standard and CCHO-75 if pt is able to have PO intake after passing a DATA MANAGEMENT eval, Expected Outcomes/Goals: gradual wt loss. improved lab values with consistant dialysis. BERTHA LAKE MD Nov 10, 2024 11:07
[2024-11-10] MEDS: HEPARIN SODIUM (PORCINE) 5000 UNITS/ML 1ML VIAL IV ONE (12:06)
[2024-11-10] MEDS: HEPARIN DRIP/D5W 100UNITS/ML 250 ML IV SCH (12:21)
[2024-11-10 12:28] LABS: INR 1.13 (0.9-1.15); Partial Thromboplastin Time 29.6 SEC (24.5-34.5); Prothrombin Time 11.8 sec (9.3-11.8)
--- NOTE | 2024-11-10 13:31 | DVHPNRES ---
Progress Note Date Seen: Nov 10, 2024 Resident Creating Document: GAVINO MORAES RESIDENT Medical Necessity Reason Pt with a Central, PICC or Fol: Yes The following are medically ne: Central Line, Martinez Catheter Reason for martinez catheter: Strict I&O Subjective Review of Systems Patient was seen and examined at bedside. He remains on mechanical ventilator, minimal vent settings. He is off vasopressors. He is on fentanyl and propofol. Consulted IR for AV fisulta stenosis and trombus in right SV and brachiocephalic Objective vital signs Vital Sign Date Time Temp Pulse Resp B/P (MAP) Pulse Ox O2 Delivery O2 Flow Rate FiO2 11/10/24 12:45 98.4 77 18 108/43 (64) 97 209.1 11/10/24 12:02 30 11/10/24 11:42 Mechanical Ventilator+ Total Intake and Output 11/09/24 11/09/24 11/10/24 15:00 23:00 07:00 Intake Total 241.514 ml 284.894 ml 554.312 ml Output Total 5 ml 100 ml Balance 241.514 ml 279.894 ml 454.312 ml medications Current Medications Medications Dose Ordered Sig/Alexander Route Start Time Stop Time Status Last Admin Dose Admin Nitroglycerin 0.4 mg Q5MINP PRN SL 10/30/24 20:00 Morphine Sulfate 2 mg Q30M PRN IV 10/30/24 20:00 Aspirin 162 mg DAILY PO 10/31/24 10:00 11/10/24 10:41 162 MG Dextrose 50 ml UD PRN IV 10/30/24 20:15 11/02/24 17:25 50 ML Ondansetron HCl 4 mg Q4HP PRN IV 10/30/24 20:15 Acetaminophen 650 mg Q6HP PRN PO 10/30/24 20:15 11/04/24 13:02 650 MG Pantoprazole Sodium 40 mg DAILY IV 11/01/24 10:00 11/10/24 10:40 40 MG Propofol 100 ml @ 3.153 mls/ hr Q24H IV 10/31/24 10:45 11/10/24 11:52 25.224 MLS/HR Fentanyl Citrate 250 ml @ 2.5 mls/hr Q24H IV 10/31/24 10:45 11/10/24 03:39 7.5 MLS/HR Norepinephrine Bitartrate 32 mg/ Sodium Chloride 250 ml @ 0.938 mls/ hr Q24H IV 10/31/24 11:00 11/09/24 07:08 0.938 MLS/HR Diagnostic Test (Pha) 1 strip Q4H 11/02/24 22:00 11/10/24 10:48 1 STRIP Insulin Human Regular Q4H SC 11/02/24 22:00 11/09/24 01:56 3 UNITS Enteral Nutritional Formula 1,000 ml 30ML/HR GT 11/03/24 12:15 11/09/24 17:52 1,000 ML Digoxin 125 mcg Q48H IV 11/03/24 14:30 11/07/24 15:28 125 MCG Hydralazine HCl 10 mg Q6HP PRN IV 11/04/24 13:30 11/07/24 12:26 10 MG Metoclopramide HCl 5 mg Q8HR IV 11/04/24 22:00 11/10/24 06:01 5 MG Calcium Acetate 1,334 mg TID NG 11/07/24 14:00 11/10/24 05:58 1,334 MG Meropenem 50 ml @ 16.667 mls/ hr HS IV 11/07/24 22:00 11/09/24 21:42 16.667 MLS/HR Lactulose 30 ml DAILYPRN PRN PO 11/08/24 13:00 Clopidogrel Bisulfate 75 mg DAILY PO 11/10/24 10:00 11/10/24 10:41 75 MG Heparin Sodium/ Dextrose 250 ml @ 16 mls/hr [id number] IV 11/10/24 12:00 11/10/24 12:46 16 MLS/HR Examination Physical examination as below: General: Mechanically ventilated, intubated HEENT: Head is normocephalic and atraumatic. Pupils are equal, round, and reactive to light. Significant swelling on tongue and neck, no signs of subcutaneous emphysema Neck: Supple with no cervical lymphadenopathy. Heart: Regular rate without murmur, rub, or gallop. Lungs: Equal breath sounds bilaterally with no wheezing, rales, or rhonchi. There is no chest wall tenderness or instability. Abdomen: No external sign of injury. Bowel sounds are present. Extremities: Strong peripheral pulses. There is no clubbing, no cyanosis. Significant pitting edema on right upper arm, right chest and neck, tender, no erythema. Skin: No rash. Neurologic: Sedated laboratory and microbiology Laboratory Tests 11/10/24 03:00 Test 11/10/24 03:00 Range/Units Serum Glucose 105 74-106 mg/dL Microbiology Date/Time Source Procedure Growth Status 10/31/24 11:05 Nose MRSA Screen - Final Complete 10/31/24 10:50 Blood Blood Culture - Final NO GROWTH AFTER 5 DAYS OF INCUBATION. Complete 10/31/24 10:45 Sputum Gram Stain - Final Complete 10/31/24 10:45 Respiratory Culture - Final Enterobacter aerogenes Complete 10/30/24 19:19 Urine - [place] Urine Culture - Final Escherichia coli - ESBL Complete Labs and/or images reviewed: Labs reviewed by me, Image(s) reviewed by me Problem List/Assessment/Plan Problem List/Assessment/Plan Neurology #Metabolic encephalopathy due to septic shock form UTI and pneumonia On fent and propofol Cardiovascular #Acute on chronic systolic CHF #Ischemic cardiomyopathy #Peripheral artery disease, s/p amputation #Hypertension, Hydralazine IV prn Aspirin Continue hemodialysis Radiology Aide following, [facility] today 11/09/24 Pulmonology #Acute hypoxic respiratory failure with mechanical ventilation #Pneumonia, gram (+) vs gram (-), atypicals, growing Enterobacter aeruginosa Continue Merrem MV: FIO2: 30% RR: 18 TV 450 PEEP: 5 Nephrology #ESRD on HD # distal stenosis of AV fistula(right arm swelling and pitting edema) #right subclavian vein thrombus AV fistula working Continue HD [place] following consulted IR for intervention on av fisulta stenosis and right subclavian thrombus, scheduled for wednesday Endocrinology #Morbid obesity #Bilateral lower extremity BK amputation #T2DM SSI Gastroenterology Continue tube feedings: Nepro Continue reglan iv Lactulose prn #Macroglossia and neck swelling due to av fistula stenosis and clot on subclavian Hematology and Oncology #Anemia of chronic disease Monitor Infectious Disease #Pneumonia, gram (+) vs gram (-), atypicals, growing Enterobacter aeruginosa #UTI, growing ESBL E. coli Merrem IV Dermatology DVT ppx Heparin sc PUD ppx Protonix Drips Levo held Fent Propofol Lines TLC Right femoral 10/31/24 ET tube 10/31/24 Martinez 10/31/24 Updated family members on patient's current status Discussed with spouse about possibility of tracheostomy after angioplasty on wednesday Goals of care were discussed for over 30 minutes. FULL CODE. Critical care time spent excluding procedures and including family meeting was 79 mins Case was discussed with Dr. Aguilar Plan discussed with: Spouse, Other (RN) My Orders My Orders Orders - GAVINO MORAES RESIDENT Procedure Category Date Status Time Chest Portable XY 11/10/24 Resulted 04:16 Abg W/ Co-Ox RT 11/10/24 Logged 06:24 Clopidogrel Bisulfate PHA 11/10/24 In Process (Plavix) 10:00 * Radiologist Consult CONS 11/10/24 Transmitted 10:58 Platelet Monitoring [facility] 11/10/24 In Process 10:58 Vte Protocol Initiated [facility] 11/10/24 In Process 10:58 Heparin Per [facility] 11/10/24 In Process Standardized Proce 10:58 Discontinue All Im [facility] 11/10/24 In Process Injections 10:58 Heparin Drip/D5w PHA 11/10/24 In Process 100units/Ml 12:00 Heparin Per Pharmacy [facility] 11/10/24 In Process Protocol 11:37 PTPTT LAB 11/10/24 Logged 18:00 Dietary Evaluation Review Comments: 1. On propofol which supply fat kcaloried at 333 kcal/day if running at 12.6ml/hr. 2.Recommend a low fat high protein TF Vital High Protein @ 40ml/hr providing 84 g Protein, and 960 kcal, 803 ml free water, if running at 24 hrs. the combined nurition support will be 84 g Protein and 1056 kcal, supporting pt's needs for protein at 76.3%, needs for energy at 134%. 3. Reasses pt's TF formulary if pt is off Popofol.but still need TF. 4. Renal standard and CCHO-75 if pt is able to have PO intake after passing a CERTIFIED PEDORTHOTIST eval, Expected Outcomes/Goals: gradual wt loss. improved lab values with consistant dialysis. GAVINO MORAES RESIDENT Nov 10, 2024 13:31
[2024-11-10 21:14] LABS: Basophils # (auto) 0.1 10 ^3/uL (0-0.2); Basophils % (auto) 0.7 % (0.0-2.0); Eosinophils # (auto) 0.4 10 ^3/uL (0-0.8); Hematocrit 28.1 % (41.0-53.0); Hemoglobin 8.8 g/dL (13.5-17.5); Lymphocytes # (auto) 1.5 10 ^3/uL (0.4-5.4); Lymphocytes % (auto) 13.9 % (10.0-50.0); Mean Corpuscular Hemoglobin 28.1 pg (28.0-32.0); Mean Corpuscular Hgb Conc. 31.3 g/dL (32.0-36.0); Mean Corpuscular Volume 89.9 fL (80.0-100.0); Monocytes # (auto) 1.4 10 ^3/uL (0-1.3); Monocytes % (auto) 12.4 % (0.0-12.0); Neutrophils # (auto) 7.6 10 ^3/uL (1.6-8.6); Nucleated Red Blood Cells % 0.1 %; Platelet Count (auto) 330 10^3/uL (140-450); Red Blood Cells 3.12 10^6/uL (4.5-5.90)
[2024-11-10 21:49] LABS: INR 1.19 (0.9-1.15); Prothrombin Time 12.4 sec (9.3-11.8)
[2024-11-10 21:51] LABS: Partial Thromboplastin Time 122.2 SEC (24.5-34.5)
[2024-11-11] VITALS (105 sets, daily range): BP systolic 78–185; BP diastolic 33–66; PULSE 63–85; RESP 11–42; TEMP 95.2–99.3; O2SAT 94–100
[2024-11-11 04:49] LABS: Basophils # (auto) 0 10 ^3/uL (0-0.2); Basophils % (auto) 0.2 % (0.0-2.0); Eosinophils # (auto) 0.6 10 ^3/uL (0-0.8); Eosinophils % (auto) 3.9 % (0.0-7.0); Hematocrit 28.3 % (41.0-53.0); Lymphocytes # (auto) 1.7 10 ^3/uL (0.4-5.4); Mean Corpuscular Hemoglobin 28.4 pg (28.0-32.0); Mean Corpuscular Hgb Conc. 31.7 g/dL (32.0-36.0); Mean Corpuscular Volume 89.6 fL (80.0-100.0); Monocytes # (auto) 1.8 10 ^3/uL (0-1.3); Monocytes % (auto) 12.5 % (0.0-12.0); Neutrophils # (auto) 10.4 10 ^3/uL (1.6-8.6); Neutrophils % (auto) 71.4 % (37.0-80.0); Nucleated Red Blood Cells % 0.1 %; Platelet Count (auto) 370 10^3/uL (140-450); Red Blood Cells 3.16 10^6/uL (4.5-5.90); Red Cell Distribution Width 17.5 % (11.8-14.3); White Blood Cell 14.6 10^3/uL (4.4-10.8)
[2024-11-11 05:08] LABS: Alanine Aminotransferase 10 U/L (7-40); Albumin 3.7 g/dL (3.2-4.8); Alkaline Phosphatase 78 U/L (46-116); Anion Gap 13 (5-15); Aspartate Aminotransferase 20 U/L (13-40); BUN/Creatinine Ratio 7.1 (10.0-20.0); Calcium 9.2 mg/dL (8.7-10.4); Carbon Dioxide 26 mmol/L (20-31); Magnesium 2.6 mg/dL (1.6-2.6); Total Protein 6.5 g/dL (5.7-8.2)
[2024-11-11 05:54] LABS: Bilirubin, Total < 0.2 mg/dL (0.2-1.0); Blood Urea Nitrogen 53 mg/dL (9-23); Chloride 94 mmol/L (98-107); Glucose 145 mg/dL (74-106); Sodium 133 mmol/L (136-145)
--- NOTE | 2024-11-11 06:40 | DVH ---
INDICATION: sob TECHNIQUE: Frontal view of the chest. COMPARISON: XY CHEST PORTABLE on DOS: 11/10/24, XY CHEST PORTABLE on DOS: 11/09/24, XY CHEST PORTABLE o n DOS: 11/08/24, XY CHEST PORTABLE on DOS: 11/08/24, XY CHEST PORTABLE on DOS: 11/07/24, XY CHEST PORTABLE on DOS: 11/10/24 FINDINGS: LUNGS AND PLEURAL SPACES: See below. HEART: Cardiomegaly with mild congestion. MEDIASTINUM: Unremarkable. Normal mediastinal contour. BONES/JOINTS: Unremarkable. No acute fracture. TUBES, LINES AND DEVICES: The endotracheal tube (ETT) is in satisfactory position. Left internal j ugular central venous catheter tip in the superior vena cava. IMPRESSION: Cardiomegaly with mild congestion.
[2024-11-11] MEDS: HEPARIN DRIP/D5W 100UNITS/ML 250 ML IV SCH (06:45)
[2024-11-11 07:15] LABS: Base Excess 1.2 mmol/L (-2.0-3.0)
--- NOTE | 2024-11-11 09:37 | DVHPN2 ---
Subjective Patient chemically sedated Reviewed: Care Plan, H&P, Medications, Previous Orders Changes from previous H/P or p: No Changes General: Per HPI Objective Vitals Vital Signs Date Time Temp Pulse Resp B/P (MAP) Pulse Ox O2 Delivery O2 Flow Rate FiO2 11/11/24 08:11 105/46 11/11/24 06:45 74 18 97 11/11/24 06:01 30 11/11/24 06:00 Mechanical Ventilator+ 11/11/24 04:45 98.1 208.6 Intake/Output Intake and Output 11/11/24 07:00 Intake Total 1603.148 ml Output Total 115 ml Balance 1488.148 ml Intake Oral 120 ml IV Total 963.148 ml Tube Feeding 520 ml Output Urine Total 15 ml Gastric Drainage Total 100 ml General Appearance: Other (Chemically sedated) HEENT: Atraumatic, PERRLA, EOMI Lungs: Clear to auscultation, Normal air movement, Other (Mechanical ventilation) Cardiovascular: Regular rate, Normal S1, Normal S2 Abdomen: Normal bowel sounds, Soft, No tenderness Genitourinary: No Apparent Abnormalities (Barbour catheter) Musculoskeletal: Normal sensory function, Normal motor function Extremities: Other (Bilateral lower extremity amputation) Skin: Dry, Intact Psych/Mental Status: Other (Unable to assess) Medications Current Medications Medications Dose Ordered Sig/Alexander Route Start Time Stop Time Status Last Admin Dose Admin Nitroglycerin 0.4 mg Q5MINP PRN SL 10/30/24 20:00 Morphine Sulfate 2 mg Q30M PRN IV 10/30/24 20:00 Aspirin 162 mg DAILY PO 10/31/24 10:00 11/11/24 09:11 162 MG Dextrose 50 ml UD PRN IV 10/30/24 20:15 11/02/24 17:25 50 ML Ondansetron HCl 4 mg Q4HP PRN IV 10/30/24 20:15 Acetaminophen 650 mg Q6HP PRN PO 10/30/24 20:15 11/04/24 13:02 650 MG Pantoprazole Sodium 40 mg DAILY IV 11/01/24 10:00 11/11/24 09:08 40 MG Propofol 100 ml @ 3.153 mls/ hr Q24H IV 10/31/24 10:45 11/11/24 08:11 25.224 MLS/HR Fentanyl Citrate 250 ml @ 2.5 mls/hr Q24H IV 10/31/24 10:45 11/10/24 03:39 7.5 MLS/HR Norepinephrine Bitartrate 32 mg/ Sodium Chloride 250 ml @ 0.938 mls/ hr Q24H IV 10/31/24 11:00 11/10/24 20:38 0.938 MLS/HR Diagnostic Test (Pha) 1 strip Q4H 11/02/24 22:00 11/11/24 09:11 1 STRIP Insulin Human Regular Q4H SC 11/02/24 22:00 11/11/24 06:00 2 UNITS Enteral Nutritional Formula 1,000 ml 30ML/HR GT 11/03/24 12:15 11/09/24 17:52 1,000 ML Hydralazine HCl 10 mg Q6HP PRN IV 11/04/24 13:30 11/07/24 12:26 10 MG Metoclopramide HCl 5 mg Q8HR IV 11/04/24 22:00 11/11/24 06:00 5 MG Calcium Acetate 1,334 mg TID NG 11/07/24 14:00 11/11/24 06:29 1,334 MG Meropenem 50 ml @ 16.667 mls/ hr HS IV 11/07/24 22:00 11/10/24 21:59 16.667 MLS/HR Lactulose 30 ml DAILYPRN PRN PO 11/08/24 13:00 Heparin Sodium/ Dextrose 250 ml @ 10 mls/hr Q24H IV 11/11/24 06:45 11/11/24 06:45 10 MLS/HR Laboratory Results Laboratory Tests 11/11/24 04:30 Chemistry Test 11/11/24 04:30 Albumin 3.7 g/dL (3.2-4.8) Calcium Level 9.2 mg/dL (8.7-10.4) Magnesium Level 2.6 mg/dL (1.6-2.6) Total Protein 6.5 g/dL (5.7-8.2) Coagulation Test 11/10/24 11:34 11/10/24 21:00 11/11/24 04:30 Prothrombin Time 11.8 sec (9.3-11.8) 12.4 sec (9.3-11.8) H Prothrombin Time INR 1.13 (0.9-1.15) 1.19 (0.9-1.15) H Activated Partial Thromboplast Time 29.6 SEC (24.5-34.5) 122.2 SEC (24.5-34.5) *H 91.7 SEC (24.5-34.5) *H LFT Test 11/11/24 04:30 Alanine Aminotransferase (ALT) 10 U/L (7-40) Alkaline Phosphatase 78 U/L (46-116) Aspartate Amino Transferase (AST) 20 U/L (13-40) Total Bilirubin < 0.2 mg/dL (0.2-1.0) L Urinalysis Test 10/30/24 19:19 Urine Color Light-brown (Yellow) Urine Clarity Ex.turbid (Clear) Urine pH 6.0 (5.0-9.0) Urine Specific [place] 1.020 (1.001-1.035) Urine Protein 3+ (Negative) H Urine Ketones Trace (Negative) Urine Blood 3+ /uL (Negative) H Urine Nitrite Negative (Negative) Urine Bilirubin Negative (Negative) Urine Urobilinogen Normal mg/dL (Negative) Urine Leukocyte Esterase 3+ /uL (Negative) Urine RBC 24 /hpf (0 - 3) Urine WBC Clumps Present /hpf (None Seen) Urine Microscopic WBC 1083 /HPF (0-3) H Urine Squamous Epithelial Cells Few /hpf (<5) Urine Transitional Epithelial Cells Few /hpf (<2) Urine Bacteria Many /hpf (None Seen) H Urine Mucus Few (None Seen) Urine Glucose Normal mg/dL (Normal) Blood Gas Results Test 11/11/24 07:10 Arterial Blood pH 7.413 (7.350-7.450) FiO2 % 30.0 Microbiology Microbiology Date/Time Source Procedure Growth Status 10/31/24 11:05 Nose MRSA Screen - Final Complete 10/31/24 10:50 Blood Blood Culture - Final NO GROWTH AFTER 5 DAYS OF INCUBATION. Complete 10/31/24 10:45 Sputum Gram Stain - Final Complete 10/31/24 10:45 Respiratory Culture - Final Enterobacter aerogenes Complete 10/30/24 19:19 Urine - [place] Urine Culture - Final Escherichia coli - ESBL Complete Labs and/or images reviewed: Labs reviewed by me, Image(s) reviewed by me Assessment/Plan Assessment/Plan Impression: -acute hypoxic respiratory failure with mechanical ventilation -community-acquired pneumonia with Enterobacter aeruginosa -end-stage renal disease with hemodialysis -right arm swelling with probable distal stenosis of fistula -ESBL in the urine, complicated cystitis -obesity -bilateral lower extremity amputation -accelerated hypertension -cardiomyopathy -tongue swelling Plan: Events: Plans for fistulogram on Wednesday. X-ray improved. We will attempt to do CPAP trial tomorrow morning. Plans for HD today. -continue current ventilator settings -continue antibiotic therapy with Meropenem -nephrology consultation: Recommend HD prior to extubation -restart sedation given no plans for spontaneous breathing trial -continue antihypertensives -PUD, DVT prophylaxis -vascular surgery consultation -cardiology consultation -repeat labs, chest x-ray, ABG in a.m. Critical care time spent with patient discussing and formulating plan of care: 90 minutes. This does not include time spent performing procedures. This medical document was created using an electronic medical record system with [employer] dictation system. Although this document has been carefully reviewed, there may still be some phonetic and typographical errors. These areas are purely typographical due to imperfections of the software programs, and do not reflect any compromise in the patient's medical care. Plan discussed with: Patient, Other (RN) My Orders Orders - SAMI OSWALD NP Procedure Category Date Status Time Basic Metabolic Panel LAB 11/12/24 Verified 04:00 Complete Blood Count LAB 11/12/24 Verified 05:00 Complete Blood Count LAB 11/13/24 Verified 05:00 Complete Blood Count LAB 11/14/24 Verified 05:00 Chest Portable XY 11/12/24 Verified 05:00 Chest Portable XY 11/13/24 Verified 05:00 Chest Portable XY 11/14/24 Verified 05:00 Abg W/ Co-Ox RT 11/12/24 Verified 05:00 Abg W/ Co-Ox RT 11/13/24 Verified 05:00 Abg W/ Co-Ox RT 11/14/24 Verified 05:00 Cpap Trial For Am ORDERS 11/12/24 Verified 04:00 Cpap/Sed Vacation Med ORDERS 11/12/24 Verified Weaning 04:00 Date of Service: Nov 11, 2024 Billing Provider: SAMI OSWALD NP Common Visit Codes: [id number] CARE 30-74 MIN SAMI OSWALD NP Nov 11, 2024 09:37
--- NOTE | 2024-11-11 11:09 | DVHPN2 ---
Progress Note Date Seen: Nov 11, 2024 Medical Necessity Reason Pt with a Central, PICC or Fol: Yes The following are medically ne: Central Line, [place] Catheter Reason for martinez catheter: Strict I&O Subjective Review of Systems: RESPIRATORY:Abnormal Other Systems: Patient seen and examined by myself today in follow-up, patient remained intubated on ventilator Objective vital signs Vital Sign Date Time Temp Pulse Resp B/P (MAP) Pulse Ox O2 Delivery O2 Flow Rate FiO2 11/11/24 10:45 99.0 74 18 97/39 (58) 97 210.2 11/11/24 10:04 30 11/11/24 08:00 Mechanical Ventilator+ Total Intake and Output 11/10/24 11/10/24 11/11/24 15:00 23:00 07:00 Intake Total 309.792 ml 582.402 ml 710.954 ml Output Total 105 ml 10 ml Balance 309.792 ml 477.402 ml 700.954 ml medications Current Medications Medications Dose Ordered Sig/Alexander Route Start Time Stop Time Status Last Admin Dose Admin Nitroglycerin 0.4 mg Q5MINP PRN SL 10/30/24 20:00 Morphine Sulfate 2 mg Q30M PRN IV 10/30/24 20:00 Aspirin 162 mg DAILY PO 10/31/24 10:00 11/11/24 09:11 162 MG Dextrose 50 ml UD PRN IV 10/30/24 20:15 11/02/24 17:25 50 ML Ondansetron HCl 4 mg Q4HP PRN IV 10/30/24 20:15 Acetaminophen 650 mg Q6HP PRN PO 10/30/24 20:15 11/04/24 13:02 650 MG Pantoprazole Sodium 40 mg DAILY IV 11/01/24 10:00 11/11/24 09:08 40 MG Propofol 100 ml @ 3.153 mls/ hr Q24H IV 10/31/24 10:45 11/11/24 08:11 25.224 MLS/HR Fentanyl Citrate 250 ml @ 2.5 mls/hr Q24H IV 10/31/24 10:45 11/10/24 03:39 7.5 MLS/HR Norepinephrine Bitartrate 32 mg/ Sodium Chloride 250 ml @ 0.938 mls/ hr Q24H IV 10/31/24 11:00 11/10/24 20:38 0.938 MLS/HR Diagnostic Test (Pha) 1 strip Q4H 11/02/24 22:00 11/11/24 09:11 1 STRIP Insulin Human Regular Q4H SC 11/02/24 22:00 11/11/24 06:00 2 UNITS Enteral Nutritional Formula 1,000 ml 30ML/HR GT 11/03/24 12:15 11/09/24 17:52 1,000 ML Hydralazine HCl 10 mg Q6HP PRN IV 11/04/24 13:30 11/07/24 12:26 10 MG Metoclopramide HCl 5 mg Q8HR IV 11/04/24 22:00 11/11/24 06:00 5 MG Calcium Acetate 1,334 mg TID NG 11/07/24 14:00 11/11/24 06:29 1,334 MG Meropenem 50 ml @ 16.667 mls/ hr HS IV 11/07/24 22:00 11/10/24 21:59 16.667 MLS/HR Lactulose 30 ml DAILYPRN PRN PO 11/08/24 13:00 Heparin Sodium/ Dextrose 250 ml @ 10 mls/hr Q24H IV 11/11/24 06:45 11/11/24 06:45 10 MLS/HR Examination: LUNGS:Normal, CVS:Normal, MSK:Abnormal laboratory and microbiology Laboratory Tests 11/11/24 04:30 Test 11/11/24 04:30 Range/Units Serum Glucose 145 H 74-106 mg/dL Microbiology Date/Time Source Procedure Growth Status 10/31/24 11:05 Nose MRSA Screen - Final Complete 10/31/24 10:50 Blood Blood Culture - Final NO GROWTH AFTER 5 DAYS OF INCUBATION. Complete 10/31/24 10:45 Sputum Gram Stain - Final Complete 10/31/24 10:45 Respiratory Culture - Final Enterobacter aerogenes Complete 10/30/24 19:19 Urine - [place] Urine Culture - Final Escherichia coli - ESBL Complete Problem List/Assessment/Plan Problem List/Assessment/Plan ESRD on hemodialysis Right upper extremity right neck and tongue swelling swelling rule out SVC syndrome Acute respiratory failure, patient intubated on ventilator Morbid obesity NSTEMI Congestive heart failure Diabetes mellitus type 2 Anemia of chronic kidney disease Peripheral arterial disease ESBL UTI Status post bilateral below-knee amputation Thrombus superior vena cava Recommendations Hemodialysis today, use no heparin Epogen 03896 subQ 3 times weekly Albumin 25% p.r.n. hemodialysis Fluid restriction Nepro tube feeding Blood pressure control Insulin sliding scale IV antibiotics Heparin per pharmacy CT angiogram of the chest We will continue to follow Plan discussed with: Other (Nurse) My Orders My Orders Orders - BERTHA LAKE MD Procedure Category Date Status Time Hemodialysis Orders ORDERS 11/11/24 Transmitted 07:00 Dialysis Nursing PIYUSH 11/11/24 In Process Message 07:00 Document Fluid Input PIYUSH 11/11/24 In Process And Outpu 07:00 Epoetin Kobe-Epbx PHA 11/11/24 In Process (Retacrit) 21:00 Dietary Evaluation Review Comments: 1. On propofol which supply fat kcaloried at 333 kcal/day if running at 12.6ml/hr. 2.Recommend a low fat high protein TF Vital High Protein @ 40ml/hr providing 84 g Protein, and 960 kcal, 803 ml free water, if running at 24 hrs. the combined nurition support will be 84 g Protein and 1056 kcal, supporting pt's needs for protein at 76.3%, needs for energy at 134%. 3. Reasses pt's TF formulary if pt is off Popofol.but still need TF. 4. Renal standard and CCHO-75 if pt is able to have PO intake after passing a WOUND/OSTOMY CLINICAL NURSE SPECIALIST eval, Expected Outcomes/Goals: gradual wt loss. improved lab values with consistant dialysis. BERTHA LAKE MD Nov 11, 2024 11:09
[2024-11-11] MEDS: SODIUM CHL 0.9% 1000 ML BAG XX ONE (11:25)
--- NOTE | 2024-11-11 12:02 | DVHPN2 ---
Progress Note - Dictate Date Seen: Nov 11, 2024 Medical Necessity Reason Pt with a Central, PICC or Fol: Yes The following are medically ne: Central Line, [place] Catheter Reason for martinez catheter: Strict I&O Subjective Covering for Dr. Shaffer Patient seen and examined Overnight events reviewed vital signs Vital Sign Date Time Temp Pulse Resp B/P (MAP) Pulse Ox O2 Delivery O2 Flow Rate FiO2 11/11/24 11:45 99.0 70 18 152/48 (82) 97 210.2 11/11/24 10:04 30 11/11/24 10:00 Mechanical Ventilator+ Total Intake and Output 11/10/24 11/10/24 11/11/24 15:00 23:00 07:00 Intake Total 309.792 ml 582.402 ml 710.954 ml Output Total 105 ml 10 ml Balance 309.792 ml 477.402 ml 700.954 ml medications Current Medications Medications Dose Ordered Sig/Alexander Route Start Time Stop Time Status Last Admin Dose Admin Nitroglycerin 0.4 mg Q5MINP PRN SL 10/30/24 20:00 Morphine Sulfate 2 mg Q30M PRN IV 10/30/24 20:00 Aspirin 162 mg DAILY PO 10/31/24 10:00 11/11/24 09:11 162 MG Dextrose 50 ml UD PRN IV 10/30/24 20:15 11/02/24 17:25 50 ML Ondansetron HCl 4 mg Q4HP PRN IV 10/30/24 20:15 Acetaminophen 650 mg Q6HP PRN PO 10/30/24 20:15 11/04/24 13:02 650 MG Pantoprazole Sodium 40 mg DAILY IV 11/01/24 10:00 11/11/24 09:08 40 MG Propofol 100 ml @ 3.153 mls/ hr Q24H IV 10/31/24 10:45 11/11/24 08:11 25.224 MLS/HR Fentanyl Citrate 250 ml @ 2.5 mls/hr Q24H IV 10/31/24 10:45 11/10/24 03:39 7.5 MLS/HR Norepinephrine Bitartrate 32 mg/ Sodium Chloride 250 ml @ 0.938 mls/ hr Q24H IV 10/31/24 11:00 11/10/24 20:38 0.938 MLS/HR Diagnostic Test (Pha) 1 strip Q4H 11/02/24 22:00 11/11/24 09:11 1 STRIP Insulin Human Regular Q4H SC 11/02/24 22:00 11/11/24 06:00 2 UNITS Enteral Nutritional Formula 1,000 ml 30ML/HR GT 11/03/24 12:15 11/09/24 17:52 1,000 ML Hydralazine HCl 10 mg Q6HP PRN IV 11/04/24 13:30 11/07/24 12:26 10 MG Metoclopramide HCl 5 mg Q8HR IV 11/04/24 22:00 11/11/24 06:00 5 MG Calcium Acetate 1,334 mg TID NG 11/07/24 14:00 11/11/24 06:29 1,334 MG Meropenem 50 ml @ 16.667 mls/ hr HS IV 11/07/24 22:00 11/10/24 21:59 16.667 MLS/HR Lactulose 30 ml DAILYPRN PRN PO 11/08/24 13:00 Heparin Sodium/ Dextrose 250 ml @ 10 mls/hr Q24H IV 11/11/24 06:45 11/11/24 06:45 10 MLS/HR laboratory and microbiology Laboratory Tests 11/11/24 04:30 Test 11/11/24 04:30 Range/Units Serum Glucose 145 H 74-106 mg/dL Assessment/Plan Impression Acute hypoxemic respiratory failure Altered mental status ESRD on HD COPD CHF Patient seen and examined in ICU Events On mechanical ventilation S/p intubation PEEP 5, FiO2 30% On Heparin drip per cardiology Labs and imaging reviewed Chest x-ray shows low lung volumes ABG reviewed - compensated Management Vent support Titrate to maintain sats 90% or above Sedation holiday daily If patient follows commands, proceed to weaning trial Pressure support 02/03, extubate when ready Continue antibiotics F/u cultures Bronchodilators Monitor renal function HD as per nephrology Management deferred Monitor electrolytes Supplement as needed Pressors as needed for hemodynamic support To maintain a mean arterial pressure of 65 mmHg F/u cardiology DVT prophylaxis Critical care time 35 minutes Dietary Evaluation Review Comments: 1. On propofol which supply fat kcaloried at 333 kcal/day if running at 12.6ml/hr. 2.Recommend a low fat high protein TF Vital High Protein @ 40ml/hr providing 84 g Protein, and 960 kcal, 803 ml free water, if running at 24 hrs. the combined nurition support will be 84 g Protein and 1056 kcal, supporting pt's needs for protein at 76.3%, needs for energy at 134%. 3. Reasses pt's TF formulary if pt is off Popofol.but still need TF. 4. Renal standard and CCHO-75 if pt is able to have PO intake after passing a FIBROUS WALLBOARD INSPECTOR eval, Expected Outcomes/Goals: gradual wt loss. improved lab values with consistant dialysis. Plan discussed with: Other (Rn) PAYAL KHAN MD Nov 11, 2024 12:02
[2024-11-11 13:34] LABS: INR 1.12 (0.9-1.15); Partial Thromboplastin Time 66.7 SEC (24.5-34.5); Prothrombin Time 11.7 sec (9.3-11.8)
[2024-11-11] MEDS: DEXMEDETOMIDINE HCL IN D5W 100 ML IV SCH (19:00)
[2024-11-11 20:09] LABS: INR 1.13 (0.9-1.15); Prothrombin Time 11.8 sec (9.3-11.8)
[2024-11-11 20:38] LABS: Partial Thromboplastin Time 60.5 SEC (24.5-34.5)
[2024-11-11] MEDS: EPOETIN ALFA-EPBX 10,000 UNIT/1ML VIAL SC ONE (21:07)
[2024-11-12] VITALS (107 sets, daily range): BP systolic 84–164; BP diastolic 36–62; PULSE 62–84; RESP 14–27; TEMP 87.3–99.3; O2SAT 92–100
[2024-11-12 03:31] LABS: INR 1.08 (0.9-1.15); Partial Thromboplastin Time 56.8 SEC (24.5-34.5); Prothrombin Time 11.4 sec (9.3-11.8)
[2024-11-12 03:52] LABS: Basophils # (auto) 0 10 ^3/uL (0-0.2); Basophils % (auto) 0.4 % (0.0-2.0); Eosinophils # (auto) 0.6 10 ^3/uL (0-0.8); Eosinophils % (auto) 5.3 % (0.0-7.0); Hematocrit 28.5 % (41.0-53.0); Hemoglobin 8.9 g/dL (13.5-17.5); Lymphocytes # (auto) 1.6 10 ^3/uL (0.4-5.4); Lymphocytes % (auto) 14.9 % (10.0-50.0); Mean Corpuscular Hemoglobin 28.2 pg (28.0-32.0); Mean Corpuscular Hgb Conc. 31.3 g/dL (32.0-36.0); Mean Corpuscular Volume 89.9 fL (80.0-100.0); Monocytes # (auto) 1.4 10 ^3/uL (0-1.3); Monocytes % (auto) 12.7 % (0.0-12.0); Neutrophils # (auto) 7.1 10 ^3/uL (1.6-8.6); Neutrophils % (auto) 66.7 % (37.0-80.0); Nucleated Red Blood Cells % 0.1 %; Platelet Count (auto) 401 10^3/uL (140-450); Red Blood Cells 3.17 10^6/uL (4.5-5.90); Red Cell Distribution Width 17.4 % (11.8-14.3); White Blood Cell 10.7 10^3/uL (4.4-10.8)
[2024-11-12 04:14] LABS: Anion Gap 14 (5-15); Calcium 9.3 mg/dL (8.7-10.4); Carbon Dioxide 25 mmol/L (20-31)
[2024-11-12 04:19] LABS: BUN/Creatinine Ratio 7.4 (10.0-20.0)
[2024-11-12 04:32] LABS: Blood Urea Nitrogen 63 mg/dL (9-23); Chloride 92 mmol/L (98-107); Glucose 107 mg/dL (74-106); Sodium 131 mmol/L (136-145)
--- NOTE | 2024-11-12 06:05 | DVH ---
CHEST RADIOGRAPH Indication: pna Technique: Single frontal view of the chest was obtained COMPARISON: XY CHEST PORTABLE on DOS: 11/11/24, XY CHEST PORTABLE on DOS: 11/10/24, XY CHEST PORTABLE o n DOS: 11/09/24, XY CHEST PORTABLE on DOS: 11/08/24, XY CHEST PORTABLE on DOS: 11/08/24 FINDINGS: Lines and Tubes: Unchanged. Lungs: Stable moderate diffuse prominence of the pulmonary vasculature without evidence of focal cons olidation. Pleura: Probable small left pleural effusion. No pneumothorax. Cardiomediastinal contours: Unremarkable Bones: Unremarkable IMPRESSION: 1. Stable moderate diffuse prominence of the pulmonary vasculature and probable left pleural effusion . 2. Lines and tubes unchanged.
[2024-11-12] MEDS: PROPOFOL 100 ML IV ONE (07:08)
[2024-11-12] MEDS: PROPOFOL 100 ML IV SCH (07:15)
[2024-11-12 08:17] LABS: Base Excess -1.1 mmol/L (-2.0-3.0)
--- NOTE | 2024-11-12 08:41 | DVHPN2 ---
Subjective Patient chemically sedated Reviewed: Care Plan, H&P, Medications, Previous Orders Changes from previous H/P or p: No Changes General: Per HPI Objective Vitals Vital Signs Date Time Temp Pulse Resp B/P (MAP) Pulse Ox O2 Delivery O2 Flow Rate FiO2 11/12/24 07:14 142/53 11/12/24 06:30 98.6 78 19 93 209.5 11/12/24 06:00 Mechanical Ventilator+ 30 30 Intake/Output Intake and Output 11/12/24 07:00 Intake Total 1633.454 ml Output Total 15 ml Balance 1618.454 ml Intake Oral 190 ml IV Total 946.454 ml Tube Feeding 497 ml Output Urine Total 15 ml # Bowel Movements 1 General Appearance: mild distress, Other (Chemically sedated) HEENT: Atraumatic, PERRLA, EOMI Lungs: Clear to auscultation, Normal air movement, Other (Mechanical ventilation) Cardiovascular: Regular rate, Normal S1, Normal S2 Abdomen: Normal bowel sounds, Soft, No tenderness Genitourinary: No Apparent Abnormalities ([place] catheter) Musculoskeletal: Normal sensory function, Normal motor function Extremities: Other (Bilateral lower extremity amputation) Skin: Dry, Intact Psych/Mental Status: Other (Unable to assess) Medications Current Medications Medications Dose Ordered Sig/Alexander Route Start Time Stop Time Status Last Admin Dose Admin Nitroglycerin 0.4 mg Q5MINP PRN SL 10/30/24 20:00 Morphine Sulfate 2 mg Q30M PRN IV 10/30/24 20:00 Aspirin 162 mg DAILY PO 10/31/24 10:00 11/11/24 09:11 162 MG Dextrose 50 ml UD PRN IV 10/30/24 20:15 11/02/24 17:25 50 ML Ondansetron HCl 4 mg Q4HP PRN IV 10/30/24 20:15 Acetaminophen 650 mg Q6HP PRN PO 10/30/24 20:15 11/04/24 13:02 650 MG Pantoprazole Sodium 40 mg DAILY IV 11/01/24 10:00 11/11/24 09:08 40 MG Fentanyl Citrate 250 ml @ 2.5 mls/hr Q24H IV 10/31/24 10:45 11/12/24 07:14 2.5 MLS/HR Norepinephrine Bitartrate 32 mg/ Sodium Chloride 250 ml @ 0.938 mls/ hr Q24H IV 10/31/24 11:00 11/10/24 20:38 0.938 MLS/HR Diagnostic Test (Pha) 1 strip Q4H 11/02/24 22:00 11/12/24 05:34 1 STRIP Insulin Human Regular Q4H SC 11/02/24 22:00 11/11/24 21:55 2 UNITS Enteral Nutritional Formula 1,000 ml 30ML/HR GT 11/03/24 12:15 11/09/24 17:52 1,000 ML Hydralazine HCl 10 mg Q6HP PRN IV 11/04/24 13:30 11/07/24 12:26 10 MG Metoclopramide HCl 5 mg Q8HR IV 11/04/24 22:00 11/12/24 05:17 5 MG Calcium Acetate 1,334 mg TID NG 11/07/24 14:00 11/12/24 05:17 1,334 MG Meropenem 50 ml @ 16.667 mls/ hr HS IV 11/07/24 22:00 11/11/24 21:53 16.667 MLS/HR Lactulose 30 ml DAILYPRN PRN PO 11/08/24 13:00 Heparin Sodium/ Dextrose 250 ml @ 10 mls/hr Q24H IV 11/11/24 06:45 11/12/24 05:16 10 MLS/HR Propofol 100 ml @ 2.796 mls/ hr Q24H IV 11/12/24 07:15 Laboratory Results Laboratory Tests 11/12/24 03:08 Chemistry Test 11/12/24 03:08 Calcium Level 9.3 mg/dL (8.7-10.4) Coagulation Test 11/11/24 12:40 11/11/24 18:46 11/12/24 01:23 Prothrombin Time 11.7 sec (9.3-11.8) 11.8 sec (9.3-11.8) 11.4 sec (9.3-11.8) Prothrombin Time INR 1.12 (0.9-1.15) 1.13 (0.9-1.15) 1.08 (0.9-1.15) Activated Partial Thromboplast Time 66.7 SEC (24.5-34.5) H 60.5 SEC (24.5-34.5) H 56.8 SEC (24.5-34.5) H Urinalysis Test 10/30/24 19:19 Urine Color Light-brown (Yellow) Urine Clarity Ex.turbid (Clear) Urine pH 6.0 (5.0-9.0) Urine Specific [place] 1.020 (1.001-1.035) Urine Protein 3+ (Negative) H Urine Ketones Trace (Negative) Urine Blood 3+ /uL (Negative) H Urine Nitrite Negative (Negative) Urine Bilirubin Negative (Negative) Urine Urobilinogen Normal mg/dL (Negative) Urine Leukocyte Esterase 3+ /uL (Negative) Urine RBC 24 /hpf (0 - 3) Urine WBC Clumps Present /hpf (None Seen) Urine Microscopic WBC 1083 /HPF (0-3) H Urine Squamous Epithelial Cells Few /hpf (<5) Urine Transitional Epithelial Cells Few /hpf (<2) Urine Bacteria Many /hpf (None Seen) H Urine Mucus Few (None Seen) Urine Glucose Normal mg/dL (Normal) Blood Gas Results Test 11/12/24 07:44 Arterial Blood pH 7.332 (7.350-7.450) FiO2 % 30.0 Microbiology Microbiology Date/Time Source Procedure Growth Status 10/31/24 11:05 Nose MRSA Screen - Final Complete 10/31/24 10:50 Blood Blood Culture - Final NO GROWTH AFTER 5 DAYS OF INCUBATION. Complete 10/31/24 10:45 Sputum Gram Stain - Final Complete 10/31/24 10:45 Respiratory Culture - Final Enterobacter aerogenes Complete 10/30/24 19:19 Urine - [place] Urine Culture - Final Escherichia coli - ESBL Complete Labs and/or images reviewed: Labs reviewed by me, Image(s) reviewed by me Assessment/Plan Assessment/Plan Impression: -acute hypoxic respiratory failure with mechanical ventilation -community-acquired pneumonia with Enterobacter aeruginosa -end-stage renal disease with hemodialysis -right arm swelling with probable distal stenosis of fistula -ESBL in the urine, complicated cystitis -obesity -bilateral lower extremity amputation -accelerated hypertension -cardiomyopathy -tongue swelling Plan: Events: Patient did not receive hemodialysis yesterday. Chest x-ray with worse pulmonary vascular congestion. Hold spontaneous breathing trial today. -continue current ventilator settings -continue antibiotic therapy with Meropenem -nephrology consultation: Recommendations reviewed -restart sedation given no plans for spontaneous breathing trial -continue antihypertensives -PUD, DVT prophylaxis -vascular surgery consultation -cardiology consultation -repeat labs, chest x-ray, ABG in a.m. Critical care time spent with patient discussing and formulating plan of care: 90 minutes. This does not include time spent performing procedures. This medical document was created using an electronic medical record system with [employer] system. Although this document has been carefully reviewed, there may still be some phonetic and typographical errors. These areas are purely typographical due to imperfections of the software programs, and do not reflect any compromise in the patient's medical care. Plan discussed with: Patient, Other (RN) My Orders Orders - SAMI OSWALD NP Procedure Category Date Status Time Complete Blood Count LAB 11/13/24 Verified 05:00 Complete Blood Count LAB 11/14/24 Verified 05:00 Chest Portable XY 11/12/24 Resulted 05:00 Chest Portable XY 11/13/24 Logged 05:00 Chest Portable XY 11/14/24 Logged 05:00 Abg W/ Co-Ox RT 11/12/24 Logged 05:00 Abg W/ Co-Ox RT 11/13/24 Logged 05:00 Abg W/ Co-Ox RT 11/14/24 Logged 05:00 Cpap Trial For Am ORDERS 11/12/24 Transmitted 04:00 Cpap/Sed Vacation Med ORDERS 11/12/24 Transmitted Weaning 04:00 Date of Service: Nov 12, 2024 Billing Provider: SAMI OSWALD NP Common Visit Codes: [id number] INP/OBS CARE(HIGH) SAMI OSWALD NP Nov 12, 2024 08:41
[2024-11-12] MEDS: SODIUM CHL 0.9% 1000 ML BAG XX ONE (11:45)
[2024-11-12] MEDS: ALBUMIN 25% 100 ML IV PRN (11:45)
--- NOTE | 2024-11-12 12:40 | DVHPN2 ---
Progress Note - Dictate Date Seen: Nov 12, 2024 Medical Necessity Reason Pt with a Central, PICC or Fol: Yes The following are medically ne: Central Line, Martinez Catheter Reason for martinez catheter: Strict I&O Subjective Covering for Dr. Shaffer Patient seen and examined Overnight events reviewed vital signs Vital Sign Date Time Temp Pulse Resp B/P (MAP) Pulse Ox O2 Delivery O2 Flow Rate FiO2 11/12/24 12:17 72 20 137/44 (75) 98 30 11/12/24 10:00 Mechanical Ventilator+ 11/12/24 07:45 98.4 209.1 Total Intake and Output 11/11/24 11/11/24 11/12/24 15:00 23:00 07:00 Intake Total 335.543 ml 785.898 ml 535.697 ml Output Total 0 ml 15 ml Balance 335.543 ml 785.898 ml 520.697 ml medications Current Medications Medications Dose Ordered Sig/Alexander Route Start Time Stop Time Status Last Admin Dose Admin Nitroglycerin 0.4 mg Q5MINP PRN SL 10/30/24 20:00 Morphine Sulfate 2 mg Q30M PRN IV 10/30/24 20:00 Aspirin 162 mg DAILY PO 10/31/24 10:00 11/12/24 10:01 162 MG Dextrose 50 ml UD PRN IV 10/30/24 20:15 11/02/24 17:25 50 ML Ondansetron HCl 4 mg Q4HP PRN IV 10/30/24 20:15 Acetaminophen 650 mg Q6HP PRN PO 10/30/24 20:15 11/04/24 13:02 650 MG Pantoprazole Sodium 40 mg DAILY IV 11/01/24 10:00 11/12/24 10:01 40 MG Fentanyl Citrate 250 ml @ 2.5 mls/hr Q24H IV 10/31/24 10:45 11/12/24 07:14 2.5 MLS/HR Norepinephrine Bitartrate 32 mg/ Sodium Chloride 250 ml @ 0.938 mls/ hr Q24H IV 10/31/24 11:00 11/10/24 20:38 0.938 MLS/HR Diagnostic Test (Pha) 1 strip Q4H 11/02/24 22:00 11/12/24 10:01 1 STRIP Insulin Human Regular Q4H SC 11/02/24 22:00 11/11/24 21:55 2 UNITS Enteral Nutritional Formula 1,000 ml 30ML/HR GT 11/03/24 12:15 11/09/24 17:52 1,000 ML Hydralazine HCl 10 mg Q6HP PRN IV 11/04/24 13:30 11/07/24 12:26 10 MG Metoclopramide HCl 5 mg Q8HR IV 11/04/24 22:00 11/12/24 05:17 5 MG Calcium Acetate 1,334 mg TID NG 11/07/24 14:00 11/12/24 05:17 1,334 MG Meropenem 50 ml @ 16.667 mls/ hr HS IV 11/07/24 22:00 11/11/24 21:53 16.667 MLS/HR Lactulose 30 ml DAILYPRN PRN PO 11/08/24 13:00 Heparin Sodium/ Dextrose 250 ml @ 10 mls/hr Q24H IV 11/11/24 06:45 11/12/24 05:16 10 MLS/HR Propofol 100 ml @ 2.796 mls/ hr Q24H IV 11/12/24 07:15 11/12/24 09:43 11.184 MLS/HR Albumin Human 100 ml @ 100 mls/hr PRN PRN IV 11/12/24 11:45 11/13/24 05:00 laboratory and microbiology Laboratory Tests 11/12/24 03:08 Test 11/12/24 03:08 Range/Units Serum Glucose 107 H 74-106 mg/dL Assessment/Plan Lapidary Apprentice rounds Impression Acute hypoxemic respiratory failure Altered mental status ESRD on HD COPD CHF Patient seen and examined in ICU Events On mechanical ventilation S/p intubation PEEP 5, FiO2 30% On Heparin drip per cardiology Labs and imaging reviewed Chest x-ray shows low lung volumes ABG reviewed - compensated Management Vent support Titrate to maintain sats 90% or above Sedation holiday daily If patient follows commands, proceed to weaning trial Pressure support 02/03, extubate when ready Continue antibiotics F/u cultures Bronchodilators Monitor renal function HD as per nephrology Management deferred Monitor electrolytes Supplement as needed Pressors as needed for hemodynamic support To maintain a mean arterial pressure of 65 mmHg F/u cardiology DVT prophylaxis Critical care time 35 minutes Dietary Evaluation Review Comments: 1. On propofol which supply fat kcaloried at 333 kcal/day if running at 12.6ml/hr. 2.Recommend a low fat high protein TF Vital High Protein @ 40ml/hr providing 84 g Protein, and 960 kcal, 803 ml free water, if running at 24 hrs. the combined nurition support will be 84 g Protein and 1056 kcal, supporting pt's needs for protein at 76.3%, needs for energy at 134%. 3. Reasses pt's TF formulary if pt is off Popofol.but still need TF. 4. Renal standard and CCHO-75 if pt is able to have PO intake after passing a CLINICAL RESEARCH SPEC eval, Expected Outcomes/Goals: gradual wt loss. improved lab values with consistant dialysis. Plan discussed with: Other (rn) PAYAL KHAN MD Nov 12, 2024 12:40
--- NOTE | 2024-11-12 12:46 | DVHPN2 ---
Progress Note Date Seen: Nov 12, 2024 Medical Necessity Reason Pt with a Central, PICC or Fol: Yes The following are medically ne: Central Line, Martinez Catheter Reason for martinez catheter: Strict I&O Subjective Review of Systems: RESPIRATORY:Abnormal Other Systems: Patient seen and examined by myself today in follow-up, patient remained intubated on ventilator Patient examined hemodialysis, blood pressure stable Objective vital signs Vital Sign Date Time Temp Pulse Resp B/P (MAP) Pulse Ox O2 Delivery O2 Flow Rate FiO2 11/12/24 12:17 72 20 137/44 (75) 98 30 11/12/24 10:00 Mechanical Ventilator+ 11/12/24 07:45 98.4 209.1 Total Intake and Output 11/11/24 11/11/24 11/12/24 15:00 23:00 07:00 Intake Total 335.543 ml 785.898 ml 535.697 ml Output Total 0 ml 15 ml Balance 335.543 ml 785.898 ml 520.697 ml medications Current Medications Medications Dose Ordered Sig/Alexander Route Start Time Stop Time Status Last Admin Dose Admin Nitroglycerin 0.4 mg Q5MINP PRN SL 10/30/24 20:00 Morphine Sulfate 2 mg Q30M PRN IV 10/30/24 20:00 Aspirin 162 mg DAILY PO 10/31/24 10:00 11/12/24 10:01 162 MG Dextrose 50 ml UD PRN IV 10/30/24 20:15 11/02/24 17:25 50 ML Ondansetron HCl 4 mg Q4HP PRN IV 10/30/24 20:15 Acetaminophen 650 mg Q6HP PRN PO 10/30/24 20:15 11/04/24 13:02 650 MG Pantoprazole Sodium 40 mg DAILY IV 11/01/24 10:00 11/12/24 10:01 40 MG Fentanyl Citrate 250 ml @ 2.5 mls/hr Q24H IV 10/31/24 10:45 11/12/24 07:14 2.5 MLS/HR Norepinephrine Bitartrate 32 mg/ Sodium Chloride 250 ml @ 0.938 mls/ hr Q24H IV 10/31/24 11:00 11/10/24 20:38 0.938 MLS/HR Diagnostic Test (Pha) 1 strip Q4H 11/02/24 22:00 11/12/24 10:01 1 STRIP Insulin Human Regular Q4H SC 11/02/24 22:00 11/11/24 21:55 2 UNITS Enteral Nutritional Formula 1,000 ml 30ML/HR GT 11/03/24 12:15 11/09/24 17:52 1,000 ML Hydralazine HCl 10 mg Q6HP PRN IV 11/04/24 13:30 11/07/24 12:26 10 MG Metoclopramide HCl 5 mg Q8HR IV 11/04/24 22:00 11/12/24 05:17 5 MG Calcium Acetate 1,334 mg TID NG 11/07/24 14:00 11/12/24 05:17 1,334 MG Meropenem 50 ml @ 16.667 mls/ hr HS IV 11/07/24 22:00 11/11/24 21:53 16.667 MLS/HR Lactulose 30 ml DAILYPRN PRN PO 11/08/24 13:00 Heparin Sodium/ Dextrose 250 ml @ 10 mls/hr Q24H IV 11/11/24 06:45 11/12/24 05:16 10 MLS/HR Propofol 100 ml @ 2.796 mls/ hr Q24H IV 11/12/24 07:15 11/12/24 09:43 11.184 MLS/HR Albumin Human 100 ml @ 100 mls/hr PRN PRN IV 11/12/24 11:45 11/13/24 05:00 Examination: LUNGS:Normal, CVS:Normal, MSK:Abnormal laboratory and microbiology Laboratory Tests 11/12/24 03:08 Test 11/12/24 03:08 Range/Units Serum Glucose 107 H 74-106 mg/dL Microbiology Date/Time Source Procedure Growth Status 10/31/24 11:05 Nose MRSA Screen - Final Complete 10/31/24 10:50 Blood Blood Culture - Final NO GROWTH AFTER 5 DAYS OF INCUBATION. Complete 10/31/24 10:45 Sputum Gram Stain - Final Complete 10/31/24 10:45 Respiratory Culture - Final Enterobacter aerogenes Complete 10/30/24 19:19 Urine - [place] Urine Culture - Final Escherichia coli - ESBL Complete Problem List/Assessment/Plan Problem List/Assessment/Plan ESRD on hemodialysis Right upper extremity right neck and tongue swelling swelling rule out SVC syndrome Acute respiratory failure, patient intubated on ventilator Morbid obesity NSTEMI Congestive heart failure Diabetes mellitus type 2 Anemia of chronic kidney disease Peripheral arterial disease ESBL UTI Status post bilateral below-knee amputation Thrombus superior vena cava Recommendations Continue with UF to 3 L as tolerated, use no heparin Epogen 29890 subQ 3 times weekly Albumin 25% p.r.n. hemodialysis Fluid restriction Nepro tube feeding Blood pressure control Insulin sliding scale IV antibiotics Heparin per pharmacy CT angiogram of the chest We will continue to follow Plan discussed with: Other (Nurse) My Orders My Orders Orders - BERTHA LAKE MD Procedure Category Date Status Time Albumin 25% (Albutein) PHA 11/12/24 In Process 11:45 Hemodialysis Orders ORDERS 11/12/24 Transmitted 11:33 Epoetin Kobe-Epbx PHA 11/12/24 In Process (Retacrit) 21:00 Dietary Evaluation Review Comments: 1. On propofol which supply fat kcaloried at 333 kcal/day if running at 12.6ml/hr. 2.Recommend a low fat high protein TF Vital High Protein @ 40ml/hr providing 84 g Protein, and 960 kcal, 803 ml free water, if running at 24 hrs. the combined nurition support will be 84 g Protein and 1056 kcal, supporting pt's needs for protein at 76.3%, needs for energy at 134%. 3. Reasses pt's TF formulary if pt is off Popofol.but still need TF. 4. Renal standard and CCHO-75 if pt is able to have PO intake after passing a DRILLING INSPECTOR eval, Expected Outcomes/Goals: gradual wt loss. improved lab values with consistant dialysis. BERTHA LAKE MD Nov 12, 2024 12:46
[2024-11-12] MEDS: EPOETIN ALFA-EPBX 10,000 UNIT/1ML VIAL SC ONE (22:00)
[2024-11-12] MEDS: EPOETIN ALFA-EPBX 10,000 UNIT/1ML VIAL ONE (22:16)
[2024-11-13] VITALS (108 sets, daily range): BP systolic 95–197; BP diastolic 36–77; PULSE 59–81; RESP 12–36; TEMP 94.1–99.1; O2SAT 91–99
[2024-11-13 04:00] LABS: Basophils # (auto) 0.1 10 ^3/uL (0-0.2); Eosinophils # (auto) 0.5 10 ^3/uL (0-0.8); Eosinophils % (auto) 4.9 % (0.0-7.0); Hematocrit 29.4 % (41.0-53.0); Hemoglobin 9.3 g/dL (13.5-17.5); Lymphocytes # (auto) 1.5 10 ^3/uL (0.4-5.4); Lymphocytes % (auto) 14.4 % (10.0-50.0); Mean Corpuscular Hemoglobin 28.6 pg (28.0-32.0); Mean Corpuscular Hgb Conc. 31.6 g/dL (32.0-36.0); Mean Corpuscular Volume 90.6 fL (80.0-100.0); Monocytes # (auto) 1.2 10 ^3/uL (0-1.3); Monocytes % (auto) 12.3 % (0.0-12.0); Neutrophils # (auto) 6.8 10 ^3/uL (1.6-8.6); Neutrophils % (auto) 67.4 % (37.0-80.0); Nucleated Red Blood Cells % 0.1 %; Platelet Count (auto) 425 10^3/uL (140-450); Red Blood Cells 3.24 10^6/uL (4.5-5.90); Red Cell Distribution Width 17.3 % (11.8-14.3); White Blood Cell 10.1 10^3/uL (4.4-10.8)
[2024-11-13 04:10] LABS: Albumin 4.2 g/dL (3.2-4.8); Alkaline Phosphatase 75 U/L (46-116); Anion Gap 14 (5-15); Aspartate Aminotransferase 18 U/L (13-40); BUN/Creatinine Ratio 6.3 (10.0-20.0); Carbon Dioxide 28 mmol/L (20-31); Potassium 4.2 mmol/L (3.5-5.1); Total Protein 7.3 g/dL (5.7-8.2)
[2024-11-13 04:13] LABS: Alanine Aminotransferase 9 U/L (7-40); Bilirubin, Total 0.2 mg/dL (0.2-1.0); Blood Urea Nitrogen 43 mg/dL (9-23); Chloride 93 mmol/L (98-107); Glucose 109 mg/dL (74-106); Sodium 135 mmol/L (136-145)
[2024-11-13 04:37] LABS: INR 1.09 (0.9-1.15); Partial Thromboplastin Time 44.6 SEC (24.5-34.5); Prothrombin Time 11.5 sec (9.3-11.8)
--- NOTE | 2024-11-13 05:34 | DVH ---
EXAM: XR Chest, 1 View CLINICAL INDICATION: pna TECHNIQUE: Frontal view of the chest. COMPARISON: XY CHEST PORTABLE on DOS: 11/12/24, XY CHEST PORTABLE on DOS: 11/11/24, XY CHEST PORTABLE on DOS: 11/10/24, XY CHEST PORTABLE on DOS: 11/09/24, XY CHEST PORTABLE on DOS: 11/08/24 FINDINGS: LUNGS AND PLEURAL SPACES: Pulmonary venous congestion. No consolidation. No pneumothorax. HEART: Unremarkable. No cardiomegaly. MEDIASTINUM: Unremarkable. Normal mediastinal contour. BONES/JOINTS: Unremarkable. No acute fracture. TUBES, LINES AND DEVICES: The endotracheal tube (ETT) is in satisfactory position. Left internal j ugular central venous catheter tip in the superior vena cava. Enteric tube tip in the stomach. OTHER FINDINGS: . .. IMPRESSION: Pulmonary venous congestion.
[2024-11-13 06:14] LABS: Base Excess 2.8 mmol/L (-2.0-3.0)
[2024-11-13] MEDS: HEPARIN DRIP/D5W 100UNITS/ML 250 ML IV SCH ×2 (06:20→20:40)
--- NOTE | 2024-11-13 10:54 | DVHPNRES ---
Progress Note Date Seen: Nov 13, 2024 Resident Creating Document: GAVINO MORAES RESIDENT Medical Necessity Reason Pt with a Central, PICC or Fol: Yes The following are medically ne: Central Line, Martinez Catheter Reason for martinez catheter: Strict I&O Subjective Review of Systems Patient was seen and examined at bedside. He remains on mechanical ventilator, minimal vent settings. He is off vasopressors. He is on fentanyl and propofol. Angioplasty to be performed by IR today Objective vital signs Vital Sign Date Time Temp Pulse Resp B/P (MAP) Pulse Ox O2 Delivery O2 Flow Rate FiO2 11/13/24 09:44 68 18 133/51 (78) 98 30 11/13/24 07:30 98.1 208.6 11/13/24 06:00 Mechanical Ventilator+ Total Intake and Output 11/12/24 11/12/24 11/13/24 15:00 23:00 07:00 Intake Total 224.611 ml 562.260 ml 417.122 ml Output Total 10 ml 5 ml Balance 224.611 ml 552.260 ml 412.122 ml medications Current Medications Medications Dose Ordered Sig/Alexander Route Start Time Stop Time Status Last Admin Dose Admin Nitroglycerin 0.4 mg Q5MINP PRN SL 10/30/24 20:00 Morphine Sulfate 2 mg Q30M PRN IV 10/30/24 20:00 Aspirin 162 mg DAILY PO 10/31/24 10:00 11/12/24 10:01 162 MG Dextrose 50 ml UD PRN IV 10/30/24 20:15 11/02/24 17:25 50 ML Ondansetron HCl 4 mg Q4HP PRN IV 10/30/24 20:15 Acetaminophen 650 mg Q6HP PRN PO 10/30/24 20:15 11/04/24 13:02 650 MG Pantoprazole Sodium 40 mg DAILY IV 11/01/24 10:00 11/13/24 09:35 40 MG Fentanyl Citrate 250 ml @ 2.5 mls/hr Q24H IV 10/31/24 10:45 11/12/24 07:14 2.5 MLS/HR Norepinephrine Bitartrate 32 mg/ Sodium Chloride 250 ml @ 0.938 mls/ hr Q24H IV 10/31/24 11:00 11/10/24 20:38 0.938 MLS/HR Enteral Nutritional Formula 1,000 ml 30ML/HR GT 11/03/24 12:15 11/09/24 17:52 1,000 ML Hydralazine HCl 10 mg Q6HP PRN IV 11/04/24 13:30 11/07/24 12:26 10 MG Metoclopramide HCl 5 mg Q8HR IV 11/04/24 22:00 11/13/24 06:12 5 MG Calcium Acetate 1,334 mg TID NG 11/07/24 14:00 11/12/24 21:54 1,334 MG Meropenem 50 ml @ 16.667 mls/ hr HS IV 11/07/24 22:00 11/12/24 21:58 16.667 MLS/HR Lactulose 30 ml DAILYPRN PRN PO 11/08/24 13:00 Propofol 100 ml @ 2.796 mls/ hr Q24H IV 11/12/24 07:15 11/13/24 09:36 16.776 MLS/HR Heparin Sodium/ Dextrose 250 ml @ 12 mls/hr [id number] IV 11/13/24 05:00 11/13/24 06:20 12 MLS/HR Insulin Human Regular Q6HR SC 11/13/24 12:00 Diagnostic Test (Pha) 1 strip Q6HR 11/13/24 12:00 Examination Physical examination as below: General: Mechanically ventilated, intubated HEENT: Head is normocephalic and atraumatic. Pupils are equal, round, and reactive to light. Significant swelling on tongue and neck, no signs of subcutaneous emphysema Neck: Supple with no cervical lymphadenopathy. Heart: Regular rate without murmur, rub, or gallop. Lungs: Equal breath sounds bilaterally with no wheezing, rales, or rhonchi. There is no chest wall tenderness or instability. Abdomen: No external sign of injury. Bowel sounds are present. Extremities: Strong peripheral pulses. There is no clubbing, no cyanosis. Significant pitting edema on right upper arm, right chest and neck, tender, no erythema. Skin: No rash. Neurologic: Sedated laboratory and microbiology Laboratory Tests 11/13/24 03:30 Test 11/13/24 03:30 Range/Units Serum Glucose 109 H 74-106 mg/dL Microbiology Date/Time Source Procedure Growth Status 10/31/24 11:05 Nose MRSA Screen - Final Complete 10/31/24 10:50 Blood Blood Culture - Final NO GROWTH AFTER 5 DAYS OF INCUBATION. Complete 10/31/24 10:45 Sputum Gram Stain - Final Complete 10/31/24 10:45 Respiratory Culture - Final Enterobacter aerogenes Complete 10/30/24 19:19 Urine - [place] Urine Culture - Final Escherichia coli - ESBL Complete Labs and/or images reviewed: Labs reviewed by me, Image(s) reviewed by me Problem List/Assessment/Plan Problem List/Assessment/Plan Neurology #Metabolic encephalopathy due to septic shock form UTI and pneumonia On fent and propofol Cardiovascular #Acute on chronic systolic CHF #Ischemic cardiomyopathy #Peripheral artery disease, s/p amputation #Hypertension, Hydralazine IV prn Aspirin Continue hemodialysis 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 following, [facility] on 11/09/24, s/p PCI 2x Pulmonology #Acute hypoxic respiratory failure with mechanical ventilation #Pneumonia, gram (+) vs gram (-), atypicals, growing Enterobacter aeruginosa Continue Merrem MV: FIO2: 30% RR: 18 TV 450 PEEP: 5 Nephrology #ESRD on HD # distal stenosis of AV fistula(right arm swelling and pitting edema) #right subclavian vein thrombus AV fistula working Continue HD Quarter Section Ironer following continue heparin drip consulted IR for intervention on av fisulta stenosis and right subclavian thrombus, scheduled for wednesday Endocrinology #Morbid obesity #Bilateral lower extremity BK amputation #T2DM SSI Gastroenterology Continue tube feedings: Nepro Continue reglan iv Lactulose prn #Macroglossia and neck swelling due to av fistula stenosis and clot on subclavian IR will perform angioplasty today heparin drip Hematology and Oncology #Anemia of chronic disease Monitor Infectious Disease #Pneumonia, gram (+) vs gram (-), atypicals, growing Enterobacter aeruginosa #UTI, growing ESBL E. coli Merrem IV Dermatology DVT ppx Heparin iv PUD ppx Protonix Drips Levo held Fent Propofol Lines TLC Right femoral 10/31/24 ET tube 10/31/24 Martinez 10/31/24 Updated family members on patient's current status Discussed with spouse about possibility of tracheostomy after angioplasty on wednesday Goals of care were discussed for over 30 minutes. FULL CODE. Critical care time spent excluding procedures and including family meeting was 79 mins Case was discussed with Dr. Levy Plan discussed with: Spouse, Other (RN) My Orders My Orders Orders - GAVINO MORAES RESIDENT Procedure Category Date Status Time Heparin Drip/D5w PHA 11/13/24 In Process 100units/Ml 05:00 PTPTT LAB 11/13/24 Logged 11:00 Insulin R (Human) PHA 11/13/24 In Process (Insulin R) 12:00 Discontinue Martinez PIYUSH 11/13/24 In Process Catheter 09:41 Glucose Blood PHA 11/13/24 In Process (Accu-Chek Comfort 12:00 Dietary Evaluation Review Comments: 1. On propofol which supply fat kcaloried at 333 kcal/day if running at 12.6ml/hr. 2.Recommend a low fat high protein TF Vital High Protein @ 40ml/hr providing 84 g Protein, and 960 kcal, 803 ml free water, if running at 24 hrs. the combined nurition support will be 84 g Protein and 1056 kcal, supporting pt's needs for protein at 76.3%, needs for energy at 134%. 3. Reasses pt's TF formulary if pt is off Popofol.but still need TF. 4. Renal standard and CCHO-75 if pt is able to have PO intake after passing a SPRAY DRIER OPERATOR HELPER eval, Expected Outcomes/Goals: gradual wt loss. improved lab values with consistant dialysis. Date of Service: Nov 13, 2024 Billing Provider: PAYAL KHAN MD Common Visit Codes: NOT BILLABLE GAVINO MORAES RESIDENT Nov 13, 2024 10:54 PAYAL KHAN MD Nov 14, 2024 10:00
--- NOTE | 2024-11-13 11:06 | DVHPN2 ---
Progress Note Date Seen: Nov 13, 2024 Medical Necessity Reason Pt with a Central, PICC or Fol: Yes The following are medically ne: Central Line, Martinez Catheter Reason for martinez catheter: Strict I&O Subjective Review of Systems: RESPIRATORY:Abnormal Objective vital signs Vital Sign Date Time Temp Pulse Resp B/P (MAP) Pulse Ox O2 Delivery O2 Flow Rate FiO2 11/13/24 09:44 68 18 133/51 (78) 98 30 11/13/24 07:30 98.1 208.6 11/13/24 06:00 Mechanical Ventilator+ Total Intake and Output 11/12/24 11/12/24 11/13/24 14:59 22:59 06:59 Intake Total 211.940 ml 565.901 ml 449.836 ml Output Total 10 ml 5 ml Balance 211.940 ml 555.901 ml 444.836 ml medications Current Medications Medications Dose Ordered Sig/Alexander Route Start Time Stop Time Status Last Admin Dose Admin Nitroglycerin 0.4 mg Q5MINP PRN SL 10/30/24 20:00 Morphine Sulfate 2 mg Q30M PRN IV 10/30/24 20:00 Aspirin 162 mg DAILY PO 10/31/24 10:00 11/12/24 10:01 162 MG Dextrose 50 ml UD PRN IV 10/30/24 20:15 11/02/24 17:25 50 ML Ondansetron HCl 4 mg Q4HP PRN IV 10/30/24 20:15 Acetaminophen 650 mg Q6HP PRN PO 10/30/24 20:15 11/04/24 13:02 650 MG Pantoprazole Sodium 40 mg DAILY IV 11/01/24 10:00 11/13/24 09:35 40 MG Fentanyl Citrate 250 ml @ 2.5 mls/hr Q24H IV 10/31/24 10:45 11/12/24 07:14 2.5 MLS/HR Norepinephrine Bitartrate 32 mg/ Sodium Chloride 250 ml @ 0.938 mls/ hr Q24H IV 10/31/24 11:00 11/10/24 20:38 0.938 MLS/HR Enteral Nutritional Formula 1,000 ml 30ML/HR GT 11/03/24 12:15 11/09/24 17:52 1,000 ML Hydralazine HCl 10 mg Q6HP PRN IV 11/04/24 13:30 11/07/24 12:26 10 MG Metoclopramide HCl 5 mg Q8HR IV 11/04/24 22:00 11/13/24 06:12 5 MG Calcium Acetate 1,334 mg TID NG 11/07/24 14:00 11/12/24 21:54 1,334 MG Meropenem 50 ml @ 16.667 mls/ hr HS IV 11/07/24 22:00 11/12/24 21:58 16.667 MLS/HR Lactulose 30 ml DAILYPRN PRN PO 11/08/24 13:00 Propofol 100 ml @ 2.796 mls/ hr Q24H IV 11/12/24 07:15 11/13/24 09:36 16.776 MLS/HR Heparin Sodium/ Dextrose 250 ml @ 12 mls/hr [id number] IV 11/13/24 05:00 11/13/24 06:20 12 MLS/HR Insulin Human Regular Q6HR SC 11/13/24 12:00 Diagnostic Test (Pha) 1 strip Q6HR 11/13/24 12:00 Examination: GENERAL:Abnormal, LUNGS:Abnormal, CVS:Abnormal, MSK:Abnormal, SKIN:Abnormal laboratory and microbiology Laboratory Tests 11/13/24 03:30 Test 11/13/24 03:30 Range/Units Serum Glucose 109 H 74-106 mg/dL Microbiology Date/Time Source Procedure Growth Status 10/31/24 11:05 Nose MRSA Screen - Final Complete 10/31/24 10:50 Blood Blood Culture - Final NO GROWTH AFTER 5 DAYS OF INCUBATION. Complete 10/31/24 10:45 Sputum Gram Stain - Final Complete 10/31/24 10:45 Respiratory Culture - Final Enterobacter aerogenes Complete 10/30/24 19:19 Urine - [place] Urine Culture - Final Escherichia coli - ESBL Complete Problem List/Assessment/Plan Problem List/Assessment/Plan ESRD on hemodialysis Right upper extremity right neck and tongue swelling swelling rule out SVC syndrome Acute respiratory failure, patient intubated on ventilator Morbid obesity NSTEMI Congestive heart failure Diabetes mellitus type 2 Anemia of chronic kidney disease Peripheral arterial disease ESBL UTI post bilateral below-knee amputation Thrombus superior vena cava HD tentative wednesday or Wed keep MAP > 65 Continue with UF to 3 L as tolerated, use no heparin Epogen 97960 subQ 3 times weekly Albumin 25% p.r.n. hemodialysis Fluid restriction Nepro tube feeding Blood pressure control Plan discussed with: Other Dietary Evaluation Review Comments: 1. On propofol which supply fat kcaloried at 333 kcal/day if running at 12.6ml/hr. 2.Recommend a low fat high protein TF Vital High Protein @ 40ml/hr providing 84 g Protein, and 960 kcal, 803 ml free water, if running at 24 hrs. the combined nurition support will be 84 g Protein and 1056 kcal, supporting pt's needs for protein at 76.3%, needs for energy at 134%. 3. Reasses pt's TF formulary if pt is off Popofol.but still need TF. 4. Renal standard and CCHO-75 if pt is able to have PO intake after passing a HIGH SCHOOL MUSIC DIRECTOR eval, Expected Outcomes/Goals: gradual wt loss. improved lab values with consistant dialysis. Critical Care Time (mins): 33 ASHLEY HINKLE MD Nov 13, 2024 11:06
[2024-11-13 11:47] LABS: INR 1.11 (0.9-1.15); Partial Thromboplastin Time 60.6 SEC (24.5-34.5); Prothrombin Time 11.6 sec (9.3-11.8)
[2024-11-13] MEDS: InsuLIN REG 1unit/0.01ml Soln (100units/ml) SC SCH (12:00)
[2024-11-13] MEDS: ACCU-CHEK COMFORT CURVE STRIP VI SCH (12:07)
--- NOTE | 2024-11-13 12:46 | DVHPN2 ---
Progress Note - Dictate Date Seen: Nov 13, 2024 Medical Necessity Reason Pt with a Central, PICC or Fol: Yes The following are medically ne: Central Line, Martinez Catheter Reason for martinez catheter: Strict I&O Subjective PT WAS SEEN IN CLINICAL RESP DISTRESS DIFFUSE WHEEZING PMH HFrEF CHRONIC ISCHEMIC CM PAD BILATERAL LE AMPUTEE DIABETES VASCULOPATHY NEPHROPATHY NEUROPATHY HD ESRD vital signs Vital Sign Date Time Temp Pulse Resp B/P (MAP) Pulse Ox O2 Delivery O2 Flow Rate FiO2 11/13/24 11:35 63 18 97/36 (56) 97 30 11/13/24 07:30 98.1 208.6 11/13/24 06:00 Mechanical Ventilator+ Total Intake and Output 11/12/24 11/12/24 11/13/24 15:00 23:00 07:00 Intake Total 224.611 ml 562.260 ml 417.122 ml Output Total 10 ml 5 ml Balance 224.611 ml 552.260 ml 412.122 ml medications Current Medications Medications Dose Ordered Sig/Alexander Route Start Time Stop Time Status Last Admin Dose Admin Nitroglycerin 0.4 mg Q5MINP PRN SL 10/30/24 20:00 Morphine Sulfate 2 mg Q30M PRN IV 10/30/24 20:00 Aspirin 162 mg DAILY PO 10/31/24 10:00 11/12/24 10:01 162 MG Dextrose 50 ml UD PRN IV 10/30/24 20:15 11/02/24 17:25 50 ML Ondansetron HCl 4 mg Q4HP PRN IV 10/30/24 20:15 Acetaminophen 650 mg Q6HP PRN PO 10/30/24 20:15 11/04/24 13:02 650 MG Pantoprazole Sodium 40 mg DAILY IV 11/01/24 10:00 11/13/24 09:35 40 MG Fentanyl Citrate 250 ml @ 2.5 mls/hr Q24H IV 10/31/24 10:45 11/12/24 07:14 2.5 MLS/HR Norepinephrine Bitartrate 32 mg/ Sodium Chloride 250 ml @ 0.938 mls/ hr Q24H IV 10/31/24 11:00 11/10/24 20:38 0.938 MLS/HR Enteral Nutritional Formula 1,000 ml 30ML/HR GT 11/03/24 12:15 11/09/24 17:52 1,000 ML Hydralazine HCl 10 mg Q6HP PRN IV 11/04/24 13:30 11/07/24 12:26 10 MG Metoclopramide HCl 5 mg Q8HR IV 11/04/24 22:00 11/13/24 06:12 5 MG Calcium Acetate 1,334 mg TID NG 11/07/24 14:00 11/12/24 21:54 1,334 MG Meropenem 50 ml @ 16.667 mls/ hr HS IV 11/07/24 22:00 11/12/24 21:58 16.667 MLS/HR Lactulose 30 ml DAILYPRN PRN PO 11/08/24 13:00 Propofol 100 ml @ 2.796 mls/ hr Q24H IV 11/12/24 07:15 11/13/24 09:36 16.776 MLS/HR Heparin Sodium/ Dextrose 250 ml @ 12 mls/hr [id number] IV 11/13/24 05:00 11/13/24 06:20 12 MLS/HR Insulin Human Regular Q6HR SC 11/13/24 12:00 Diagnostic Test (Pha) 1 strip Q6HR 11/13/24 12:00 11/13/24 12:07 1 STRIP laboratory and microbiology Laboratory Tests 11/13/24 03:30 Test 11/13/24 03:30 Range/Units Serum Glucose 109 H 74-106 mg/dL Problem List RESP DISTRESS DIFFUSE WHEEZING PMH HFrEF CHRONIC ISCHEMIC CM PAD BILATERAL LE AMPUTEE DIABETES VASCULOPATHY NEPHROPATHY NEUROPATHY HD ESRD ANEMIA HYPERKALEMIA Assessment/Plan DIALYSIS ABX CORRECT LYTES ECHO S/P DIALYSIS 4L OUT CHECK BNP REPEAT CXR COMPLETE OPACIFICATION OF BOTH LUNGS CXR WITH PT UPRIGHT CONSIDER BRONCHOSCOPY CONSIDER LEFT HEART CATH SIGNIFICANT IMPROVEMENT IN VASCULAR CONGESTION ON CXR CONT DIALYSIS ADD VERQUVO START DIG TITRATE ON VERQUVO LHC * Left main calcified, no flow-restrictive lesion. * Left anterior descending artery, moderate diffuse disease with rapid tapering but no discrete lesions were noted at this time. * Circumflex in the AV groove had in-stent restenosis of greater than 80%-90% status post thrombectomy with stent placement with less than 10% residual stenosis with a 3.0 x 15 mm [place] stent. There was greater than 60% narrowing of the proximal circumflex, status post thrombectomy with stent placement 3.0 x 12 mm [place] stent with less than 10% residual stenosis. * Right coronary artery large dominant vessel without any flow-restrictive lesion. Mild to moderate diffuse disease. However, no discrete lesions were noted. * Left ventricular function showed an EF around 45%-50% with an LVEDP of 15 mmHg. Left ventricular systolic pressure 130. No gradient across the aortic valve. Thus, the patient underwent successful revascularization of in-stent restenosis of obtuse marginal 2/vessel in the AV groove as well as angioplasty with stent placement and thrombectomy of the circumflex proximal segment. At this time, dual-antiplatelet therapy will be initiated and we will continue to follow the patient but overall the patient's current status, the patient's respiratory failure is not indicative of congestive heart failure or acute systolic decompensation. The patient's LVEDP was only 15 mmHg, left ventricular systolic pressure was around 130 with no gradient across the aortic valve. Therefore, the patient's respiratory problem and respiratory arrest is secondary to pulmonary issues as well as renal failure. CXR SIGNIFICANT IMPROVEMENT PCWP NORMAL ELEVATED WBC START WEANING PT S/P PTCA STENT Dietary Evaluation Review Comments: 1. On propofol which supply fat kcaloried at 333 kcal/day if running at 12.6ml/hr. 2.Recommend a low fat high protein TF Vital High Protein @ 40ml/hr providing 84 g Protein, and 960 kcal, 803 ml free water, if running at 24 hrs. the combined nurition support will be 84 g Protein and 1056 kcal, supporting pt's needs for protein at 76.3%, needs for energy at 134%. 3. Reasses pt's TF formulary if pt is off Popofol.but still need TF. 4. Renal standard and CCHO-75 if pt is able to have PO intake after passing a IT DESKTOP SUPPORT SPECIALIST eval, Expected Outcomes/Goals: gradual wt loss. improved lab values with consistant dialysis. Plan discussed with: Patient Critical Care Time(min): 35 YESICA YORK MD Nov 13, 2024 12:46
[2024-11-13] MEDS: IODIXANOL 320MG/ML 100ML BTL IV ONE (13:27)
[2024-11-13 20:11] LABS: INR 1.09 (0.9-1.15); Partial Thromboplastin Time 47.8 SEC (24.5-34.5); Prothrombin Time 11.5 sec (9.3-11.8)
--- NOTE | 2024-11-13 21:28 | CONS ---
Pharmacy Clinical Information: NO BOLUS TEMPLATE: SPOKE TO DREW LONGO REGARDING HEPARIN DOSE CHANGE CURRENT DOSE: 1200 UNITS/HR CURRENT APTT: 47.8 ON 11/13/24 @1911 INCREASE (NEW DOSE): 1400 UNITS/HR DATE AND TIME OF NEW STARTED: 11/13/24 @204 NEXT APTT: 11/14/24 @0300 DREW LONGO READ BACK NEW DOSE: 1400 UNITS/HR MERRICK MARQUEZ PHARMACIST Nov 13, 2024 21:28
[2024-11-14] VITALS (99 sets, daily range): BP systolic 74–234; BP diastolic 22–78; PULSE 55–90; RESP 12–29; TEMP 96.3–98.2; O2SAT 90–100
[2024-11-14 04:46] LABS: Basophils # (auto) 0.1 10 ^3/uL (0-0.2); Basophils % (auto) 0.7 % (0.0-2.0); Eosinophils # (auto) 0.5 10 ^3/uL (0-0.8); Eosinophils % (auto) 4.9 % (0.0-7.0); Hematocrit 28.7 % (41.0-53.0); Hemoglobin 9.3 g/dL (13.5-17.5); Lymphocytes # (auto) 1.3 10 ^3/uL (0.4-5.4); Lymphocytes % (auto) 12.6 % (10.0-50.0); Mean Corpuscular Hemoglobin 29.3 pg (28.0-32.0); Mean Corpuscular Hgb Conc. 32.5 g/dL (32.0-36.0); Mean Corpuscular Volume 90.2 fL (80.0-100.0); Monocytes # (auto) 1.2 10 ^3/uL (0-1.3); Monocytes % (auto) 12.5 % (0.0-12.0); Neutrophils # (auto) 6.9 10 ^3/uL (1.6-8.6); Neutrophils % (auto) 69.3 % (37.0-80.0); Nucleated Red Blood Cells % 0.1 %; Platelet Count (auto) 421 10^3/uL (140-450); Red Blood Cells 3.19 10^6/uL (4.5-5.90); Red Cell Distribution Width 17.4 % (11.8-14.3)
[2024-11-14 05:10] LABS: Calcium 9.6 mg/dL (8.7-10.4); Potassium 4.4 mmol/L (3.5-5.1)
[2024-11-14 05:11] LABS: Anion Gap 15 (5-15); Carbon Dioxide 26 mmol/L (20-31)
--- NOTE | 2024-11-14 05:14 | DVH ---
EXAM: XR Chest, 1 View CLINICAL INDICATION: pna TECHNIQUE: Frontal view of the chest. COMPARISON: XY CHEST PORTABLE on DOS: 11/13/24, XY CHEST PORTABLE on DOS: 11/12/24, XY CHEST PORTABLE on DOS: 11/11/24, XY CHEST PORTABLE on DOS: 11/10/24, XY CHEST PORTABLE on DOS: 11/09/24 FINDINGS: LUNGS AND PLEURAL SPACES: Pulmonary venous congestion. Left basilar. No consolidation. No pneumo thorax. HEART: Unremarkable. No cardiomegaly. MEDIASTINUM: Unremarkable. Normal mediastinal contour. BONES/JOINTS: Unremarkable. No acute fracture. TUBES, LINES AND DEVICES: The endotracheal tube (ETT) is in satisfactory position. Enteric tube ti p cannot be seen but is below the diaphragm. Left internal jugular central venous catheter tip in th e superior vena cava. OTHER FINDINGS: . IMPRESSION: Pulmonary venous congestion.
[2024-11-14 05:16] LABS: BUN/Creatinine Ratio 5.9 (10.0-20.0); Glucose 83 mg/dL (74-106)
[2024-11-14 05:17] LABS: Magnesium 2.6 mg/dL (1.6-2.6)
[2024-11-14 05:39] LABS: Blood Urea Nitrogen 49 mg/dL (9-23); Chloride 93 mmol/L (98-107); Sodium 134 mmol/L (136-145)
[2024-11-14 05:47] LABS: INR 1.11 (0.9-1.15); Prothrombin Time 11.6 sec (9.3-11.8)
[2024-11-14 05:52] LABS: Partial Thromboplastin Time 80.3 SEC (24.5-34.5)
[2024-11-14] MEDS: HEPARIN DRIP/D5W 100UNITS/ML 250 ML IV SCH (06:30)
[2024-11-14] MEDS: SODIUM CHL 0.9% 1000 ML BAG XX ONE (07:00)
[2024-11-14 07:16] LABS: Base Excess 0.3 mmol/L (-2.0-3.0)
[2024-11-14] MEDS: LIDOCAINE 2%HCL (LOCAL ANESTH.) INJ 20ML MDV ONE (09:20)
--- NOTE | 2024-11-14 10:05 | DVHPN2 ---
Progress Note Date Seen: Nov 14, 2024 Medical Necessity Reason Pt with a Central, PICC or Fol: Yes The following are medically ne: Central Line, Martinez Catheter Reason for martinez catheter: Strict I&O Subjective Patient reports: Other (intubated) Review of Systems: RESPIRATORY:Abnormal Objective vital signs Vital Sign Date Time Temp Pulse Resp B/P (MAP) Pulse Ox O2 Delivery O2 Flow Rate FiO2 11/14/24 09:15 97.7 72 23 140/52 (81) 92 207.9 11/14/24 08:17 30 11/14/24 08:00 Mechanical Ventilator+ Total Intake and Output 11/13/24 11/13/24 11/14/24 15:00 23:00 07:00 Intake Total 228.8 ml 572.774 ml 474.188 ml Output Total 0 ml Balance 228.8 ml 572.774 ml 474.188 ml medications Current Medications Medications Dose Ordered Sig/Alexander Route Start Time Stop Time Status Last Admin Dose Admin Nitroglycerin 0.4 mg Q5MINP PRN SL 10/30/24 20:00 Aspirin 162 mg DAILY PO 10/31/24 10:00 11/13/24 15:57 162 MG Dextrose 50 ml UD PRN IV 10/30/24 20:15 11/02/24 17:25 50 ML Ondansetron HCl 4 mg Q4HP PRN IV 10/30/24 20:15 Acetaminophen 650 mg Q6HP PRN PO 10/30/24 20:15 11/04/24 13:02 650 MG Pantoprazole Sodium 40 mg DAILY IV 11/01/24 10:00 11/13/24 09:35 40 MG Norepinephrine Bitartrate 32 mg/ Sodium Chloride 250 ml @ 0.938 mls/ hr Q24H IV 10/31/24 11:00 11/14/24 04:21 0.938 MLS/HR Enteral Nutritional Formula 1,000 ml 30ML/HR GT 11/03/24 12:15 11/09/24 17:52 1,000 ML Hydralazine HCl 10 mg Q6HP PRN IV 11/04/24 13:30 11/07/24 12:26 10 MG Metoclopramide HCl 5 mg Q8HR IV 11/04/24 22:00 11/14/24 05:10 5 MG Calcium Acetate 1,334 mg TID NG 11/07/24 14:00 11/13/24 22:50 1,334 MG Meropenem 50 ml @ 16.667 mls/ hr HS IV 11/07/24 22:00 11/13/24 23:07 16.667 MLS/HR Lactulose 30 ml DAILYPRN PRN PO 11/08/24 13:00 Propofol 100 ml @ 2.796 mls/ hr Q24H IV 11/12/24 07:15 11/14/24 05:43 22.368 MLS/HR Insulin Human Regular Q6HR SC 11/13/24 12:00 Diagnostic Test (Pha) 1 strip Q6HR 11/13/24 12:00 11/14/24 05:11 1 STRIP Heparin Sodium/ Dextrose 250 ml @ 12 mls/hr [id number] IV 11/14/24 06:00 11/14/24 06:30 12 MLS/HR Examination: GENERAL:Abnormal, LUNGS:Abnormal, MSK:Abnormal laboratory and microbiology Laboratory Tests 11/14/24 03:54 Test 11/14/24 03:54 Range/Units Serum Glucose 83 74-106 mg/dL Microbiology Date/Time Source Procedure Growth Status 10/31/24 11:05 Nose MRSA Screen - Final Complete 10/31/24 10:50 Blood Blood Culture - Final NO GROWTH AFTER 5 DAYS OF INCUBATION. Complete 10/31/24 10:45 Sputum Gram Stain - Final Complete 10/31/24 10:45 Respiratory Culture - Final Enterobacter aerogenes Complete 10/30/24 19:19 Urine - [place] Urine Culture - Final Escherichia coli - ESBL Complete Problem List/Assessment/Plan Problem List/Assessment/Plan ESRD on hemodialysis Right upper extremity right neck and tongue swelling swelling rule out SVC syndrome Acute respiratory failure, patient intubated on ventilator Morbid obesity NSTEMI Congestive heart failure Diabetes mellitus type 2 Anemia of chronic kidney disease Peripheral arterial disease ESBL UTI post bilateral below-knee amputation Thrombus superior vena cava went for procedure today HD today, fluid removal as tolerated keep MAP > 65 Continue with UF to 3 L as tolerated, use no heparin Epogen 20804 subQ 3 times weekly Albumin 25% p.r.n. hemodialysis Fluid restriction Nepro tube feeding Blood pressure control Plan discussed with: Other My Orders My Orders Orders - ASHLEY HINKLE MD Procedure Category Date Status Time Hemodialysis Orders ORDERS 11/14/24 Transmitted 07:00 Dialysis Nursing [facility] 11/14/24 In Process Message 07:00 Document Fluid Input PIYUSH 11/14/24 In Process And Outpu 07:00 Dietary Evaluation Review Comments: 1. On propofol which supply fat kcaloried at 333 kcal/day if running at 12.6ml/hr. 2.Recommend a low fat high protein TF Vital High Protein @ 40ml/hr providing 84 g Protein, and 960 kcal, 803 ml free water, if running at 24 hrs. the combined nurition support will be 84 g Protein and 1056 kcal, supporting pt's needs for protein at 76.3%, needs for energy at 134%. 3. Reasses pt's TF formulary if pt is off Popofol.but still need TF. 4. Renal standard and CCHO-75 if pt is able to have PO intake after passing a LABORATORY ANIMAL CARE VETERINARIAN eval, Expected Outcomes/Goals: gradual wt loss. improved lab values with consistant dialysis. ASHLEY HINKLE MD Nov 14, 2024 10:05
[2024-11-14] MEDS: HEPARIN SODIUM (PORCINE) 5000 UNITS/ML 1ML VIAL ONE (10:20)
[2024-11-14] MEDS: fentaNYL Drip 2500mCg/250mlNS 250 ML IV ONE (11:41)
--- NOTE | 2024-11-14 12:00 | DVHPN2 ---
Progress Note - Dictate Date Seen: Nov 14, 2024 Medical Necessity Reason Pt with a Central, PICC or Fol: Yes The following are medically ne: Central Line, Martinez Catheter Reason for martinez catheter: Strict I&O Subjective PT WAS SEEN IN CLINICAL RESP DISTRESS DIFFUSE WHEEZING PMH HFrEF CHRONIC ISCHEMIC CM PAD BILATERAL LE AMPUTEE DIABETES VASCULOPATHY NEPHROPATHY NEUROPATHY HD ESRD vital signs Vital Sign Date Time Temp Pulse Resp B/P (MAP) Pulse Ox O2 Delivery O2 Flow Rate FiO2 11/14/24 11:29 66 18 119/42 (67 95 30 11/14/24 10:00 Mechanical Ventilator+ 11/14/24 09:15 97.7 207.9 Total Intake and Output 11/13/24 11/13/24 11/14/24 15:00 23:00 07:00 Intake Total 228.8 ml 572.774 ml 474.188 ml Output Total 0 ml Balance 228.8 ml 572.774 ml 474.188 ml medications Current Medications Medications Dose Ordered Sig/Alexander Route Start Time Stop Time Status Last Admin Dose Admin Nitroglycerin 0.4 mg Q5MINP PRN SL 10/30/24 20:00 Aspirin 162 mg DAILY PO 10/31/24 10:00 11/14/24 11:47 162 MG Dextrose 50 ml UD PRN IV 10/30/24 20:15 11/02/24 17:25 50 ML Ondansetron HCl 4 mg Q4HP PRN IV 10/30/24 20:15 Acetaminophen 650 mg Q6HP PRN PO 10/30/24 20:15 11/04/24 13:02 650 MG Pantoprazole Sodium 40 mg DAILY IV 11/01/24 10:00 11/14/24 11:46 40 MG Norepinephrine Bitartrate 32 mg/ Sodium Chloride 250 ml @ 0.938 mls/ hr Q24H IV 10/31/24 11:00 11/14/24 04:21 0.938 MLS/HR Enteral Nutritional Formula 1,000 ml 30ML/HR GT 11/03/24 12:15 11/09/24 17:52 1,000 ML Hydralazine HCl 10 mg Q6HP PRN IV 11/04/24 13:30 11/07/24 12:26 10 MG Metoclopramide HCl 5 mg Q8HR IV 11/04/24 22:00 11/14/24 05:10 5 MG Calcium Acetate 1,334 mg TID NG 11/07/24 14:00 11/13/24 22:50 1,334 MG Meropenem 50 ml @ 16.667 mls/ hr HS IV 11/07/24 22:00 11/13/24 23:07 16.667 MLS/HR Lactulose 30 ml DAILYPRN PRN PO 11/08/24 13:00 Propofol 100 ml @ 2.796 mls/ hr Q24H IV 11/12/24 07:15 11/14/24 05:43 22.368 MLS/HR Insulin Human Regular Q6HR SC 11/13/24 12:00 Diagnostic Test (Pha) 1 strip Q6HR 11/13/24 12:00 11/14/24 05:11 1 STRIP Heparin Sodium/ Dextrose 250 ml @ 12 mls/hr [id number] IV 11/14/24 06:00 11/14/24 06:30 12 MLS/HR Fentanyl Citrate 250 ml @ 2.5 mls/hr Q24H IV 11/14/24 11:45 laboratory and microbiology Laboratory Tests 11/14/24 03:54 Test 11/14/24 03:54 Range/Units Serum Glucose 83 74-106 mg/dL Problem List RESP DISTRESS DIFFUSE WHEEZING PMH HFrEF CHRONIC ISCHEMIC CM PAD BILATERAL LE AMPUTEE DIABETES VASCULOPATHY NEPHROPATHY NEUROPATHY HD ESRD ANEMIA HYPERKALEMIA Assessment/Plan DIALYSIS ABX CORRECT LYTES ECHO S/P DIALYSIS 4L OUT CHECK BNP REPEAT CXR COMPLETE OPACIFICATION OF BOTH LUNGS CXR WITH PT UPRIGHT CONSIDER BRONCHOSCOPY CONSIDER LEFT HEART CATH SIGNIFICANT IMPROVEMENT IN VASCULAR CONGESTION ON CXR CONT DIALYSIS ADD VERQUVO START DIG TITRATE ON VERQUVO LHC * Left main calcified, no flow-restrictive lesion. * Left anterior descending artery, moderate diffuse disease with rapid tapering but no discrete lesions were noted at this time. * Circumflex in the AV groove had in-stent restenosis of greater than 80%-90% status post thrombectomy with stent placement with less than 10% residual stenosis with a 3.0 x 15 mm [place] stent. There was greater than 60% narrowing of the proximal circumflex, status post thrombectomy with stent placement 3.0 x 12 mm [place] stent with less than 10% residual stenosis. * Right coronary artery large dominant vessel without any flow-restrictive lesion. Mild to moderate diffuse disease. However, no discrete lesions were noted. * Left ventricular function showed an EF around 45%-50% with an LVEDP of 15 mmHg. Left ventricular systolic pressure 130. No gradient across the aortic valve. Thus, the patient underwent successful revascularization of in-stent restenosis of obtuse marginal 2/vessel in the AV groove as well as angioplasty with stent placement and thrombectomy of the circumflex proximal segment. At this time, dual-antiplatelet therapy will be initiated and we will continue to follow the patient but overall the patient's current status, the patient's respiratory failure is not indicative of congestive heart failure or acute systolic decompensation. The patient's LVEDP was only 15 mmHg, left ventricular systolic pressure was around 130 with no gradient across the aortic valve. Therefore, the patient's respiratory problem and respiratory arrest is secondary to pulmonary issues as well as renal failure. CXR SIGNIFICANT IMPROVEMENT PCWP NORMAL ELEVATED WBC START WEANING PT S/P PTCA STENT hemodynamically stable check bnp Dietary Evaluation Review Comments: 1. On propofol which supply fat kcaloried at 333 kcal/day if running at 12.6ml/hr. 2.Recommend a low fat high protein TF Vital High Protein @ 40ml/hr providing 84 g Protein, and 960 kcal, 803 ml free water, if running at 24 hrs. the combined nurition support will be 84 g Protein and 1056 kcal, supporting pt's needs for protein at 76.3%, needs for energy at 134%. 3. Reasses pt's TF formulary if pt is off Popofol.but still need TF. 4. Renal standard and CCHO-75 if pt is able to have PO intake after passing a BRASS WIND INSTRUMENT MAKER eval, Expected Outcomes/Goals: gradual wt loss. improved lab values with consistant dialysis. Plan discussed with: Patient Critical Care Time(min): 35 YESICA YORK MD Nov 14, 2024 12:00
[2024-11-14 13:41] LABS: INR 1.09 (0.9-1.15); Partial Thromboplastin Time 33.1 SEC (24.5-34.5); Prothrombin Time 11.5 sec (9.3-11.8)
[2024-11-14] MEDS ORDERED: HEPARIN SODIUM (PORCINE) 5000 UNITS/ML 1ML VIAL IV ONE (14:00)
[2024-11-14] MEDS: fentaNYL Drip 2500mCg/250mlNS 250 ML IV SCH (15:16)
--- NOTE | 2024-11-14 17:41 | DVHPNRES ---
Progress Note Date Seen: Nov 14, 2024 Resident Creating Document: GAVINO MORAES RESIDENT Medical Necessity Reason Pt with a Central, PICC or Fol: Yes The following are medically ne: Central Line, Martinez Catheter Reason for martinez catheter: Strict I&O Subjective Review of Systems Patient was seen and examined at bedside. He remains on mechanical ventilator, minimal vent settings. He is off vasopressors. He is on fentanyl and propofol. Angioplasty to be performed by IR tomorrow Objective vital signs Vital Sign Date Time Temp Pulse Resp B/P (MAP) Pulse Ox O2 Delivery O2 Flow Rate FiO2 11/14/24 16:31 61 11/14/24 16:30 97.3 18 110/42 (64) 207.1 11/14/24 16:00 Mechanical Ventilator+ 30 30 11/14/24 16:00 96 Total Intake and Output 11/13/24 11/13/24 11/14/24 15:00 23:00 07:00 Intake Total 228.8 ml 572.774 ml 474.188 ml Output Total 0 ml Balance 228.8 ml 572.774 ml 474.188 ml medications Current Medications Medications Dose Ordered Sig/Alexander Route Start Time Stop Time Status Last Admin Dose Admin Nitroglycerin 0.4 mg Q5MINP PRN SL 10/30/24 20:00 Aspirin 162 mg DAILY PO 10/31/24 10:00 11/14/24 11:47 162 MG Dextrose 50 ml UD PRN IV 10/30/24 20:15 11/02/24 17:25 50 ML Acetaminophen 650 mg Q6HP PRN PO 10/30/24 20:15 11/04/24 13:02 650 MG Pantoprazole Sodium 40 mg DAILY IV 11/01/24 10:00 11/14/24 11:46 40 MG Norepinephrine Bitartrate 32 mg/ Sodium Chloride 250 ml @ 0.938 mls/ hr Q24H IV 10/31/24 11:00 11/14/24 04:21 0.938 MLS/HR Enteral Nutritional Formula 1,000 ml 30ML/HR GT 11/03/24 12:15 11/09/24 17:52 1,000 ML Hydralazine HCl 10 mg Q6HP PRN IV 11/04/24 13:30 11/07/24 12:26 10 MG Metoclopramide HCl 5 mg Q8HR IV 11/04/24 22:00 11/14/24 14:25 5 MG Calcium Acetate 1,334 mg TID NG 11/07/24 14:00 11/14/24 14: 1,334 MG Meropenem 50 ml @ 16.667 mls/ hr HS IV 11/07/24 22:00 11/13/24 23:07 16.667 MLS/HR Lactulose 30 ml DAILYPRN PRN PO 11/08/24 13:00 Propofol 100 ml @ 2.796 mls/ hr Q24H IV 11/12/24 07:15 11/14/24 05:43 22.368 MLS/HR Insulin Human Regular Q6HR SC 11/13/24 12:00 Diagnostic Test (Pha) 1 strip Q6HR 11/13/24 12:00 11/14/24 12:23 1 STRIP Fentanyl Citrate 250 ml @ 2.5 mls/hr Q24H IV 11/14/24 11:45 11/14/24 15:29 15 MLS/HR Examination Physical examination as below: General: Mechanically ventilated, intubated HEENT: Head is normocephalic and atraumatic. Pupils are equal, round, and reactive to light. Significant swelling on tongue and neck, no signs of subcutaneous emphysema Neck: Supple with no cervical lymphadenopathy. Heart: Regular rate without murmur, rub, or gallop. Lungs: Equal breath sounds bilaterally with no wheezing, rales, or rhonchi. There is no chest wall tenderness or instability. Abdomen: No external sign of injury. Bowel sounds are present. Extremities: Strong peripheral pulses. There is no clubbing, no cyanosis. Significant pitting edema on right upper arm, right chest and neck, tender, no erythema. Skin: No rash. Neurologic: Sedated laboratory and microbiology Laboratory Tests 11/14/24 03:54 Test 11/14/24 03:54 Range/Units Serum Glucose 83 74-106 mg/dL Microbiology Date/Time Source Procedure Growth Status 10/31/24 11:05 Nose MRSA Screen - Final Complete 10/31/24 10:50 Blood Blood Culture - Final NO GROWTH AFTER 5 DAYS OF INCUBATION. Complete 10/31/24 10:45 Sputum Gram Stain - Final Complete 10/31/24 10:45 Respiratory Culture - Final Enterobacter aerogenes Complete 10/30/24 19:19 Urine - [place] Urine Culture - Final Escherichia coli - ESBL Complete Labs and/or images reviewed: Labs reviewed by me, Image(s) reviewed by me Problem List/Assessment/Plan Problem List/Assessment/Plan Neurology #Metabolic encephalopathy due to septic shock form UTI and pneumonia On fent and propofol Cardiovascular #Acute on chronic systolic CHF #Ischemic cardiomyopathy #Peripheral artery disease, s/p amputation #Hypertension, Hydralazine IV prn Aspirin Continue hemodialysis Building Rental Superintendent following, [facility] on 11/09/24, s/p PCI 2x Pulmonology #Acute hypoxic respiratory failure with mechanical ventilation #Pneumonia, gram (+) vs gram (-), atypicals, growing Enterobacter aeruginosa Continue Merrem MV: FIO2: 30% RR: 18 TV 450 PEEP: 5 Nephrology #ESRD on HD # distal stenosis of AV fistula(right arm swelling and pitting edema) AV fistula working Continue HD Director Of Physical Education following dc heparin drip, no thrombus consulted IR for intervention on av fisulta stenosis, scheduled for tomorrow Endocrinology #Morbid obesity #Bilateral lower extremity BK amputation #T2DM SSI Gastroenterology Continue tube feedings: Nepro Continue reglan iv Lactulose prn #Macroglossia and neck swelling due to av fistula stenosis and clot on subclavian IR will perform angioplasty tomorrow Hematology and Oncology #Anemia of chronic disease Monitor Infectious Disease #Pneumonia, gram (+) vs gram (-), atypicals, growing Enterobacter aeruginosa #UTI, growing ESBL E. coli Merrem IV Dermatology DVT ppx Heparin iv PUD ppx Protonix Drips Levo held Fent Propofol Lines TLC Right femoral 10/31/24 ET tube 10/31/24 Martinez 10/31/24 Updated family members on patient's current status Discussed with spouse about possibility of tracheostomy after angioplasty tomorrow Goals of care were discussed for over 30 minutes. FULL CODE. Critical care time spent excluding procedures and including family meeting was 71 mins Case was discussed with Dr. Sosa Plan discussed with: Spouse, Other (RN) My Orders My Orders Orders - GAVINO MORAES RESIDENT Procedure Category Date Status Time Heparin Per Pharmacy [facility] 11/13/24 In Process Protocol 21:22 Fistula /Sinus Tract XY 11/14/24 Taken 10:09 Fentanyl Drip PHA 11/14/24 In Process 2500mcg/250mlns 11:45 Communication Order ORDERS 11/14/24 Transmitted 11:36 PTPTT LAB 11/14/24 Logged 17:30 Dietary Evaluation Review Comments: 1. On propofol which supply fat kcaloried at 333 kcal/day if running at 12.6ml/hr. 2.Recommend a low fat high protein TF Vital High Protein @ 40ml/hr providing 84 g Protein, and 960 kcal, 803 ml free water, if running at 24 hrs. the combined nurition support will be 84 g Protein and 1056 kcal, supporting pt's needs for protein at 76.3%, needs for energy at 134%. 3. Reasses pt's TF formulary if pt is off Popofol.but still need TF. 4. Renal standard and CCHO-75 if pt is able to have PO intake after passing a LITIGATION COUNSEL eval, Expected Outcomes/Goals: gradual wt loss. improved lab values with consistant dialysis. Date of Service: Nov 14, 2024 Billing Provider: CECILIA SOSA MD Common Visit Codes: 39625-[id number] CARE 30-74 MIN GAVINO MORAES RESIDENT Nov 14, 2024 17:41 CECILIA SOSA MD Nov 15, 2024 15:12
[2024-11-14] MEDS: D5W/SOD CHLO 0.9% 1,000 ML IV ONE (20:23)
[2024-11-15] VITALS (103 sets, daily range): BP systolic 63–169; BP diastolic 27–57; PULSE 57–85; RESP 13–38; TEMP 83.7–99; O2SAT 92–100
[2024-11-15 03:49] LABS: Basophils # (auto) 0.1 10 ^3/uL (0-0.2); Basophils % (auto) 0.6 % (0.0-2.0); Eosinophils # (auto) 0.5 10 ^3/uL (0-0.8); Eosinophils % (auto) 5.3 % (0.0-7.0); Hematocrit 26.9 % (41.0-53.0); Hemoglobin 8.8 g/dL (13.5-17.5); Lymphocytes % (auto) 11.7 % (10.0-50.0); Mean Corpuscular Hemoglobin 29.2 pg (28.0-32.0); Mean Corpuscular Hgb Conc. 32.8 g/dL (32.0-36.0); Monocytes % (auto) 10.9 % (0.0-12.0); Neutrophils # (auto) 6.3 10 ^3/uL (1.6-8.6); Neutrophils % (auto) 71.5 % (37.0-80.0); Nucleated Red Blood Cells % 0.1 %; Platelet Count (auto) 428 10^3/uL (140-450); Red Blood Cells 3.02 10^6/uL (4.5-5.90); Red Cell Distribution Width 17.2 % (11.8-14.3); White Blood Cell 8.8 10^3/uL (4.4-10.8)
[2024-11-15 04:03] LABS: Alkaline Phosphatase 68 U/L (46-116); Calcium 9.7 mg/dL (8.7-10.4); Carbon Dioxide 25 mmol/L (20-31); Magnesium 2.5 mg/dL (1.6-2.6); Potassium 4.2 mmol/L (3.5-5.1)
[2024-11-15 04:04] LABS: Albumin 3.7 g/dL (3.2-4.8); Anion Gap 15 (5-15); Aspartate Aminotransferase 14 U/L (13-40); BUN/Creatinine Ratio 6.1 (10.0-20.0); Total Protein 6.7 g/dL (5.7-8.2)
[2024-11-15 04:45] LABS: Alanine Aminotransferase < 9 U/L (7-40); Bilirubin, Total < 0.2 mg/dL (0.2-1.0); Blood Urea Nitrogen 56 mg/dL (9-23); Chloride 91 mmol/L (98-107); Glucose 107 mg/dL (74-106); Sodium 131 mmol/L (136-145)
--- NOTE | 2024-11-15 05:10 | DVH ---
EXAM: XR Chest, 1 View CLINICAL INDICATION: sob TECHNIQUE: Frontal view of the chest. COMPARISON: XY CHEST PORTABLE on DOS: 11/14/24, XY CHEST PORTABLE on DOS: 11/13/24, XY CHEST PORTABLE on DOS: 11/12/24, XY CHEST PORTABLE on DOS: 11/11/24, XY CHEST PORTABLE on DOS: 11/10/24 FINDINGS: LUNGS AND PLEURAL SPACES: Pulmonary venous congestion. No consolidation. No pneumothorax. HEART: Unremarkable. No cardiomegaly. MEDIASTINUM: Unremarkable. Normal mediastinal contour. BONES/JOINTS: Unremarkable. No acute fracture. TUBES, LINES AND DEVICES: The endotracheal tube (ETT) is in satisfactory position. Enteric tube ti p in the stomach. Left internal jugular central venous catheter tip in the superior vena cava. OTHER FINDINGS: . . . IMPRESSION: Pulmonary venous congestion.
[2024-11-15 07:10] LABS: Base Excess 0.2 mmol/L (-2.0-3.0)
[2024-11-15] MEDS: SODIUM CHL 0.9% 1000 ML BAG XX ONE (08:00)
--- NOTE | 2024-11-15 08:30 | DVH ---
FISTULAGRAM, HISTORY: 64 year old male with right arm fistula, right arm, head and neck swelling requiring intubat ion found to have stenosis /occlusion right subclavian and brachiocephalic vein. PROCEDURE: Informed consent was obtained. The patient was positioned supine on the fluoroscopic table and IV sedation administered. Ultrasound of the AVF was performed and the optimal access site chosen ; the overlying skin was then prepped with chlorhexidine which was allowed to dry and draped in steri le fashion. Time out was performed. The outflow cephalic vein was accessed in antegrade fashion with a micropuncture set with ultrasound guidance. Sequential digital central venograms were performed in AP projection. A 7 [place] vascular sheath was placed, and the anastomosis/outflow cephalic vein st enosis was crossed with a wire/[place] catheter. 3000 units of heparin were given IV. Was to cross the r ight subclavian and brachiocephalic vein stenosis / occlusion and contrast injection confirms locatio n wire. Subclavian and brachiocephalic angioplasty to and 7 mm in. The outflow cephalic vein stenosis was balloon angioplasty to 7 mm. The sheath was removed and hemostasis achieved with manual compress ion using a stasis patch. No immediate complication was identified. [id number] FLUOROSCOPY TIME: 11.1 minutes. CONTRAST USED: 40 mL . SEDATION: Dr. Serenity Bolaños was personally responsible for the administration of moderate sedation during the procedure performed, including the use of an independent trained observer who had no other duties during the procedure. The drugs utilized were IV fentanyl and versed (see nursing log for details). The total time of supervision by the attending physician was approximately 60 minutes. 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 Moderate to severe stenosis of the outflo w fistula which was balloon angioplasty to 7 mm. Prominent collateral veins were visualized in the up per arm and neck. 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 Moderate to severe stenosis of the outflow fistula which was balloon angioplasty to 7 mm. PLAN: Bring [facility] back to [facility] for stent placement. Resume hemodialysis. Please remove purse st ring sutures at next dialysis session
[2024-11-15] MEDS ORDERED: NOREPINEPHRINE BITARTRATE 32 MG in SODIUM CHL 0.9% 218 ML IV SCH (09:00)
[2024-11-15] MEDS: LIDOCAINE 2%HCL (LOCAL ANESTH.) INJ 20ML MDV ONE (11:23)
[2024-11-15] MEDS: HEPARIN SODIUM (PORCINE) 5000 UNITS/ML 1ML VIAL ONE (12:15)
--- NOTE | 2024-11-15 12:46 | DVHPN2 ---
Progress Note - Dictate Date Seen: Nov 15, 2024 Medical Necessity Reason Pt with a Central, PICC or Fol: Yes The following are medically ne: Central Line, Martinez Catheter Reason for martinez catheter: Strict I&O Subjective PT WAS SEEN IN CLINICAL RESP DISTRESS DIFFUSE WHEEZING PMH HFrEF CHRONIC ISCHEMIC CM PAD BILATERAL LE AMPUTEE DIABETES VASCULOPATHY NEPHROPATHY NEUROPATHY HD ESRD vital signs Vital Sign Date Time Temp Pulse Resp B/P (MAP) Pulse Ox O2 Delivery O2 Flow Rate FiO2 11/15/24 12:00 30 11/15/24 12:00 18 Mechanical Ventilator+ 11/15/24 10:45 98.1 63 103/36 (58) 208.6 11/15/24 09:51 98 Total Intake and Output 11/14/24 11/14/24 11/15/24 15:00 23:00 07:00 Intake Total 321.410 ml 567.924 ml 764.208 ml Output Total 0 ml 0 ml Balance 321.410 ml 567.924 ml 764.208 ml medications Current Medications Medications Dose Ordered Sig/Alexander Route Start Time Stop Time Status Last Admin Dose Admin Nitroglycerin 0.4 mg Q5MINP PRN SL 10/30/24 20:00 Aspirin 162 mg DAILY PO 10/31/24 10:00 11/14/24 11:47 162 MG Dextrose 50 ml UD PRN IV 10/30/24 20:15 11/02/24 17:25 50 ML Acetaminophen 650 mg Q6HP PRN PO 10/30/24 20:15 11/04/24 13:02 650 MG Pantoprazole Sodium 40 mg DAILY IV 11/01/24 10:00 11/15/24 10:12 40 MG Enteral Nutritional Formula 1,000 ml 30ML/HR GT 11/03/24 12:15 11/09/24 17:52 1,000 ML Hydralazine HCl 10 mg Q6HP PRN IV 11/04/24 13:30 11/07/24 12:26 10 MG Metoclopramide HCl 5 mg Q8HR IV 11/04/24 22:00 11/15/24 06:15 5 MG Calcium Acetate 1,334 mg TID NG 11/07/24 14:00 11/14/24 20:54 1,334 MG Meropenem 50 ml @ 16.667 mls/ hr HS IV 11/07/24 22:00 11/14/24 20:53 16.667 MLS/HR Lactulose 30 ml DAILYPRN PRN PO 11/08/24 13:00 Propofol 100 ml @ 2.796 mls/ hr Q24H IV 11/12/24 07:15 11/15/24 11:15 16.776 MLS/HR Insulin Human Regular Q6HR SC 11/13/24 12:00 Diagnostic Test (Pha) 1 strip Q6HR 11/13/24 12:00 11/15/24 06:16 1 STRIP Fentanyl Citrate 250 ml @ 2.5 mls/hr Q24H IV 11/14/24 11:45 11/15/24 04:49 15 MLS/HR Norepinephrine Bitartrate 32 mg/ Sodium Chloride 250 ml @ 0.234 mls/ hr Q24H IV 11/15/24 09:00 Clopidogrel Bisulfate 75 mg DAILY PO 11/16/24 10:00 UNV laboratory and microbiology Laboratory Tests 11/15/24 03:20 Test 11/15/24 03:20 Range/Units Serum Glucose 107 H 74-106 mg/dL Problem List RESP DISTRESS DIFFUSE WHEEZING PMH HFrEF CHRONIC ISCHEMIC CM PAD BILATERAL LE AMPUTEE DIABETES VASCULOPATHY NEPHROPATHY NEUROPATHY HD ESRD ANEMIA HYPERKALEMIA Assessment/Plan DIALYSIS ABX CORRECT LYTES ECHO S/P DIALYSIS 4L OUT CHECK BNP REPEAT CXR COMPLETE OPACIFICATION OF BOTH LUNGS CXR WITH PT UPRIGHT CONSIDER BRONCHOSCOPY CONSIDER LEFT HEART CATH SIGNIFICANT IMPROVEMENT IN VASCULAR CONGESTION ON CXR CONT DIALYSIS ADD VERQUVO START DIG TITRATE ON VERQUVO LHC * Left main calcified, no flow-restrictive lesion. * Left anterior descending artery, moderate diffuse disease with rapid tapering but no discrete lesions were noted at this time. * Circumflex in the AV groove had in-stent restenosis of greater than 80%-90% status post thrombectomy with stent placement with less than 10% residual stenosis with a 3.0 x 15 mm [place] Zavala stent. There was greater than 60% narrowing of the proximal circumflex, status post thrombectomy with stent placement 3.0 x 12 mm [place] Zavala stent with less than 10% residual stenosis. * Right coronary artery large dominant vessel without any flow-restrictive lesion. Mild to moderate diffuse disease. However, no discrete lesions were noted. * Left ventricular function showed an EF around 45%-50% with an LVEDP of 15 mmHg. Left ventricular systolic pressure 130. No gradient across the aortic valve. Thus, the patient underwent successful revascularization of in-stent restenosis of obtuse marginal 2/vessel in the AV groove as well as angioplasty with stent placement and thrombectomy of the circumflex proximal segment. At this time, dual-antiplatelet therapy will be initiated and we will continue to follow the patient but overall the patient's current status, the patient's respiratory failure is not indicative of congestive heart failure or acute systolic decompensation. The patient's LVEDP was only 15 mmHg, left ventricular systolic pressure was around 130 with no gradient across the aortic valve. Therefore, the patient's respiratory problem and respiratory arrest is secondary to pulmonary issues as well as renal failure. CXR SIGNIFICANT IMPROVEMENT PCWP NORMAL ELEVATED WBC START WEANING PT S/P PTCA STENT hemodynamically stable check bnp DC ALL SEDATION WEAN PT OFF VENT Dietary Evaluation Review Comments: 1. On propofol which supply fat kcaloried at 333 kcal/day if running at 12.6ml/hr. 2.Recommend a low fat high protein TF Vital High Protein @ 40ml/hr providing 84 g Protein, and 960 kcal, 803 ml free water, if running at 24 hrs. the combined nurition support will be 84 g Protein and 1056 kcal, supporting pt's needs for protein at 76.3%, needs for energy at 134%. 3. Reasses pt's TF formulary if pt is off Popofol.but still need TF. 4. Renal standard and CCHO-75 if pt is able to have PO intake after passing a DISTRICT RANGER eval, Expected Outcomes/Goals: gradual wt loss. improved lab values with consistant dialysis. Plan discussed with: Daughter Critical Care Time(min): 35 YESICA YORK MD Nov 15, 2024 12:46
[2024-11-15] MEDS: ALBUMIN 25% 100 ML IV ONE ×2 (13:41→14:47)
[2024-11-15] MEDS: ALBUMIN 5% 250 ML IV ONE (14:30)
[2024-11-15] MEDS: NOREPINEPHRINE 8 MG/250ML KIT 250 ML IV SCH (14:32)
[2024-11-15] MEDS: CLOPIDOGREL BISULFATE 75 MG TAB PO ONE (14:34)
[2024-11-15] MEDS: fentaNYL Drip 2500mCg/250mlNS 250 ML IV SCH (15:15)
[2024-11-15] MEDS: PROPOFOL 100 ML IV SCH (15:15)
--- NOTE | 2024-11-15 16:24 | DVHPN2 ---
Progress Note Date Seen: Nov 15, 2024 Medical Necessity Reason Pt with a Central, PICC or Fol: Yes The following are medically ne: Central Line, Martinez Catheter Reason for martinez catheter: Strict I&O Subjective Review of Systems: RESPIRATORY:Abnormal Objective vital signs Vital Sign Date Time Temp Pulse Resp B/P (MAP) Pulse Ox O2 Delivery O2 Flow Rate FiO2 11/15/24 16:00 30 11/15/24 16:00 64 11/15/24 16:00 18 Mechanical Ventilator+ 11/15/24 14:50 113/30 (57) 100 11/15/24 10:45 98.1 208.6 Total Intake and Output 11/14/24 11/14/24 11/15/24 15:00 23:00 07:00 Intake Total 321.410 ml 567.924 ml 764.208 ml Output Total 0 ml 0 ml Balance 321.410 ml 567.924 ml 764.208 ml medications Current Medications Medications Dose Ordered Sig/Alexander Route Start Time Stop Time Status Last Admin Dose Admin Nitroglycerin 0.4 mg Q5MINP PRN SL 10/30/24 20:00 Aspirin 162 mg DAILY PO 10/31/24 10:00 11/15/24 14:35 162 MG Dextrose 50 ml UD PRN IV 10/30/24 20:15 11/02/24 17:25 50 ML Acetaminophen 650 mg Q6HP PRN PO 10/30/24 20:15 11/04/24 13:02 650 MG Pantoprazole Sodium 40 mg DAILY IV 11/01/24 10:00 11/15/24 10:12 40 MG Enteral Nutritional Formula 1,000 ml 30ML/HR GT 11/03/24 12:15 11/09/24 17:52 1,000 ML Hydralazine HCl 10 mg Q6HP PRN IV 11/04/24 13:30 11/07/24 12:26 10 MG Metoclopramide HCl 5 mg Q8HR IV 11/04/24 22:00 11/15/24 14:33 5 MG Calcium Acetate 1,334 mg TID NG 11/07/24 14:00 11/15/24 14:34 1,334 MG Meropenem 50 ml @ 16.667 mls/ hr HS IV 11/07/24 22:00 11/14/24 20:53 16.667 MLS/HR Lactulose 30 ml DAILYPRN PRN PO 11/08/24 13:00 Insulin Human Regular Q6HR SC 11/13/24 12:00 Diagnostic Test (Pha) 1 strip Q6HR 11/13/24 12:00 11/15/24 12:00 1 STRIP Clopidogrel Bisulfate 75 mg DAILY PO 11/16/24 10:00 Norepinephrine Bitartrate 250 ml @ 0.938 mls/ hr Q24H IV 11/15/24 13:45 11/15/24 14:32 0.938 MLS/HR Propofol 100 ml @ 2.817 mls/ hr Q24H IV 11/15/24 15:15 Midazolam HCl 50 ml @ 1 mls/hr Q24H IV 11/15/24 15:15 Fentanyl Citrate 250 ml @ 2.5 mls/hr Q24H IV 11/15/24 15:15 Examination: GENERAL:Abnormal, LUNGS:Abnormal, CVS:Abnormal, MSK:Abnormal, SKIN:Abnormal, NEURO:Abnormal laboratory and microbiology Laboratory Tests 11/15/24 03:20 Test 11/15/24 03:20 Range/Units Serum Glucose 107 H 74-106 mg/dL Microbiology Date/Time Source Procedure Growth Status 10/31/24 11:05 Nose MRSA Screen - Final Complete 10/31/24 10:50 Blood Blood Culture - Final NO GROWTH AFTER 5 DAYS OF INCUBATION. Complete 10/31/24 10:45 Sputum Gram Stain - Final Complete 10/31/24 10:45 Respiratory Culture - Final Enterobacter aerogenes Complete 10/30/24 19:19 Urine - [place] Urine Culture - Final Escherichia coli - ESBL Complete Problem List/Assessment/Plan Problem List/Assessment/Plan ESRD on hemodialysis Right upper extremity right neck and tongue swelling swelling rule out SVC syndrome Acute respiratory failure, patient intubated on ventilator Morbid obesity NSTEMI Congestive heart failure Diabetes mellitus type 2 Anemia of chronic kidney disease Peripheral arterial disease ESBL UTI post bilateral below-knee amputation Thrombus superior vena cava went for procedure today fistulogram and thrombectomy HD today, fluid removal as tolerated keep MAP > 65 Continue with UF to 3 L as tolerated, use no heparin Epogen 79320 subQ 3 times weekly Albumin 25% p.r.n. hemodialysis Fluid restriction Nepro tube feeding Blood pressure control Plan discussed with: Spouse, Daughter My Orders My Orders Orders - ASHLEY HINKLE MD Procedure Category Date Status Time Hemodialysis Orders ORDERS 11/15/24 Transmitted 07:47 Dialysis Nursing PIYUSH 11/15/24 In Process Message 07:47 Document Fluid Input PIYUSH 11/15/24 In Process And Outpu 07:47 Dietary Evaluation Review Comments: 1. On propofol which supply fat kcaloried at 333 kcal/day if running at 12.6ml/hr. 2.Recommend a low fat high protein TF Vital High Protein @ 40ml/hr providing 84 g Protein, and 960 kcal, 803 ml free water, if running at 24 hrs. the combined nurition support will be 84 g Protein and 1056 kcal, supporting pt's needs for protein at 76.3%, needs for energy at 134%. 3. Reasses pt's TF formulary if pt is off Popofol.but still need TF. 4. Renal standard and CCHO-75 if pt is able to have PO intake after passing a TACK DRILLER eval, Expected Outcomes/Goals: gradual wt loss. improved lab values with consistant dialysis. ASHLEY HINKLE MD Nov 15, 2024 16:24
[2024-11-15] MEDS: MIDAZOLAM DRIP 50 mg/50mL 50 ML IV SCH (17:44)
--- NOTE | 2024-11-15 17:59 | DVHPNRES ---
Progress Note Date Seen: Nov 15, 2024 Resident Creating Document: GAVINO MORAES RESIDENT Medical Necessity Reason Pt with a Central, PICC or Fol: Yes The following are medically ne: Central Line, Martinez Catheter Reason for martinez catheter: Strict I&O Subjective Review of Systems Patient was seen and examined at bedside. He remains on mechanical ventilator, minimal vent settings. He is off vasopressors. He is on fentanyl and propofol. Angioplasty to be performed by IR today Objective vital signs Vital Sign Date Time Temp Pulse Resp B/P (MAP) Pulse Ox O2 Delivery O2 Flow Rate FiO2 11/15/24 16:00 30 11/15/24 16:00 64 11/15/24 16:00 18 Mechanical Ventilator+ 11/15/24 15:00 134/55 11/15/24 14:50 100 11/15/24 10:45 98.1 208.6 Total Intake and Output 11/14/24 11/14/24 11/15/24 15:00 23:00 07:00 Intake Total 321.410 ml 567.924 ml 764.208 ml Output Total 0 ml 0 ml Balance 321.410 ml 567.924 ml 764.208 ml medications Current Medications Medications Dose Ordered Sig/Alexander Route Start Time Stop Time Status Last Admin Dose Admin Nitroglycerin 0.4 mg Q5MINP PRN SL 10/30/24 20:00 Aspirin 162 mg DAILY PO 10/31/24 10:00 11/15/24 14:35 162 MG Dextrose 50 ml UD PRN IV 10/30/24 20:15 11/02/24 17:25 50 ML Acetaminophen 650 mg Q6HP PRN PO 10/30/24 20:15 11/04/24 13:02 650 MG Pantoprazole Sodium 40 mg DAILY IV 11/01/24 10:00 11/15/24 10:12 40 MG Enteral Nutritional Formula 1,000 ml 30ML/HR GT 11/03/24 12:15 11/09/24 17:52 1,000 ML Hydralazine HCl 10 mg Q6HP PRN IV 11/04/24 13:30 11/07/24 12:26 10 MG Metoclopramide HCl 5 mg Q8HR IV 11/04/24 22:00 11/15/24 14:33 5 MG Calcium Acetate 1,334 mg TID NG 11/07/24 14:00 11/15/24 14:34 1,334 MG Meropenem 50 ml @ 16.667 mls/ hr HS IV 11/07/24 22:00 11/14/24 20:53 16.667 MLS/HR Lactulose 30 ml DAILYPRN PRN PO 11/08/24 13:00 Insulin Human Regular Q6HR SC 11/13/24 12:00 Diagnostic Test (Pha) 1 strip Q6HR 11/13/24 12:00 11/15/24 17:50 1 STRIP Clopidogrel Bisulfate 75 mg DAILY PO 11/16/24 10:00 Norepinephrine Bitartrate 250 ml @ 0.938 mls/ hr Q24H IV 11/15/24 13:45 11/15/24 14:32 0.938 MLS/HR Propofol 100 ml @ 2.817 mls/ hr Q24H IV 11/15/24 15:15 11/15/24 15:15 16.902 MLS/HR Midazolam HCl 50 ml @ 1 mls/hr Q24H IV 11/15/24 15:15 11/15/24 17:44 1 MLS/HR Fentanyl Citrate 250 ml @ 2.5 mls/hr Q24H IV 11/15/24 15:15 11/15/24 15:15 20 MLS/HR Examination Physical examination as below: General: Mechanically ventilated, intubated HEENT: Head is normocephalic and atraumatic. Pupils are equal, round, and reactive to light. Significant swelling on tongue and neck, no signs of subcutaneous emphysema Neck: Supple with no cervical lymphadenopathy. Heart: Regular rate without murmur, rub, or gallop. Lungs: Equal breath sounds bilaterally with no wheezing, rales, or rhonchi. There is no chest wall tenderness or instability. Abdomen: No external sign of injury. Bowel sounds are present. Extremities: Strong peripheral pulses. There is no clubbing, no cyanosis. Significant pitting edema on right upper arm, right chest and neck, tender, no erythema. Skin: No rash. Neurologic: Sedated laboratory and microbiology Laboratory Tests 11/15/24 03:20 Test 11/15/24 03:20 Range/Units Serum Glucose 107 H 74-106 mg/dL Microbiology Date/Time Source Procedure Growth Status 10/31/24 11:05 Nose MRSA Screen - Final Complete 10/31/24 10:50 Blood Blood Culture - Final NO GROWTH AFTER 5 DAYS OF INCUBATION. Complete 10/31/24 10:45 Sputum Gram Stain - Final Complete 10/31/24 10:45 Respiratory Culture - Final Enterobacter aerogenes Complete 10/30/24 19:19 Urine - [place] Urine Culture - Final Escherichia coli - ESBL Complete Labs and/or images reviewed: Labs reviewed by me, Image(s) reviewed by me Problem List/Assessment/Plan Problem List/Assessment/Plan Neurology #Metabolic encephalopathy due to septic shock form UTI and pneumonia On fent and propofol Cardiovascular #Acute on chronic systolic CHF #Ischemic cardiomyopathy #Peripheral artery disease, s/p amputation #Hypertension, Hydralazine IV prn Aspirin plavix 75mg po qd Continue hemodialysis Classified Copy Control Clerk following, [facility] on 11/09/24, s/p PCI 2x Pulmonology #Acute hypoxic respiratory failure with mechanical ventilation #Pneumonia, gram (+) vs gram (-), atypicals, growing Enterobacter aeruginosa Continue Merrem MV: FIO2: 30% RR: 18 TV 450 PEEP: 5 trach tomorrow Nephrology #ESRD on HD # distal stenosis of AV fistula(right arm swelling and pitting edema) AV fistula working Continue HD Manufacturing Machine Operator following consulted IR for intervention on av fisulta stenosis, scheduled for today Endocrinology #Morbid obesity #Bilateral lower extremity BK amputation #T2DM SSI Gastroenterology Continue tube feedings: Nepro Continue reglan iv Lactulose prn #Macroglossia and neck swelling due to av fistula stenosis and clot on subclavian IR will perform angioplasty today wound care for tongue Hematology and Oncology #Anemia of chronic disease Monitor Infectious Disease #Pneumonia, gram (+) vs gram (-), atypicals, growing Enterobacter aeruginosa #UTI, growing ESBL E. coli Merrem IV Dermatology x DVT ppx Heparin iv PUD ppx Protonix Drips Levo held Fent Propofol Lines TLC Right femoral 10/31/24 ET tube 10/31/24 Martinez 10/31/24 Updated family members on patient's current status Discussed with spouse patient current status, trach tomorrow Goals of care were discussed for over 30 minutes. FULL CODE. Critical care time spent excluding procedures and including family meeting was 82 mins Case was discussed with Dr. Sosa Plan discussed with: Spouse, Daughter, Other (RN) My Orders My Orders Orders - GAVINO MORAES RESIDENT Procedure Category Date Status Time *Consult Dr. Rojas CONS 11/15/24 Transmitted 06:05 Clopidogrel Bisulfate PHA 11/16/24 In Process (Plavix) 10:00 Fistula /Sinus Tract XY 11/15/24 Taken 12:19 Norepinephrine 8 PHA 11/15/24 In Process Mg/250ml Kit 13:45 Communication Order ORDERS 11/15/24 Verified 17:52 Complete Blood Count LAB 11/16/24 Verified 04:00 Comprehensive LAB 11/16/24 Verified Metabolic Panel 04:00 Magnesium LAB 11/16/24 Verified 04:00 Chest Portable XY 11/16/24 Verified 04:00 Abg W/ Co-Ox RT 11/16/24 Verified 04:00 Dietary Evaluation Review Comments: 1. On propofol which supply fat kcaloried at 333 kcal/day if running at 12.6ml/hr. 2.Recommend a low fat high protein TF Vital High Protein @ 40ml/hr providing 84 g Protein, and 960 kcal, 803 ml free water, if running at 24 hrs. the combined nurition support will be 84 g Protein and 1056 kcal, supporting pt's needs for protein at 76.3%, needs for energy at 134%. 3. Reasses pt's TF formulary if pt is off Popofol.but still need TF. 4. Renal standard and CCHO-75 if pt is able to have PO intake after passing a PROCESS TANK TENDER eval, Expected Outcomes/Goals: gradual wt loss. improved lab values with consistant dialysis. Date of Service: Nov 15, 2024 Billing Provider: CECILIA SOSA MD Common Visit Codes: 52637-[id number] CARE 30-74 MIN, 23705-[id number] CARE-EACH +30MIN GAVINO MORAES RESIDENT Nov 15, 2024 17:59 CECILIA SOSA MD Nov 16, 2024 10:44
[2024-11-16] VITALS (104 sets, daily range): BP systolic 93–180; BP diastolic 38–64; PULSE 60–77; RESP 12–29; TEMP 97.7–99.3; O2SAT 93–100
[2024-11-16 04:37] LABS: Albumin 3.9 g/dL (3.2-4.8); Alkaline Phosphatase 66 U/L (46-116); Anion Gap 15 (5-15); Aspartate Aminotransferase 20 U/L (13-40); BUN/Creatinine Ratio 3.7 (10.0-20.0); Blood Urea Nitrogen 22 mg/dL (9-23); Calcium 9.8 mg/dL (8.7-10.4); Carbon Dioxide 21 mmol/L (20-31); Magnesium 2.4 mg/dL (1.6-2.6); Potassium 3.9 mmol/L (3.5-5.1); Total Protein 6.7 g/dL (5.7-8.2)
[2024-11-16 04:40] LABS: Hematocrit 27.7 % (41.0-53.0); Hemoglobin 8.6 g/dL (13.5-17.5); Mean Corpuscular Hemoglobin 28.1 pg (28.0-32.0); Mean Corpuscular Volume 90.7 fL (80.0-100.0); Platelet Count (auto) 410 10^3/uL (140-450); Red Blood Cells 3.05 10^6/uL (4.5-5.90); Red Cell Distribution Width 17.3 % (11.8-14.3); White Blood Cell 7.6 10^3/uL (4.4-10.8)
[2024-11-16 05:04] LABS: Alanine Aminotransferase 9 U/L (7-40); Bilirubin, Total < 0.2 mg/dL (0.2-1.0); Chloride 95 mmol/L (98-107); Glucose 72 mg/dL (74-106); Sodium 131 mmol/L (136-145)
[2024-11-16 05:32] LABS: Basophils % (manual) 0 (0.0-2.0); Metamyelocytes % 0; Myelocytes % 0; Promyelocytes % 0; Reactive Lymphocytes 0
--- NOTE | 2024-11-16 06:10 | DVH ---
CHEST RADIOGRAPH Indication: sob Technique: Single frontal view of the chest was obtained Comparison: XY CHEST PORTABLE on DOS: 11/15/24 FINDINGS: Lines and Tubes: The endotracheal tube terminates 3.1 cm above the patrick. The enteric tube terminate s in the stomach. Left central venous catheter terminates in the superior vena cava. Lungs: Stable pulmonary venous congestion. Pleura: No effusion. No pneumothorax. Cardiomediastinal contours: Stable cardiomegaly. Bones: No acute osseous abnormality. IMPRESSION: 1. Stable position of the support lines and tubes. 2. Stable pulmonary venous congestion. 3. Cardiomegaly, stable.
[2024-11-16 06:29] LABS: Band Neutrophils % (manual) 3; Blast Cells 1; Eosinophils % (manual) 9 (0-7); Lymphocytes % (manual) 11 (10.0-50.0); Monocytes % (manual) 5 (0-12); Platelet Estimate Adequate
[2024-11-16 07:36] LABS: Base Excess 1.5 mmol/L (-2.0-3.0)
--- NOTE | 2024-11-16 08:05 | DVHPN2 ---
Progress Note - Dictate Date Seen: Nov 16, 2024 Medical Necessity Reason Pt with a Central, PICC or Fol: Yes The following are medically ne: Central Line, Martinez Catheter Reason for martinez catheter: Strict I&O Subjective PT WAS SEEN IN CLINICAL RESP DISTRESS DIFFUSE WHEEZING PMH HFrEF CHRONIC ISCHEMIC CM PAD BILATERAL LE AMPUTEE DIABETES VASCULOPATHY NEPHROPATHY NEUROPATHY HD ESRD vital signs Vital Sign Date Time Temp Pulse Resp B/P (MAP) Pulse Ox O2 Delivery O2 Flow Rate FiO2 11/16/24 07:40 142/49 11/16/24 06:46 98.8 77 19 95 209.8 11/16/24 06:07 30 11/16/24 06:00 Mechanical Ventilator+ Total Intake and Output 11/15/24 11/15/24 11/16/24 15:00 23:00 07:00 Intake Total 292.646 ml 1047.664 ml 604.922 ml Balance 292.646 ml 1047.664 ml 604.922 ml medications Current Medications Medications Dose Ordered Sig/Alexander Route Start Time Stop Time Status Last Admin Dose Admin Nitroglycerin 0.4 mg Q5MINP PRN SL 10/30/24 20:00 Aspirin 162 mg DAILY PO 10/31/24 10:00 11/15/24 14:35 162 MG Dextrose 50 ml UD PRN IV 10/30/24 20:15 11/02/24 17:25 50 ML Acetaminophen 650 mg Q6HP PRN PO 10/30/24 20:15 11/04/24 13:02 650 MG Pantoprazole Sodium 40 mg DAILY IV 11/01/24 10:00 11/15/24 10:12 40 MG Enteral Nutritional Formula 1,000 ml 30ML/HR GT 11/03/24 12:15 11/09/24 17:52 1,000 ML Hydralazine HCl 10 mg Q6HP PRN IV 11/04/24 13:30 11/07/24 12:26 10 MG Metoclopramide HCl 5 mg Q8HR IV 11/04/24 22:00 11/16/24 06:14 5 MG Calcium Acetate 1,334 mg TID NG 11/07/24 14:00 11/16/24 06:16 1,334 MG Meropenem 50 ml @ 16.667 mls/ hr HS IV 11/07/24 22:00 11/15/24 21:49 16.667 MLS/HR Lactulose 30 ml DAILYPRN PRN PO 11/08/24 13:00 Insulin Human Regular Q6HR SC 11/13/24 12:00 Diagnostic Test (Pha) 1 strip Q6HR 11/13/24 12:00 11/16/24 06:13 1 STRIP Clopidogrel Bisulfate 75 mg DAILY PO 11/16/24 10:00 Norepinephrine Bitartrate 250 ml @ 0.938 mls/ hr Q24H IV 11/15/24 13:45 11/15/24 14:32 0.938 MLS/HR Propofol 100 ml @ 2.817 mls/ hr Q24H IV 11/15/24 15:15 11/16/24 06:14 28.17 MLS/HR Midazolam HCl 50 ml @ 1 mls/hr Q24H IV 11/15/24 15:15 11/15/24 17:44 1 MLS/HR Fentanyl Citrate 250 ml @ 2.5 mls/hr Q24H IV 11/15/24 15:15 11/16/24 07:40 32.5 MLS/HR laboratory and microbiology Laboratory Tests 11/16/24 03:22 Test 11/16/24 03:22 Range/Units Serum Glucose 72 L 74-106 mg/dL Problem List RESP DISTRESS DIFFUSE WHEEZING PMH HFrEF CHRONIC ISCHEMIC CM PAD BILATERAL LE AMPUTEE DIABETES VASCULOPATHY NEPHROPATHY NEUROPATHY HD ESRD ANEMIA HYPERKALEMIA Assessment/Plan DIALYSIS ABX CORRECT LYTES ECHO S/P DIALYSIS 4L OUT CHECK BNP REPEAT CXR COMPLETE OPACIFICATION OF BOTH LUNGS CXR WITH PT UPRIGHT CONSIDER BRONCHOSCOPY CONSIDER LEFT HEART CATH SIGNIFICANT IMPROVEMENT IN VASCULAR CONGESTION ON CXR CONT DIALYSIS ADD VERQUVO START DIG TITRATE ON VERQUVO LHC * Left main calcified, no flow-restrictive lesion. * Left anterior descending artery, moderate diffuse disease with rapid tapering but no discrete lesions were noted at this time. * Circumflex in the AV groove had in-stent restenosis of greater than 80%-90% status post thrombectomy with stent placement with less than 10% residual stenosis with a 3.0 x 15 mm [place] stent. There was greater than 60% narrowing of the proximal circumflex, status post thrombectomy with stent placement 3.0 x 12 mm [place] stent with less than 10% residual stenosis. * Right coronary artery large dominant vessel without any flow-restrictive lesion. Mild to moderate diffuse disease. However, no discrete lesions were noted. * Left ventricular function showed an EF around 45%-50% with an LVEDP of 15 mmHg. Left ventricular systolic pressure 130. No gradient across the aortic valve. Thus, the patient underwent successful revascularization of in-stent restenosis of obtuse marginal 2/vessel in the AV groove as well as angioplasty with stent placement and thrombectomy of the circumflex proximal segment. At this time, dual-antiplatelet therapy will be initiated and we will continue to follow the patient but overall the patient's current status, the patient's respiratory failure is not indicative of congestive heart failure or acute systolic decompensation. The patient's LVEDP was only 15 mmHg, left ventricular systolic pressure was around 130 with no gradient across the aortic valve. Therefore, the patient's respiratory problem and respiratory arrest is secondary to pulmonary issues as well as renal failure. CXR SIGNIFICANT IMPROVEMENT PCWP NORMAL ELEVATED WBC START WEANING PT S/P PTCA STENT hemodynamically stable check bnp DC ALL SEDATION WEAN PT OFF VENT SUBCLAVIAN VEIN STENOSIS EDEMA ORAL OBSTRUCTION SECONDARY TO SOFT TISSUE SWELLING TRACHEOSTOMY SUBCLAVIAN VEIN STENTING PENDING Dietary Evaluation Review Comments: 1. On propofol which supply fat kcaloried at 333 kcal/day if running at 12.6ml/hr. 2.Recommend a low fat high protein TF Vital High Protein @ 40ml/hr providing 84 g Protein, and 960 kcal, 803 ml free water, if running at 24 hrs. the combined nurition support will be 84 g Protein and 1056 kcal, supporting pt's needs for protein at 76.3%, needs for energy at 134%. 3. Reasses pt's TF formulary if pt is off Popofol.but still need TF. 4. Renal standard and CCHO-75 if pt is able to have PO intake after passing a FACILITY ATTENDANT eval, Expected Outcomes/Goals: gradual wt loss. improved lab values with consistant dialysis. Plan discussed with: Other Critical Care Time(min): 35 YESICA YORK MD Nov 16, 2024 08:05
--- NOTE | 2024-11-16 08:35 | DVH ---
XY FISTULA /SINUS TRACT, HISTORY: DIALYSIS FIST. STENT PL. PROCEDURE: Informed consent was obtained. The patient was positioned supine on the fluoroscopic table and IV sedation administered. Ultrasound of the AVF was performed and the optimal access site chosen ; the overlying skin was then prepped with chlorhexidine which was allowed to dry and draped in steri le fashion. Time out was performed. The outflow cephalic vein was accessed in antegrade fashion with a micropuncture set with ultrasound guidance. Over a Hancock advantage wire a 7 [place] short vascular s gale was placed into fistula. A [place]ancock Advantage include catheter were used to cross the central veno us stenosis in the wire placed into the IVC. Over a catheter the wire was exchanged for a stiff ampla tz wire. Central venograms were performed. Then a Avance Pay vascular 9 mm x 60 mm self e xpanding stent was placed in the right brachiocephalic and subclavian veins. It was then post dilated to 6 mm. Contrast injection central venogram shows good patency of the stent. 2000 units of heparin was given.. The sheath was removed and hemostasis achieved with manual compression using a suture. No immediate complication was identified. DAP FLUOROSCOPY TIME: 5 minutes. CONTRAST USED: 40 mL . SEDATION: Dr. Serenity Bolaños was personally responsible for the administration of moderate sedation during the procedure performed, including the use of an independent trained observer who had no other duties during the procedure. The drugs utilized were IV propofol (see nursing log for details). The total t jeffry of supervision by the attending physician was approximately 60 minutes. 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 Placement of a self expanding 9 mm x 60 mm vascular stent that was post dilated t o 6 mm in the right brachiocephalic and subclavian vein improves patency. 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 Placement of a self expanding 9 mm x 60 mm vascular stent that was post dilated to 6 mm in the right brachiocephalic and subclavian vein improves patency. PLAN: Resume hemodialysis. Please remove purse string sutures at next dialysis session.
[2024-11-16] MEDS: CLOPIDOGREL BISULFATE 75 MG TAB PO SCH (09:13)
--- NOTE | 2024-11-16 09:41 | DVHPNRES ---
Progress Note Date Seen: Nov 16, 2024 Resident Creating Document: GAVINO MORAES RESIDENT Medical Necessity Reason Pt with a Central, PICC or Fol: Yes The following are medically ne: Central Line, Martinez Catheter Reason for martinez catheter: Strict I&O Subjective Review of Systems Patient was seen and examined at bedside. He remains on mechanical ventilator, minimal vent settings. He is off vasopressors. He is on fentanyl, versed and propofol. Trach tomorrow Objective vital signs Vital Sign Date Time Temp Pulse Resp B/P (MAP) Pulse Ox O2 Delivery O2 Flow Rate FiO2 11/16/24 09:16 146/55 11/16/24 08:32 70 18 94 30 11/16/24 06:46 98.8 209.8 11/16/24 06:00 Mechanical Ventilator+ Total Intake and Output 11/15/24 11/15/24 11/16/24 15:00 23:00 07:00 Intake Total 292.646 ml 1047.664 ml 604.922 ml Balance 292.646 ml 1047.664 ml 604.922 ml medications Current Medications Medications Dose Ordered Sig/Alexander Route Start Time Stop Time Status Last Admin Dose Admin Nitroglycerin 0.4 mg Q5MINP PRN SL 10/30/24 20:00 Aspirin 162 mg DAILY PO 10/31/24 10:00 11/16/24 09:14 162 MG Dextrose 50 ml UD PRN IV 10/30/24 20:15 11/02/24 17:25 50 ML Acetaminophen 650 mg Q6HP PRN PO 10/30/24 20:15 11/04/24 13:02 650 MG Pantoprazole Sodium 40 mg DAILY IV 11/01/24 10:00 11/16/24 09:13 40 MG Enteral Nutritional Formula 1,000 ml 30ML/HR GT 11/03/24 12:15 11/09/24 17:52 1,000 ML Hydralazine HCl 10 mg Q6HP PRN IV 11/04/24 13:30 11/07/24 12:26 10 MG Metoclopramide HCl 5 mg Q8HR IV 11/04/24 22:00 11/16/24 06:14 5 MG Calcium Acetate 1,334 mg TID NG 11/07/24 14:00 11/16/24 06:16 1,334 MG Meropenem 50 ml @ 16.667 mls/ hr HS IV 11/07/24 22:00 11/15/24 21:49 16.667 MLS/HR Lactulose 30 ml DAILYPRN PRN PO 11/08/24 13:00 Insulin Human Regular Q6HR SC 11/13/24 12:00 Diagnostic Test (Pha) 1 strip Q6HR 11/13/24 12:00 11/16/24 06:13 1 STRIP Clopidogrel Bisulfate 75 mg DAILY PO 11/16/24 10:00 11/16/24 09:13 75 MG Norepinephrine Bitartrate 250 ml @ 0.938 mls/ hr Q24H IV 11/15/24 13:45 11/15/24 14:32 0.938 MLS/HR Propofol 100 ml @ 2.817 mls/ hr Q24H IV 11/15/24 15:15 11/16/24 08:57 28.17 MLS/HR Midazolam HCl 50 ml @ 1 mls/hr Q24H IV 11/15/24 15:15 11/16/24 09:16 2 MLS/HR Fentanyl Citrate 250 ml @ 2.5 mls/hr Q24H IV 11/15/24 15:15 11/16/24 07:40 32.5 MLS/HR Examination Physical examination as below: General: Mechanically ventilated, intubated HEENT: Head is normocephalic and atraumatic. Pupils are equal, round, and reactive to light. Significant swelling on tongue with wound on ventral aspect. Neck: Supple with no cervical lymphadenopathy. Heart: Regular rate without murmur, rub, or gallop. Lungs: Equal breath sounds bilaterally with no wheezing, rales, or rhonchi. There is no chest wall tenderness or instability. Abdomen: No external sign of injury. Bowel sounds are present. Extremities: Strong peripheral pulses. There is no clubbing, no cyanosis. Significant pitting edema on right upper arm, right chest and neck, tender, no erythema. Skin: No rash. Neurologic: Sedated laboratory and microbiology Laboratory Tests 11/16/24 03:22 Test 11/16/24 03:22 Range/Units Serum Glucose 72 L 74-106 mg/dL Microbiology Date/Time Source Procedure Growth Status 10/31/24 11:05 Nose MRSA Screen - Final Complete 10/31/24 10:50 Blood Blood Culture - Final NO GROWTH AFTER 5 DAYS OF INCUBATION. Complete 10/31/24 10:45 Sputum Gram Stain - Final Complete 10/31/24 10:45 Respiratory Culture - Final Enterobacter aerogenes Complete 10/30/24 19:19 Urine - [place] Urine Culture - Final Escherichia coli - ESBL Complete Labs and/or images reviewed: Labs reviewed by me, Image(s) reviewed by me Problem List/Assessment/Plan Problem List/Assessment/Plan Neurology #Metabolic encephalopathy due to septic shock form UTI and pneumonia On fent and propofol and versed Cardiovascular #Acute on chronic systolic CHF #Ischemic cardiomyopathy #Peripheral artery disease, s/p amputation #Hypertension, Hydralazine IV prn Aspirin plavix 75mg po qd Continue hemodialysis Emergency Medicine Nurse Practitioner following, [facility] on 11/09/24, s/p PCI 2x Pulmonology #Acute hypoxic respiratory failure with mechanical ventilation #Pneumonia, gram (+) vs gram (-), atypicals, growing Enterobacter aeruginosa Continue Merrem MV: FIO2: 30% RR: 18 TV 450 PEEP: 5 trach tomorrow Nephrology #ESRD on HD # distal stenosis of AV fistula(right arm swelling and pitting edema) AV fistula working Continue HD Lubricating Specialist following consulted IR for intervention on av fisulta stenosis, angioplasty performed on 11/14/24 Endocrinology #Morbid obesity #Bilateral lower extremity BK amputation #T2DM SSI Gastroenterology Continue tube feedings: Nepro Continue reglan iv Lactulose prn #Macroglossia and neck swelling due to av fistula stenosis and clot on subclavian IR angioplasty performed on 11/14/24 wound care for tongue Hematology and Oncology #Anemia of chronic disease Monitor Infectious Disease #Pneumonia, gram (+) vs gram (-), atypicals, growing Enterobacter aeruginosa #UTI, growing ESBL E. coli Merrem IV Dermatology x DVT ppx Heparin iv PUD ppx Protonix Drips Levo held Fent Propofol Lines TLC Right femoral 10/31/24 ET tube 10/31/24 Martinez 10/31/24 Updated family members on patient's current status Discussed with spouse patient current status, trach tomorrow Goals of care were discussed for over 30 minutes. FULL CODE. Critical care time spent excluding procedures and including family meeting was 81 mins Case was discussed with Dr. Sosa Plan discussed with: Spouse, Other (RN) My Orders My Orders Orders - LUAN HOGAN,GAVINO RESIDENT Procedure Category Date Status Time Clopidogrel Bisulfate PHA 11/16/24 In Process (Plavix) 10:00 Fistula /Sinus Tract XY 11/15/24 Resulted 12:19 Norepinephrine 8 PHA 11/15/24 In Process Mg/250ml Kit 13:45 Communication Order ORDERS 11/15/24 Transmitted 17:52 Chest Portable XY 11/16/24 Resulted 04:00 Abg W/ Co-Ox RT 11/16/24 Logged 04:00 * Picc Line Consult CONS 11/16/24 Transmitted 09:25 Dietary Evaluation Review Comments: 1. On propofol which supply fat kcaloried at 333 kcal/day if running at 12.6ml/hr. 2.Recommend a low fat high protein TF Vital High Protein @ 40ml/hr providing 84 g Protein, and 960 kcal, 803 ml free water, if running at 24 hrs. the combined nurition support will be 84 g Protein and 1056 kcal, supporting pt's needs for protein at 76.3%, needs for energy at 134%. 3. Reasses pt's TF formulary if pt is off Popofol.but still need TF. 4. Renal standard and CCHO-75 if pt is able to have PO intake after passing a ADJUNCT PHLEBOTOMY INSTRUCTOR eval, Expected Outcomes/Goals: gradual wt loss. improved lab values with consistant dialysis. Date of Service: Nov 16, 2024 Billing Provider: CECILIA SOSA MD Common Visit Codes: 51027-GISSANSI CARE 30-74 MIN, 68847-[id number] CARE-EACH +30MIN GAVINO MORAES RESIDENT Nov 16, 2024 09:40 ECCILIA SOSA MD Nov 18, 2024 21:20
--- NOTE | 2024-11-16 10:42 | DVHINCON2 ---
Date of service: Nov 16, 2024 Family History: Diabetes mellitus G8 MOTHER, FH: cancer FH: liver cancer G8 MOTHER, FHx: diabetes mellitus Allergies: Coded Allergies: No Known Drug Allergy (Verified Allergy, Unknown, 11/23/17) Home Meds Reported Medications Fluticasone Propionate (Nasal) (Fluticasone Propionate) 50 Mcg/Act Spr, 1 SPRAY EACHNOSTRI BID for 90 Days, #48 11/01/24 Amitriptyline HCl (Amitriptyline HCl) 10 Mg Tab, 1 TAB PO DAILY for 30 Days, #30 11/01/24 Hydrocodone-Acetaminophen (Hydrocodone Bitartrate/AC 10-325 mg) 1 Tab Tab, 1 TAB PO Q6HPRN PRN for PAIN SCALE 7 THRU 10, TAB 01/20/23 Insulin NPH Isophane & Reg (Hu (Novolin 70/30 (70-30) 100 Unit/ml) 1 Inj Inj, 50 INJ SC BIDAC, INJ 08/10/21 Current Medications Current Medications Medications (Trade) Dose Ordered Sig/Alexander Route PRN Reason Start Time Stop Time Status Last Admin Clopidogrel Bisulfate (Plavix) 75 mg DAILY PO 11/16/24 10:00 11/16/24 09:13 Norepinephrine Bitartrate 250 ml @ 0.938 mls/ hr Q24H IV 11/15/24 13:45 11/15/24 14:32 Propofol 100 ml @ 2.817 mls/ hr Q24H IV 11/15/24 15:15 11/16/24 08:57 Midazolam HCl 50 ml @ 1 mls/hr Q24H IV 11/15/24 15:15 11/16/24 09:16 Fentanyl Citrate 250 ml @ 2.5 mls/hr Q24H IV 11/15/24 15:15 11/16/24 07:40 Vital Signs Vital Signs Date Time Temp Pulse Resp B/P (MAP) Pulse Ox O2 Delivery O2 Flow Rate FiO2 11/16/24 10:23 68 18 106/44 (64) 98 30 11/16/24 06:46 98.8 209.8 11/16/24 06:00 Mechanical Ventilator+ Labs/Diagnostic Data Labs Test 11/16/24 07:02 11/16/24 05:30 11/16/24 03:22 11/15/24 03:20 Range/Units Blood Gas Specimen Type Arterial Blood Gas Sample Site Left brachial Blood Gas Patient Temperature 37.0 Arterial Blood Date Drawn [id number] Arterial Blood pH 7.451 H 7.350-7.450 Arterial Blood Partial Pressure CO2 37.4 35.0-48.0 mmHg Arterial Blood Partial Pressure O2 73.0 L 83.0-108.0 mmHg Arterial Blood HCO3 25.5 21.0-28.0 mmol/L Arterial Blood Oxygen Saturation 93.0 L 94.0-98.0 % Arterial Blood Base Excess 1.5 -2.0-3.0 mmol/L Arterial Blood Oxyhemoglobin 92.4 L 94.0-98.0 % Arterial Blood Carboxyhemoglobin 0.5 0.5-1.5 % Arterial Blood Methemoglobin 0.1 0.0-1.5 % Rachid Test N/a Blood Gas Total Hemoglobin 9.90 L 13.5-17.5 g/dL Blood Gas Set Respiration Rate 18.0 Blood Gas Modality Vent - ac Blood Gas Spontaneous Rate 18 FiO2 % 30.0 Blood Gas Tidal Volume 450.0 Blood Gas Spontaneous Tidal Volume 471 Blood Gas PEEP or CPAP 5.0 Bl Gas Inspiratory/Expiratory Ratio 1:3.1 POC Glucose 75 70-106 mg/dl White Blood Count 7.6 4.4-10.8 10^3/uL Red Blood Count 3.05 L 4.5-5.90 10^6/uL Hemoglobin 8.6 L 13.5-17.5 g/dL Hematocrit 27.7 L 41.0-53.0 % Mean Corpuscular Volume 90.7 80.0-100.0 fL Mean Corpuscular Hemoglobin 28.1 28.0-32.0 pg Mean Corpuscular Hemoglobin Concent 31.0 L 32.0-36.0 g/dL Red Cell Distribution Width 17.3 H 11.8-14.3 % Platelet Count 410 140-450 10^3/uL Mean Platelet Volume 7.4 6.9-10.8 fL Neutrophils (%) (Auto) 37.0-80.0 % Lymphocytes (%) (Auto) 10.0-50.0 % Monocytes (%) (Auto) 0.0-12.0 % Basophils (%) (Auto) 0.0-2.0 % Neutrophils # (Auto) 1.6-8.6 10 ^3/uL Lymphocytes # (Auto) 0.4-5.4 10 ^3/uL Monocytes # (Auto) 0-1.3 10 ^3/uL Differential Total Cells Counted 100.0 100 Neutrophils % (Manual) 71 37.0-80.0 Band Neutrophils % (Manual) 3 Lymphocytes % (Manual) 11 10.0-50.0 Monocytes % (Manual) 5 0-12 Eosinophils % (Manual) 9 H 0-7 Basophils % (Manual) 0 0.0-2.0 Metamyelocytes % (manual) 0 Myelocytes % (Manual) 0 Promyelocytes % (Manual) 0 Blast Cells % (Manual) 1 Reactive Lymphocytes 0 Platelet Estimate Adequate Sodium Level 131 L 136-145 mmol/L Potassium Level 3.9 3.5-5.1 mmol/L Chloride Level 95 L 98-107 mmol/L Carbon Dioxide Level 21 20-31 mmol/L Anion Gap 15 5-15 Blood Urea Nitrogen 22 # 9-23 mg/dL Creatinine 5.98 #H 0.700-1.30 mg/dL Glomerular Filtration Rate Calc 10 >90 mL/min BUN/Creatinine Ratio 3.7 L 10.0-20.0 Serum Glucose 72 L 74-106 mg/dL Calcium Level 9.8 8.7-10.4 mg/dL Magnesium Level 2.4 1.6-2.6 mg/dL Total Bilirubin < 0.2 L 0.2-1.0 mg/dL Aspartate Amino Transferase (AST) 20 13-40 U/L Alanine Aminotransferase (ALT) 9 7-40 U/L Alkaline Phosphatase 66 46-116 U/L Total Protein 6.7 5.7-8.2 g/dL Albumin 3.9 3.2-4.8 g/dL Eosinophils (%) (Auto) 5.3 0.0-7.0 % Eosinophils # (Auto) 0.5 0-0.8 10 ^3/uL Basophils # (Auto) 0.1 0-0.2 10 ^3/uL Nucleated Red Blood Cells 0.1 % Test 11/14/24 13:05 11/09/24 03:25 11/07/24 10:20 11/03/24 03:30 Range/Units Prothrombin Time 11.5 9.3-11.8 sec Prothrombin Time INR 1.09 0.9-1.15 Activated Partial Thromboplast Time 33.1 24.5-34.5 SEC Digoxin Level 0.23 L 0.8-2 ng/mL Free Thyroxine (T4) Calculated 1.17 0.89-1.76 ng/dL Total Triiodothyronine (TT3) 0.60 0.60-1.81 ng/mL Phosphorus Level 6.4 H 2.4-5.1 mg/dL Test 11/02/24 06:27 11/01/24 15:22 11/01/24 13:00 11/01/24 00:00 Range/Units Blood Gas Inspiratory Pressure 35.0 Specimen Drawn By arvine rt Influenza Type A Antigen Negative Negative Influenza Type B Antigen Negative Negative Hepatitis B Surface Antigen Negative Negative Hepatitis B Surface Antibody Positive H Negative SARS-CoV-2 Antigen (Rapid) Negative NEGATIVE Test 10/31/24 10:50 10/30/24 19:19 10/30/24 16:27 Range/Units Hemoglobin A1c 7.6 H <5.7 % A1C Troponin I High Sensitivity 763 *H </=54 ng/L Triglycerides Level 129 < 150 mg/dL Cholesterol Level 160 < 200 mg/dL LDL Cholesterol 82 < 100 mg/dL HDL Cholesterol 48 40-59 mg/dL Thyroid Stimulating Hormone (TSH) 0.73 0.55-4.78 uIU/mL Urine Color Light-brown Yellow Urine Clarity Ex.turbid Clear Urine pH 6.0 5.0-9.0 Urine Specific [place] 1.020 1.001-1.035 Urine Protein 3+ H Negative Urine Ketones Trace Negative Urine Blood 3+ H Negative /uL Urine Nitrite Negative Negative Urine Bilirubin Negative Negative Urine Urobilinogen Normal Negative mg/dL Urine Leukocyte Esterase 3+ Negative /uL Urine RBC 24 0 - 3 /hpf Urine WBC Clumps Present None Seen /hpf Urine Microscopic WBC 1083 H 0-3 /HPF Urine Squamous Epithelial Cells Few <5 /hpf Urine Transitional Epithelial Cells Few <2 /hpf Urine Bacteria Many H None Seen /hpf Urine Mucus Few None Seen Urine Glucose Normal Normal mg/dL B-Type Natriuretic Peptide 874.88 0-100 pg/mL Microbiology Date/Time Source Procedure Growth Status 10/31/24 11:05 Nose MRSA Screen - Final Complete 10/31/24 10:50 Blood Blood Culture - Final NO GROWTH AFTER 5 DAYS OF INCUBATION. Complete 10/31/24 10:45 Sputum Gram Stain - Final Complete 10/31/24 10:45 Respiratory Culture - Final Enterobacter aerogenes Complete 10/30/24 19:19 Urine - [place] Urine Culture - Final Escherichia coli - ESBL Complete Assessment i AM BEING REQUESTED TO PERFORM A TRACHEOSTOMY, PATIENT MORBIDLY OBESE WITH A VERY SHORT NECK, WILL BE TECHNICALLY VERY DIFFICULT, COAGS OK, VENT SETTINGS ACCEPTABLE. ASKED NURSE TO SHAVE PATIENT'S BEYER. WILL ATTEMPT TRACHEOSTOMY IN AM TOMORROW Plan discussed with: Other YISSEL RUIZ MD Nov 16, 2024 10:42
--- NOTE | 2024-11-16 15:00 | DVHPN2 ---
Progress Note Date Seen: Nov 16, 2024 Medical Necessity Reason Pt with a Central, PICC or Fol: Yes The following are medically ne: Central Line, Martinez Catheter Reason for martinez catheter: Strict I&O Subjective Review of Systems: RESPIRATORY:Abnormal Objective vital signs Vital Sign Date Time Temp Pulse Resp B/P (MAP) Pulse Ox O2 Delivery O2 Flow Rate FiO2 11/16/24 14:17 61 18 116/45 (68) 99 30 11/16/24 14:15 98.1 208.6 11/16/24 14:00 Mechanical Ventilator+ Total Intake and Output 11/15/24 11/15/24 11/16/24 14:59 22:59 06:59 Intake Total 286.708 ml 1006.103 ml 684.197 ml Balance 286.708 ml 1006.103 ml 684.197 ml medications Current Medications Medications Dose Ordered Sig/Alexander Route Start Time Stop Time Status Last Admin Dose Admin Nitroglycerin 0.4 mg Q5MINP PRN SL 10/30/24 20:00 Aspirin 162 mg DAILY PO 10/31/24 10:00 11/16/24 09:14 162 MG Dextrose 50 ml UD PRN IV 10/30/24 20:15 11/02/24 17:25 50 ML Acetaminophen 650 mg Q6HP PRN PO 10/30/24 20:15 11/04/24 13:02 650 MG Pantoprazole Sodium 40 mg DAILY IV 11/01/24 10:00 11/16/24 09:13 40 MG Enteral Nutritional Formula 1,000 ml 30ML/HR GT 11/03/24 12:15 11/09/24 17:52 1,000 ML Hydralazine HCl 10 mg Q6HP PRN IV 11/04/24 13:30 11/07/24 12:26 10 MG Metoclopramide HCl 5 mg Q8HR IV 11/04/24 22:00 11/16/24 13:59 5 MG Calcium Acetate 1,334 mg TID NG 11/07/24 14:00 11/16/24 13:59 1,334 MG Meropenem 50 ml @ 16.667 mls/ hr HS IV 11/07/24 22:00 11/15/24 21:49 16.667 MLS/HR Lactulose 30 ml DAILYPRN PRN PO 11/08/24 13:00 Insulin Human Regular Q6HR SC 11/13/24 12:00 Diagnostic Test (Pha) 1 strip Q6HR 11/13/24 12:00 11/16/24 11:51 1 STRIP Clopidogrel Bisulfate 75 mg DAILY PO 11/16/24 10:00 11/16/24 09:13 75 MG Norepinephrine Bitartrate 250 ml @ 0.938 mls/ hr Q24H IV 11/15/24 13:45 11/15/24 14:32 0.938 MLS/HR Propofol 100 ml @ 2.817 mls/ hr Q24H IV 11/15/24 15:15 11/16/24 12:10 28.17 MLS/HR Midazolam HCl 50 ml @ 1 mls/hr Q24H IV 11/15/24 15:15 11/16/24 09:16 2 MLS/HR Fentanyl Citrate 250 ml @ 2.5 mls/hr Q24H IV 11/15/24 15:15 11/16/24 07:40 32.5 MLS/HR Examination: GENERAL:Abnormal, CVS:Normal, MSK:Abnormal laboratory and microbiology Laboratory Tests 11/16/24 03:22 Test 11/16/24 03:22 Range/Units Serum Glucose 72 L 74-106 mg/dL Microbiology Date/Time Source Procedure Growth Status 10/31/24 11:05 Nose MRSA Screen - Final Complete 10/31/24 10:50 Blood Blood Culture - Final NO GROWTH AFTER 5 DAYS OF INCUBATION. 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 Patient has significant vasculopathy, avoid R arm due to AVF. Possibly has central stenosis as well. Recommend discussion with radiology and vascular to determine optimal location keep MAP > 65 Continue with UF to 3 L as tolerated, use no heparin Epogen 30473 subQ 3 times weekly Albumin 25% p.r.n. hemodialysis Fluid restriction Nepro tube feeding Blood pressure control Plan discussed with: Other Dietary Evaluation Review Comments: 1. On propofol which supply fat kcaloried at 333 kcal/day if running at 12.6ml/hr. 2.Recommend a low fat high protein TF Vital High Protein @ 40ml/hr providing 84 g Protein, and 960 kcal, 803 ml free water, if running at 24 hrs. the combined nurition support will be 84 g Protein and 1056 kcal, supporting pt's needs for protein at 76.3%, needs for energy at 134%. 3. Reasses pt's TF formulary if pt is off Popofol.but still need TF. 4. Renal standard and CCHO-75 if pt is able to have PO intake after passing a EMPLOYMENT INTERVIEWER eval, Expected Outcomes/Goals: gradual wt loss. improved lab values with consistant dialysis. Critical Care Time (mins): 33 ASHLEY HINKLE MD Nov 16, 2024 15:00
[2024-11-16] MEDS: LIDOCAINE 1% (LOCAL ANESTH.) PF 5ml SDV ID ONE (18:05)
--- NOTE | 2024-11-16 18:57 | DVH ---
Date: 11/16/2024 05:54 PM Examination: XY KUB ABDOMEN SINGLE VIEW History: S/P LOWER EXTREMITY PICC LINE PLACEMENT Comparison: None TECHNIQUE: Frontal views of the abdomen was obtained. FINDINGS: Bowel gas pattern is unremarkable. The lung bases are unremarkable. No acute osseous abnormality identified. IMPRESSION: Nonobstructive bowel gas pattern. Left central venous catheter noted with tip terminating right aspect of the L1-L2 vertebral body.
--- NOTE | 2024-11-16 18:58 | DVH ---
EXAM: XY L FEMUR XRAY CLINICAL INDICATION: S/P LOWER EXTREMITY PICC LINE PLACEMENT TECHNIQUE: XY L FEMUR XRAY, 3 v Comparison: None FINDINGS/IMPRESSION: There is no evidence of acute fracture or dislocation. Left central venous catheter noted with tip not in the field of view. The alignment is anatomical. There is no radiopaque foreign body.
[2024-11-16] MEDS: SODIUM CHLOR 0.9% PF (SALINE LOCK) 10ML VIAL/SYR IV SCH (22:00)
[2024-11-17] VITALS (103 sets, daily range): BP systolic 79–177; BP diastolic 36–57; PULSE 59–75; RESP 10–30; TEMP 97.3–99; O2SAT 90–99
[2024-11-17 04:02] LABS: Basophils # (auto) 0.1 10 ^3/uL (0-0.2); Basophils % (auto) 0.8 % (0.0-2.0); Eosinophils # (auto) 0.5 10 ^3/uL (0-0.8); Eosinophils % (auto) 4.8 % (0.0-7.0); Hematocrit 25.7 % (41.0-53.0); Hemoglobin 8.7 g/dL (13.5-17.5); Lymphocytes % (auto) 10.8 % (10.0-50.0); Mean Corpuscular Hemoglobin 29.8 pg (28.0-32.0); Mean Corpuscular Hgb Conc. 33.8 g/dL (32.0-36.0); Mean Corpuscular Volume 88.1 fL (80.0-100.0); Monocytes # (auto) 0.9 10 ^3/uL (0-1.3); Monocytes % (auto) 9.1 % (0.0-12.0); Neutrophils # (auto) 7.2 10 ^3/uL (1.6-8.6); Neutrophils % (auto) 74.5 % (37.0-80.0); Nucleated Red Blood Cells % 0.1 %; Platelet Count (auto) 348 10^3/uL (140-450); Red Blood Cells 2.92 10^6/uL (4.5-5.90); Red Cell Distribution Width 17.3 % (11.8-14.3); White Blood Cell 9.7 10^3/uL (4.4-10.8)
[2024-11-17 04:08] LABS: INR 1.08 (0.9-1.15); Partial Thromboplastin Time 29.5 SEC (24.5-34.5); Prothrombin Time 11.4 sec (9.3-11.8)
[2024-11-17 04:21] LABS: Albumin 3.6 g/dL (3.2-4.8); Alkaline Phosphatase 71 U/L (46-116); Anion Gap 15 (5-15); BUN/Creatinine Ratio 5.2 (10.0-20.0); Calcium 9.8 mg/dL (8.7-10.4); Carbon Dioxide 23 mmol/L (20-31); Glucose 80 mg/dL (74-106); Magnesium 2.2 mg/dL (1.6-2.6); Total Protein 6.2 g/dL (5.7-8.2)
[2024-11-17 04:22] LABS: Aspartate Aminotransferase 16 U/L (13-40)
[2024-11-17 04:34] LABS: Alanine Aminotransferase 9 U/L (7-40); Bilirubin, Total 0.2 mg/dL (0.2-1.0); Blood Urea Nitrogen 37 mg/dL (9-23); Chloride 91 mmol/L (98-107); Sodium 129 mmol/L (136-145)
--- NOTE | 2024-11-17 06:13 | DVH ---
EXAM: XR Chest, 1 View CLINICAL INDICATION: sob TECHNIQUE: Frontal view of the chest. COMPARISON: XY CHEST PORTABLE on DOS: 11/16/24, XY CHEST PORTABLE on DOS: 11/15/24, XY CHEST PORTABLE on DOS: 11/14/24, XY CHEST PORTABLE on DOS: 11/13/24, XY CHEST PORTABLE on DOS: 11/12/24 FINDINGS: LUNGS AND PLEURAL SPACES: See below. HEART: Cardiomegaly with mild congestion. MEDIASTINUM: Unremarkable. Normal mediastinal contour. BONES/JOINTS: Unremarkable. No acute fracture. TUBES, LINES AND DEVICES: The endotracheal tube (ETT) is in satisfactory position. Enteric tube ti p in the stomach. OTHER FINDINGS: . . . IMPRESSION: Cardiomegaly with mild congestion.
[2024-11-17 07:52] LABS: Base Excess -1.3 mmol/L (-2.0-3.0)
[2024-11-17] MEDS: MEROPENEM 500MG IVPB 50 ML IV ONE (08:00)
[2024-11-17] MEDS ORDERED: ROCURONIUM 10MG/ML 10ML VIAL IV ONE (08:06)
--- NOTE | 2024-11-17 09:52 | DVHOP ---
DATE OF SURGERY: 11/17/2024 PREOPERATIVE DIAGNOSIS: Ventilatory-dependent respiratory failure. POSTOPERATIVE DIAGNOSIS: Ventilatory-dependent respiratory failure. SURGEON: Heber Rojas MD CUT PRESS OPERATOR: Mitul Miur NP ANESTHESIA: CHARLOTTE Cazares DESCRIPTION OF PROCEDURE: Under general anesthesia with the patient's skin prepped and draped and the body secured, this patient's morbid obesity and the anatomy was prohibitively difficult, it was extremely difficult to dissect the adipose tissue of this morbidly obese patient down onto the trachea. The trachea was difficult to expose. Appendiceal retractors had to be used in order to retract the fat and thyroid gland. The trachea was then opened between the second and third ring. The tracheotomy was dilated and a size 8 tracheostomy tube was then advanced as the anesthesiologist withdrew the endotracheal tube under direct vision. Reaching the final position of the tracheostomy tube, there was immediate re-capture of CO2 and return of normal ventilation. The tube was then secured with Prolene sutures and circumferential umbilical tape. The cuff was insufflated with 7 mL of air. The patient remained in unchanged condition at the termination of the procedure, left the operating room following an accurate needle and sponge count. Chest x-ray was ordered and is pending at the time of this dictation. The patient's was thoroughly informed at [phone]. MD NINOSKA Valdez/ROB TID: [id number] RECEIPT: [id number]
--- NOTE | 2024-11-17 10:29 | DVH ---
EXAM: XY CHEST PORTABLE Indication: S/P TRACHEOSTOMY Technique: Single frontal view of the chest was obtained Comparison: XY CHEST PORTABLE on DOS: 11/17/24, XY CHEST PORTABLE on DOS: 11/16/24, XY CHEST PORTABLE o n DOS: 11/15/24, XY CHEST PORTABLE on DOS: 11/14/24, XY CHEST PORTABLE on DOS: 11/13/24 FINDINGS: Lines and Tubes: Enteric tube tip projects over the expected region of the stomach. Tracheostomy tube is visualized. Lungs: Left retrocardiac opacity. Low lung volumes. Pleura: Trace bilateral pleural effusions. No pneumothorax. Cardiomediastinal contours: Cardiac megaly. Bones: No acute osseous abnormality. IMPRESSION: Interval tracheostomy. Otherwise no significant change.
--- NOTE | 2024-11-17 10:52 | DVHPNRES ---
Progress Note Date Seen: Nov 17, 2024 Resident Creating Document: GAVINO MORAES RESIDENT Medical Necessity Reason Pt with a Central, PICC or Fol: Yes The following are medically ne: Central Line, Martinez Catheter Reason for martinez catheter: Strict I&O Subjective Review of Systems Patient was seen and examined at bedside. He remains on mechanical ventilator, minimal vent settings. He is off vasopressors. He is on fentanyl, versed and propofol. Trach today Objective vital signs Vital Sign Date Time Temp Pulse Resp B/P (MAP) Pulse Ox O2 Delivery O2 Flow Rate FiO2 11/17/24 09:47 75 18 127/55 (79) 94 30 11/17/24 08:00 98.1 98.1 11/17/24 08:00 Mechanical Ventilator+ Total Intake and Output 11/16/24 11/16/24 11/17/24 15:00 23:00 07:00 Intake Total 500.36 ml 661.36 ml 561.36 ml Output Total 0 ml Balance 500.36 ml 661.36 ml 561.36 ml medications Current Medications Medications Dose Ordered Sig/Alexander Route Start Time Stop Time Status Last Admin Dose Admin Nitroglycerin 0.4 mg Q5MINP PRN SL 10/30/24 20:00 Aspirin 162 mg DAILY PO 10/31/24 10:00 11/17/24 10:11 162 MG Dextrose 50 ml UD PRN IV 10/30/24 20:15 11/02/24 17:25 50 ML Acetaminophen 650 mg Q6HP PRN PO 10/30/24 20:15 11/04/24 13:02 650 MG Pantoprazole Sodium 40 mg DAILY IV 11/01/24 10:00 11/17/24 10:10 40 MG Enteral Nutritional Formula 1,000 ml 30ML/HR GT 11/03/24 12:15 11/09/24 17:52 1,000 ML Hydralazine HCl 10 mg Q6HP PRN IV 11/04/24 13:30 11/07/24 12:26 10 MG Metoclopramide HCl 5 mg Q8HR IV 11/04/24 22:00 11/17/24 06:08 5 MG Calcium Acetate 1,334 mg TID NG 11/07/24 14:00 11/17/24 06:08 1,334 MG Meropenem 50 ml @ 16.667 mls/ hr HS IV 11/07/24 22:00 11/16/24 22:00 16.667 MLS/HR Lactulose 30 ml DAILYPRN PRN PO 11/08/24 13:00 Insulin Human Regular Q6HR SC 11/13/24 12:00 Diagnostic Test (Pha) 1 strip Q6HR 11/13/24 12:00 11/17/24 06:08 1 STRIP Clopidogrel Bisulfate 75 mg DAILY PO 11/16/24 10:00 11/17/24 10:10 75 MG Norepinephrine Bitartrate 250 ml @ 0.938 mls/ hr Q24H IV 11/15/24 13:45 11/15/24 14:32 0.938 MLS/HR Propofol 100 ml @ 2.817 mls/ hr Q24H IV 11/15/24 15:15 11/17/24 07:32 28.17 MLS/HR Midazolam HCl 50 ml @ 1 mls/hr Q24H IV 11/15/24 15:15 11/17/24 06:58 2 MLS/HR Fentanyl Citrate 250 ml @ 2.5 mls/hr Q24H IV 11/15/24 15:15 11/17/24 06:57 32.5 MLS/HR Sodium Chloride 10 ml QSHIFT@10,22 IV 11/16/24 22:00 11/17/24 10:11 10 ML Examination Physical examination as below: General: Mechanically ventilated, intubated HEENT: Head is normocephalic and atraumatic. Pupils are equal, round, and reactive to light. Significant swelling on tongue with wound on ventral aspect. Neck: Supple with no cervical lymphadenopathy. Heart: Regular rate without murmur, rub, or gallop. Lungs: Equal breath sounds bilaterally with no wheezing, rales, or rhonchi. There is no chest wall tenderness or instability. Abdomen: No external sign of injury. Bowel sounds are present. Extremities: Strong peripheral pulses. There is no clubbing, no cyanosis. Significant pitting edema on right upper arm, right chest and neck, tender, no erythema. Skin: No rash. Neurologic: Sedated laboratory and microbiology Laboratory Tests 11/17/24 03:15 Test 11/17/24 03:15 Range/Units Serum Glucose 80 74-106 mg/dL Microbiology Date/Time Source Procedure Growth Status 10/31/24 11:05 Nose MRSA Screen - Final Complete 10/31/24 10:50 Blood Blood Culture - Final NO GROWTH AFTER 5 DAYS OF INCUBATION. Complete 10/31/24 10:45 Sputum Gram Stain - Final Complete 10/31/24 10:45 Respiratory Culture - Final Enterobacter aerogenes Complete 10/30/24 19:19 Urine - [place] Urine Culture - Final Escherichia coli - ESBL Complete Labs and/or images reviewed: Labs reviewed by me, Image(s) reviewed by me Problem List/Assessment/Plan Problem List/Assessment/Plan Neurology #Metabolic encephalopathy due to septic shock form UTI and pneumonia On fent and propofol and versed Cardiovascular #Acute on chronic systolic CHF #Ischemic cardiomyopathy #Peripheral artery disease, s/p amputation #Hypertension, Hydralazine IV prn Aspirin plavix 75mg po qd Continue hemodialysis Auto Travel Counselor following, [facility] on 11/09/24, s/p PCI 2x Pulmonology #Acute hypoxic respiratory failure with mechanical ventilation #Pneumonia, gram (+) vs gram (-), atypicals, growing Enterobacter aeruginosa Continue Merrem MV: FIO2: 30% RR: 18 TV 450 PEEP: 5 trach today Nephrology #ESRD on HD # distal stenosis of AV fistula(right arm swelling and pitting edema) AV fistula working Continue HD Gang Supervisor Pipe Lines following consulted IR for intervention on av fisulta stenosis, angioplasty performed on 11/14/24 Endocrinology #Morbid obesity #Bilateral lower extremity BK amputation #T2DM SSI Gastroenterology Continue tube feedings: Nepro Continue reglan iv Lactulose prn #Macroglossia and neck swelling due to av fistula stenosis and clot on subclavian IR angioplasty performed on 11/14/24 wound care for tongue Hematology and Oncology #Anemia of chronic disease Monitor Infectious Disease #Pneumonia, gram (+) vs gram (-), atypicals, growing Enterobacter aeruginosa #UTI, growing ESBL E. coli Merrem IV Dermatology x DVT ppx Heparin iv PUD ppx Protonix Drips Levo held Fent Propofol Lines TLC Right femoral 10/31/24 ET tube 10/31/24 Martinez 10/31/24 Updated family members on patient's current status Discussed with spouse patient current status, trach today Consulted SS for LTAC Goals of care were discussed for over 30 minutes. FULL CODE. Critical care time spent excluding procedures and including family meeting was 45 mins Case was discussed with Dr. Aguilar Plan discussed with: Spouse, Other (RN) My Orders My Orders Orders - GAVINO MORAES RESIDENT Procedure Category Date Status Time Chest Portable XY 11/17/24 Resulted 04:00 Abg W/ Co-Ox RT 11/17/24 Logged 04:00 Nursing Protocol Picc PIYUSH 11/16/24 In Process 17:43 Change Dressing Prn PIYUSH 11/16/24 In Process 17:43 PICC BD 11/16/24 Transmitted 17:43 Sodium Chloride Lock PHA 11/16/24 In Process (Saline Lock Ns) 22:00 Do Not Use Picc For PIYUSH 11/16/24 In Process Blood Cult 17:43 May Draw Blood From PIYUSH 11/16/24 In Process Picc 17:43 Ok To Use Picc PIYUSH 11/16/24 In Process 17:43 Change Picc Dressing PIYUSH 11/16/24 In Process Q7 Days 17:43 Kub Abdomen Single XY 11/16/24 Resulted View 17:43 L Femur Xray XY 11/16/24 Resulted 17:43 Type And Screen BBK 11/17/24 In Process 06:32 Us Guided Vascular US 11/17/24 Taken Access 10:04 Dietary Evaluation Review Comments: 1. On propofol which supply fat kcaloried at 333 kcal/day if running at 12.6ml/hr. 2.Recommend a low fat high protein TF Vital High Protein @ 40ml/hr providing 84 g Protein, and 960 kcal, 803 ml free water, if running at 24 hrs. the combined nurition support will be 84 g Protein and 1056 kcal, supporting pt's needs for protein at 76.3%, needs for energy at 134%. 3. Reasses pt's TF formulary if pt is off Popofol.but still need TF. 4. Renal standard and CCHO-75 if pt is able to have PO intake after passing a GAS PROVER eval, Expected Outcomes/Goals: gradual wt loss. improved lab values with consistant dialysis. GAVINO MORAES RESIDENT Nov 17, 2024 10:52
--- NOTE | 2024-11-17 14:15 | DVH ---
Exam: US US GUIDED VASCULAR ACCESS Clinical History: PICC LINE Comparison: None Findings: Targeted sonographic evaluation of the arm vein was obtained utilizing grayscale and color Doppler im aging. IMPRESSION: Sonographic assistance for central line placement. Please refer to procedural report for detailed fin dings.
--- NOTE | 2024-11-17 14:29 | DVHPN2 ---
Progress Note - Dictate Date Seen: Nov 17, 2024 Medical Necessity Reason Pt with a Central, PICC or Fol: Yes The following are medically ne: Central Line, Martinez Catheter Reason for martinez catheter: Strict I&O Subjective PT WAS SEEN IN CLINICAL RESP DISTRESS DIFFUSE WHEEZING PMH HFrEF CHRONIC ISCHEMIC CM PAD BILATERAL LE AMPUTEE DIABETES VASCULOPATHY NEPHROPATHY NEUROPATHY HD ESRD vital signs Vital Sign Date Time Temp Pulse Resp B/P (MAP) Pulse Ox O2 Delivery O2 Flow Rate FiO2 11/17/24 14:15 59 18 150/50 (83) 95 11/17/24 13:56 30 11/17/24 13:49 Mechanical Ventilator+ 11/17/24 12:00 97.7 97.7 Total Intake and Output 11/16/24 11/16/24 11/17/24 15:00 23:00 07:00 Intake Total 500.36 ml 661.36 ml 561.36 ml Output Total 0 ml Balance 500.36 ml 661.36 ml 561.36 ml medications Current Medications Medications Dose Ordered Sig/Alexander Route Start Time Stop Time Status Last Admin Dose Admin Nitroglycerin 0.4 mg Q5MINP PRN SL 10/30/24 20:00 Aspirin 162 mg DAILY PO 10/31/24 10:00 11/17/24 10:11 162 MG Dextrose 50 ml UD PRN IV 10/30/24 20:15 11/02/24 17:25 50 ML Acetaminophen 650 mg Q6HP PRN PO 10/30/24 20:15 11/04/24 13:02 650 MG Pantoprazole Sodium 40 mg DAILY IV 11/01/24 10:00 11/17/24 10:10 40 MG Enteral Nutritional Formula 1,000 ml 30ML/HR GT 11/03/24 12:15 11/09/24 17:52 1,000 ML Hydralazine HCl 10 mg Q6HP PRN IV 11/04/24 13:30 11/07/24 12:26 10 MG Metoclopramide HCl 5 mg Q8HR IV 11/04/24 22:00 11/17/24 14:01 5 MG Calcium Acetate 1,334 mg TID NG 11/07/24 14:00 11/17/24 06:08 1,334 MG Meropenem 50 ml @ 16.667 mls/ hr HS IV 11/07/24 22:00 11/16/24 22:00 16.667 MLS/HR Lactulose 30 ml DAILYPRN PRN PO 11/08/24 13:00 Insulin Human Regular Q6HR SC 11/13/24 12:00 Diagnostic Test (Pha) 1 strip Q6HR 11/13/24 12:00 11/17/24 11:39 1 STRIP Clopidogrel Bisulfate 75 mg DAILY PO 11/16/24 10:00 11/17/24 10:10 75 MG Norepinephrine Bitartrate 250 ml @ 0.938 mls/ hr Q24H IV 11/15/24 13:45 11/15/24 14:32 0.938 MLS/HR Propofol 100 ml @ 2.817 mls/ hr Q24H IV 11/15/24 15:15 11/17/24 13:40 28.17 MLS/HR Midazolam HCl 50 ml @ 1 mls/hr Q24H IV 11/15/24 15:15 11/17/24 06:58 2 MLS/HR Fentanyl Citrate 250 ml @ 2.5 mls/hr Q24H IV 11/15/24 15:15 11/17/24 14:03 32.5 MLS/HR Sodium Chloride 10 ml QSHIFT@10,22 IV 11/16/24 22:00 11/17/24 10:11 10 ML laboratory and microbiology Laboratory Tests 11/17/24 03:15 Test 11/17/24 03:15 Range/Units Serum Glucose 80 74-106 mg/dL Problem List RESP DISTRESS DIFFUSE WHEEZING PMH HFrEF CHRONIC ISCHEMIC CM PAD BILATERAL LE AMPUTEE DIABETES VASCULOPATHY NEPHROPATHY NEUROPATHY HD ESRD ANEMIA HYPERKALEMIA Assessment/Plan DIALYSIS ABX CORRECT LYTES ECHO S/P DIALYSIS 4L OUT CHECK BNP REPEAT CXR COMPLETE OPACIFICATION OF BOTH LUNGS CXR WITH PT UPRIGHT CONSIDER BRONCHOSCOPY CONSIDER LEFT HEART CATH SIGNIFICANT IMPROVEMENT IN VASCULAR CONGESTION ON CXR CONT DIALYSIS ADD VERQUVO START DIG TITRATE ON VERQUVO LHC * Left main calcified, no flow-restrictive lesion. * Left anterior descending artery, moderate diffuse disease with rapid tapering but no discrete lesions were noted at this time. * Circumflex in the AV groove had in-stent restenosis of greater than 80%-90% status post thrombectomy with stent placement with less than 10% residual stenosis with a 3.0 x 15 mm [place] Reydon stent. There was greater than 60% narrowing of the proximal circumflex, status post thrombectomy with stent placement 3.0 x 12 mm Ray Reydon stent with less than 10% residual stenosis. * Right coronary artery large dominant vessel without any flow-restrictive lesion. Mild to moderate diffuse disease. However, no discrete lesions were noted. * Left ventricular function showed an EF around 45%-50% with an LVEDP of 15 mmHg. Left ventricular systolic pressure 130. No gradient across the aortic valve. Thus, the patient underwent successful revascularization of in-stent restenosis of obtuse marginal 2/vessel in the AV groove as well as angioplasty with stent placement and thrombectomy of the circumflex proximal segment. At this time, dual-antiplatelet therapy will be initiated and we will continue to follow the patient but overall the patient's current status, the patient's respiratory failure is not indicative of congestive heart failure or acute systolic decompensation. The patient's LVEDP was only 15 mmHg, left ventricular systolic pressure was around 130 with no gradient across the aortic valve. Therefore, the patient's respiratory problem and respiratory arrest is secondary to pulmonary issues as well as renal failure. CXR SIGNIFICANT IMPROVEMENT PCWP NORMAL ELEVATED WBC START WEANING PT S/P PTCA STENT hemodynamically stable check bnp DC ALL SEDATION WEAN PT OFF VENT SUBCLAVIAN VEIN STENOSIS EDEMA ORAL OBSTRUCTION SECONDARY TO SOFT TISSUE SWELLING TRACHEOSTOMY SUBCLAVIAN VEIN STENTING PENDING Dietary Evaluation Review Comments: 1. On propofol which supply fat kcaloried at 333 kcal/day if running at 12.6ml/hr. 2.Recommend a low fat high protein TF Vital High Protein @ 40ml/hr providing 84 g Protein, and 960 kcal, 803 ml free water, if running at 24 hrs. the combined nurition support will be 84 g Protein and 1056 kcal, supporting pt's needs for protein at 76.3%, needs for energy at 134%. 3. Reasses pt's TF formulary if pt is off Popofol.but still need TF. 4. Renal standard and CCHO-75 if pt is able to have PO intake after passing a RESPIRATORY THERAPY INSTRUCTOR eval, Expected Outcomes/Goals: gradual wt loss. improved lab values with consistant dialysis. Plan discussed with: Daughter Critical Care Time(min): 35 YESICA YORK MD Nov 17, 2024 14:29
--- NOTE | 2024-11-17 15:41 | DVHPN2 ---
Progress Note - Dictate Date Seen: Nov 17, 2024 Medical Necessity Reason Pt with a Central, PICC or Fol: Yes The following are medically ne: Central Line, Martinez Catheter Reason for martinez catheter: Strict I&O Subjective Remains intubated, plan for dialysis this afternoon. vital signs Vital Sign Date Time Temp Pulse Resp B/P (MAP) Pulse Ox O2 Delivery O2 Flow Rate FiO2 11/17/24 15:12 85/40 11/17/24 14:15 59 18 95 11/17/24 13:56 30 11/17/24 13:49 Mechanical Ventilator+ 11/17/24 12:00 97.7 97.7 Total Intake and Output 11/16/24 11/16/24 11/17/24 15:00 23:00 07:00 Intake Total 500.36 ml 661.36 ml 561.36 ml Output Total 0 ml Balance 500.36 ml 661.36 ml 561.36 ml medications Current Medications Medications Dose Ordered Sig/Alexander Route Start Time Stop Time Status Last Admin Dose Admin Nitroglycerin 0.4 mg Q5MINP PRN SL 10/30/24 20:00 Aspirin 162 mg DAILY PO 10/31/24 10:00 11/17/24 10:11 162 MG Dextrose 50 ml UD PRN IV 10/30/24 20:15 11/02/24 17:25 50 ML Acetaminophen 650 mg Q6HP PRN PO 10/30/24 20:15 11/04/24 13:02 650 MG Pantoprazole Sodium 40 mg DAILY IV 11/01/24 10:00 11/17/24 10:10 40 MG Enteral Nutritional Formula 1,000 ml 30ML/HR GT 11/03/24 12:15 11/09/24 17:52 1,000 ML Hydralazine HCl 10 mg Q6HP PRN IV 11/04/24 13:30 11/07/24 12:26 10 MG Metoclopramide HCl 5 mg Q8HR IV 11/04/24 22:00 11/17/24 14:01 5 MG Calcium Acetate 1,334 mg TID NG 11/07/24 14:00 11/17/24 06:08 1,334 MG Meropenem 50 ml @ 16.667 mls/ hr HS IV 11/07/24 22:00 11/16/24 22:00 16.667 MLS/HR Lactulose 30 ml DAILYPRN PRN PO 11/08/24 13:00 Insulin Human Regular Q6HR SC 11/13/24 12:00 Diagnostic Test (Pha) 1 strip Q6HR 11/13/24 12:00 11/17/24 11:39 1 STRIP Clopidogrel Bisulfate 75 mg DAILY PO 11/16/24 10:00 11/17/24 10:10 75 MG Norepinephrine Bitartrate 250 ml @ 0.938 mls/ hr Q24H IV 11/15/24 13:45 11/17/24 15:02 0.938 MLS/HR Propofol 100 ml @ 2.817 mls/ hr Q24H IV 11/15/24 15:15 11/17/24 13:40 28.17 MLS/HR Midazolam HCl 50 ml @ 1 mls/hr Q24H IV 11/15/24 15:15 11/17/24 06:58 2 MLS/HR Fentanyl Citrate 250 ml @ 2.5 mls/hr Q24H IV 11/15/24 15:15 11/17/24 14:03 32.5 MLS/HR Sodium Chloride 10 ml QSHIFT@10,22 IV 11/16/24 22:00 11/17/24 10:11 10 ML objective gen: Intubated and sedated lungs: cta cvs: no rub ext: + edema laboratory and microbiology Laboratory Tests 11/17/24 03:15 Test 11/17/24 03:15 Range/Units Serum Glucose 80 74-106 mg/dL Assessment/Plan ESRD on hemodialysis Right upper extremity right neck and tongue swelling swelling rule out SVC syndrome Acute respiratory failure, patient intubated on ventilator Morbid obesity NSTEMI Congestive heart failure Diabetes mellitus type 2 Anemia of chronic kidney disease Peripheral arterial disease ESBL UTI 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 On propofol which supply fat kcaloried at 333 kcal/day if running at 12.6ml/hr. 2.Recommend a low fat high protein TF Vital High Protein @ 40ml/hr providing 84 g Protein, and 960 kcal, 803 ml free water, if running at 24 hrs. the combined nurition support will be 84 g Protein and 1056 kcal, supporting pt's needs for protein at 76.3%, needs for energy at 134%. 3. Reasses pt's TF formulary if pt is off Popofol.but still need TF. 4. Renal standard and CCHO-75 if pt is able to have PO intake after passing a RECORDS MANAGEMENT SPECIALIST eval, Expected Outcomes/Goals: gradual wt loss. improved lab values with consistant dialysis. Plan discussed with: Other SERGE LUCERO MD Nov 17, 2024 15:41
[2024-11-18] VITALS (107 sets, daily range): BP systolic 84–190; BP diastolic 36–65; PULSE 59–76; RESP 14–19; TEMP 98.1–98.7; O2SAT 86–100
[2024-11-18 04:06] LABS: Hematocrit 27.2 % (41.0-53.0); Hemoglobin 8.9 g/dL (13.5-17.5); Mean Corpuscular Hemoglobin 28.9 pg (28.0-32.0); Mean Corpuscular Hgb Conc. 32.8 g/dL (32.0-36.0); Mean Corpuscular Volume 88.2 fL (80.0-100.0); Platelet Count (auto) 353 10^3/uL (140-450); Red Blood Cells 3.08 10^6/uL (4.5-5.90); White Blood Cell 10.2 10^3/uL (4.4-10.8)
[2024-11-18 04:24] LABS: Albumin 3.6 g/dL (3.2-4.8); Alkaline Phosphatase 72 U/L (46-116); Anion Gap 18 (5-15); Aspartate Aminotransferase 20 U/L (13-40); BUN/Creatinine Ratio 4.8 (10.0-20.0); Calcium 9.2 mg/dL (8.7-10.4); Carbon Dioxide 22 mmol/L (20-31); Magnesium 2.1 mg/dL (1.6-2.6); Potassium 3.7 mmol/L (3.5-5.1); Total Protein 6.3 g/dL (5.7-8.2)
[2024-11-18 04:31] LABS: Alanine Aminotransferase 9 U/L (7-40); Bilirubin, Total 0.2 mg/dL (0.2-1.0); Blood Urea Nitrogen 28 mg/dL (9-23); Chloride 93 mmol/L (98-107); Glucose 68 mg/dL (74-106); Sodium 133 mmol/L (136-145)
[2024-11-18 04:35] LABS: Basophils % (manual) 0 (0.0-2.0); Blast Cells 0; Myelocytes % 0; Promyelocytes % 0; Reactive Lymphocytes 0
[2024-11-18 05:01] LABS: Band Neutrophils % (manual) 4; Eosinophils % (manual) 6 (0-7); Lymphocytes % (manual) 15 (10.0-50.0); Metamyelocytes % 1; Monocytes % (manual) 2 (0-12)
[2024-11-18 05:02] LABS: Platelet Estimate Adequate
--- NOTE | 2024-11-18 06:10 | DVH ---
CHEST RADIOGRAPH Indication: sob Technique: Single frontal view of the chest was obtained Comparison: XY CHEST PORTABLE on DOS: 11/17/24, XY CHEST PORTABLE on DOS: 11/17/24, XY CHEST PORTABLE o n DOS: 11/16/24 IMPRESSION: Heart appears normal in size. Tracheostomy and endotracheal tube appear unchanged in satisfactory po sition. Possible small pleural effusion. No pneumothorax. No significant interval change.
[2024-11-18 07:45] LABS: Base Excess 0.2 mmol/L (-2.0-3.0)
[2024-11-18] MEDS: SODIUM CHL 0.9% 1000 ML BAG XX ONE (08:00)
[2024-11-18] MEDS: BUPIVACAINE HCL 0.25% P/F 10 ML VIAL ONE (08:00)
[2024-11-18] MEDS: LIDOCAINE W/ EPINEPHRINE 1% 20ML VIAL ONE (08:00)
--- NOTE | 2024-11-18 10:34 | DVHPN2 ---
Subjective Update 11/18 patient was received trach collar yesterday, ventilated through trach. he is sp [facility] on 11/09/24, s/p PCI 2x. His AV fistula was stenotic and angioplasty in hd result in aVF remaining functional and he continues to receive HD. He was bilateral lower extremity amputation. Patient has very big chest arms neck. Patient tongue is extruding out of mouth with involuntary biting on tongue. Discussed with RT we will try to insert OR bronch device to stabilize oral cavity improvement further biting. We will continue RASS-3 to -4 goal with sedation. Continue antibiotics, holding OG feeds given risk of aspiration. If patient's bed angle raised he was starts to bite down on tongue more.. Continue oral feeds today after stabilizing tongue. plan for LTAC once stablized. Reviewed: Care Plan, H&P, Medications, Previous Orders Changes from previous H/P or p: No Changes General: Per HPI Objective Vitals Vital Signs Date Time Temp Pulse Resp B/P (MAP) Pulse Ox O2 Delivery O2 Flow Rate FiO2 11/18/24 10:12 124/43 11/18/24 10:07 67 18 98 35 11/18/24 08:00 Mechanical Ventilator+ 11/18/24 04:00 98.5 98.5 Intake/Output Intake and Output 11/18/24 06:59 Intake Total 1572.643 ml Balance 1572.643 ml Intake Oral 160 ml IV Total 1412.643 ml Exam General: Mechanically ventilated, intubated HEENT: Head is normocephalic and atraumatic. Pupils are equal, round, and reactive to light. Significant swelling on tongue with wound on ventral aspect. Neck: Supple with no cervical lymphadenopathy. Heart: Regular rate without murmur, rub, or gallop. Lungs: Equal breath sounds bilaterally with no wheezing, rales, or rhonchi. There is no chest wall tenderness or instability. Abdomen: No external sign of injury. Bowel sounds are present. Extremities: Strong peripheral pulses. There is no clubbing, no cyanosis. Significant pitting edema on right upper arm, right chest and neck, tender, no erythema. Skin: No rash. Neurologic: Sedated General Appearance: mild distress, Other (Chemically sedated) HEENT: Atraumatic, PERRLA, EOMI Lungs: Clear to auscultation, Normal air movement, Other (Mechanical ventilation) Cardiovascular: Regular rate, Normal S1, Normal S2 Abdomen: Normal bowel sounds, Soft, No tenderness Genitourinary: No Apparent Abnormalities ([place]bour catheter) Musculoskeletal: Normal sensory function, Normal motor function Extremities: Other (Bilateral lower extremity amputation) Skin: Dry, Intact Psych/Mental Status: Other (Unable to assess) Medications Current Medications Medications Dose Ordered Sig/Alexander Route Start Time Stop Time Status Last Admin Dose Admin Nitroglycerin 0.4 mg Q5MINP PRN SL 10/30/24 20:00 Aspirin 162 mg DAILY PO 10/31/24 10:00 11/18/24 10:16 162 MG Dextrose 50 ml UD PRN IV 10/30/24 20:15 11/02/24 17:25 50 ML Acetaminophen 650 mg Q6HP PRN PO 10/30/24 20:15 11/04/24 13:02 650 MG Pantoprazole Sodium 40 mg DAILY IV 11/01/24 10:00 11/18/24 10:15 40 MG Enteral Nutritional Formula 1,000 ml 30ML/HR GT 11/03/24 12:15 11/09/24 17:52 1,000 ML Hydralazine HCl 10 mg Q6HP PRN IV 11/04/24 13:30 11/07/24 12:26 10 MG Metoclopramide HCl 5 mg Q8HR IV 11/04/24 22:00 11/18/24 06:01 5 MG Calcium Acetate 1,334 mg TID NG 11/07/24 14:00 11/18/24 06:02 1,334 MG Meropenem 50 ml @ 16.667 mls/ hr HS IV 11/07/24 22:00 11/17/24 22:33 16.667 MLS/HR Lactulose 30 ml DAILYPRN PRN PO 11/08/24 13:00 Insulin Human Regular Q6HR SC 11/13/24 12:00 Diagnostic Test (Pha) 1 strip Q6HR 11/13/24 12:00 11/18/24 06:01 1 STRIP Clopidogrel Bisulfate 75 mg DAILY PO 11/16/24 10:00 11/18/24 10:16 75 MG Norepinephrine Bitartrate 250 ml @ 0.938 mls/ hr Q24H IV 11/15/24 13:45 11/17/24 15:02 0.938 MLS/HR Propofol 100 ml @ 2.817 mls/ hr Q24H IV 11/15/24 15:15 11/18/24 10:12 28.17 MLS/HR Midazolam HCl 50 ml @ 1 mls/hr Q24H IV 11/15/24 15:15 11/18/24 00:28 3 MLS/HR Fentanyl Citrate 250 ml @ 2.5 mls/hr Q24H IV 11/15/24 15:15 11/18/24 05:39 32.5 MLS/HR Sodium Chloride 10 ml QSHIFT@10,22 IV 11/16/24 22:00 11/18/24 10:16 10 ML Laboratory Results Laboratory Tests 11/18/24 03:20 Chemistry Test 11/18/24 03:20 Albumin 3.6 g/dL (3.2-4.8) Calcium Level 9.2 mg/dL (8.7-10.4) Magnesium Level 2.1 mg/dL (1.6-2.6) Total Protein 6.3 g/dL (5.7-8.2) LFT Test 11/18/24 03:20 Alanine Aminotransferase (ALT) 9 U/L (7-40) Alkaline Phosphatase 72 U/L (46-116) Aspartate Amino Transferase (AST) 20 U/L (13-40) Total Bilirubin 0.2 mg/dL (0.2-1.0) Urinalysis Test 10/30/24 19:19 Urine Color Light-brown (Yellow) Urine Clarity Ex.turbid (Clear) Urine pH 6.0 (5.0-9.0) Urine Specific [place] 1.020 (1.001-1.035) Urine Protein 3+ (Negative) H Urine Ketones Trace (Negative) Urine Blood 3+ /uL (Negative) H Urine Nitrite Negative (Negative) Urine Bilirubin Negative (Negative) Urine Urobilinogen Normal mg/dL (Negative) Urine Leukocyte Esterase 3+ /uL (Negative) Urine RBC 24 /hpf (0 - 3) Urine WBC Clumps Present /hpf (None Seen) Urine Microscopic WBC 1083 /HPF (0-3) H Urine Squamous Epithelial Cells Few /hpf (<5) Urine Transitional Epithelial Cells Few /hpf (<2) Urine Bacteria Many /hpf (None Seen) H Urine Mucus Few (None Seen) Urine Glucose Normal mg/dL (Normal) Blood Gas Results Test 11/18/24 07:13 Arterial Blood pH 7.515 (7.350-7.450) FiO2 % 35.0 Microbiology Microbiology Date/Time Source Procedure Growth Status 10/31/24 11:05 Nose MRSA Screen - Final Complete 10/31/24 10:50 Blood Blood Culture - Final NO GROWTH AFTER 5 DAYS OF INCUBATION. Complete 10/31/24 10:45 Sputum Gram Stain - Final Complete 10/31/24 10:45 Respiratory Culture - Final Enterobacter aerogenes Complete 10/30/24 19:19 Urine - [place] Urine Culture - Final Escherichia coli - ESBL Complete Labs and/or images reviewed: Labs reviewed by me, Image(s) reviewed by me Assessment/Plan Assessment/Plan 11/18 patient was received trach collar yesterday, ventilated through trach. he is sp [facility] on 11/09/24, s/p PCI 2x. His AV fistula was stenotic and angioplasty in hd result in aVF remaining functional and he continues to receive HD. He was bilateral lower extremity amputation. Patient has very big chest arms neck. Patient tongue is extruding out of mouth with involuntary biting on tongue. Discussed with RT we will try to insert OR bronch device to stabilize oral cavity improvement further biting. We will continue RASS-3 to -4 goal with sedation. Continue antibiotics, holding OG feeds given risk of aspiration. If patient's bed angle raised he was starts to bite down on tongue more.. Continue oral feeds today after stabilizing tongue. plan for LTAC once stablized. Neurology #Metabolic encephalopathy due to septic shock form UTI and pneumonia On fent and propofol and versed Cardiovascular #Acute on chronic systolic CHF #Ischemic cardiomyopathy #Peripheral artery disease, s/p amputation #Hypertension, Hydralazine IV prn Aspirin plavix 75mg po qd Continue hemodialysis Hand Potter following, [facility] on 11/09/24, s/p PCI 2x Pulmonology #Acute hypoxic respiratory failure with mechanical ventilation #Pneumonia, gram (+) vs gram (-), atypicals, growing Enterobacter aeruginosa Continue Merrem MV: FIO2: 30% RR: 18 TV 450 PEEP: 5 trach today Nephrology #ESRD on HD # distal stenosis of AV fistula(right arm swelling and pitting edema) AV fistula working Continue HD [employer] Employee following consulted IR for intervention on av fisulta stenosis, angioplasty performed on 11/14/24 Endocrinology #Morbid obesity #Bilateral lower extremity BK amputation #T2DM SSI Gastroenterology Continue tube feedings: Nepro Continue reglan iv Lactulose prn #Macroglossia and neck swelling due to av fistula stenosis and clot on subclavian IR angioplasty performed on 11/14/24 wound care for tongue Hematology and Oncology #Anemia of chronic disease Monitor Infectious Disease #Pneumonia, gram (+) vs gram (-), atypicals, growing Enterobacter aeruginosa #UTI, growing ESBL E. coli Merrem IV Dermatology x DVT ppx Heparin iv PUD ppx Protonix Drips Levo held Fent Propofol Lines TLC Right femoral 10/31/24 ET tube 10/31/24 [place] 10/31/24 Updated family members on patient's current status Discussed with spouse patient current status, trach today Consulted SS for LTAC Goals of care were discussed for over 30 minutes. FULL CODE. Plan discussed with: Other Date of Service: Nov 18, 2024 Billing Provider: PATRICK ALVAREZ MD Common Visit Codes: 92864-[id number] CARE 30-74 MIN PATRICK ALVAREZ MD Nov 18, 2024 10:34
--- NOTE | 2024-11-18 12:28 | DVHPN2 ---
Progress Note - Dictate Date Seen: Nov 18, 2024 Medical Necessity Reason Pt with a Central, PICC or Fol: Yes The following are medically ne: Central Line, Martinez Catheter Reason for martinez catheter: Strict I&O Subjective Remains on ventilatory support, tolerated dialysis yesterday vital signs Vital Sign Date Time Temp Pulse Resp B/P (MAP) Pulse Ox O2 Delivery O2 Flow Rate FiO2 11/18/24 11:32 67 18 133/46 (75) 97 35 11/18/24 08:00 Mechanical Ventilator+ 11/18/24 04:00 98.5 98.5 Total Intake and Output 11/17/24 11/17/24 11/18/24 15:00 23:00 07:00 Intake Total 506.36 ml 561.111 ml 442.502 ml Balance 506.36 ml 561.111 ml 442.502 ml medications Current Medications Medications Dose Ordered Sig/Alexander Route Start Time Stop Time Status Last Admin Dose Admin Nitroglycerin 0.4 mg Q5MINP PRN SL 10/30/24 20:00 Aspirin 162 mg DAILY PO 10/31/24 10:00 11/18/24 10:16 162 MG Dextrose 50 ml UD PRN IV 10/30/24 20:15 11/02/24 17:25 50 ML Acetaminophen 650 mg Q6HP PRN PO 10/30/24 20:15 11/04/24 13:02 650 MG Pantoprazole Sodium 40 mg DAILY IV 11/01/24 10:00 11/18/24 10:15 40 MG Enteral Nutritional Formula 1,000 ml 30ML/HR GT 11/03/24 12:15 11/09/24 17:52 1,000 ML Metoclopramide HCl 5 mg Q8HR IV 11/04/24 22:00 11/18/24 06:01 5 MG Calcium Acetate 1,334 mg TID NG 11/07/24 14:00 11/18/24 06:02 1,334 MG Meropenem 50 ml @ 16.667 mls/ hr HS IV 11/07/24 22:00 11/17/24 22:33 16.667 MLS/HR Lactulose 30 ml DAILYPRN PRN PO 11/08/24 13:00 Insulin Human Regular Q6HR SC 11/13/24 12:00 Diagnostic Test (Pha) 1 strip Q6HR 11/13/24 12:00 11/18/24 06:01 1 STRIP Clopidogrel Bisulfate 75 mg DAILY PO 11/16/24 10:00 11/18/24 10:16 75 MG Norepinephrine Bitartrate 250 ml @ 0.938 mls/ hr Q24H IV 11/15/24 13:45 11/17/24 15:02 0.938 MLS/HR Propofol 100 ml @ 2.817 mls/ hr Q24H IV 11/15/24 15:15 11/18/24 10:12 28.17 MLS/HR Midazolam HCl 50 ml @ 1 mls/hr Q24H IV 11/15/24 15:15 11/18/24 00:28 3 MLS/HR Fentanyl Citrate 250 ml @ 2.5 mls/hr Q24H IV 11/15/24 15:15 11/18/24 05:39 32.5 MLS/HR Sodium Chloride 10 ml QSHIFT@10,22 IV 11/16/24 22:00 11/18/24 10:16 10 ML Hydralazine HCl 10 mg Q6HP PRN IV 11/18/24 10:30 objective gen: Intubated and sedated lungs: cta cvs: no rub ext: + edema laboratory and microbiology Laboratory Tests 11/18/24 03:20 Test 11/18/24 03:20 Range/Units Serum Glucose 68 L 74-106 mg/dL Assessment/Plan ESRD on hemodialysis Right upper extremity right neck and tongue swelling swelling rule out SVC syndrome Acute respiratory failure, patient intubated on ventilator Morbid obesity NSTEMI Congestive heart failure Diabetes mellitus type 2 Anemia of chronic kidney disease Peripheral arterial disease ESBL UTI 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 On propofol which supply fat kcaloried at 333 kcal/day if running at 12.6ml/hr. 2.Recommend a low fat high protein TF Vital High Protein @ 40ml/hr providing 84 g Protein, and 960 kcal, 803 ml free water, if running at 24 hrs. the combined nurition support will be 84 g Protein and 1056 kcal, supporting pt's needs for protein at 76.3%, needs for energy at 134%. 3. Reasses pt's TF formulary if pt is off Popofol.but still need TF. 4. Renal standard and CCHO-75 if pt is able to have PO intake after passing a TAX ANALYST eval, Expected Outcomes/Goals: gradual wt loss. improved lab values with consistant dialysis. Plan discussed with: Other SERGE LUCERO MD Nov 18, 2024 12:28
--- NOTE | 2024-11-18 23:31 | DVHPN2 ---
Progress Note - Dictate Date Seen: Nov 18, 2024 Medical Necessity Reason Pt with a Central, PICC or Fol: Yes The following are medically ne: Central Line, Martinez Catheter Reason for martinez catheter: Strict I&O Subjective Patient seen and examined at bedside. Sedated, intubated on mechanical ventilator. Overnight events reviewed. vital signs Vital Sign Date Time Temp Pulse Resp B/P (MAP) Pulse Ox O2 Delivery O2 Flow Rate FiO2 11/18/24 22:20 60 14 120/51 (74) 99 40 11/18/24 20:00 Mechanical Ventilator+ 11/18/24 16:00 98.4 98.4 Total Intake and Output 11/17/24 11/17/24 11/18/24 15:00 23:00 07:00 Intake Total 506.36 ml 561.111 ml 508.047 ml Balance 506.36 ml 561.111 ml 508.047 ml medications Current Medications Medications Dose Ordered Sig/Alexander Route Start Time Stop Time Status Last Admin Dose Admin Nitroglycerin 0.4 mg Q5MINP PRN SL 10/30/24 20:00 Aspirin 162 mg DAILY PO 10/31/24 10:00 11/18/24 10:16 162 MG Dextrose 50 ml UD PRN IV 10/30/24 20:15 11/02/24 17:25 50 ML Acetaminophen 650 mg Q6HP PRN PO 10/30/24 20:15 11/04/24 13:02 650 MG Pantoprazole Sodium 40 mg DAILY IV 11/01/24 10:00 11/18/24 10:15 40 MG Enteral Nutritional Formula 1,000 ml 30ML/HR GT 11/03/24 12:15 11/18/24 17:17 1,000 ML Metoclopramide HCl 5 mg Q8HR IV 11/04/24 22:00 11/18/24 21:47 5 MG Calcium Acetate 1,334 mg TID NG 11/07/24 14:00 11/18/24 21:47 1,334 MG Meropenem 50 ml @ 16.667 mls/ hr HS IV 11/07/24 22:00 11/18/24 21:47 16.667 MLS/HR Lactulose 30 ml DAILYPRN PRN PO 11/08/24 13:00 Insulin Human Regular Q6HR SC 11/13/24 12:00 Diagnostic Test (Pha) 1 strip Q6HR 11/13/24 12:00 11/18/24 18:17 1 STRIP Clopidogrel Bisulfate 75 mg DAILY PO 11/16/24 10:00 11/18/24 10:16 75 MG Norepinephrine Bitartrate 250 ml @ 0.938 mls/ hr Q24H IV 11/15/24 13:45 11/17/24 15:02 0.938 MLS/HR Propofol 100 ml @ 2.817 mls/ hr Q24H IV 11/15/24 15:15 11/18/24 20:14 28.17 MLS/HR Midazolam HCl 50 ml @ 1 mls/hr Q24H IV 11/15/24 15:15 11/18/24 15:39 3 MLS/HR Fentanyl Citrate 250 ml @ 2.5 mls/hr Q24H IV 11/15/24 15:15 11/18/24 21:39 32.5 MLS/HR Sodium Chloride 10 ml QSHIFT@10,22 IV 11/16/24 22:00 11/18/24 21:48 10 ML Hydralazine HCl 10 mg Q6HP PRN IV 11/18/24 10:30 objective Gen.: Patient lying in bed in medical ICU. Sedated, intubated on mechanical ventilator. S/p Trach Head: Normocephalic, atraumatic. Eyes: PERRLA. Ears: Normal external anatomy. Throat: Endotracheal tube and orogastric tube in place. Neck: Trach in place. Chest: Transmitted breath sounds bilaterally. Decreased air entry bilaterally. No wheezing. Bibasilar crackles. Cardiovascular: Positive S1, positive S2. Regular rate and rhythm. Abdomen: Positive bowel sounds in all 4 quadrants. Soft, nontender, nondistended. : Martinez in place. Normal external genitalia. Rectal: Deferred. Skin: Warm, dry. Intact. Extremities: 2+ radial pulses bilaterally. No lower extremity edema. Neuro: Sedated. laboratory and microbiology Laboratory Tests 11/18/24 03:20 Test 11/18/24 03:20 Range/Units Serum Glucose 68 L 74-106 mg/dL Assessment/Plan Impression Acute hypoxemic respiratory failure On mechanical ventilator S/p tracheostomy End-stage renal disease, on hemodialysis Chronic obstructive pulmonary disease Congestive heart failure Morbid obesity Patient seen and examined in ICU Events On mechanical ventilation S/p intubation On AC mode with RR 14, VT 450, PEEP 5, FiO2 45% Tapered RR to 14 S/p trach Trach care Sedated on Propofol, Versed, Fentanyl Off Levophed, hemodynamically stable. Continue antibiotics Accu-Cheks, ISS. NGT - Tube feeds for nutritional support Labs and imaging reviewed Plan Vent support Titrate to maintain sats 90% or above S/p Trach Trach care Continue antibiotics Monitor renal function HD as per nephrology Management deferred Monitor electrolytes Supplement as needed Pressors as needed for hemodynamic support To maintain a mean arterial pressure of 65 mmHg DVT prophylaxis Prognosis: Poor given patient's multiple co-morbidities. Condition: Critical Rest of plan per hospitalist and other consultants. A total of 35 minutes of critical care time was spent reviewing the patient record, examining the patient, making a diagnostic and therapeutic plan, discussing this plan with the medical personnel, following up on diagnostic studies and following the patient for clinical stability excluding any and all procedures. At least 50% of this time was spent in direct, [id number] contact. Thank you, RICH Dale, for allowing me to participate in this patient's care. Further recommendations will depend on the patient's clinical course. Please do not hesitate to contact me if you have any questions or concerns. This medical document was created using an electronic medical record system with [employer] dictation system. Although these documentations are being carefully reviewed, there may still be some phonetic and typographical changes. The errors are purely typographical, due to imperfection on the software program, and do not reflect any compromise in the patient's medical care. Dietary Evaluation Review Comments: 1. On propofol which supply fat kcaloried at 333 kcal/day if running at 12.6ml/hr. 2.Recommend a low fat high protein TF Vital High Protein @ 40ml/hr providing 84 g Protein, and 960 kcal, 803 ml free water, if running at 24 hrs. the combined nurition support will be 84 g Protein and 1056 kcal, supporting pt's needs for protein at 76.3%, needs for energy at 134%. 3. Reasses pt's TF formulary if pt is off Popofol.but still need TF. 4. Renal standard and CCHO-75 if pt is able to have PO intake after passing a GATE KEEPER eval, Expected Outcomes/Goals: gradual wt loss. improved lab values with consistant dialysis. Plan discussed with: Other (QING Villa) Critical Care Time(min): 35 JOSUÉ FUENTES MD Nov 18, 2024 23:31
[2024-11-19] VITALS (103 sets, daily range): BP systolic 91–183; BP diastolic 29–57; PULSE 53–92; RESP 13–33; TEMP 97.7–98.1; O2SAT 92–100
--- NOTE | 2024-11-19 07:20 | DVHPN2 ---
Progress Note Date Seen: Nov 19, 2024 Medical Necessity Reason Pt with a Central, PICC or Fol: Yes The following are medically ne: Central Line, Martinez Catheter Reason for martinez catheter: Strict I&O Objective vital signs Vital Sign Date Time Temp Pulse Resp B/P (MAP) Pulse Ox O2 Delivery O2 Flow Rate FiO2 11/19/24 06:45 57 14 139/51 (80) 97 11/19/24 06:00 Mechanical Ventilator+ 45 45 11/19/24 04:00 97.7 97.7 Total Intake and Output 11/18/24 11/18/24 11/19/24 15:00 23:00 07:00 Intake Total 523.423 ml 690.298 ml 662.02 ml Balance 523.423 ml 690.298 ml 662.02 ml medications Current Medications Medications Dose Ordered Sig/Alexander Route Start Time Stop Time Status Last Admin Dose Admin Nitroglycerin 0.4 mg Q5MINP PRN SL 10/30/24 20:00 Aspirin 162 mg DAILY PO 10/31/24 10:00 11/18/24 10:16 162 MG Dextrose 50 ml UD PRN IV 10/30/24 20:15 11/02/24 17:25 50 ML Acetaminophen 650 mg Q6HP PRN PO 10/30/24 20:15 11/04/24 13:02 650 MG Pantoprazole Sodium 40 mg DAILY IV 11/01/24 10:00 11/18/24 10:15 40 MG Enteral Nutritional Formula 1,000 ml 30ML/HR GT 11/03/24 12:15 11/18/24 17:17 1,000 ML Metoclopramide HCl 5 mg Q8HR IV 11/04/24 22:00 11/19/24 05:53 5 MG Calcium Acetate 1,334 mg TID NG 11/07/24 14:00 11/19/24 05:53 1,334 MG Lactulose 30 ml DAILYPRN PRN PO 11/08/24 13:00 Insulin Human Regular Q6HR SC 11/13/24 12:00 Diagnostic Test (Pha) 1 strip Q6HR 11/13/24 12:00 11/19/24 05:54 1 STRIP Clopidogrel Bisulfate 75 mg DAILY PO 11/16/24 10:00 11/18/24 10:16 75 MG Norepinephrine Bitartrate 250 ml @ 0.938 mls/ hr Q24H IV 11/15/24 13:45 11/17/24 15:02 0.938 MLS/HR Propofol 100 ml @ 2.817 mls/ hr Q24H IV 11/15/24 15:15 11/19/24 05:23 28.17 MLS/HR Midazolam HCl 50 ml @ 1 mls/hr Q24H IV 11/15/24 15:15 11/19/24 05:22 3 MLS/HR Fentanyl Citrate 250 ml @ 2.5 mls/hr Q24H IV 11/15/24 15:15 11/19/24 05:22 32.5 MLS/HR Sodium Chloride 10 ml QSHIFT@10,22 IV 11/16/24 22:00 11/18/24 21:48 10 ML Hydralazine HCl 10 mg Q6HP PRN IV 11/18/24 10:30 laboratory and microbiology Laboratory Tests 11/18/24 03:20 Test 11/18/24 03:20 Range/Units Serum Glucose 68 L 74-106 mg/dL Problem List/Assessment/Plan Problem List/Assessment/Plan 11/19/24 condition unchanged, tracheostomy OK, CXR stable, will sign off, please recall if needed Plan discussed with: Other Dietary Evaluation Review Comments: 1. On propofol which supply fat kcaloried at 333 kcal/day if running at 12.6ml/hr. 2.Recommend a low fat high protein TF Vital High Protein @ 40ml/hr providing 84 g Protein, and 960 kcal, 803 ml free water, if running at 24 hrs. the combined nurition support will be 84 g Protein and 1056 kcal, supporting pt's needs for protein at 76.3%, needs for energy at 134%. 3. Reasses pt's TF formulary if pt is off Popofol.but still need TF. 4. Renal standard and CCHO-75 if pt is able to have PO intake after passing a MEDICATION NURSE eval, Expected Outcomes/Goals: gradual wt loss. improved lab values with consistant dialysis. YISSEL RUIZ MD Nov 19, 2024 07:20
--- NOTE | 2024-11-19 09:37 | DVHPN2 ---
Subjective Update 11/19 11/18 - patient was received trach collar yesterday, ventilated through trach. he is sp [facility] on 11/09/24, s/p PCI 2x. His AV fistula was stenotic and angioplasty in hd result in aVF remaining functional and he continues to receive HD. He was bilateral lower extremity amputation. Patient has very big chest arms neck. Patient tongue is extruding out of mouth with involuntary biting on tongue. Discussed with RT we will try to insert OR bronch device to stabilize oral cavity improvement further biting. We will continue RASS-3 to -4 goal with sedation. Continue antibiotics, holding OG feeds given risk of aspiration. If patient's bed angle raised he was starts to bite down on tongue more.. Continue oral feeds today after stabilizing tongue. plan for LTAC once stablized. 11/19 - no change today. RT put a oral cavity device to prevent tongue biting. will avoid sedation vacation today. i think if we can get a full oral cavity device that pushes tongue into mouth then a sed vac can be tried, but needs to be done soon to decrease morbidity of hospital course. today CPT. pending labs. defer rest of tx to primary team for tomorrow. Reviewed: Care Plan, H&P, Medications, Previous Orders Changes from previous H/P or p: No Changes General: Per HPI Objective Vitals Vital Signs Date Time Temp Pulse Resp B/P (MAP) Pulse Ox O2 Delivery O2 Flow Rate FiO2 11/19/24 07:28 60 14 128/49 (75) 97 35 11/19/24 06:00 Mechanical Ventilator+ 11/19/24 04:00 97.7 97.7 Intake/Output Intake and Output 11/19/24 07:00 Intake Total 1875.741 ml Balance 1875.741 ml Intake Oral 240 ml IV Total 1465.741 ml Tube Feeding 170 ml Exam General: Mechanically ventilated, intubated HEENT: Head is normocephalic and atraumatic. Pupils are equal, round, and reactive to light. Significant swelling on tongue with wound on ventral aspect. Neck: Supple with no cervical lymphadenopathy. Heart: Regular rate without murmur, rub, or gallop. Lungs: Equal breath sounds bilaterally with no wheezing, rales, or rhonchi. There is no chest wall tenderness or instability. Abdomen: No external sign of injury. Bowel sounds are present. Extremities: Strong peripheral pulses. There is no clubbing, no cyanosis. Significant pitting edema on right upper arm, right chest and neck, tender, no erythema. Skin: No rash. Neurologic: Sedated General Appearance: mild distress, Other (Chemically sedated) HEENT: Atraumatic, PERRLA, EOMI Lungs: Clear to auscultation, Normal air movement, Other (Mechanical ventilation) Cardiovascular: Regular rate, Normal S1, Normal S2 Abdomen: Normal bowel sounds, Soft, No tenderness Genitourinary: No Apparent Abnormalities ([place] catheter) Musculoskeletal: Normal sensory function, Normal motor function Extremities: Other (Bilateral lower extremity amputation) Skin: Dry, Intact Psych/Mental Status: Other (Unable to assess) Medications Current Medications Medications Dose Ordered Sig/Alexander Route Start Time Stop Time Status Last Admin Dose Admin Nitroglycerin 0.4 mg Q5MINP PRN SL 10/30/24 20:00 Aspirin 162 mg DAILY PO 10/31/24 10:00 11/18/24 10:16 162 MG Dextrose 50 ml UD PRN IV 10/30/24 20:15 11/02/24 17:25 50 ML Acetaminophen 650 mg Q6HP PRN PO 10/30/24 20:15 11/04/24 13:02 650 MG Pantoprazole Sodium 40 mg DAILY IV 11/01/24 10:00 11/18/24 10:15 40 MG Enteral Nutritional Formula 1,000 ml 30ML/HR GT 11/03/24 12:15 11/18/24 17:17 1,000 ML Metoclopramide HCl 5 mg Q8HR IV 11/04/24 22:00 11/19/24 05:53 5 MG Calcium Acetate 1,334 mg TID NG 11/07/24 14:00 11/19/24 05:53 1,334 MG Lactulose 30 ml DAILYPRN PRN PO 11/08/24 13:00 Insulin Human Regular Q6HR SC 11/13/24 12:00 Diagnostic Test (Pha) 1 strip Q6HR 11/13/24 12:00 11/19/24 05:54 1 STRIP Clopidogrel Bisulfate 75 mg DAILY PO 11/16/24 10:00 11/18/24 10:16 75 MG Norepinephrine Bitartrate 250 ml @ 0.938 mls/ hr Q24H IV 11/15/24 13:45 11/17/24 15:02 0.938 MLS/HR Propofol 100 ml @ 2.817 mls/ hr Q24H IV 11/15/24 15:15 11/19/24 05:23 28.17 MLS/HR Midazolam HCl 50 ml @ 1 mls/hr Q24H IV 11/15/24 15:15 11/19/24 05:22 3 MLS/HR Fentanyl Citrate 250 ml @ 2.5 mls/hr Q24H IV 11/15/24 15:15 11/19/24 05:22 32.5 MLS/HR Sodium Chloride 10 ml QSHIFT@10,22 IV 11/16/24 22:00 11/18/24 21:48 10 ML Hydralazine HCl 10 mg Q6HP PRN IV 11/18/24 10:30 Laboratory Results Laboratory Tests 11/18/24 03:20 Urinalysis Test 10/30/24 19:19 Urine Color Light-brown (Yellow) Urine Clarity Ex.turbid (Clear) Urine pH 6.0 (5.0-9.0) Urine Specific [place] 1.020 (1.001-1.035) Urine Protein 3+ (Negative) H Urine Ketones Trace (Negative) Urine Blood 3+ /uL (Negative) H Urine Nitrite Negative (Negative) Urine Bilirubin Negative (Negative) Urine Urobilinogen Normal mg/dL (Negative) Urine Leukocyte Esterase 3+ /uL (Negative) Urine RBC 24 /hpf (0 - 3) Urine WBC Clumps Present /hpf (None Seen) Urine Microscopic WBC 1083 /HPF (0-3) H Urine Squamous Epithelial Cells Few /hpf (<5) Urine Transitional Epithelial Cells Few /hpf (<2) Urine Bacteria Many /hpf (None Seen) H Urine Mucus Few (None Seen) Urine Glucose Normal mg/dL (Normal) Microbiology Microbiology Date/Time Source Procedure Growth Status 10/31/24 11:05 Nose MRSA Screen - Final Complete 10/31/24 10:50 Blood Blood Culture - Final NO GROWTH AFTER 5 DAYS OF INCUBATION. Complete 10/31/24 10:45 Sputum Gram Stain - Final Complete 10/31/24 10:45 Respiratory Culture - Final Enterobacter aerogenes Complete 10/30/24 19:19 Urine - [place] Urine Culture - Final Escherichia coli - ESBL Complete Labs and/or images reviewed: Labs reviewed by me, Image(s) reviewed by me Assessment/Plan Assessment/Plan 11/19 - no change today. RT put a oral cavity device to prevent tongue biting. will avoid sedation vacation today. i think if we can get a full oral cavity device that pushes tongue into mouth then a sed vac can be tried, but needs to be done soon to decrease morbidity of hospital course. today CPT. pending labs. defer rest of tx to primary team for tomorrow. Neurology #Metabolic encephalopathy due to septic shock form UTI and pneumonia On fent and propofol and versed Cardiovascular #Acute on chronic systolic CHF #Ischemic cardiomyopathy #Peripheral artery disease, s/p amputation #Hypertension, Hydralazine IV prn Aspirin plavix 75mg po qd Continue hemodialysis Assistant Bookkeeper following, [facility] on 11/09/24, s/p PCI 2x Pulmonology #Acute hypoxic respiratory failure with mechanical ventilation #Pneumonia, gram (+) vs gram (-), atypicals, growing Enterobacter aeruginosa Continue Merrem MV: FIO2: 30% RR: 18 TV 450 PEEP: 5 trach today Nephrology #ESRD on HD # distal stenosis of AV fistula(right arm swelling and pitting edema) AV fistula working Continue HD Pulp Piler following consulted IR for intervention on av fisulta stenosis, angioplasty performed on 11/14/24 Endocrinology #Morbid obesity #Bilateral lower extremity BK amputation #T2DM SSI Gastroenterology Continue tube feedings: Nepro Continue reglan iv Lactulose prn #Macroglossia and neck swelling due to av fistula stenosis and clot on subclavian IR angioplasty performed on 11/14/24 wound care for tongue Hematology and Oncology #Anemia of chronic disease Monitor Infectious Disease #Pneumonia, gram (+) vs gram (-), atypicals, growing Enterobacter aeruginosa #UTI, growing ESBL E. coli Merrem IV Dermatology x DVT ppx Heparin iv PUD ppx Protonix Drips Levo held Fent Propofol Lines TLC Right femoral 10/31/24 ET tube 10/31/24 [place] 10/31/24 Updated family members on patient's current status Discussed with spouse patient current status, trach today Consulted SS for LTAC Goals of care were discussed for over 30 minutes. FULL CODE. Plan discussed with: Patient My Orders Orders - PATRICK ALVAREZ MD Procedure Category Date Status Time Hydralazine Injection PHA 11/18/24 In Process (Apresoline Inject 10:30 Date of Service: Nov 19, 2024 Billing Provider: PATRICK ALVAREZ MD Common Visit Codes: [id number] CARE 30-74 MIN PATRICK ALVAREZ MD Nov 19, 2024 09:37
[2024-11-19] MEDS: hydrALAZINE HCL 20 MG/ML VL IV PRN (10:57)
--- NOTE | 2024-11-19 12:51 | DVHPN2 ---
Progress Note - Dictate Date Seen: Nov 19, 2024 Medical Necessity Reason Pt with a Central, PICC or Fol: Yes The following are medically ne: Central Line, Martinez Catheter Reason for martinez catheter: Strict I&O Subjective No significant overnight events vital signs Vital Sign Date Time Temp Pulse Resp B/P (MAP) Pulse Ox O2 Delivery O2 Flow Rate FiO2 11/19/24 12:49 118/30 11/19/24 12:00 70 14 94 11/19/24 11:55 35 11/19/24 11:45 97.9 97.9 11/19/24 06:00 Mechanical Ventilator+ Total Intake and Output 11/18/24 11/18/24 11/19/24 15:00 23:00 07:00 Intake Total 523.423 ml 690.298 ml 725.69 ml Balance 523.423 ml 690.298 ml 725.69 ml medications Current Medications Medications Dose Ordered Sig/Alexander Route Start Time Stop Time Status Last Admin Dose Admin Nitroglycerin 0.4 mg Q5MINP PRN SL 10/30/24 20:00 Aspirin 162 mg DAILY PO 10/31/24 10:00 11/19/24 09:54 162 MG Dextrose 50 ml UD PRN IV 10/30/24 20:15 11/02/24 17:25 50 ML Acetaminophen 650 mg Q6HP PRN PO 10/30/24 20:15 11/04/24 13:02 650 MG Pantoprazole Sodium 40 mg DAILY IV 11/01/24 10:00 11/19/24 09:52 40 MG Enteral Nutritional Formula 1,000 ml 30ML/HR GT 11/03/24 12:15 11/18/24 17:17 1,000 ML Metoclopramide HCl 5 mg Q8HR IV 11/04/24 22:00 11/19/24 05:53 5 MG Calcium Acetate 1,334 mg TID NG 11/07/24 14:00 11/19/24 05:53 1,334 MG Lactulose 30 ml DAILYPRN PRN PO 11/08/24 13:00 Insulin Human Regular Q6HR SC 11/13/24 12:00 Diagnostic Test (Pha) 1 strip Q6HR 11/13/24 12:00 11/19/24 11:59 1 STRIP Clopidogrel Bisulfate 75 mg DAILY PO 11/16/24 10:00 11/19/24 09:53 75 MG Norepinephrine Bitartrate 250 ml @ 0.938 mls/ hr Q24H IV 11/15/24 13:45 11/17/24 15:02 0.938 MLS/HR Propofol 100 ml @ 2.817 mls/ hr Q24H IV 11/15/24 15:15 11/19/24 12:46 28.17 MLS/HR Midazolam HCl 50 ml @ 1 mls/hr Q24H IV 11/15/24 15:15 11/19/24 05:22 3 MLS/HR Fentanyl Citrate 250 ml @ 2.5 mls/hr Q24H IV 11/15/24 15:15 11/19/24 12:49 32.5 MLS/HR Sodium Chloride 10 ml QSHIFT@10,22 IV 11/16/24 22:00 11/19/24 09:53 10 ML Hydralazine HCl 10 mg Q6HP PRN IV 11/18/24 10:30 11/19/24 10:57 10 MG objective gen: Intubated and sedated lungs: cta cvs: no rub ext: + edema laboratory and microbiology Laboratory Tests 11/18/24 03:20 Test 11/18/24 03:20 Range/Units Serum Glucose 68 L 74-106 mg/dL Assessment/Plan ESRD on hemodialysis Right upper extremity right neck and tongue swelling swelling rule out SVC syndrome Acute respiratory failure, patient intubated on ventilator Morbid obesity NSTEMI Congestive heart failure Diabetes mellitus type 2 Anemia of chronic kidney disease Peripheral arterial disease ESBL UTI post bilateral below-knee amputation Thrombus superior vena cava - dialysis November 20 - as tolerated Dietary Evaluation Review Comments: 1. On propofol which supply fat kcaloried at 333 kcal/day if running at 12.6ml/hr. 2.Recommend a low fat high protein TF Vital High Protein @ 40ml/hr providing 84 g Protein, and 960 kcal, 803 ml free water, if running at 24 hrs. the combined nurition support will be 84 g Protein and 1056 kcal, supporting pt's needs for protein at 76.3%, needs for energy at 134%. 3. Reasses pt's TF formulary if pt is off Popofol.but still need TF. 4. Renal standard and CCHO-75 if pt is able to have PO intake after passing a SE[employer]AM KISS MAKER eval, Expected Outcomes/Goals: gradual wt loss. improved lab values with consistant dialysis. Plan discussed with: Other SERGE LUCERO MD Nov 19, 2024 12:51
--- NOTE | 2024-11-19 23:39 | DVHPN2 ---
Progress Note - Dictate Date Seen: Nov 19, 2024 Medical Necessity Reason Pt with a Central, PICC or Fol: Yes The following are medically ne: Central Line, Martinez Catheter Reason for martinez catheter: Strict I&O Subjective Patient seen and examined at bedside. Sedated, intubated on mechanical ventilator. Overnight events reviewed. vital signs Vital Sign Date Time Temp Pulse Resp B/P (MAP) Pulse Ox O2 Delivery O2 Flow Rate FiO2 11/19/24 22:18 130/39 11/19/24 22:10 68 14 96 35 11/19/24 20:00 98.1 98.1 11/19/24 17:50 Mechanical Ventilator+ Total Intake and Output 11/18/24 11/18/24 11/19/24 15:00 23:00 07:00 Intake Total 523.423 ml 690.298 ml 725.69 ml Balance 523.423 ml 690.298 ml 725.69 ml medications Current Medications Medications Dose Ordered Sig/Alexander Route Start Time Stop Time Status Last Admin Dose Admin Nitroglycerin 0.4 mg Q5MINP PRN SL 10/30/24 20:00 Aspirin 162 mg DAILY PO 10/31/24 10:00 11/19/24 09:54 162 MG Dextrose 50 ml UD PRN IV 10/30/24 20:15 11/02/24 17:25 50 ML Acetaminophen 650 mg Q6HP PRN PO 10/30/24 20:15 11/04/24 13:02 650 MG Pantoprazole Sodium 40 mg DAILY IV 11/01/24 10:00 11/19/24 09:52 40 MG Enteral Nutritional Formula 1,000 ml 30ML/HR GT 11/03/24 12:15 11/18/24 17:17 1,000 ML Metoclopramide HCl 5 mg Q8HR IV 11/04/24 22:00 11/19/24 22:14 5 MG Calcium Acetate 1,334 mg TID NG 11/07/24 14:00 11/19/24 22:15 1,334 MG Lactulose 30 ml DAILYPRN PRN PO 11/08/24 13:00 Insulin Human Regular Q6HR SC 11/13/24 12:00 Diagnostic Test (Pha) 1 strip Q6HR 11/13/24 12:00 11/19/24 18:00 1 STRIP Clopidogrel Bisulfate 75 mg DAILY PO 11/16/24 10:00 11/19/24 09:53 75 MG Norepinephrine Bitartrate 250 ml @ 0.938 mls/ hr Q24H IV 11/15/24 13:45 11/17/24 15:02 0.938 MLS/HR Propofol 100 ml @ 2.817 mls/ hr Q24H IV 11/15/24 15:15 11/19/24 22:18 28.17 MLS/HR Midazolam HCl 50 ml @ 1 mls/hr Q24H IV 11/15/24 15:15 11/19/24 20:02 3 MLS/HR Fentanyl Citrate 250 ml @ 2.5 mls/hr Q24H IV 11/15/24 15:15 11/19/24 20:04 32.5 MLS/HR Sodium Chloride 10 ml QSHIFT@10,22 IV 11/16/24 22:00 11/19/24 22:15 10 ML Hydralazine HCl 10 mg Q6HP PRN IV 11/18/24 10:30 11/19/24 10:57 10 MG objective Gen.: Patient lying in bed in medical ICU. Sedated, intubated on mechanical ventilator. S/p Trach Head: Normocephalic, atraumatic. Eyes: PERRLA. Ears: Normal external anatomy. Throat: Endotracheal tube and orogastric tube in place. Neck: Trach in place. Chest: Transmitted breath sounds bilaterally. Decreased air entry bilaterally. No wheezing. Bibasilar crackles. Cardiovascular: Positive S1, positive S2. Regular rate and rhythm. Abdomen: Positive bowel sounds in all 4 quadrants. Soft, nontender, nondistended. : Martinez in place. Normal external genitalia. Rectal: Deferred. Skin: Warm, dry. Intact. Extremities: 2+ radial pulses bilaterally. No lower extremity edema. Neuro: Sedated. laboratory and microbiology Laboratory Tests 11/18/24 03:20 Test 11/18/24 03:20 Range/Units Serum Glucose 68 L 74-106 mg/dL Assessment/Plan Impression Acute hypoxemic respiratory failure On mechanical ventilator S/p tracheostomy End-stage renal disease, on hemodialysis Chronic obstructive pulmonary disease Congestive heart failure Morbid obesity Patient seen and examined in ICU Events On mechanical ventilation S/p intubation On AC mode with RR 14, VT 450, PEEP 5, FiO2 35% S/p trach Trach care Sedated on Propofol, Versed, Fentanyl Off pressors, hemodynamically stable. Continue antibiotics NGT - Tube feeds for nutritional support Labs and imaging reviewed Plan Vent support Titrate to maintain sats 90% or above S/p Trach Trach care Continue antibiotics Monitor renal function HD as per nephrology Management deferred Monitor electrolytes Supplement as needed Pressors as needed for hemodynamic support To maintain a mean arterial pressure of 65 mmHg Accu-Cheks, ISS PRN. DVT prophylaxis Prognosis: Poor given patient's multiple co-morbidities. Condition: Critical Rest of plan per hospitalist and other consultants. A total of 35 minutes of critical care time was spent reviewing the patient record, examining the patient, making a diagnostic and therapeutic plan, discussing this plan with the medical personnel, following up on diagnostic studies and following the patient for clinical stability excluding any and all procedures. At least 50% of this time was spent in direct, [id number] contact. Thank you, RICH Dale, for allowing me to participate in this patient's care. Further recommendations will depend on the patient's clinical course. Please do not hesitate to contact me if you have any questions or concerns. This medical document was created using an electronic medical record system with [employer] computerized dictation system. Although these documentations are being carefully reviewed, there may still be some phonetic and typographical changes. The errors are purely typographical, due to imperfection on the software program, and do not reflect any compromise in the patient's medical care. Dietary Evaluation Review Comments: 1. On propofol which supply fat kcaloried at 333 kcal/day if running at 12.6ml/hr. 2.Recommend a low fat high protein TF Vital High Protein @ 40ml/hr providing 84 g Protein, and 960 kcal, 803 ml free water, if running at 24 hrs. the combined nurition support will be 84 g Protein and 1056 kcal, supporting pt's needs for protein at 76.3%, needs for energy at 134%. 3. Reasses pt's TF formulary if pt is off Popofol.but still need TF. 4. Renal standard and CCHO-75 if pt is able to have PO intake after passing a MOLD WASHER eval, Expected Outcomes/Goals: gradual wt loss. improved lab values with consistant dialysis. Plan discussed with: Other (RN) Critical Care Time(min): 35 JOSUÉ FUENTES MD Nov 19, 2024 23:39
[2024-11-20] VITALS (111 sets, daily range): BP systolic 75–192; BP diastolic 26–76; PULSE 54–69; RESP 11–25; TEMP 97.3–98.5; O2SAT 93–100
[2024-11-20 03:48] LABS: Basophils # (auto) 0.1 10 ^3/uL (0-0.2); Basophils % (auto) 0.7 % (0.0-2.0); Eosinophils # (auto) 0.4 10 ^3/uL (0-0.8); Eosinophils % (auto) 4.9 % (0.0-7.0); Hematocrit 26.2 % (41.0-53.0); Hemoglobin 8.9 g/dL (13.5-17.5); Lymphocytes # (auto) 1.1 10 ^3/uL (0.4-5.4); Lymphocytes % (auto) 12.9 % (10.0-50.0); Mean Corpuscular Hemoglobin 29.5 pg (28.0-32.0); Mean Corpuscular Hgb Conc. 33.8 g/dL (32.0-36.0); Mean Corpuscular Volume 87.3 fL (80.0-100.0); Monocytes # (auto) 0.8 10 ^3/uL (0-1.3); Monocytes % (auto) 8.5 % (0.0-12.0); Neutrophils # (auto) 6.5 10 ^3/uL (1.6-8.6); Platelet Count (auto) 374 10^3/uL (140-450); Red Blood Cells 3.01 10^6/uL (4.5-5.90); Red Cell Distribution Width 17.5 % (11.8-14.3); White Blood Cell 8.9 10^3/uL (4.4-10.8)
[2024-11-20 04:10] LABS: Albumin 3.3 g/dL (3.2-4.8); Alkaline Phosphatase 88 U/L (46-116); Anion Gap 20 (5-15); Aspartate Aminotransferase 17 U/L (13-40); BUN/Creatinine Ratio 5.9 (10.0-20.0); Calcium 9.2 mg/dL (8.7-10.4); Glucose 86 mg/dL (74-106); Magnesium 2.1 mg/dL (1.6-2.6); Total Protein 6.1 g/dL (5.7-8.2)
[2024-11-20 04:11] LABS: Alanine Aminotransferase < 9 U/L (7-40); Bilirubin, Total < 0.2 mg/dL (0.2-1.0); Blood Urea Nitrogen 45 mg/dL (9-23); Carbon Dioxide 18 mmol/L (20-31); Chloride 91 mmol/L (98-107); Phosphorus 7.5 mg/dL (2.4-5.1); Potassium 5.1 mmol/L (3.5-5.1); Sodium 129 mmol/L (136-145)
--- NOTE | 2024-11-20 04:59 | DVH ---
CHEST RADIOGRAPH Indication: TRACH AND VENTED Technique: Single frontal view of the chest was obtained Comparison: XY CHEST PORTABLE on DOS: 11/18/24, XY CHEST PORTABLE on DOS: 11/17/24, XY CHEST PORTABLE o n DOS: 11/17/24 FINDINGS: Lines and Tubes: Tracheostomy tube and enteric tube are unchanged in position. Lungs: Persistent bilateral airspace disease. Pleura: Possible small bilateral pleural effusions. No pneumothorax. Cardiomediastinal contours: Unremarkable Bones: No acute osseous abnormality. IMPRESSION: 1. No significant change.
[2024-11-20] MEDS: SODIUM CHL 0.9% 1000 ML BAG XX ONE (07:00)
[2024-11-20 07:19] LABS: Base Excess -3.4 mmol/L (-2.0-3.0)
--- NOTE | 2024-11-20 08:50 | DVHPN2 ---
Progress Note - Dictate Date Seen: Nov 19, 2024 Medical Necessity Reason Pt with a Central, PICC or Fol: Yes The following are medically ne: Central Line, Martinez Catheter Reason for martinez catheter: Strict I&O Subjective PT WAS SEEN IN CLINICAL RESP DISTRESS DIFFUSE WHEEZING PMH HFrEF CHRONIC ISCHEMIC CM PAD BILATERAL LE AMPUTEE DIABETES VASCULOPATHY NEPHROPATHY NEUROPATHY HD ESRD vital signs Vital Sign Date Time Temp Pulse Resp B/P (MAP) Pulse Ox O2 Delivery O2 Flow Rate FiO2 11/20/24 07:41 58 14 112/36 (61) 97 35 11/20/24 06:00 Mechanical Ventilator+ 11/20/24 04:00 98.0 98.0 Total Intake and Output 11/19/24 11/19/24 11/20/24 15:00 23:00 07:00 Intake Total 509.36 ml 560.18 ml 600.36 ml Output Total 0 ml 0 ml Balance 509.36 ml 560.18 ml 600.36 ml medications Current Medications Medications Dose Ordered Sig/Alexander Route Start Time Stop Time Status Last Admin Dose Admin Nitroglycerin 0.4 mg Q5MINP PRN SL 10/30/24 20:00 Aspirin 162 mg DAILY PO 10/31/24 10:00 11/19/24 09:54 162 MG Dextrose 50 ml UD PRN IV 10/30/24 20:15 11/02/24 17:25 50 ML Acetaminophen 650 mg Q6HP PRN PO 10/30/24 20:15 11/04/24 13:02 650 MG Pantoprazole Sodium 40 mg DAILY IV 11/01/24 10:00 11/19/24 09:52 40 MG Enteral Nutritional Formula 1,000 ml 30ML/HR GT 11/03/24 12:15 11/18/24 17:17 1,000 ML Metoclopramide HCl 5 mg Q8HR IV 11/04/24 22:00 11/20/24 05:06 5 MG Calcium Acetate 1,334 mg TID NG 11/07/24 14:00 11/20/24 05:23 1,334 MG Lactulose 30 ml DAILYPRN PRN PO 11/08/24 13:00 Insulin Human Regular Q6HR SC 11/13/24 12:00 Diagnostic Test (Pha) 1 strip Q6HR 11/13/24 12:00 11/20/24 05:07 1 STRIP Clopidogrel Bisulfate 75 mg DAILY PO 11/16/24 10:00 11/19/24 09:53 75 MG Norepinephrine Bitartrate 250 ml @ 0.938 mls/ hr Q24H IV 11/15/24 13:45 11/17/24 15:02 0.938 MLS/HR Propofol 100 ml @ 2.817 mls/ hr Q24H IV 11/15/24 15:15 11/20/24 04:57 28.17 MLS/HR Midazolam HCl 50 ml @ 1 mls/hr Q24H IV 11/15/24 15:15 11/19/24 20:02 3 MLS/HR Fentanyl Citrate 250 ml @ 2.5 mls/hr Q24H IV 11/15/24 15:15 11/20/24 04:15 32.5 MLS/HR Sodium Chloride 10 ml QSHIFT@10,22 IV 11/16/24 22:00 11/19/24 22:15 10 ML Hydralazine HCl 10 mg Q6HP PRN IV 11/18/24 10:30 11/19/24 10:57 10 MG laboratory and microbiology Laboratory Tests 11/20/24 03:25 Test 11/20/24 03:25 Range/Units Serum Glucose 86 74-106 mg/dL Problem List RESP DISTRESS DIFFUSE WHEEZING PMH HFrEF CHRONIC ISCHEMIC CM PAD BILATERAL LE AMPUTEE DIABETES VASCULOPATHY NEPHROPATHY NEUROPATHY HD ESRD ANEMIA HYPERKALEMIA Assessment/Plan DIALYSIS ABX CORRECT LYTES ECHO S/P DIALYSIS 4L OUT CHECK BNP REPEAT CXR COMPLETE OPACIFICATION OF BOTH LUNGS CXR WITH PT UPRIGHT CONSIDER BRONCHOSCOPY CONSIDER LEFT HEART CATH SIGNIFICANT IMPROVEMENT IN VASCULAR CONGESTION ON CXR CONT DIALYSIS ADD VERQUVO START DIG TITRATE ON VERQUVO LHC * Left main calcified, no flow-restrictive lesion. * Left anterior descending artery, moderate diffuse disease with rapid tapering but no discrete lesions were noted at this time. * Circumflex in the AV groove had in-stent restenosis of greater than 80%-90% status post thrombectomy with stent placement with less than 10% residual stenosis with a 3.0 x 15 mm [place] Kane stent. There was greater than 60% narrowing of the proximal circumflex, status post thrombectomy with stent placement 3.0 x 12 mm Ray Kane stent with less than 10% residual stenosis. * Right coronary artery large dominant vessel without any flow-restrictive lesion. Mild to moderate diffuse disease. However, no discrete lesions were noted. * Left ventricular function showed an EF around 45%-50% with an LVEDP of 15 mmHg. Left ventricular systolic pressure 130. No gradient across the aortic valve. Thus, the patient underwent successful revascularization of in-stent restenosis of obtuse marginal 2/vessel in the AV groove as well as angioplasty with stent placement and thrombectomy of the circumflex proximal segment. At this time, dual-antiplatelet therapy will be initiated and we will continue to follow the patient but overall the patient's current status, the patient's respiratory failure is not indicative of congestive heart failure or acute systolic decompensation. The patient's LVEDP was only 15 mmHg, left ventricular systolic pressure was around 130 with no gradient across the aortic valve. Therefore, the patient's respiratory problem and respiratory arrest is secondary to pulmonary issues as well as renal failure. CXR SIGNIFICANT IMPROVEMENT PCWP NORMAL ELEVATED WBC START WEANING PT S/P PTCA STENT hemodynamically stable check bnp DC ALL SEDATION WEAN PT OFF VENT SUBCLAVIAN VEIN STENOSIS EDEMA ORAL OBSTRUCTION SECONDARY TO SOFT TISSUE SWELLING TRACHEOSTOMY SUBCLAVIAN VEIN STENTING PENDING S/P TRACHEOSTOMY Dietary Evaluation Review Comments: 1. On propofol which supply fat kcaloried at 333 kcal/day if running at 12.6ml/hr. 2.Recommend a low fat high protein TF Vital High Protein @ 40ml/hr providing 84 g Protein, and 960 kcal, 803 ml free water, if running at 24 hrs. the combined nurition support will be 84 g Protein and 1056 kcal, supporting pt's needs for protein at 76.3%, needs for energy at 134%. 3. Reasses pt's TF formulary if pt is off Popofol.but still need TF. 4. Renal standard and CCHO-75 if pt is able to have PO intake after passing a HEAD OF ENGLISH eval, Expected Outcomes/Goals: gradual wt loss. improved lab values with consistant dialysis. Plan discussed with: Other Critical Care Time(min): 35 YESICA YORK MD Nov 20, 2024 08:50
[2024-11-20] MEDS: ALBUMIN 25% 100 ML IV ONE ×4 (11:45→12:30)
--- NOTE | 2024-11-20 12:50 | DVHPN2 ---
Progress Note Date Seen: Nov 20, 2024 Medical Necessity Reason Pt with a Central, PICC or Fol: Yes The following are medically ne: Central Line, Martinez Catheter Reason for martinez catheter: Strict I&O Subjective Review of Systems: RESPIRATORY:Abnormal Objective vital signs Vital Sign Date Time Temp Pulse Resp B/P (MAP) Pulse Ox O2 Delivery O2 Flow Rate FiO2 11/20/24 11:50 86/31 11/20/24 11:50 58 14 97 11/20/24 11:14 30 11/20/24 06:00 Mechanical Ventilator+ 11/20/24 04:00 98.0 98.0 Total Intake and Output 11/19/24 11/19/24 11/20/24 14:59 22:59 06:59 Intake Total 509.36 ml 560.18 ml 603.36 ml Output Total 0 ml 0 ml Balance 509.36 ml 560.18 ml 603.36 ml medications Current Medications Medications Dose Ordered Sig/Alexander Route Start Time Stop Time Status Last Admin Dose Admin Nitroglycerin 0.4 mg Q5MINP PRN SL 10/30/24 20:00 Aspirin 162 mg DAILY PO 10/31/24 10:00 11/20/24 10:06 162 MG Dextrose 50 ml UD PRN IV 10/30/24 20:15 11/02/24 17:25 50 ML Acetaminophen 650 mg Q6HP PRN PO 10/30/24 20:15 11/04/24 13:02 650 MG Pantoprazole Sodium 40 mg DAILY IV 11/01/24 10:00 11/20/24 10:06 40 MG Enteral Nutritional Formula 1,000 ml 30ML/HR GT 11/03/24 12:15 11/20/24 10:10 1,000 ML Metoclopramide HCl 5 mg Q8HR IV 11/04/24 22:00 11/20/24 05:06 5 MG Calcium Acetate 1,334 mg TID NG 11/07/24 14:00 11/20/24 05:23 1,334 MG Lactulose 30 ml DAILYPRN PRN PO 11/08/24 13:00 Insulin Human Regular Q6HR SC 11/13/24 12:00 Diagnostic Test (Pha) 1 strip Q6HR 11/13/24 12:00 11/20/24 05:07 1 STRIP Clopidogrel Bisulfate 75 mg DAILY PO 11/16/24 10:00 11/20/24 10:06 75 MG Norepinephrine Bitartrate 250 ml @ 0.938 mls/ hr Q24H IV 11/15/24 13:45 11/20/24 11:37 0.938 MLS/HR Propofol 100 ml @ 2.817 mls/ hr Q24H IV 11/15/24 15:15 11/20/24 11:20 28.17 MLS/HR Midazolam HCl 50 ml @ 1 mls/hr Q24H IV 11/15/24 15:15 11/20/24 11:20 3 MLS/HR Fentanyl Citrate 250 ml @ 2.5 mls/hr Q24H IV 11/15/24 15:15 11/20/24 11:20 32.5 MLS/HR Sodium Chloride 10 ml QSHIFT@10,22 IV 11/16/24 22:00 11/20/24 11:05 10 ML Hydralazine HCl 10 mg Q6HP PRN IV 11/18/24 10:30 11/19/24 10:57 10 MG Examination: GENERAL:Abnormal, CVS:Normal, MSK:Abnormal, NEURO:Abnormal laboratory and microbiology Laboratory Tests 11/20/24 03:25 Test 11/20/24 03:25 Range/Units Serum Glucose 86 74-106 mg/dL Microbiology Date/Time Source Procedure Growth Status 10/31/24 11:05 Nose MRSA Screen - Final Complete 10/31/24 10:50 Blood Blood Culture - Final NO GROWTH AFTER 5 DAYS OF INCUBATION. 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 hemodialysis Fluid restriction Nepro tube feeding Plan discussed with: Other Dietary Evaluation Review Comments: 1. On propofol which supply fat kcaloried at 333 kcal/day if running at 12.6ml/hr. 2.Recommend a low fat high protein TF Vital High Protein @ 40ml/hr providing 84 g Protein, and 960 kcal, 803 ml free water, if running at 24 hrs. the combined nurition support will be 84 g Protein and 1056 kcal, supporting pt's needs for protein at 76.3%, needs for energy at 134%. 3. Reasses pt's TF formulary if pt is off Popofol.but still need TF. 4. Renal standard and CCHO-75 if pt is able to have PO intake after passing a GLOBAL TRANSPORTATION MANAGER eval, Expected Outcomes/Goals: gradual wt loss. improved lab values with consistant dialysis. ASHLEY HINKLE MD Nov 20, 2024 12:50
--- NOTE | 2024-11-20 19:58 | DVHPNRES ---
Progress Note Date Seen: Nov 20, 2024 Resident Creating Document: GAVINO MORAES RESIDENT Medical Necessity Reason Pt with a Central, PICC or Fol: Yes The following are medically ne: Central Line, Martinez Catheter Reason for martinez catheter: Strict I&O Subjective Review of Systems Patient was seen and examined at bedside. He remains on mechanical ventilator, minimal vent settings. He is off vasopressors. He is on fentanyl, versed and propofol. swelling from arm and tongue coming down Objective vital signs Vital Sign Date Time Temp Pulse Resp B/P (MAP) Pulse Ox O2 Delivery O2 Flow Rate FiO2 11/20/24 19:00 95 Mechanical Ventilator+ 30 30 11/20/24 18:50 64 14 178/45 (89) 11/20/24 14:16 97.7 97.7 Total Intake and Output 11/19/24 11/19/24 11/20/24 15:00 23:00 07:00 Intake Total 509.36 ml 560.18 ml 600.36 ml Output Total 0 ml 0 ml Balance 509.36 ml 560.18 ml 600.36 ml medications Current Medications Medications Dose Ordered Sig/Alexander Route Start Time Stop Time Status Last Admin Dose Admin Nitroglycerin 0.4 mg Q5MINP PRN SL 10/30/24 20:00 Aspirin 162 mg DAILY PO 10/31/24 10:00 11/20/24 10:06 162 MG Dextrose 50 ml UD PRN IV 10/30/24 20:15 11/02/24 17:25 50 ML Acetaminophen 650 mg Q6HP PRN PO 10/30/24 20:15 11/04/24 13:02 650 MG Pantoprazole Sodium 40 mg DAILY IV 11/01/24 10:00 11/20/24 10:06 40 MG Enteral Nutritional Formula 1,000 ml 30ML/HR GT 11/03/24 12:15 11/20/24 10:10 1,000 ML Metoclopramide HCl 5 mg Q8HR IV 11/04/24 22:00 11/20/24 05:06 5 MG Calcium Acetate 1,334 mg TID NG 11/07/24 14:00 11/20/24 14:41 1,334 MG Lactulose 30 ml DAILYPRN PRN PO 11/08/24 13:00 Insulin Human Regular Q6HR SC 11/13/24 12:00 Diagnostic Test (Pha) 1 strip Q6HR 11/13/24 12:00 11/20/24 18:00 1 STRIP Clopidogrel Bisulfate 75 mg DAILY PO 11/16/24 10:00 11/20/24 10:06 75 MG Norepinephrine Bitartrate 250 ml @ 0.938 mls/ hr Q24H IV 11/15/24 13:45 11/20/24 11:37 0.938 MLS/HR Propofol 100 ml @ 2.817 mls/ hr Q24H IV 11/15/24 15:15 11/20/24 18:38 28.17 MLS/HR Midazolam HCl 50 ml @ 1 mls/hr Q24H IV 11/15/24 15:15 11/20/24 11:20 3 MLS/HR Fentanyl Citrate 250 ml @ 2.5 mls/hr Q24H IV 11/15/24 15:15 11/20/24 18:47 32.5 MLS/HR Sodium Chloride 10 ml QSHIFT@10,22 IV 11/16/24 22:00 11/20/24 11:05 10 ML Hydralazine HCl 10 mg Q6HP PRN IV 11/18/24 10:30 11/20/24 18:47 10 MG Amino Acid Protein 30 ml TIDWM NG 11/21/24 08:00 UNV Examination Physical examination as below: General: Mechanically ventilated, trach HEENT: Head is normocephalic and atraumatic. Pupils are equal, round, and reactive to light. Significant swelling on tongue with wound on ventral aspect. Neck: Supple with no cervical lymphadenopathy. Heart: Regular rate without murmur, rub, or gallop. Lungs: Equal breath sounds bilaterally with no wheezing, rales, or rhonchi. There is no chest wall tenderness or instability. Abdomen: No external sign of injury. Bowel sounds are present. Extremities: Strong peripheral pulses. There is no clubbing, no cyanosis. Significant pitting edema on right upper arm, right chest and neck, tender, no erythema. Skin: No rash. Neurologic: Sedated laboratory and microbiology Laboratory Tests 11/20/24 03:25 Test 11/20/24 03:25 Range/Units Serum Glucose 86 74-106 mg/dL Microbiology Date/Time Source Procedure Growth Status 10/31/24 11:05 Nose MRSA Screen - Final Complete 10/31/24 10:50 Blood Blood Culture - Final NO GROWTH AFTER 5 DAYS OF INCUBATION. Complete 10/31/24 10:45 Sputum Gram Stain - Final Complete 10/31/24 10:45 Respiratory Culture - Final Enterobacter aerogenes Complete 10/30/24 19:19 Urine - [place] Urine Culture - Final Escherichia coli - ESBL Complete Labs and/or images reviewed: Labs reviewed by me, Image(s) reviewed by me Problem List/Assessment/Plan Problem List/Assessment/Plan Neurology #Metabolic encephalopathy due to septic shock form UTI and pneumonia On fent and propofol and versed Cardiovascular #Acute on chronic systolic CHF #Ischemic cardiomyopathy #Peripheral artery disease, s/p amputation #Hypertension, Hydralazine IV prn Aspirin plavix 75mg po qd Continue hemodialysis Food Management Aide following, [facility] on 11/09/24, s/p PCI 2x Pulmonology #Acute hypoxic respiratory failure with mechanical ventilation #Pneumonia, gram (+) vs gram (-), atypicals, growing Enterobacter aeruginosa Continue Merrem MV: FIO2: 30% RR: 18 TV 450 PEEP: 5 trach performed by surgeon, no complications Nephrology #ESRD on HD # distal stenosis of AV fistula(right arm swelling and pitting edema) AV fistula working Continue HD 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 coli Merrem IV Dermatology x DVT ppx Heparin iv PUD ppx Protonix Drips Levo held Fent Propofol Lines TLC Right femoral 10/31/24 ET tube 10/31/24, s/p trach on 11/17/24 Martinez 10/31/24 Updated family members on patient's current status Discussed with spouse patient current status. Consulted [facility] for LTAC, pending bed Goals of care were discussed for over 30 minutes. FULL CODE. Critical care time spent excluding procedures and including family meeting was 64 mins Case was discussed with Dr. Sosa Plan discussed with: Daughter, Other (RN) My Orders My Orders Orders - GAVINO MORAES RESIDENT Procedure Category Date Status Time Chest Xray 1 View XY 11/20/24 Resulted 04:00 Abg W/ Co-Ox RT 11/20/24 Logged 04:00 Amino Acids-Protein PHA 11/21/24 Logged Hydrolysat (Pro-Stat 08:00 Complete Blood Count LAB 11/21/24 Verified 04:00 Comprehensive LAB 11/21/24 Verified Metabolic Panel 04:00 Magnesium LAB 11/21/24 Verified 04:00 Chest Portable XY 11/21/24 Verified 04:00 Dietary Evaluation Review Comments: 1. On propofol which supply fat kcaloried at 333 kcal/day if running at 12.6ml/hr. 2.Recommend a low fat high protein TF Vital High Protein @ 40ml/hr providing 84 g Protein, and 960 kcal, 803 ml free water, if running at 24 hrs. the combined nurition support will be 84 g Protein and 1056 kcal, supporting pt's needs for protein at 76.3%, needs for energy at 134%. 3. Reasses pt's TF formulary if pt is off Popofol.but still need TF. 4. Renal standard and CCHO-75 if pt is able to have PO intake after passing a FINANCIAL REPORTING ADVISOR eval, Expected Outcomes/Goals: gradual wt loss. improved lab values with consistant dialysis. Date of Service: Nov 20, 2024 Billing Provider: CECILIA SOSA MD Common Visit Codes: 58152-[id number] CARE 30-74 MIN GAVINO MORAES RESIDENT Nov 20, 2024 19:58 CECILIA SOSA MD Nov 21, 2024 14:18
[2024-11-21] VITALS (109 sets, daily range): BP systolic 109–162; BP diastolic 33–49; PULSE 60–70; RESP 14–18; TEMP 97.3–98.9; O2SAT 91–100
[2024-11-21 04:17] LABS: Basophils # (auto) 0 10 ^3/uL (0-0.2); Basophils % (auto) 0.6 % (0.0-2.0); Eosinophils # (auto) 0.4 10 ^3/uL (0-0.8); Eosinophils % (auto) 5.7 % (0.0-7.0); Hematocrit 26.7 % (41.0-53.0); Hemoglobin 8.8 g/dL (13.5-17.5); Lymphocytes # (auto) 0.9 10 ^3/uL (0.4-5.4); Mean Corpuscular Hemoglobin 28.9 pg (28.0-32.0); Mean Corpuscular Volume 87.6 fL (80.0-100.0); Monocytes # (auto) 0.7 10 ^3/uL (0-1.3); Monocytes % (auto) 9.7 % (0.0-12.0); Neutrophils # (auto) 5.1 10 ^3/uL (1.6-8.6); Platelet Count (auto) 353 10^3/uL (140-450); Red Blood Cells 3.04 10^6/uL (4.5-5.90); Red Cell Distribution Width 17.6 % (11.8-14.3); White Blood Cell 7.1 10^3/uL (4.4-10.8)
[2024-11-21 04:42] LABS: Alkaline Phosphatase 75 U/L (46-116); Anion Gap 16 (5-15); BUN/Creatinine Ratio 5.3 (10.0-20.0); Calcium 9.6 mg/dL (8.7-10.4); Carbon Dioxide 23 mmol/L (20-31); Magnesium 2.2 mg/dL (1.6-2.6); Total Protein 6.3 g/dL (5.7-8.2)
[2024-11-21 04:43] LABS: Albumin 3.7 g/dL (3.2-4.8); Aspartate Aminotransferase 26 U/L (13-40)
[2024-11-21 04:44] LABS: Alanine Aminotransferase < 9 U/L (7-40); Bilirubin, Total < 0.2 mg/dL (0.2-1.0); Blood Urea Nitrogen 25 mg/dL (9-23); Chloride 93 mmol/L (98-107); Glucose 115 mg/dL (74-106); Sodium 132 mmol/L (136-145)
--- NOTE | 2024-11-21 05:23 | DVH ---
EXAM: XR Chest, 1 View CLINICAL INDICATION: sob TECHNIQUE: Frontal view of the chest. COMPARISON: XY CHEST XRAY 1 VIEW on DOS: 11/20/24, XY CHEST PORTABLE on DOS: 11/18/24, XY CHEST PAWEL BLE on DOS: 11/17/24, XY CHEST PORTABLE on DOS: 11/17/24, XY CHEST PORTABLE on DOS: 11/16/24 FINDINGS: LUNGS AND PLEURAL SPACES: See below. HEART: Cardiomegaly with pulmonary congestion and edema. Superimposed pneumonia cannot be excluded. MEDIASTINUM: Unremarkable. Normal mediastinal contour. BONES/JOINTS: Unremarkable. No acute fracture. TUBES, LINES AND DEVICES: Enteric tube tip in the stomach. Tracheostomy tube in satisfactory posit ion. OTHER FINDINGS: . . . IMPRESSION: Cardiomegaly with pulmonary congestion and edema. Superimposed pneumonia cannot be excluded.
--- NOTE | 2024-11-21 07:07 | DVHDSRES ---
Discharge Summary Date of Admission Resident Creating Document: GAVINO MORAES RESIDENT Oct 30, 2024 at 19:59 Date of Discharge: Nov 20, 2024 Admitting Diagnosis SOB Labs/Diagnostic Data: Laboratory Results Test 11/21/24 05:56 11/21/24 03:25 11/20/24 07:08 11/20/24 03:25 POC Glucose 115 mg/dl (70-106) White Blood Count 7.1 10^3/uL (4.4-10.8) Red Blood Count 3.04 10^6/uL (4.5-5.90) Hemoglobin 8.8 g/dL (13.5-17.5) Hematocrit 26.7 % (41.0-53.0) Mean Corpuscular Volume 87.6 fL (80.0-100.0) Mean Corpuscular Hemoglobin 28.9 pg (28.0-32.0) Mean Corpuscular Hemoglobin Concent 33.0 g/dL (32.0-36.0) Red Cell Distribution Width 17.6 % (11.8-14.3) Platelet Count 353 10^3/uL (140-450) Mean Platelet Volume 7.5 fL (6.9-10.8) Neutrophils (%) (Auto) 72.0 % (37.0-80.0) Lymphocytes (%) (Auto) 12.0 % (10.0-50.0) Monocytes (%) (Auto) 9.7 % (0.0-12.0) Eosinophils (%) (Auto) 5.7 % (0.0-7.0) Basophils (%) (Auto) 0.6 % (0.0-2.0) Neutrophils # (Auto) 5.1 10 ^3/uL (1.6-8.6) Lymphocytes # (Auto) 0.9 10 ^3/uL (0.4-5.4) Monocytes # (Auto) 0.7 10 ^3/uL (0-1.3) Eosinophils # (Auto) 0.4 10 ^3/uL (0-0.8) Basophils # (Auto) 0 10 ^3/uL (0-0.2) Nucleated Red Blood Cells 0.0 % Sodium Level 132 mmol/L (136-145) Potassium Level 4.0 mmol/L (3.5-5.1) Chloride Level 93 mmol/L (98-107) Carbon Dioxide Level 23 mmol/L (20-31) Anion Gap 16 (5-15) Blood Urea Nitrogen 25 mg/dL (9-23) Creatinine 4.75 mg/dL (0.700-1.30) Glomerular Filtration Rate Calc 13 mL/min (>90) BUN/Creatinine Ratio 5.3 (10.0-20.0) Serum Glucose 115 mg/dL (74-106) Calcium Level 9.6 mg/dL (8.7-10.4) Magnesium Level 2.2 mg/dL (1.6-2.6) Total Bilirubin < 0.2 mg/dL (0.2-1.0) Aspartate Amino Transferase (AST) 26 U/L (13-40) Alanine Aminotransferase (ALT) < 9 U/L (7-40) Alkaline Phosphatase 75 U/L (46-116) Total Protein 6.3 g/dL (5.7-8.2) Albumin 3.7 g/dL (3.2-4.8) Blood Gas Specimen Type Arterial Blood Gas Sample Site Left radial Blood Gas Patient Temperature 37.0 Arterial Blood Date Drawn [id number] Arterial Blood pH 7.429 (7.350-7.450) Arterial Blood Partial Pressure CO2 31.5 mmHg (35.0-48.0) Arterial Blood Partial Pressure O2 77.1 mmHg (83.0-108.0) Arterial Blood HCO3 20.4 mmol/L (21.0-28.0) Arterial Blood Oxygen Saturation 94.2 % (94.0-98.0) Arterial Blood Base Excess -3.4 mmol/L (-2.0-3.0) Arterial Blood Oxyhemoglobin 92.6 % (94.0-98.0) Arterial Blood Carboxyhemoglobin 1.6 % (0.5-1.5) Arterial Blood Methemoglobin 0.1 % (0.0-1.5) Rachid Test Modified Blood Gas Total Hemoglobin 8.60 g/dL (13.5-17.5) Blood Gas Set Respiration Rate 14.0 Blood Gas Modality Vent - ac FiO2 % 35.0 Blood Gas Tidal Volume 450.0 Blood Gas PEEP or CPAP 5.0 Phosphorus Level 7.5 mg/dL (2.4-5.1) Test 11/18/24 07:13 11/18/24 03:20 11/17/24 03:15 11/16/24 07:02 Specimen Drawn By Francoise nolan Differential Total Cells Counted 100.0 (100) Neutrophils % (Manual) 72 (37.0-80.0) Band Neutrophils % (Manual) 4 Lymphocytes % (Manual) 15 (10.0-50.0) Monocytes % (Manual) 2 (0-12) Eosinophils % (Manual) 6 (0-7) Basophils % (Manual) 0 (0.0-2.0) Metamyelocytes % (manual) 1 Myelocytes % (Manual) 0 Promyelocytes % (Manual) 0 Blast Cells % (Manual) 0 Reactive Lymphocytes 0 Platelet Estimate Adequate Prothrombin Time 11.4 sec (9.3-11.8) Prothrombin Time INR 1.08 (0.9-1.15) Activated Partial Thromboplast Time 29.5 SEC (24.5-34.5) Blood Gas Spontaneous Rate 18 Blood Gas Spontaneous Tidal Volume 471 Bl Gas Inspiratory/Expiratory Ratio 1:3.1 Test 11/09/24 03:25 11/07/24 10:20 11/02/24 06:27 11/01/24 15:22 Digoxin Level 0.23 ng/mL (0.8-2) Free Thyroxine (T4) Calculated 1.17 ng/dL (0.89-1.76) Total Triiodothyronine (TT3) 0.60 ng/mL (0.60-1.81) Blood Gas Inspiratory Pressure 35.0 Influenza Type A Antigen Negative (Negative) Influenza Type B Antigen Negative (Negative) Test 11/01/24 13:00 11/01/24 00:00 10/31/24 10:50 10/30/24 19:19 Hepatitis B Surface Antigen Negative (Negative) Hepatitis B Surface Antibody Positive (Negative) SARS-CoV-2 Antigen (Rapid) Negative (NEGATIVE) Hemoglobin A1c 7.6 % A1C (<5.7) Troponin I High Sensitivity 763 ng/L (</=54) Triglycerides Level 129 mg/dL (< 150) Cholesterol Level 160 mg/dL (< 200) LDL Cholesterol 82 mg/dL (< 100) HDL Cholesterol 48 mg/dL (40-59) Thyroid Stimulating Hormone (TSH) 0.73 uIU/mL (0.55-4.78) Urine Color Light-brown (Yellow) Urine Clarity Ex.turbid (Clear) Urine pH 6.0 (5.0-9.0) Urine Specific [place] 1.020 (1.001-1.035) Urine Protein 3+ (Negative) Urine Ketones Trace (Negative) Urine Blood 3+ /uL (Negative) Urine Nitrite Negative (Negative) Urine Bilirubin Negative (Negative) Urine Urobilinogen Normal mg/dL (Negative) Urine Leukocyte Esterase 3+ /uL (Negative) Urine RBC 24 /hpf (0 - 3) Urine WBC Clumps Present /hpf (None Seen) Urine Microscopic WBC 1083 /HPF (0-3) Urine Squamous Epithelial Cells Few /hpf (<5) Urine Transitional Epithelial Cells Few /hpf (<2) Urine Bacteria Many /hpf (None Seen) Urine Mucus Few (None Seen) Urine Glucose Normal mg/dL (Normal) Test 10/30/24 16:27 B-Type Natriuretic Peptide 874.88 pg/mL (0-100) Other Laboratory Tests 11/21/24 03:25 Brief Hx & Hospital Course: Patient is 64 years old male with past medical history of ischemic cardiomyopathy, CHF, PAD, diabetes mellitus type 2, hypertension, CAD, history of [place], status post PTCA stent x2 in 2021, DAVID, obesity, dyslipidemia, ESRD on hemodialysis presented to the ER due to shortness of breaths. PMH: CHF, diabetes mellitus type 2, hypertension, CAD, history of [place], dyslipidemia, ESRD on hemodialysis PSH: Hernia repair, bilateral BKA, AV fistula on right arm. On 04/22/2023 left heart catheterization revealed-LVEF 40-45%. Allergy: NKDA Personal History/ Social History- lives with family Information was gathered from reviewing the chart and talking to the family. Patient presented with a one-day history of worsening shortness of breath with a nonproductive cough. Initial lab workup revealed WBC 8.9, hemoglobin 9.4, platelet 267, sodium 139, potassium 3.9, serum creatinine 5.83, HGB A1c 7.6, troponin I 541> 763, BNP 874, TSH 0.73. Urinalysis revealed leukocyte esterase 3+, RBC 24, WBC present, bacteria many. ABG on 10/30/24 revealed pH 7.39, pCO2 45.6, PO2 83.0, bicarbonate 27.1.Patient tested negative for COVID-19 and influenza type A and B. PRF-Guri-ro-moderate cardiomegaly with multifocal pneumonia/congestive heart failure. Recommend clinical correlation. Possible trace left-sided pleural effusion. Doppler study of the right upper extremity negative for DVT. Echo 2D on 11/01/2024 revealed LVEF 50%, mild TR, mild MR. Following admission patient was put on BiPAP 12/5, BUN 12, FiO2 30%. Patient had increased work of breathing. Patient was refusing BiPAP on 10/31/2024. Rapid response was called around 10:00 a.m due to worsening short of breath and patient was desaturating. Patient was intubated by Dr. Sosa. Patient had a central line in the right femoral vein and arterial line at right femoral artery on 10/31/24. . Post admission patient had dialysis. . Patient's lung still congested. Dr. Zayas plan for left heart catheterization. On 10/31/24-sputum culture positive for Enterobacter aeruginosa basis. Sensitive to meropenem. On 10/30/2024-uterine culture>100,00 CFU/ml E coli ESBL, sensitive to imipenem. 10/31/2024 -blood culture no growth so far. Patient already on meropenem. Chest x-ray on 11/02/24- lungs are still congested with cardiomegaly. Echo on 07/15/2022-LVEF 40%. We performed a CT with contrast of the neck, right upper arm and chest, it did revealed an AV fistula stenosis most prominent on the right subclavian vein. We consulted Interventional Radiology, whom performed angioplasty to the stenotic vessel. This was likely causing venous hypertension on provoking the severe swollen on the right upper arm, chest, neck, face and tongue. Patient remained intubated, we were not able to perform CPAP trials given patient's severe swollen, it was decided to perform a tracheostomy. Patient was also biting his tongue when he was in light sedation, we decided to put him on deep sedation at RASS minus five, significant improvement in swelling was achieved after angioplasty. Patient's swelling came down significantly, tongue looks much better, we decided to put the patient on trach collar trial on decrease sedation. We had several discussions of goals of care and Status update with patient's family members. He remains on mechanical ventilator with tracheostomy, on sedation and analgesia, ruled bruises stable, he continues to receive hemodialysis 3 times per week. Physical examination as below: General: Mechanically ventilated, trach HEENT: Head is normocephalic and atraumatic. Pupils are equal, round, and reactive to light. Significant swelling on tongue with wound on ventral aspect. Neck: Supple with no cervical lymphadenopathy. Heart: Regular rate without murmur, rub, or gallop. Lungs: Equal breath sounds bilaterally with no wheezing, rales, or rhonchi. There is no chest wall tenderness or instability. Abdomen: No external sign of injury. Bowel sounds are present. Extremities: Strong peripheral pulses. There is no clubbing, no cyanosis. Significant pitting edema on right upper arm, right chest and neck, tender, no erythema. Skin: No rash. Neurologic: Sedated Patient will be transferred to LTAC facility, will continue medications as prescribed in a spread sheet. Family members verbalized understanding and agree with the plan, we spent 35 minutes explaining the plan. critical care time outside of procedures was 61 mins Case was discussed with Dr. Sosa Consults/Reason for consult Nephrology was consulted due to ESRD on HD Cardiology was consulted due to CAD Interventional radiology was consulted due to AV fistula stenosis Operations or Procedures [place] [address] Ph: [phone] PATIENT: KATHRYN SHORT ACCT: [id number] : 1960 LOC: [facility] ROOM/ROOM: [address] [place] [address] AGE/SEX: 64/M ADM STATUS: ADM IN ADM DATE: 10/30/24 UNIT: [id number] HEALTH INFORMATION MANAGEMENT PROCEDURE NOTE - [facility] :[id number] Signed ORDERING PHYSICIAN: PROCEDURE(s): ORDER NUMBER(s): , ACCESSION NUMBER(s): Intubation Indication: Respiratory Insufficiency, Altered Mental Status Prep: Preoxygenation Pretreated with: Sedation Intubation Approach: Orotracheal Intubation size: cm (8) Informed consent obtained: No Risks/benefits/alt described: No Date of Service: Oct 31, 2024 Billing Provider: CECILIA SOSA MD Common Visit Codes: PROCEDURE ONLY Procedure Codes: 04110-[id number] CECILIA SOSA MD Oct 31, 2024 10:39 DICTATED BY: CECILIA SOSA MD DICATED DATE/TIME: 10/31/24 1039 SIGNED BY: CECILIA SOSA MD <<Signature on File>> SIGNED DATE/TIME: 10/31/24 1039 CC: [address] [address] Ph: [phone] PATIENT: KATHRYN SHORT ACCT: [id number] : 1960 LOC: [facility] ROOM/ROOM: [address] [place] [address] AGE/SEX: 64/M ADM STATUS: ADM IN ADM DATE: 10/30/24 UNIT: [id number] HEALTH INFORMATION MANAGEMENT PROCEDURE NOTE - [facility] :[id number] Signed ORDERING PHYSICIAN: PROCEDURE(s): ORDER NUMBER(s): , ACCESSION NUMBER(s): Central Line Recorder of insertion practice: Computer Technology Instructor 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 physician ), Other medical staff Indication: Other Room prepared for procedure: Yes Computer Technology Instructor performed hand hygien: Yes Maximal sterile barrier precau: Mask/Eye shield, Sterile gown, Cap, Sterlie gloves, Large sterlie drape Skin Preparation: Chlorhexidine gluconate Skin preparation completely dr: Yes Insertion site: Right, Femoral Central line catheter type: Xjz-nnnscwmp-uwz dialysis Number of lumens: 3 Post Assessment: Chest X-Ray Informed consent obtained: Yes Risks/benefits/alt described: Yes Date of Service: Oct 31, 2024 Billing Provider: CECILIA SOSA MD Common Visit Codes: PROCEDURE ONLY Procedure Codes: [id number] NON-TUNNEL CV CATH KASUHIK RODRIGUEZ Oct 31, 2024 18:32 CECILIA SOSA MD Nov 11, 2024 20:20 DICTATED BY: KAUSHIK RODRIGUEZ DICATED DATE/TIME: 10/31/241831 SIGNED BY: KAUSHIK RODRIGUEZ <<Signature on File>> SIGNED DATE/TIME: 10/31/24 183 CC: [address] [address] Ph: [phone] PATIENT: KATHRYN SHORT ACCT: [id number] : 1960 LOC: [facility] ROOM/ROOM: [address] [place] [address] AGE/SEX: 64/M ADM STATUS: ADM IN ADM DATE: 10/30/24 UNIT: [id number] HEALTH INFORMATION MANAGEMENT PROCEDURE NOTE - [facility] :[id number] Signed ORDERING PHYSICIAN: PROCEDURE(s): ORDER NUMBER(s): , ACCESSION NUMBER(s): Arterial Puncture Indication: Assess acid-base status Procedure: Sterile Preparation Location: Right Femoral Informed consent obtained: Yes Risks/benefits/alt described: Yes Notes After getting consent with all the septic precaution right femoral arterial line was done. Hemostasis was ensured. Date of Service: Oct 31, 2024 Billing Provider: CECILIA SOSA MD Common Visit Codes: PROCEDURE ONLY Procedure Codes: 83727-[id number] LINE KAUSHIK RODRIGUEZ Oct 31, 2024 18:44 CECILIA SOSA MD Nov 11, 2024 20:20 DICTATED BY: KAUSHIK RODRIGUEZ DICATED DATE/TIME: 10/31/241843 SIGNED BY: KAUSHIK RODRIGUEZ <<Signature on File>> SIGNED DATE/TIME: 10/31/241843 CC: [place] [address] Ph: [phone] DIAGNOSTIC IMAGING Diagnostic Imaging Report : [id number] Signed PATIENT: KATHRYN SHORT ACCT: [id number] UNIT: [id number] : 1960 LOC: [facility] ROOM / BED: [address] [place] [address] AGE / SEX: 64 / M ADM STATUS: ADM IN SERVICE 01 ORDERING PHYSICIAN: CECILIA MCCULLOUGH AGACNP PROCEDURE(s): ECIDC - ECHO 2D MODE CARDIAC DOP REASON: ef ORDER NUMBER(s): [id number], ACCESSION NUMBER(s): [id number] APPROVED REPORT EXAM: Two-dimensional and M-mode echocardiogram with Doppler and color Doppler. Blood Pressure: 145/95 mmHg INDICATION ef RISK FACTORS Obesity: Height: , Weight: 232 DIMENSIONS LVDd 4.3 (3.8-5.7cm) LA (2D) 5.4 (1.9-4.0cm) Aortic Root 3.2 (2.0- 3.7cm) LVDs 3.1 (2.5-4.0cm) LA (MM) (1.9-4.0cm) Aortic Cusp Exc 1.2 (1.5- 2.0cm) EF (%) 54.0 (55-70%) Rt. Atrium 4.2 (1.9-4.0cm) Asc. Aorta 3.1 cm IVSd 1.2 (0.7-1.1cm) RV (D) 4.5 (1.8-2.4cm) PWd 0.9 (0.7-1.1cm) Mitral Valve Mitral Mitral Stenosis E wave 0.84m/s MV Mean GR. mmHg A wave 0.86m/s MV Peak GR. mmHg E/A ratio 1.0 2D MVA cm2 DECEL Time 227ms PRESS 1/2 Time ms Aortic Valve Aortic Valve Aortic Stenosis V1 1.22m/s AO Mean GR. 5mmHg V2 1.45m/s AO Peak GR. 8mmHg LVOT Diameter 1.8 (1.8-2.4cm) Doppler VERONICA 2.14cm2 Pulmonic Valve V2 1.32m/s Tricuspid Valve TR Velocity 2.59m/s RVSP 38mmHg Other Information Quality : Technically Limited Rhythm : Technically limited study due to on vent. Conclusion EF 50% MILD PI MILD TR, MR SIGNED BY: YESICA YORK MD SIGNED DATE/TIME: 11/01/24 1014 CC: [place] [address] Ph: [phone] PATIENT: KATHRYN SHORT ACCT: [id number] : 1960 LOC: 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 Guzman) Indication: Hypotension, Inability to obtain IV Room prepared for procedure: Yes Computer Technology Instructor performed hand hygien: Yes Maximal sterile barrier precau: Mask/Eye shield, Sterile gown, Cap, Sterlie gloves, Large sterlie drape Skin Preparation: Chlorhexidine gluconate, Providine iodine Skin preparation completely dr: Yes Insertion site: Left, Internal jugular Central line catheter type: Vsp-dvoqsbwc-iae dialysis Number of lumens: 3 Central line exchanged over a: No Antiseptic ointment applied to: Yes Post Assessment: Chest X-Ray, Proper placement, No Pneumothorax Informed consent obtained: Yes Risks/benefits/alt described: Yes Notes Supervised by Dr. Sosa and Dr. Stark Date of Service: Nov 08, 2024 Billing Provider: CECILIA SOSA MD Common Visit Codes: PROCEDURE ONLY Procedure Codes: 24295-OBMUCV NON-TUNNEL CV CATH GAVINO MORAES Nov 09, 2024 06:07 CECILIA SOSA MD Nov 11, 2024 20:25 DICTATED BY: GAVINO MORAES DICATED DATE/TIME: 11/09/24606 SIGNED BY: GAVINO MORAES <<Signature on File>> SIGNED DATE/TIME: 11/09/24606 CC: Patient: KATHRYN SHORT Acct: [id number] : 1960 Loc: [facility] Age/Sex: 64/M Room: [address] [place] [address] / Bed: A Attending Phy: GAVINO MORAES DATE OF SURGERY: 11/09/2024 INDICATIONS: The patient who is intubated, congestive heart failure, pneumonia. Now to undergo coronary angiography to define coronary anatomy. The patient with end-stage renal disease who had gone into respiratory failure. He had infiltrative process consistent with pneumonia, was initially seen in my office, and I sent him to the Emergency Room because the patient was in respiratory distress. He was there at the office for clearance for shunt placement for renal dialysis but the patient's status rapidly declined as soon as he got into the Emergency Room, went into respiratory failure, needed to be intubated, now left heart catheterization to rule out any ischemic component for his decompensation. Risks and benefits were explained. The patient underwent: * Left heart catheterization, stent to the obtuse marginal 2 and to circumflex proximal. * FFR of obtuse marginal 2 and to circumflex proximal. * Thrombectomy Shockwave of obtuse marginal 2/AV groove circumflex and proximal circumflex. * Conscious sedation. The patient was intubated and additional sedation was given. DESCRIPTION OF PROCEDURE: The patient was prepped and draped under sterile condition. Xylocaine 1% used to anesthetize the right groin. Using Cook needle, right femoral artery was engaged with Seldinger technique, a 6-[place] sheath in the right femoral artery. Using 6-[place] JL4 catheter and 6-[place] JR4 catheter, selective left and right coronary angiographies were performed. Using 6-[place] pigtail catheter, ventriculogram was done. Then, the 6-[place] diagnostic system was exchanged for a 6-[place] interventional system. Using 6-[place] XB 3.5 guide catheter with side hole, left main was cannulated. Using a ChoICE PT extra support wire, the circumflex and obtuse marginal 2 or the AV groove circumflex was then crossed. It was then thrombectomized using a 3 mm x 12 mm Shockwave thrombectomy balloon. Following the deployment both in the circumflex proximal and the circumflex in the AV groove, a 3.0 x 18 mm stent was then deployed on the obtuse marginal 2/AV groove vessel. This was followed by a 3.0 x 12 mm drug-eluting [place] stent was then deployed across the proximal circumflex at 14 atmospheres. There were no complications. The patient tolerated the procedure well. RESULTS: * Left main calcified, no flow-restrictive lesion. * Left anterior descending artery, moderate diffuse disease with rapid tapering but no discrete lesions were noted at this time. * Circumflex in the AV groove had in-stent restenosis of greater than 80%-90% status post thrombectomy with stent placement with less than 10% residual stenosis with a 3.0 x 15 mm [place] stent. There was greater than 60% narrowing of the proximal circumflex, status post thrombectomy with stent placement 3.0 x 12 mm Ray [place] stent with less than 10% residual stenosis. * Right coronary artery large dominant vessel without any flow-restrictive lesion. Mild to moderate diffuse disease. However, no discrete lesions were noted. * Left ventricular function showed an EF around 45%-50% with an LVEDP of 15 mmHg. Left ventricular systolic pressure 130. No gradient across the aortic valve. Thus, the patient underwent successful revascularization of in-stent restenosis of obtuse marginal 2/vessel in the AV groove as well as angioplasty with stent placement and thrombectomy of the circumflex proximal segment. At this time, dual-antiplatelet therapy will be initiated and we will continue to follow the patient but overall the patient's current status, the patient's respiratory failure is not indicative of congestive heart failure or acute systolic decompensation. The patient's LVEDP was only 15 mmHg, left ventricular systolic pressure was around 130 with no gradient across the aortic valve. Therefore, the patient's respiratory problem and respiratory arrest is secondary to pulmonary issues as well as renal failure. Yesica York MD SA/ROB TID: [id number] RECEIPT: [id number] DICTATED BY:YESICA YORK MD DICTATED DATE/TIME:11/09/24854 ELECTRONICALLY SIGNED BY: ELECTRONICALLY CO-SIGNED BY: Patient: KATHRYN SHORT Acct: [id number] : 1960 Loc: [facility] Age/Sex: 64/M Room: [address] [place] [address] / Bed: A Attending Phy: PATRICK ALVAREZ MD DATE OF SURGERY: 11/17/2024 PREOPERATIVE DIAGNOSIS: Ventilatory-dependent respiratory failure. POSTOPERATIVE DIAGNOSIS: Ventilatory-dependent respiratory failure. SURGEON: Yissel Rojas MD PAPER PROCESSING MACHINE HELPER: Mitul Muir NP ANESTHESIA: CHARLOTTE Cazares DESCRIPTION OF PROCEDURE: Under general anesthesia with the patient's skin prepped and draped and the body secured, this patient's morbid obesity and the anatomy was prohibitively difficult, it was extremely difficult to dissect the adipose tissue of this morbidly obese patient down onto the trachea. The trachea was difficult to expose. Appendiceal retractors had to be used in order to retract the fat and thyroid gland. The trachea was then opened between the second and third ring. The tracheotomy was dilated and a size 8 tracheostomy tube was then advanced as the anesthesiologist withdrew the endotracheal tube under direct vision. Reaching the final position of the tracheostomy tube, there was immediate re-capture of CO2 and return of normal ventilation. The tube was then secured with Prolene sutures and circumferential umbilical tape. The cuff was insufflated with 7 mL of air. The patient remained in unchanged condition at the termination of the procedure, left the operating room following an accurate needle and sponge count. Chest x-ray was ordered and is pending at the time of this dictation. The patient's was thoroughly informed at [phone]. Yissel Rojas MD PF/ROB TID: [id number] RECEIPT: [id number] DICTATED BY:YISSEL ROJAS MD DICTATED DATE/TIME:11/17/24 0744 ELECTRONICALLY SIGNED BY:YISSEL ROJAS MD 11/20/24 1035 ELECTRONICALLY CO-SIGNED BY: [place] [address] Ph: [phone] DIAGNOSTIC IMAGING Diagnostic Imaging Report : [id number] Signed PATIENT: KATHRYN SHORT ACCT: [id number] UNIT: [id number] : 1960 LOC: [facility] ROOM / BED: [address] [place] [address] AGE / SEX: 64 / M ADM STATUS: ADM IN SERVICE 1556 ORDERING PHYSICIAN: JULISSA HARRIS Jr., MD PROCEDURE(s): RUDVT - Rt Upper DVT REASON: FISTULA RUE CHECK FOR SWELLING ORDER NUMBER(s): [id number], ACCESSION NUMBER(s): [id number] RIGHT Upper Extremity Venous Duplex Clinical History: FISTULA RUE CHECK FOR SWELLING Comparison: US RT LOWER DVT on DOS: 06/11/23 Technique: Duplex Doppler evaluation of the venous system of the RIGHT lower neck and upper extremity including color Doppler and spectral/pulsed waveform analysis was performed. Findings: The internal jugular vein not visualized The subclavian vein is patent on color Doppler evaluation without intraluminal thrombus and demonstrates waveform variability. The visualized portion of the brachiocephalic vein is patent on color Doppler evaluation without intraluminal thrombus and demonstrates waveform variability. The axillary vein demonstrates appropriate compressibility and waveform variability. The brachial veins demonstrate appropriate compressibility and patency on Doppler evaluation. The basilic vein demonstrates appropriate compressibility and patency on Doppler evaluation. The cephalic vein demonstrates appropriate compressibility and patency on Doppler evaluation. Impression: 1. No venous thrombus identified in the RIGHT upper extremity vessels evaluated above. 2. If clinical concern/symptoms persist or worsen, short-interval follow-up study is suggested. ATED BY: EUGENIO RYAN Jr., DO DICTATED DATE/TIME: 10/31/242137 SIGNED BY: EUGENIO RYAN Jr., DO SIGNED DATE/TIME: 10/31/242137 CC: [place] [address] Ph: [phone] DIAGNOSTIC IMAGING Diagnostic Imaging Report : [id number] Signed PATIENT: KATHRYN SHORT ACCT: [id number] UNIT: [id number] : 1960 LOC: ICU [facility]OM / BED: 0108-CC / A AGE / SEX: 64 / M ADM STATUS: ADM IN SERVICE 1046 ORDERING PHYSICIAN: GAVINO MORAES RESIDENT PROCEDURE(s): NKICT - NECK WITHOUT CONTRAST REASON: neck swelling ORDER NUMBER(s): [id number], ACCESSION NUMBER(s): [id number] EXAM: CT NECK WITHOUT CONTRAST INDICATION: neck swelling EXAM DATE: 11/06/2024 03:01 PM COMPARISON: None TECHNIQUE: Multiple axial CT images of the neck were obtained using bone algorithm. Axial and coronal reformatting was done. Bone and soft tissue windows were reviewed. Radiation Dose Information: CT Dose: CTDI volume is 24.46 mGy. Dose-length product is 794.76 mGy*cm Findings: Limited evaluation given noncontrast technique. Nasopharynx, oropharynx, hypopharynx, and larynx are normal in caliber without evidence of focal mass. Parotid, submandibular, and sublingual glands are within normal limits. The tongue appears to be deviated to the left and between the patient's teeth with left buccal fullness. Thyroid gland within normal limits. No evidence of superior mediastinal lymphadenopathy. Cervical soft tissues within normal limits with no evidence of significant cervical lymphadenopathy. Musculoskeletal structures grossly unremarkable with no evidence of acute osseous abnormality. Multifocal nodular opacities. Impression: 1. Limited evaluation given noncontrast technique. 2. No acute osseous abnormalities. 3. Tongue appears to be deviated to the left and between the patient's teeth with associated left buccal fullness. Recommend direct visualization. Consider contrast-enhanced CT or MRI for further evaluation. ATED BY: YULIA HARRIS DO DICTATED DATE/TIME: 11/06/248 SIGNED BY: XAVI, YULIA E DO SIGNED DATE/TIME: 11/06/24 1538 CC: [place] [address] Ph: [phone] DIAGNOSTIC IMAGING Diagnostic Imaging Report : [id number] Signed PATIENT: KATHRYN SHORT ACCT: [id number] UNIT: [id number] : 1960 LOC: [facility] [facility]GE / SEX: 64 / M ADM STATUS: ADM IN SERVICE 0400 ORDERING PHYSICIAN: GAVINO MORAES RESIDENT PROCEDURE(s): CXICT - CHEST WITH CONTRAST REASON: right chest swelling ORDER NUMBER(s): [id number], ACCESSION NUMBER(s): [id number] Procedure: CT CHEST WITH CONTRAST Reason for study/Clinical History: right chest swelling Comparison Study: None available at time of dictation. Exam Date: 11/09/2024 11:28 AM Radiation Dose Information: CT Dose: CTDI volume is 29 mGy. Dose-length product is 1700 mGy*cm Contrast: Type of contrast: Omni 350 Contrast inject: 70 Contrast wasted:0 TECHNIQUE: After the uneventful administration of intravenous contrast intravenously, CT imaging was performed through the chest. Coronal and sagittal reformations were performed by the technologist. FINDINGS: Lower Neck: Visualized portions of the thyroid gland are unremarkable. Aorta and Vasculature: Normal caliber of thoracic aorta. No central pulmonary embolism. Lymph Nodes: No enlarged intrathoracic lymph nodes. Mediastinum: Heart size is normal. There is no pericardial effusion. The esophagus is unremarkable. Lungs: Multifocal pneumonia throughout both lungs. Trace bilateral pleural effusions. Musculoskeletal: No acute osseous abnormality. Upper abdomen: Limited portions of the upper abdomen are unremarkable. Endotracheal tube enteric tube are partially visualized. IMPRESSION: 1. No central pulmonary embolism. 2. Multifocal pneumonia 3. Trace bilateral pleural effusions All CT scans at this medical facility are performed using dose modulation techniques as appropriate to a performed exam including the following: Automated exposure control was utilized; adjustment of the MA and/or KV according to patient size; and use of iterative reconstruction technique. ATED BY: RAF IGLESIAS MD DICTATED DATE/TIME: 11/09/24 2456 SIGNED BY: RAF IGLESIAS MD SIGNED DATE/TIME: 11/09/241246 CC: [place] [address] Ph: [phone] DIAGNOSTIC IMAGING Diagnostic Imaging Report : [id number] Signed PATIENT: KATHRYN SHORT ACCT: [id number] UNIT: [id number] : 1960 LOC: ICU [facility]OM / BED: [address] [place] [address] / A AGE / SEX: 64 / M ADM STATUS: ADM IN SERVICE 9 ORDERING PHYSICIAN: GAVINO MORAES RESIDENT PROCEDURE(s): CTANK - CT ANGIO NECK CONTRAST REASON: neck swelling ORDER NUMBER(s): [id number], ACCESSION NUMBER(s): [id number] Procedure: CT CT ANGIO NECK CONTRAST HISTORY: neck swelling Exam Date:11/09/2024 11:28 AM TECHNIQUE: CTA neck with intravenous contrast. 3D image postprocessing was performed and images were used for interpretation and reporting. Radiation Dose : CT Dose: CTDI volume is 25 mGy. Dose-length product is 250 mGy*cm FINDINGS: CTA neck: The visualized thoracic aortic arch and proximal great vessels are unremarkable. The left common, internal and external carotid arteries are within normal limits. The right common, internal and external carotid arteries are within normal limits. The cervical segments of the right and left vertebral arteries are within normal limits. The limited visualized lung apices are clear. The surrounding soft tissues and osseous structures are otherwise unremarkable. Endotracheal is visualized. Small bilateral pleural effusions. nasogastric tube visualized IMPRESSION: No evidence of hemodynamically significant cervical stenosis or dissection. CAROTID STENOSIS REFERENCE Distal internal carotid artery diameter as the denominator for stenosis measurement: MILD = <50% stenosis. MODERATE = 50-69% stenosis. SEVERE = 70-89% stenosis. CRITICAL = 90-99% stenosis. OCCLUDED = 100% stenosis. All CT scans at this medical facility are performed using dose modulation techniques as appropriate to a performed exam including the following: Automated exposure control was utilized; adjustment of the MA and/or KV according to patient size; and use of iterative reconstruction technique. ATED BY: MARIA ISABEL LO MD DICTATED DATE/TIME: 11/09/241332 SIGNED BY: MARIA ISABEL LO MD SIGNED DATE/TIME: 11/09/241332 CC: [place] [address] Ph: [phone] DIAGNOSTIC IMAGING Diagnostic Imaging Report : [id number] Signed PATIENT: KATHRYN SHORT ACCT: [id number] UNIT: [id number] : 1960 LOC: ICU [facility] / BED: 010CC / A AGE / SEX: 64 / M ADM STATUS: ADM IN SERVICE 9 ORDERING PHYSICIAN: GAVINO MORAES RESIDENT PROCEDURE(s): RUECT - RT UPPER EXTREMITY WITH CONT REASON: right upper extremity edema ORDER NUMBER(s): [id number], ACCESSION NUMBER(s): [id number] INDICATION: right upper extremity edema COMPARISON: None TECHNIQUE: CT of the right upper extremity was performed with intravenous contrast. Volume transverse images were obtained and reconstructed in multiple planes using bone and soft tissue algorithms. Radiation Dose Information: CT Dose: CTDI volume is 26.01 mGy. Dose-length product is 1892.28 mGy*cm FINDINGS: The alignment is normal. The joint spaces are normal. There is no fracture, dislocation or aggressive osseous lesion. There is no joint effusion. Filling defect is present in the right proximal subclavian vein / superior vena cava. Diffuse subcutaneous soft-tissue edema and swelling. IMPRESSION: Nonocclusive filling defect in the right proximal subclavian vein/ superior vena cava junction. Diffuse subcutaneous soft-tissue edema and swelling. All CT scans at this medical facility are performed using dose modulation techniques as appropriate to a performed exam including the following: Automated exposure control was utilized; adjustment of the MA and/or KV according to patient size; and use of iterative reconstruction technique. ATED BY: PRESTON YANEZ MD DICTATED DATE/TIME: 11/09/24 1500 SIGNED BY: PRESTON YANEZ MD SIGNED DATE/TIME: 11/09/24 1500 CC: [place] [address] Ph: [phone] DIAGNOSTIC IMAGING Diagnostic Imaging Report : [id number] Signed PATIENT: KATHRYN SOHRT ACCT: [id number] UNIT: [id number] : 1960 LOC: ICU [facility] [facility] [facility] / BED: [address] [place] [address] / AGE / SEX: 64 / M ADM STATUS: ADM IN SERVICE 1009 ORDERING PHYSICIAN: GAVINO MORAES RESIDENT PROCEDURE(s): FISTU - FISTULA /SINUS TRACT REASON: DIALYSIS FISTULAGRAM ORDER NUMBER(s): [id number], ACCESSION NUMBER(s): [id number] FISTULAGRAM, HISTORY: 64 year old male with right arm fistula, right arm, head and neck swelling requiring intubation found to have stenosis /occlusion right subclavian and brachiocephalic vein. PROCEDURE: Informed consent was obtained. The patient was positioned supine on the fluoroscopic table and IV sedation administered. Ultrasound of the AVF was performed and the optimal access site chosen; the overlying skin was then prepped with chlorhexidine which was allowed to dry and draped in sterile fashion. Time out was performed. The outflow cephalic vein was accessed in antegrade fashion with a micropuncture set with ultrasound guidance. Sequential digital central venograms were performed in AP projection. A 7 [place] vascular sheath was placed, and the anastomosis/outflow cephalic vein stenosis was crossed with a wire/[place] catheter. 3000 units of heparin were given IV. Was to cross the right subclavian and brachiocephalic vein stenosis / occlusion and contrast injection confirms location wire. Subclavian and brachiocephalic angioplasty to and 7 mm in. The outflow cephalic vein stenosis was balloon angioplasty to 7 mm. The sheath was removed and hemostasis achieved with manual compression using a stasis patch. No immediate complication was identified. [id number] FLUOROSCOPY TIME: 11.1 minutes. CONTRAST USED: 40 mL . SEDATION: Dr. Serenity Bolaños was personally responsible for the administration of moderate sedation during the procedure performed, including the use of an independent trained observer who had no other duties during the procedure. The drugs utilized were IV fentanyl and versed (see nursing log for details). The total time of supervision by the attending physician was approximately 60 minutes. FINDINGS: Severe stenosis and near occlusion of the right subclavian and brachiocephalic veins, respectively ; this was balloon angioplasty to 7 mm in diameter. Moderate to severe stenosis of the outflow fistula which was balloon angioplasty to 7 mm. Prominent collateral veins were visualized in the upper arm and neck. 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 Moderate to severe stenosis of the outflow fistula which was balloon angioplasty to 7 mm. PLAN: Bring patient back to lab intern for stent placement. Resume hemodialysis. Please remove purse string sutures at next dialysis session ATED BY: FAREED BOLAÑOS MD DICTATED DATE/TIME: 11/15/24827 SIGNED BY: FAREED BOLAÑOS MD SIGNED DATE/TIME: 11/15/24827 CC: [place] [address] Ph: [phone] DIAGNOSTIC IMAGING Diagnostic Imaging Report : [id number] Signed PATIENT: KATHRYN SHORT ACCT: [id number] UNIT: [id number] : 1960 LOC: [facility] ROOM / BED: [address] [place] [address] AGE / SEX: 64 / M ADM STATUS: ADM IN SERVICE 42 ORDERING PHYSICIAN: GAVINO MORAES RESIDENT PROCEDURE(s): KUB - KUB ABDOMEN SINGLE VIEW REASON: S/P LOWER EXTREMITY PICC LINE PLACEMENT ORDER NUMBER(s): [id number], ACCESSION NUMBER(s): [id number] Date: 11/16/2024 05:54 PM Examination: XY KUB ABDOMEN SINGLE VIEW History: S/P LOWER EXTREMITY PICC LINE PLACEMENT Comparison: None TECHNIQUE: Frontal views of the abdomen was obtained. FINDINGS: Bowel gas pattern is unremarkable. The lung bases are unremarkable. No acute osseous abnormality identified. IMPRESSION: Nonobstructive bowel gas pattern. Left central venous catheter noted with tip terminating right aspect of the L1- L2 vertebral body. ATED BY: MARIA ISABEL LO MD DICTATED DATE/TIME: 11/16/241854 SIGNED BY: MARIA ISABEL LO MD SIGNED DATE/TIME: 11/16/241854 CC: [place] [address] Ph: [phone] DIAGNOSTIC IMAGING Diagnostic Imaging Report : [id number] Signed PATIENT: KATHRYN SHORT ACCT: [id number] UNIT: [id number] : 1960 LOC: [facility] / BED: [address] [place] [address] AGE / SEX: 64 / M ADM STATUS: ADM IN SERVICE 1004 ORDERING PHYSICIAN: GAVINO MORAES PROCEDURE(s): USGUIVASAC - US Guided Vascular Access REASON: PICC LINE ORDER NUMBER(s): [id number], ACCESSION NUMBER(s): [id number] Exam: US US GUIDED VASCULAR ACCESS Clinical History: PICC LINE Comparison: None Findings: Targeted sonographic evaluation of the arm vein was obtained utilizing grayscale and color Doppler imaging. IMPRESSION: Sonographic assistance for central line placement. Please refer to procedural report for detailed findings. ATED BY: PRESTON YANEZ MD DICTATED DATE/TIME: 11/17/241412 SIGNED BY: PRESTON YANEZ MD SIGNED DATE/TIME: 11/17/241412 CC: [place] [address] Ph: [phone] DIAGNOSTIC IMAGING Diagnostic Imaging Report : [id number] Signed PATIENT: KATHRYN SHORT ACCT: [id number] UNIT: [id number] : 1960 LOC: [facility] / BED: [address] [place] [address] AGE / SEX: 64 / M ADM STATUS: ADM IN SERVICE 0400 ORDERING PHYSICIAN: GAVINO MORAES PROCEDURE(s): CXRP - CHEST PORTABLE REASON: sob ORDER NUMBER(s): [id number], ACCESSION NUMBER(s): [id number] EXAM: XR Chest, 1 View CLINICAL INDICATION: sob TECHNIQUE: Frontal view of the chest. COMPARISON: XY CHEST XRAY 1 VIEW on DOS: 11/20/24, XY CHEST PORTABLE on DOS: 11/18/24, XY CHEST PORTABLE on DOS: 11/17/24, XY CHEST PORTABLE on DOS: 11/17/24, XY CHEST PORTABLE on DOS: 11/16/24 FINDINGS: LUNGS AND PLEURAL SPACES: See below. HEART: Cardiomegaly with pulmonary congestion and edema. Superimposed pneumonia cannot be excluded. MEDIASTINUM: Unremarkable. Normal mediastinal contour. BONES/JOINTS: Unremarkable. No acute fracture. TUBES, LINES AND DEVICES: Enteric tube tip in the stomach. Tracheostomy tube in satisfactory position. OTHER FINDINGS: . . . IMPRESSION: Cardiomegaly with pulmonary congestion and edema. Superimposed pneumonia cannot be excluded. ATED BY: MARY DIAL MD DICTATED DATE/TIME: 11/21/24520 SIGNED BY: MARY DIAL MD SIGNED DATE/TIME: 11/21/24520 CC: Condition at Discharge: Guarded Final Diagnosis/Problems List #Metabolic encephalopathy due to septic shock form UTI and pneumonia #Acute on chronic systolic CHF #Ischemic cardiomyopathy #Peripheral artery disease, s/p amputation #Hypertension, #Acute hypoxic respiratory failure with mechanical ventilation #Pneumonia, gram (+) vs gram (-), atypicals, growing Enterobacter aeruginosa #ESRD on HD # distal stenosis of AV fistula(right arm swelling and pitting edema) #Morbid obesity #Bilateral lower extremity BK amputation #T2DM #Macroglossia and neck swelling #Anemia of chronic disease #Pneumonia, gram (+) vs gram (-), atypicals, growing Enterobacter aeruginosa #UTI, growing ESBL E. coli Discharge Disposition: Inpatient Rehab Facility Discharge Instruct/Medications Diet: See Comment Diet comment: tube feedings Activity: Bed rest Follow Up/Referral: fu with pcp/nephrology Medications: per sep Discharge Statement: "Patient was advised to return to the ER or call 911 if any headaches, dizziness, shortness of breath, chest pain, abdominal pain, bleeding, fevers, or worsening of medical condition. Patient was counseled about treatment plan, medications, possible side effects, patientverbalized understanding. All questions were answered to the best of my ability. This discharge took greater then 30 minutes in planning, reviewing documentation, counseling the patient, and discussing with other team members." ASSESSMENT ASSESSMENT Assessment resp failure Date of Service: Nov 21, 2024 Billing Provider: CECILIA SOSA MD Common Visit Codes: 05383-[id number] CARE 30-74 MIN GAVINO MORAES RESIDENT Nov 21, 2024 07:07 CECILIA SOSA MD Nov 22, 2024 15:07
[2024-11-21] MEDS: Pro-Stat SF 30ml Vanilla NG SCH (08:00)
--- NOTE | 2024-11-21 08:33 | DVHPN2 ---
Progress Note - Dictate Date Seen: Nov 20, 2024 Medical Necessity Reason Pt with a Central, PICC or Fol: Yes The following are medically ne: Central Line, Martinez Catheter Reason for martinez catheter: Strict I&O Subjective PT WAS SEEN IN CLINICAL RESP DISTRESS DIFFUSE WHEEZING PMH HFrEF CHRONIC ISCHEMIC CM PAD BILATERAL LE AMPUTEE DIABETES VASCULOPATHY NEPHROPATHY NEUROPATHY HD ESRD vital signs Vital Sign Date Time Temp Pulse Resp B/P (MAP) Pulse Ox O2 Delivery O2 Flow Rate FiO2 11/21/24 07:58 118/38 11/21/24 07:27 62 14 96 30 11/21/24 06:00 Mechanical Ventilator+ 11/21/24 04:00 97.5 97.5 Total Intake and Output 11/20/24 11/20/24 11/21/24 15:00 23:00 07:00 Intake Total 512.173 ml 739.36 ml 865.69 ml Output Total 0 ml 0 ml Balance 512.173 ml 739.36 ml 865.69 ml medications Current Medications Medications Dose Ordered Sig/Alexander Route Start Time Stop Time Status Last Admin Dose Admin Nitroglycerin 0.4 mg Q5MINP PRN SL 10/30/24 20:00 Aspirin 162 mg DAILY PO 10/31/24 10:00 11/20/24 10:06 162 MG Dextrose 50 ml UD PRN IV 10/30/24 20:15 11/02/24 17:25 50 ML Acetaminophen 650 mg Q6HP PRN PO 10/30/24 20:15 11/04/24 13:02 650 MG Pantoprazole Sodium 40 mg DAILY IV 11/01/24 10:00 11/20/24 10:06 40 MG Enteral Nutritional Formula 1,000 ml 30ML/HR GT 11/03/24 12:15 11/20/24 10:10 1,000 ML Metoclopramide HCl 5 mg Q8HR IV 11/04/24 22:00 11/21/24 05:52 5 MG Calcium Acetate 1,334 mg TID NG 11/07/24 14:00 11/21/24 05:52 1,334 MG Lactulose 30 ml DAILYPRN PRN PO 11/08/24 13:00 Insulin Human Regular Q6HR SC 11/13/24 12:00 Diagnostic Test (Pha) 1 strip Q6HR 11/13/24 12:00 11/21/24 06:02 1 STRIP Clopidogrel Bisulfate 75 mg DAILY PO 11/16/24 10:00 11/20/24 10:06 75 MG Norepinephrine Bitartrate 250 ml @ 0.938 mls/ hr Q24H IV 11/15/24 13:45 11/20/24 11:37 0.938 MLS/HR Propofol 100 ml @ 2.817 mls/ hr Q24H IV 11/15/24 15:15 11/21/24 07:58 28.17 MLS/HR Midazolam HCl 50 ml @ 1 mls/hr Q24H IV 11/15/24 15:15 11/21/24 03:58 3 MLS/HR Fentanyl Citrate 250 ml @ 2.5 mls/hr Q24H IV 11/15/24 15:15 11/21/24 03:06 32.5 MLS/HR Sodium Chloride 10 ml QSHIFT@10,22 IV 11/16/24 22:00 11/20/24 11:05 10 ML Hydralazine HCl 10 mg Q6HP PRN IV 11/18/24 10:30 11/20/24 18:47 10 MG Amino Acid Protein 30 ml TIDWM NG 11/21/24 08:00 laboratory and microbiology Laboratory Tests 11/21/24 03:25 Test 11/21/24 03:25 Range/Units Serum Glucose 115 H 74-106 mg/dL Problem List RESP DISTRESS DIFFUSE WHEEZING PMH HFrEF CHRONIC ISCHEMIC CM PAD BILATERAL LE AMPUTEE DIABETES VASCULOPATHY NEPHROPATHY NEUROPATHY HD ESRD ANEMIA HYPERKALEMIA Assessment/Plan DIALYSIS ABX CORRECT LYTES ECHO S/P DIALYSIS 4L OUT CHECK BNP REPEAT CXR COMPLETE OPACIFICATION OF BOTH LUNGS CXR WITH PT UPRIGHT CONSIDER BRONCHOSCOPY CONSIDER LEFT HEART CATH SIGNIFICANT IMPROVEMENT IN VASCULAR CONGESTION ON CXR CONT DIALYSIS ADD VERQUVO START DIG TITRATE ON VERQUVO LHC * Left main calcified, no flow-restrictive lesion. * Left anterior descending artery, moderate diffuse disease with rapid tapering but no discrete lesions were noted at this time. * Circumflex in the AV groove had in-stent restenosis of greater than 80%-90% status post thrombectomy with stent placement with less than 10% residual stenosis with a 3.0 x 15 mm [place] stent. There was greater than 60% narrowing of the proximal circumflex, status post thrombectomy with stent placement 3.0 x 12 mm [place] stent with less than 10% residual stenosis. * Right coronary artery large dominant vessel without any flow-restrictive lesion. Mild to moderate diffuse disease. However, no discrete lesions were noted. * Left ventricular function showed an EF around 45%-50% with an LVEDP of 15 mmHg. Left ventricular systolic pressure 130. No gradient across the aortic valve. Thus, the patient underwent successful revascularization of in-stent restenosis of obtuse marginal 2/vessel in the AV groove as well as angioplasty with stent placement and thrombectomy of the circumflex proximal segment. At this time, dual-antiplatelet therapy will be initiated and we will continue to follow the patient but overall the patient's current status, the patient's respiratory failure is not indicative of congestive heart failure or acute systolic decompensation. The patient's LVEDP was only 15 mmHg, left ventricular systolic pressure was around 130 with no gradient across the aortic valve. Therefore, the patient's respiratory problem and respiratory arrest is secondary to pulmonary issues as well as renal failure. CXR SIGNIFICANT IMPROVEMENT PCWP NORMAL ELEVATED WBC START WEANING PT S/P PTCA STENT hemodynamically stable check bnp DC ALL SEDATION WEAN PT OFF VENT SUBCLAVIAN VEIN STENOSIS EDEMA ORAL OBSTRUCTION SECONDARY TO SOFT TISSUE SWELLING TRACHEOSTOMY SUBCLAVIAN VEIN STENTING PENDING S/P TRACHEOSTOMY OFF PRESSORS START WEANING OF SEDATION Dietary Evaluation Review Comments: 1. On propofol which supply fat kcaloried at 333 kcal/day if running at 12.6ml/hr. 2.Recommend a low fat high protein TF Vital High Protein @ 40ml/hr providing 84 g Protein, and 960 kcal, 803 ml free water, if running at 24 hrs. the combined nurition support will be 84 g Protein and 1056 kcal, supporting pt's needs for protein at 76.3%, needs for energy at 134%. 3. Reasses pt's TF formulary if pt is off Popofol.but still need TF. 4. Renal standard and CCHO-75 if pt is able to have PO intake after passing a [employer] eval, Expected Outcomes/Goals: gradual wt loss. improved lab values with consistant dialysis. Plan discussed with: Other Critical Care Time(min): 35 YESICA YORK MD Nov 21, 2024 08:33
--- NOTE | 2024-11-21 12:33 | DVHPN2 ---
Progress Note Date Seen: Nov 21, 2024 Medical Necessity Reason Pt with a Central, PICC or Fol: Yes The following are medically ne: Central Line, Martinez Catheter Reason for martinez catheter: Strict I&O Subjective Review of Systems: Deferred Objective vital signs Vital Sign Date Time Temp Pulse Resp B/P (MAP) Pulse Ox O2 Delivery O2 Flow Rate FiO2 11/21/24 12:15 66 14 154/46 (82) 94 11/21/24 12:00 30 11/21/24 12:00 Mechanical Ventilator+ 11/21/24 11:45 98.2 98.2 Total Intake and Output 11/20/24 11/20/24 11/21/24 15:00 23:00 07:00 Intake Total 512.173 ml 739.36 ml 929.36 ml Output Total 0 ml 0 ml Balance 512.173 ml 739.36 ml 929.36 ml medications Current Medications Medications Dose Ordered Sig/Alexander Route Start Time Stop Time Status Last Admin Dose Admin Nitroglycerin 0.4 mg Q5MINP PRN SL 10/30/24 20:00 Aspirin 162 mg DAILY PO 10/31/24 10:00 11/21/24 09:11 162 MG Dextrose 50 ml UD PRN IV 10/30/24 20:15 11/02/24 17:25 50 ML Acetaminophen 650 mg Q6HP PRN PO 10/30/24 20:15 11/04/24 13:02 650 MG Pantoprazole Sodium 40 mg DAILY IV 11/01/24 10:00 11/21/24 09:10 40 MG Enteral Nutritional Formula 1,000 ml 30ML/HR GT 11/03/24 12:15 11/20/24 10:10 1,000 ML Metoclopramide HCl 5 mg Q8HR IV 11/04/24 22:00 11/21/24 05:52 5 MG Calcium Acetate 1,334 mg TID NG 11/07/24 14:00 11/21/24 05:52 1,334 MG Lactulose 30 ml DAILYPRN PRN PO 11/08/24 13:00 Insulin Human Regular Q6HR SC 11/13/24 12:00 Diagnostic Test (Pha) 1 strip Q6HR 11/13/24 12:00 11/21/24 11:35 1 STRIP Clopidogrel Bisulfate 75 mg DAILY PO 11/16/24 10:00 11/21/24 09:10 75 MG Norepinephrine Bitartrate 250 ml @ 0.938 mls/ hr Q24H IV 11/15/24 13:45 11/20/24 11:37 0.938 MLS/HR Propofol 100 ml @ 2.817 mls/ hr Q24H IV 11/15/24 15:15 11/21/24 10:06 28.17 MLS/HR Midazolam HCl 50 ml @ 1 mls/hr Q24H IV 11/15/24 15:15 11/21/24 03:58 3 MLS/HR Fentanyl Citrate 250 ml @ 2.5 mls/hr Q24H IV 11/15/24 15:15 11/21/24 10:38 32.5 MLS/HR Sodium Chloride 10 ml QSHIFT@10,22 IV 11/16/24 22:00 11/21/24 09:11 10 ML Hydralazine HCl 10 mg Q6HP PRN IV 11/18/24 10:30 11/20/24 18:47 10 MG Amino Acid Protein 30 ml TIDWM NG 11/21/24 08:00 Examination: GENERAL:Abnormal, CVS:Abnormal, MSK:Abnormal, SKIN:Abnormal laboratory and microbiology Laboratory Tests 11/21/24 03:25 Test 11/21/24 03:25 Range/Units Serum Glucose 115 H 74-106 mg/dL Microbiology Date/Time Source Procedure Growth Status 10/31/24 11:05 Nose MRSA Screen - Final Complete 10/31/24 10:50 Blood Blood Culture - Final NO GROWTH AFTER 5 DAYS OF INCUBATION. 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 hemodialysis Fluid restriction Nepro tube feeding Plan discussed with: Other Dietary Evaluation Review Comments: 1. On propofol which supply fat kcaloried at 333 kcal/day if running at 12.6ml/hr. 2.Recommend a low fat high protein TF Vital High Protein @ 40ml/hr providing 84 g Protein, and 960 kcal, 803 ml free water, if running at 24 hrs. the combined nurition support will be 84 g Protein and 1056 kcal, supporting pt's needs for protein at 76.3%, needs for energy at 134%. 3. Reasses pt's TF formulary if pt is off Popofol.but still need TF. 4. Renal standard and CCHO-75 if pt is able to have PO intake after passing a ABSORBER OPERATOR eval, Expected Outcomes/Goals: gradual wt loss. improved lab values with consistant dialysis. ASHLEY HINKLE MD Nov 21, 2024 12:33
[2024-11-21] MEDS: PROPOFOL 100 ML IV SCH (14:59)
[2024-11-21] MEDS: MIDAZOLAM DRIP 50 mg/50mL 50 ML IV SCH (14:59)
[2024-11-21] MEDS: fentaNYL Drip 2500mCg/250mlNS 250 ML IV SCH (14:59)
[2024-11-22] VITALS (95 sets, daily range): BP systolic 124–175; BP diastolic 32–72; PULSE 61–84; RESP 14–30; TEMP 97.7–98.5; O2SAT 76–100
--- NOTE | 2024-11-22 04:15 | DVH ---
EXAM: XY CHEST PORTABLE DATE OF SERVICE: 11/22/2024 03:46 AM ORDERING PHYSICIAN: GAVINO MORAES RESIDENT REASON FOR EXAM: sob TECHNIQUE: Frontal view of the chest. COMPARISON: XY CHEST PORTABLE on DOS: 11/21/24, XY CHEST PORTABLE on DOS: 11/18/24, XY CHEST PORTABLE o n DOS: 11/17/24, XY CHEST PORTABLE on DOS: 11/17/24, XY CHEST PORTABLE on DOS: 11/16/24, XY CHEST PORTAB LE on DOS: 11/21/24 FINDINGS: LUNGS AND PLEURAL SPACES: See below. HEART: Cardiomegaly with pulmonary congestion and edema. Superimposed pneumonia cannot be excluded. MEDIASTINUM: Unremarkable. Normal mediastinal contour. BONES/JOINTS: Unremarkable. No acute fracture. TUBES, LINES AND DEVICES: Enteric tube tip in the stomach. Tracheostomy tube in satisfactory posit ion. IMPRESSION: Cardiomegaly with pulmonary congestion and edema. Superimposed pneumonia cannot be excluded. End of Report
[2024-11-22 04:40] LABS: Anion Gap 15 (5-15); Carbon Dioxide 23 mmol/L (20-31); Potassium 4.4 mmol/L (3.5-5.1)
[2024-11-22 04:41] LABS: Calcium 9.4 mg/dL (8.7-10.4); Sodium 129 mmol/L (136-145)
[2024-11-22 04:42] LABS: Chloride 91 mmol/L (98-107)
[2024-11-22 04:46] LABS: BUN/Creatinine Ratio 6.2 (10.0-20.0); Blood Urea Nitrogen 35 mg/dL (9-23); Glucose 115 mg/dL (74-106)
[2024-11-22 04:47] LABS: Magnesium 2.1 mg/dL (1.6-2.6)
[2024-11-22 07:13] LABS: Basophils # (auto) 0 10 ^3/uL (0-0.2); Basophils % (auto) 0.4 % (0.0-2.0); Eosinophils # (auto) 0.4 10 ^3/uL (0-0.8); Eosinophils % (auto) 4.3 % (0.0-7.0); Hematocrit 27.7 % (41.0-53.0); Hemoglobin 8.8 g/dL (13.5-17.5); Lymphocytes # (auto) 0.9 10 ^3/uL (0.4-5.4); Lymphocytes % (auto) 10.6 % (10.0-50.0); Mean Corpuscular Hemoglobin 27.6 pg (28.0-32.0); Mean Corpuscular Hgb Conc. 31.7 g/dL (32.0-36.0); Mean Corpuscular Volume 87.2 fL (80.0-100.0); Monocytes # (auto) 0.7 10 ^3/uL (0-1.3); Neutrophils # (auto) 6.2 10 ^3/uL (1.6-8.6); Neutrophils % (auto) 75.7 % (37.0-80.0); Platelet Count (auto) 358 10^3/uL (140-450); Red Blood Cells 3.18 10^6/uL (4.5-5.90); Red Cell Distribution Width 17.5 % (11.8-14.3); White Blood Cell 8.2 10^3/uL (4.4-10.8)
--- NOTE | 2024-11-22 08:41 | DVHPN2 ---
Progress Note - Dictate Date Seen: Nov 22, 2024 Medical Necessity Reason Pt with a Central, PICC or Fol: Yes The following are medically ne: Central Line, Martinez Catheter Reason for martinez catheter: Strict I&O Subjective PT WAS SEEN IN CLINICAL RESP DISTRESS DIFFUSE WHEEZING PMH HFrEF CHRONIC ISCHEMIC CM PAD BILATERAL LE AMPUTEE DIABETES VASCULOPATHY NEPHROPATHY NEUROPATHY HD ESRD vital signs Vital Sign Date Time Temp Pulse Resp B/P (MAP) Pulse Ox O2 Delivery O2 Flow Rate FiO2 11/22/24 07:28 64 14 163/49 (87) 96 30 11/22/24 06:00 Mechanical Ventilator+ 11/22/24 04:00 98.1 98.1 Total Intake and Output 11/21/24 11/21/24 11/22/24 15:00 23:00 07:00 Intake Total 503.853 ml 840.804 ml 659.141 ml Balance 503.853 ml 840.804 ml 659.141 ml medications Current Medications Medications Dose Ordered Sig/Alexander Route Start Time Stop Time Status Last Admin Dose Admin Nitroglycerin 0.4 mg Q5MINP PRN SL 10/30/24 20:00 Aspirin 162 mg DAILY PO 10/31/24 10:00 11/21/24 09:11 162 MG Dextrose 50 ml UD PRN IV 10/30/24 20:15 11/02/24 17:25 50 ML Acetaminophen 650 mg Q6HP PRN PO 10/30/24 20:15 11/04/24 13:02 650 MG Pantoprazole Sodium 40 mg DAILY IV 11/01/24 10:00 11/21/24 09:10 40 MG Enteral Nutritional Formula 1,000 ml 30ML/HR GT 11/03/24 12:15 11/20/24 10:10 1,000 ML Metoclopramide HCl 5 mg Q8HR IV 11/04/24 22:00 11/21/24 22:06 5 MG Calcium Acetate 1,334 mg TID NG 11/07/24 14:00 11/22/24 05:26 1,334 MG Lactulose 30 ml DAILYPRN PRN PO 11/08/24 13:00 Insulin Human Regular Q6HR SC 11/13/24 12:00 11/22/24 00:00 2 UNITS Diagnostic Test (Pha) 1 strip Q6HR 11/13/24 12:00 11/22/24 05:27 1 STRIP Clopidogrel Bisulfate 75 mg DAILY PO 11/16/24 10:00 11/21/24 09:10 75 MG Norepinephrine Bitartrate 250 ml @ 0.938 mls/ hr Q24H IV 11/15/24 13:45 11/20/24 11:37 0.938 MLS/HR Sodium Chloride 10 ml QSHIFT@10,22 IV 11/16/24 22:00 11/21/24 22:06 10 ML Hydralazine HCl 10 mg Q6HP PRN IV 11/18/24 10:30 11/20/24 18:47 10 MG Amino Acid Protein 30 ml TIDWM NG 11/21/24 08:00 Propofol 100 ml @ 2.907 mls/ hr Q24H IV 11/21/24 15:00 11/22/24 05:02 26.163 MLS/HR Midazolam HCl 50 ml @ 1 mls/hr Q24H IV 11/21/24 15:00 Fentanyl Citrate 250 ml @ 2.5 mls/hr Q24H IV 11/21/24 15:00 11/21/24 20:24 20 MLS/HR laboratory and microbiology Laboratory Tests 11/22/24 06:43 11/22/24 03:00 Test 11/22/24 03:00 Range/Units Serum Glucose 115 H 74-106 mg/dL Problem List RESP DISTRESS DIFFUSE WHEEZING PMH HFrEF CHRONIC ISCHEMIC CM PAD BILATERAL LE AMPUTEE DIABETES VASCULOPATHY NEPHROPATHY NEUROPATHY HD ESRD ANEMIA HYPERKALEMIA Assessment/Plan DIALYSIS ABX CORRECT LYTES ECHO S/P DIALYSIS 4L OUT CHECK BNP REPEAT CXR COMPLETE OPACIFICATION OF BOTH LUNGS CXR WITH PT UPRIGHT CONSIDER BRONCHOSCOPY CONSIDER LEFT HEART CATH SIGNIFICANT IMPROVEMENT IN VASCULAR CONGESTION ON CXR CONT DIALYSIS ADD VERQUVO START DIG TITRATE ON VERQUVO LHC * Left main calcified, no flow-restrictive lesion. * Left anterior descending artery, moderate diffuse disease with rapid tapering but no discrete lesions were noted at this time. * Circumflex in the AV groove had in-stent restenosis of greater than 80%-90% status post thrombectomy with stent placement with less than 10% residual stenosis with a 3.0 x 15 mm Ray [place] stent. There was greater than 60% narrowing of the proximal circumflex, status post thrombectomy with stent placement 3.0 x 12 mm Ray [place] stent with less than 10% residual stenosis. * Right coronary artery large dominant vessel without any flow-restrictive lesion. Mild to moderate diffuse disease. However, no discrete lesions were noted. * Left ventricular function showed an EF around 45%-50% with an LVEDP of 15 mmHg. Left ventricular systolic pressure 130. No gradient across the aortic valve. Thus, the patient underwent successful revascularization of in-stent restenosis of obtuse marginal 2/vessel in the AV groove as well as angioplasty with stent placement and thrombectomy of the circumflex proximal segment. At this time, dual-antiplatelet therapy will be initiated and we will continue to follow the patient but overall the patient's current status, the patient's respiratory failure is not indicative of congestive heart failure or acute systolic decompensation. The patient's LVEDP was only 15 mmHg, left ventricular systolic pressure was around 130 with no gradient across the aortic valve. Therefore, the patient's respiratory problem and respiratory arrest is secondary to pulmonary issues as well as renal failure. CXR SIGNIFICANT IMPROVEMENT PCWP NORMAL ELEVATED WBC START WEANING PT S/P PTCA STENT hemodynamically stable check bnp DC ALL SEDATION WEAN PT OFF VENT SUBCLAVIAN VEIN STENOSIS EDEMA ORAL OBSTRUCTION SECONDARY TO SOFT TISSUE SWELLING TRACHEOSTOMY SUBCLAVIAN VEIN STENTING PENDING S/P TRACHEOSTOMY OFF PRESSORS START WEANING OF SEDATION Dietary Evaluation Review Comments: 1. On propofol which supply fat kcaloried at 333 kcal/day if running at 12.6ml/hr. 2.Recommend a low fat high protein TF Vital High Protein @ 40ml/hr providing 84 g Protein, and 960 kcal, 803 ml free water, if running at 24 hrs. the combined nurition support will be 84 g Protein and 1056 kcal, supporting pt's needs for protein at 76.3%, needs for energy at 134%. 3. Reasses pt's TF formulary if pt is off Popofol.but still need TF. 4. Renal standard and CCHO-75 if pt is able to have PO intake after passing a PAINT BOOTH OPERATOR eval, Expected Outcomes/Goals: gradual wt loss. improved lab values with consistant dialysis. Plan discussed with: Patient YESICA YORK MD Nov 22, 2024 08:41
[2024-11-22 09:17] LABS: Base Excess 0.1 mmol/L (-2.0-3.0)
[2024-11-22] MEDS: ALBUMIN 25% 100 ML IV ONE (10:20)
[2024-11-22] MEDS: SODIUM CHL 0.9% 1000 ML BAG XX ONE (10:30)
[2024-11-22] MEDS: ALBUMIN 25% 100 ML IV PRN (10:40)
[2024-11-22] MEDS: amLODIPine BESYLATE 5 MG TAB PO ONE (14:28)
--- NOTE | 2024-11-22 17:05 | DVH ---
CHEST RADIOGRAPH Indication: VERIFY TRACH PLACEMENT Technique: Single frontal view of the chest was obtained COMPARISON: XY CHEST PORTABLE on DOS: 11/22/24, XY CHEST PORTABLE on DOS: 11/21/24, XY CHEST XRAY 1 VIE W on DOS: 11/20/24, XY CHEST PORTABLE on DOS: 11/18/24, XY CHEST PORTABLE on DOS: 11/17/24 FINDINGS: Lines and Tubes: Tracheostomy tube seen ending 4.1 cm above the patrick. NG tube coursing into the stomach but not seen distally Lungs: Elevated right hemidiaphragm Pleural effusions or pneumothorax Mild prominence right heart border Pleura: No effusion. No pneumothorax. Bones: Unremarkable IMPRESSION: 1. Prominent right heart border which may be artifactualTracheostomy Tube in his 4.1 cm above the patrick Marked elevation right hemidiaphragm with diminished volume right lung
--- NOTE | 2024-11-22 17:16 | DVHNC2 ---
Other Procedure Procedure BRONCHOSCOPY INDICATION: HYPOXIA/SECRETIONS DESCRIPTION: PATIENT OXYGENATED WITH 100 % OXYGEN. BRONCHOSCOPE ADVANCED TO RIGHT LUNG. COPIOUS MUCUS SUCTIONED FROM SEGMENTS R1 TO R10. SCOPE WAS THEN ADVANCED TO LEFT LUNG AND MUCUS SUCTIONED FROM L5 TO L10. OXYGEN SATURATIONS IMPROVED. TRACH IN GOOD POSITION Indication HYPOXIA, RIGHT LUNG COLLAPSE Informed consent obtained: No Date of Service: Nov 22, 2024 Billing Provider: CECILIA SOSA MD Common Visit Codes: PROCEDURE ONLY Procedure Codes: [id number] CECILIA SOSA MD Nov 22, 2024 17:16
--- NOTE | 2024-11-22 17:33 | DVHPN2 ---
Progress Note Date Seen: Nov 22, 2024 Medical Necessity Reason Pt with a Central, PICC or Fol: Yes The following are medically ne: Central Line, Martinez Catheter Reason for martinez catheter: Strict I&O Subjective Patient reports: Other (trach ) Review of Systems: Deferred Objective vital signs Vital Sign Date Time Temp Pulse Resp B/P (MAP) Pulse Ox O2 Delivery O2 Flow Rate FiO2 11/22/24 16:02 150/49 11/22/24 15:59 77 14 96 50 11/22/24 14:00 Mechanical Ventilator+ 11/22/24 12:00 98.0 98.0 Total Intake and Output 11/21/24 11/21/24 11/22/24 15:00 23:00 07:00 Intake Total 503.853 ml 840.804 ml 685.304 ml Balance 503.853 ml 840.804 ml 685.304 ml medications Current Medications Medications Dose Ordered Sig/Alexander Route Start Time Stop Time Status Last Admin Dose Admin Nitroglycerin 0.4 mg Q5MINP PRN SL 10/30/24 20:00 Aspirin 162 mg DAILY PO 10/31/24 10:00 11/22/24 14:25 162 MG Dextrose 50 ml UD PRN IV 10/30/24 20:15 11/02/24 17:25 50 ML Acetaminophen 650 mg Q6HP PRN PO 10/30/24 20:15 11/04/24 13:02 650 MG Pantoprazole Sodium 40 mg DAILY IV 11/01/24 10:00 11/22/24 14:24 40 MG Enteral Nutritional Formula 1,000 ml 30ML/HR GT 11/03/24 12:15 11/22/24 14:29 1,000 ML Metoclopramide HCl 5 mg Q8HR IV 11/04/24 22:00 11/22/24 14:25 5 MG Calcium Acetate 1,334 mg TID NG 11/07/24 14:00 11/22/24 14:25 1,334 MG Lactulose 30 ml DAILYPRN PRN PO 11/08/24 13:00 Insulin Human Regular Q6HR SC 11/13/24 12:00 11/22/24 00:00 2 UNITS Diagnostic Test (Pha) 1 strip Q6HR 11/13/24 12:00 11/22/24 11:54 1 STRIP Clopidogrel Bisulfate 75 mg DAILY PO 11/16/24 10:00 11/22/24 14:24 75 MG Sodium Chloride 10 ml QSHIFT@10,22 IV 11/16/24 22:00 11/22/24 14:25 10 ML Hydralazine HCl 10 mg Q6HP PRN IV 11/18/24 10:30 11/20/24 18:47 10 MG Amino Acid Protein 30 ml TIDWM NG 11/21/24 08:00 Propofol 100 ml @ 2.907 mls/ hr Q24H IV 11/21/24 15:00 11/22/24 16:02 29.07 MLS/HR Midazolam HCl 50 ml @ 1 mls/hr Q24H IV 11/21/24 15:00 Fentanyl Citrate 250 ml @ 2.5 mls/hr Q24H IV 11/21/24 15:00 11/21/24 20:24 20 MLS/HR Albumin Human 100 ml @ 100 mls/hr PRN PRN IV 11/22/24 10:00 11/22/24 10:40 100 MLS/HR Amlodipine Besylate 10 mg DAILY PO 11/23/24 10:00 Examination: GENERAL:Abnormal, LUNGS:Abnormal, SKIN:Abnormal laboratory and microbiology Laboratory Tests 11/22/24 06:43 11/22/24 03:00 Test 11/22/24 03:00 Range/Units Serum Glucose 115 H 74-106 mg/dL Microbiology Date/Time Source Procedure Growth Status 10/31/24 11:05 Nose MRSA Screen - Final Complete 10/31/24 10:50 Blood Blood Culture - Final NO GROWTH AFTER 5 DAYS OF INCUBATION. Complete 10/31/24 10:45 Sputum Gram Stain - Final Complete 10/31/24 10:45 Respiratory Culture - Final Enterobacter aerogenes Complete 10/30/24 19:19 Urine - [place] Urine Culture - Final Escherichia coli - ESBL Complete Problem List/Assessment/Plan Problem List/Assessment/Plan ESRD on hemodialysis Right upper extremity right neck and tongue swelling swelling rule out SVC syndrome Acute respiratory failure, patient intubated on ventilator-> trach to vent Morbid obesity NSTEMI Congestive heart failure Diabetes mellitus type 2 Anemia of chronic kidney disease Peripheral arterial disease ESBL UTI 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 hemodialysis Fluid restriction Nepro tube feeding Plan discussed with: Other My Orders My Orders Orders - ASHLEY HINKLE MD Procedure Category Date Status Time Hemodialysis Orders ORDERS 11/22/24 Transmitted 07:00 Dialysis Nursing PIYUSH 11/22/24 In Process Message 07:00 Document Fluid Input PIYUSH 11/22/24 In Process And Outpu 07:00 Albumin 25% (Albutein) PHA 11/22/24 In Process 10:00 Dietary Evaluation Review Comments: 1. On propofol which supply fat kcaloried at 333 kcal/day if running at 12.6ml/hr. 2.Recommend a low fat high protein TF Vital High Protein @ 40ml/hr providing 84 g Protein, and 960 kcal, 803 ml free water, if running at 24 hrs. the combined nurition support will be 84 g Protein and 1056 kcal, supporting pt's needs for protein at 76.3%, needs for energy at 134%. 3. Reasses pt's TF formulary if pt is off Popofol.but still need TF. 4. Renal standard and CCHO-75 if pt is able to have PO intake after passing a VIDEO LIBRARY ASSISTANT eval, Expected Outcomes/Goals: gradual wt loss. improved lab values with consistant dialysis. ASHLEY HINKLE MD Nov 22, 2024 17:33
--- NOTE | 2024-11-22 18:16 | DVHPNRES ---
Progress Note Date Seen: Nov 22, 2024 Resident Creating Document: GAVINO MORAES RESIDENT Medical Necessity Reason Pt with a Central, PICC or Fol: Yes The following are medically ne: Central Line, Martinez Catheter Reason for martinez catheter: Strict I&O Subjective Review of Systems pt underwent bronch due to mucus plug, vent settings got better afterwards Patient will be transferred to LTAC facility, will continue medications as prescribed in a spread sheet. Family members verbalized understanding and agree with the plan, we spent 35 minutes explaining the plan. Objective vital signs Vital Sign Date Time Temp Pulse Resp B/P (MAP) Pulse Ox O2 Delivery O2 Flow Rate FiO2 11/22/24 17:38 98.0 79 22 97 11/22/24 16:02 150/49 11/22/24 15:59 50 11/22/24 14:00 Mechanical Ventilator+ Total Intake and Output 11/21/24 11/21/24 11/22/24 15:00 23:00 07:00 Intake Total 503.853 ml 840.804 ml 685.304 ml Balance 503.853 ml 840.804 ml 685.304 ml medications Current Medications Medications Dose Ordered Sig/Alexander Route Start Time Stop Time Status Last Admin Dose Admin Nitroglycerin 0.4 mg Q5MINP PRN SL 10/30/24 20:00 Aspirin 162 mg DAILY PO 10/31/24 10:00 11/22/24 14:25 162 MG Dextrose 50 ml UD PRN IV 10/30/24 20:15 11/02/24 17:25 50 ML Acetaminophen 650 mg Q6HP PRN PO 10/30/24 20:15 11/04/24 13:02 650 MG Pantoprazole Sodium 40 mg DAILY IV 11/01/24 10:00 11/22/24 14:24 40 MG Enteral Nutritional Formula 1,000 ml 30ML/HR GT 11/03/24 12:15 11/22/24 14:29 1,000 ML Metoclopramide HCl 5 mg Q8HR IV 11/04/24 22:00 11/22/24 14:25 5 MG Calcium Acetate 1,334 mg TID NG 11/07/24 14:00 11/22/24 14:25 1,334 MG Lactulose 30 ml DAILYPRN PRN PO 11/08/24 13:00 Insulin Human Regular Q6HR SC 11/13/24 12:00 11/22/24 00:00 2 UNITS Diagnostic Test (Pha) 1 strip Q6HR 11/13/24 12:00 11/22/24 11:54 1 STRIP Clopidogrel Bisulfate 75 mg DAILY PO 11/16/24 10:00 11/22/24 14:24 75 MG Sodium Chloride 10 ml QSHIFT@10,22 IV 11/16/24 22:00 11/22/24 14:25 10 ML Hydralazine HCl 10 mg Q6HP PRN IV 11/18/24 10:30 11/20/24 18:47 10 MG Amino Acid Protein 30 ml TIDWM NG 11/21/24 08:00 Propofol 100 ml @ 2.907 mls/ hr Q24H IV 11/21/24 15:00 11/22/24 16:02 29.07 MLS/HR Midazolam HCl 50 ml @ 1 mls/hr Q24H IV 11/21/24 15:00 Fentanyl Citrate 250 ml @ 2.5 mls/hr Q24H IV 11/21/24 15:00 11/21/24 20:24 20 MLS/HR Albumin Human 100 ml @ 100 mls/hr PRN PRN IV 11/22/24 10:00 11/22/24 10:40 100 MLS/HR Amlodipine Besylate 10 mg DAILY PO 11/23/24 10:00 Examination Physical examination as below: General: Mechanically ventilated, trach HEENT: Head is normocephalic and atraumatic. Pupils are equal, round, and reactive to light. Significant swelling on tongue with wound on ventral aspect. Neck: Supple with no cervical lymphadenopathy. Heart: Regular rate without murmur, rub, or gallop. Lungs: Equal breath sounds bilaterally with no wheezing, rales, or rhonchi. There is no chest wall tenderness or instability. Abdomen: No external sign of injury. Bowel sounds are present. Extremities: Strong peripheral pulses. There is no clubbing, no cyanosis. Significant pitting edema on right upper arm, right chest and neck, tender, no erythema. Skin: No rash. Neurologic: Sedated laboratory and microbiology Laboratory Tests 11/22/24 06:43 11/22/24 03:00 Test 11/22/24 03:00 Range/Units Serum Glucose 115 H 74-106 mg/dL Microbiology Date/Time Source Procedure Growth Status 10/31/24 11:05 Nose MRSA Screen - Final Complete 10/31/24 10:50 Blood Blood Culture - Final NO GROWTH AFTER 5 DAYS OF INCUBATION. Complete 10/31/24 10:45 Sputum Gram Stain - Final Complete 10/31/24 10:45 Respiratory Culture - Final Enterobacter aerogenes Complete 10/30/24 19:19 Urine - [place] Urine Culture - Final Escherichia coli - ESBL Complete Labs and/or images reviewed: Labs reviewed by me, Image(s) reviewed by me Problem List/Assessment/Plan Problem List/Assessment/Plan Neurology #Metabolic encephalopathy due to septic shock form UTI and pneumonia On fent and propofol and versed Cardiovascular #Acute on chronic systolic CHF #Ischemic cardiomyopathy #Peripheral artery disease, s/p amputation #Hypertension, Hydralazine IV prn Aspirin plavix 75mg po qd Continue hemodialysis Senior Geotechnical Engineer following, [facility] on 11/09/24, s/p PCI 2x Pulmonology #Acute hypoxic respiratory failure with mechanical ventilation #Pneumonia, gram (+) vs gram (-), atypicals, growing Enterobacter aeruginosa #mucous plug Continue Merrem MV: FIO2: 30% RR: 18 TV 450 PEEP: 5 trach performed by surgeon, no complications Nephrology #ESRD on HD # distal stenosis of AV fistula(right arm swelling and pitting edema) AV fistula working Continue HD Continuity Writer following consulted IR for intervention on av fisulta stenosis, angioplasty performed on 11/14/24 Endocrinology #Morbid obesity #Bilateral lower extremity BK amputation #T2DM SSI Gastroenterology Continue tube feedings: Nepro Continue reglan iv Lactulose prn #Macroglossia and neck swelling due to av fistula stenosis and clot on subclavian IR angioplasty performed on 11/14/24 wound care for tongue Hematology and Oncology #Anemia of chronic disease Monitor Infectious Disease #Pneumonia, gram (+) vs gram (-), atypicals, growing Enterobacter aeruginosa #UTI, growing ESBL E. coli Merrem IV Dermatology x DVT ppx Heparin iv PUD ppx Protonix Drips Levo held Fent Propofol Lines TLC Right femoral 10/31/24 ET tube 10/31/24, s/p trach on 11/17/24 Martinez 10/31/24 Updated family members on patient's current status Discussed with spouse patient current status. Consulted [facility] for LTAC, pending bed Goals of care were discussed for over 30 minutes. FULL CODE. Critical care time spent excluding procedures and including family meeting was 81 mins Patient will be transferred to LTAC facility, will continue medications as prescribed in a spread sheet. Family members verbalized understanding and agree with the plan, we spent 35 minutes explaining the plan. critical care time outside of procedures was 61 mins Case was discussed with Dr. Sosa Plan discussed with: Other (RN) My Orders My Orders Orders - GAVINO MORAES Procedure Category Date Status Time Chest Portable XY 11/22/24 Resulted 04:00 Abg W/ Co-Ox RT 11/22/24 Logged 08:59 Discharge DISCHARGE 11/22/24 Transmitted 09:54 Amlodipine Tablet PHA 11/23/24 In Process (Norvasc Tablet) 10:00 Chest Xray 1 View XY 11/22/24 Resulted 16:23 Dietary Evaluation Review Comments: 1. On propofol which supply fat kcaloried at 333 kcal/day if running at 12.6ml/hr. 2.Recommend a low fat high protein TF Vital High Protein @ 40ml/hr providing 84 g Protein, and 960 kcal, 803 ml free water, if running at 24 hrs. the combined nurition support will be 84 g Protein and 1056 kcal, supporting pt's needs for protein at 76.3%, needs for energy at 134%. 3. Reasses pt's TF formulary if pt is off Popofol.but still need TF. 4. Renal standard and CCHO-75 if pt is able to have PO intake after passing a HIDE SELECTOR eval, Expected Outcomes/Goals: gradual wt loss. improved lab values with consistant dialysis. Date of Service: Nov 22, 2024 Billing Provider: CECILIA SOSA MD Common Visit Codes: [id number] CARE 30-74 MIN, [id number] CARE-EACH +30MIN GAVINO MORAES Nov 22, 2024 18:16 CECILIA SOSA MD Nov 25, 2024 12:33
[2024-11-23] MEDS ORDERED: amLODIPine BESYLATE 5 MG TAB PO SCH (10:00)
--- NOTE | 2024-11-24 09:05 | DVHPN2 ---
Progress Note - Dictate Date Seen: Nov 23, 2024 Medical Necessity Reason Pt with a Central, PICC or Fol: Yes The following are medically ne: Central Line, Martinez Catheter Reason for martniez catheter: Strict I&O Subjective PT WAS SEEN IN CLINICAL RESP DISTRESS DIFFUSE WHEEZING PMH HFrEF CHRONIC ISCHEMIC CM PAD BILATERAL LE AMPUTEE DIABETES VASCULOPATHY NEPHROPATHY NEUROPATHY HD ESRD vital signs Vital Sign Date Time Temp Pulse Resp B/P (MAP) Pulse Ox O2 Delivery O2 Flow Rate FiO2 11/22/24 20:45 75 15 154/48 (83) 96 11/22/24 20:14 40 11/22/24 20:00 97.7 97.7 11/22/24 19:45 Mechanical Ventilator+ laboratory and microbiology Laboratory Tests 11/22/24 06:43 11/22/24 03:00 Test 11/22/24 03:00 Range/Units Serum Glucose 115 H 74-106 mg/dL Problem List RESP DISTRESS DIFFUSE WHEEZING PMH HFrEF CHRONIC ISCHEMIC CM PAD BILATERAL LE AMPUTEE DIABETES VASCULOPATHY NEPHROPATHY NEUROPATHY HD ESRD ANEMIA HYPERKALEMIA Assessment/Plan DIALYSIS ABX CORRECT LYTES ECHO S/P DIALYSIS 4L OUT CHECK BNP REPEAT CXR COMPLETE OPACIFICATION OF BOTH LUNGS CXR WITH PT UPRIGHT CONSIDER BRONCHOSCOPY CONSIDER LEFT HEART CATH SIGNIFICANT IMPROVEMENT IN VASCULAR CONGESTION ON CXR CONT DIALYSIS ADD VERQUVO START DIG TITRATE ON VERQUVO LHC * Left main calcified, no flow-restrictive lesion. * Left anterior descending artery, moderate diffuse disease with rapid tapering but no discrete lesions were noted at this time. * Circumflex in the AV groove had in-stent restenosis of greater than 80%-90% status post thrombectomy with stent placement with less than 10% residual stenosis with a 3.0 x 15 mm Ray Whiteriver stent. There was greater than 60% narrowing of the proximal circumflex, status post thrombectomy with stent placement 3.0 x 12 mm Ray Whiteriver stent with less than 10% residual stenosis. * Right coronary artery large dominant vessel without any flow-restrictive lesion. Mild to moderate diffuse disease. However, no discrete lesions were noted. * Left ventricular function showed an EF around 45%-50% with an LVEDP of 15 mmHg. Left ventricular systolic pressure 130. No gradient across the aortic valve. Thus, the patient underwent successful revascularization of in-stent restenosis of obtuse marginal 2/vessel in the AV groove as well as angioplasty with stent placement and thrombectomy of the circumflex proximal segment. At this time, dual-antiplatelet therapy will be initiated and we will continue to follow the patient but overall the patient's current status, the patient's respiratory failure is not indicative of congestive heart failure or acute systolic decompensation. The patient's LVEDP was only 15 mmHg, left ventricular systolic pressure was around 130 with no gradient across the aortic valve. Therefore, the patient's respiratory problem and respiratory arrest is secondary to pulmonary issues as well as renal failure. CXR SIGNIFICANT IMPROVEMENT PCWP NORMAL ELEVATED WBC START WEANING PT S/P PTCA STENT hemodynamically stable check bnp DC ALL SEDATION WEAN PT OFF VENT SUBCLAVIAN VEIN STENOSIS EDEMA ORAL OBSTRUCTION SECONDARY TO SOFT TISSUE SWELLING TRACHEOSTOMY SUBCLAVIAN VEIN STENTING PENDING S/P TRACHEOSTOMY OFF PRESSORS START WEANING OF SEDATION Dietary Evaluation Review Comments: 1. On propofol which supply fat kcaloried at 333 kcal/day if running at 12.6ml/hr. 2.Recommend a low fat high protein TF Vital High Protein @ 40ml/hr providing 84 g Protein, and 960 kcal, 803 ml free water, if running at 24 hrs. the combined nurition support will be 84 g Protein and 1056 kcal, supporting pt's needs for protein at 76.3%, needs for energy at 134%. 3. Reasses pt's TF formulary if pt is off Popofol.but still need TF. 4. Renal standard and CCHO-75 if pt is able to have PO intake after passing a WELFARE SERVICE AIDE eval, Expected Outcomes/Goals: gradual wt loss. improved lab values with consistant dialysis. Plan discussed with: Spouse Critical Care Time(min): 35 YESICA YORK MD Nov 24, 2024 09:05
== END 2024-11-22 21:00 | DRG 3 ==
LOC: ER 16:03 → EDBD 16:03 → EDUNIT# 16:03 → OVERFLOW 19:59 → TELE-CENTR 10-31 03:16 → ICU WEST 10-31 10:36
PROVIDERS: ADMIT Internal Medicine; ATTEND Emergency Medicine
PROC: 5A09357 Assistance with Respiratory Ventilation, Less than 24 Consecutive Hours, Continuous Positive Airway Pressure (ICD-10-PCS; 2024-10-30)
PROC: 5A1955Z Respiratory Ventilation, Greater than 96 Consecutive Hours (ICD-10-PCS; principal; 2024-10-31)
PROC: 06HY33Z Insertion of Infusion Device into Lower Vein, Percutaneous Approach (ICD-10-PCS; 2024-10-31)
PROC: 04HY32Z Insertion of Monitoring Device into Lower Artery, Percutaneous Approach (ICD-10-PCS; 2024-10-31)
PROC: 0BH17EZ Insertion of Endotracheal Airway into Trachea, Via Natural or Artificial Opening (ICD-10-PCS; 2024-10-31)
PROC: 5A1D70Z Performance of Urinary Filtration, Intermittent, Less than 6 Hours Per Day (ICD-10-PCS; 2024-10-31)
PROC: 0JH63XZ Insertion of Tunneled Vascular Access Device into Chest Subcutaneous Tissue and Fascia, Percutaneous Approach (ICD-10-PCS; 2024-10-31)
PROC: 5A1D70Z Performance of Urinary Filtration, Intermittent, Less than 6 Hours Per Day (ICD-10-PCS; 2024-11-01)
PROC: 5A1D70Z Performance of Urinary Filtration, Intermittent, Less than 6 Hours Per Day (ICD-10-PCS; 2024-11-03)
PROC: 5A1D70Z Performance of Urinary Filtration, Intermittent, Less than 6 Hours Per Day (ICD-10-PCS; 2024-11-05)
PROC: 5A1D70Z Performance of Urinary Filtration, Intermittent, Less than 6 Hours Per Day (ICD-10-PCS; 2024-11-07)
PROC: 02HV33Z Insertion of Infusion Device into Superior Vena Cava, Percutaneous Approach (ICD-10-PCS; 2024-11-08)
PROC: 027035Z Dilation of Coronary Artery, One Artery with Two Drug-eluting Intraluminal Devices, Percutaneous Approach (ICD-10-PCS; 2024-11-09)
PROC: 02F03ZZ Fragmentation in Coronary Artery, One Artery, Percutaneous Approach (ICD-10-PCS; 2024-11-09)
PROC: 02C03ZZ Extirpation of Matter from Coronary Artery, One Artery, Percutaneous Approach (ICD-10-PCS; 2024-11-09)
PROC: B211YZZ Fluoroscopy of Multiple Coronary Arteries using Other Contrast (ICD-10-PCS; 2024-11-09)
PROC: B215YZZ Fluoroscopy of Left Heart using Other Contrast (ICD-10-PCS; 2024-11-09)
PROC: 4A023N7 Measurement of Cardiac Sampling and Pressure, Left Heart, Percutaneous Approach (ICD-10-PCS; 2024-11-09)
PROC: 4A033BC Measurement of Arterial Pressure, Coronary, Percutaneous Approach (ICD-10-PCS; 2024-11-09)
PROC: 5A1D70Z Performance of Urinary Filtration, Intermittent, Less than 6 Hours Per Day (ICD-10-PCS; 2024-11-09)
PROC: 5A1D70Z Performance of Urinary Filtration, Intermittent, Less than 6 Hours Per Day (ICD-10-PCS; 2024-11-12)
PROC: 057D3ZZ Dilation of Right Cephalic Vein, Percutaneous Approach (ICD-10-PCS; 2024-11-14)
PROC: B516YZZ Fluoroscopy of Right Subclavian Vein using Other Contrast (ICD-10-PCS; 2024-11-14)
PROC: B51MYZZ Fluoroscopy of Right Upper Extremity Veins using Other Contrast (ICD-10-PCS; 2024-11-14)
PROC: 05753DZ Dilation of Right Subclavian Vein with Intraluminal Device, Percutaneous Approach (ICD-10-PCS; 2024-11-15)
PROC: 05733DZ Dilation of Right Innominate Vein with Intraluminal Device, Percutaneous Approach (ICD-10-PCS; 2024-11-15)
PROC: B519YZZ Fluoroscopy of Inferior Vena Cava using Other Contrast (ICD-10-PCS; 2024-11-15)
PROC: 5A1D70Z Performance of Urinary Filtration, Intermittent, Less than 6 Hours Per Day (ICD-10-PCS; 2024-11-15)
PROC: 06HY33Z Insertion of Infusion Device into Lower Vein, Percutaneous Approach (ICD-10-PCS; 2024-11-16)
PROC: B54CZZA Ultrasonography of Left Lower Extremity Veins, Guidance (ICD-10-PCS; 2024-11-16)
PROC: 0B110F4 Bypass Trachea to Cutaneous with Tracheostomy Device, Open Approach (ICD-10-PCS; 2024-11-17)
PROC: 5A1D70Z Performance of Urinary Filtration, Intermittent, Less than 6 Hours Per Day (ICD-10-PCS; 2024-11-17)
PROC: 5A1D70Z Performance of Urinary Filtration, Intermittent, Less than 6 Hours Per Day (ICD-10-PCS; 2024-11-20)
PROC: 0BC78ZZ Extirpation of Matter from Left Main Bronchus, Via Natural or Artificial Opening Endoscopic (ICD-10-PCS; 2024-11-22)
PROC: 0BC38ZZ Extirpation of Matter from Right Main Bronchus, Via Natural or Artificial Opening Endoscopic (ICD-10-PCS; 2024-11-22)
PROC: 5A1D70Z Performance of Urinary Filtration, Intermittent, Less than 6 Hours Per Day (ICD-10-PCS; 2024-11-22)
DX: A41.51 Sepsis due to Escherichia coli [E. coli] (principal); G93.41 Metabolic encephalopathy; J96.01 Acute respiratory failure with hypoxia; N18.6 End stage renal disease; J15.69 Pneumonia due to other Gram-negative bacteria; R65.21 Severe sepsis with septic shock; J15.9 Unspecified bacterial pneumonia; I21.A1 Myocardial infarction type 2; I50.23 Acute on chronic systolic (congestive) heart failure; I13.2 Hypertensive heart and chronic kidney disease with heart failure and with stage 5 chronic kidney disease, or end stage renal disease; Z99.11 Dependence on respirator [ventilator] status; Z68.42 Body mass index [BMI] 45.0-49.9, adult; J44.0 Chronic obstructive pulmonary disease with (acute) lower respiratory infection; M31.9 Necrotizing vasculopathy, unspecified; I87.1 Compression of vein; Z16.12 Extended spectrum beta lactamase (ESBL) resistance; T82.855A Stenosis of coronary artery stent, initial encounter; T82.858A Stenosis of other vascular prosthetic devices, implants and grafts, initial encounter; I82.B11 Acute embolism and thrombosis of right subclavian vein; I82.210 Acute embolism and thrombosis of superior vena cava; D63.1 Anemia in chronic kidney disease; E66.01 Morbid (severe) obesity due to excess calories; E78.5 Hyperlipidemia, unspecified; E87.5 Hyperkalemia; N30.90 Cystitis, unspecified without hematuria; I25.5 Ischemic cardiomyopathy; E11.40 Type 2 diabetes mellitus with diabetic neuropathy, unspecified; I25.10 Atherosclerotic heart disease of native coronary artery without angina pectoris; Z20.822 Contact with and (suspected) exposure to COVID-19; G47.33 Obstructive sleep apnea (adult) (pediatric); E11.51 Type 2 diabetes mellitus with diabetic peripheral angiopathy without gangrene; Y83.1 Surgical operation with implant of artificial internal device as the cause of abnormal reaction of the patient, or of later complication, without mention of misadventure at the time of the procedure; E11.22 Type 2 diabetes mellitus with diabetic chronic kidney disease; Z99.2 Dependence on renal dialysis; Z87.891 Personal history of nicotine dependence; Z83.3 Family history of diabetes mellitus; Z89.511 Acquired absence of right leg below knee; Z89.512 Acquired absence of left leg below knee; Z79.2 Long term (current) use of antibiotics; Z79.899 Other long term (current) drug therapy; Z79.4 Long term (current) use of insulin; Z79.891 Long term (current) use of opiate analgesic; Z80.0 Family history of malignant neoplasm of digestive organs; Q38.2 Macroglossia; Y92.89 Other specified places as the place of occurrence of the external cause
CPT/HCPCS: 36415; 36556; 36569; 36600; 37248; 70490; 70498; 71045; 71260; 73201; 74018; 75825; 76080; 76937; 80048; 80053; 80061; 80162; 81001; 82805; 82962; 83036; 83735; 83880; 84100; 84439; 84443; 84480; 84484; 85007; 85025; 85027; 85610; 85730; 86706; 86850; 86900; 86901; 87040; 87070; 87077; 87081; 87086; 87088; 87186; 87205; 87340; 87426; 87804; 90935; 92941; 92950; 92973; 93005; 93306; 93458; 93571; 93971; 94002; 94003; 96365; 96372; 96375; 99152; 99291; 99292; C1725; C1876; C1894; G0378; J1100; J1815; J2185; J2470; J2543; J2704; J3490; J7042; J7060; P9047; Q9967